=== PATIENT | female | born 1935 | race Caucasian/White ===

== ENCOUNTER → 2018-10-07 10:37 | Outpatient (CLI) | payer MEDICARE, OTHER, SELFPAY ==
--- NOTE | 2018-10-07 10:43 | RAD_ITS ---
STUDY: X-RAY - BILATERAL RIBS WITH CHEST REASON FOR EXAM: Female, 83 years old. Painful anterior chest following a recent fall. TECHNIQUE - RIBS: 4 view(s) of the ribs. TECHNIQUE - CHEST: Single PA view of the chest. COMPARISON: None. FINDINGS - RIBS : Normal visualized ribs without a demonstrated fracture. FINDINGS - CHEST: Hyperinflation. Mild increased linear markings at the lung bases slightly worse on the left side suggestive of bibasilar scarring and/or atelectasis. Surgical clips are seen in the right axillary region. Normal size heart. Normal mediastinum and laureano. Normal visualized pulmonary arteries. There is atherosclerotic calcification of the aortic arch with tortuosity. There is a levoscoliosis of the thoracic spine. There is degenerative osteoarthritis of the bilateral shoulders. There is no demonstrated abnormality of the visualized soft tissue structures of the upper abdomen. RAD/Ribs Carlos Min 4V w/PA Chest IMPRESSION: RIBS: Normal x-ray examination of the bilateral ribs. CHEST: Mild increased markings at the lung bases slightly worse on the left side suggestive of a linear atelectasis and/or scarring. Electronically Signed: Jeremy Carney MD at 12:43 EST Tel [phone], Service support ,
--- OUTSIDE RECORDS SUMMARY | 2018-12-09 13:30 | XMS RPT_ITS ---
:1935 Author Organization OHIP Care Team Providers Name Role Phone Sylvia Cuevas Attending Unavailable Sylvia Cuevas Referring Unavailable Sylvia Cuevas Primary Care Unavailable PROBLEMS PROBLEMS No Problem Records FoundPROCEDURES PROCEDURES No Procedure Records FoundRESULTS RESULTS RIBS HAIR MIN 4V Observed: 10/07/2018 Status: F Source: [place] W/PA CHEST 10:[address] [facility] REPOSITORY [facility] Imaging Services [address] [place] [address] Ribs Hair Min 4V w/PA Chest MR#: [id number] Acct: [id number] Name: LORENA ANSARI Rep #: [id number] : 1935 F 83 From: Jeremy Carney MD PCP: ySlvia Cuevas MD Status: REG CLI Study: Ribs Hair Min 4V w/PA Chest Date of Exam: 10/07/18 Exam# [id number] Ordering Dr: Sylvia Cuevas MD STUDY: X-RAY - BILATERAL RIBS WITH CHEST REASON FOR EXAM: Female, 83 years old. Painful anterior chest following a recent fall. TECHNIQUE - RIBS: 4 view(s) of the ribs. TECHNIQUE - CHEST: Single PA view of the chest. COMPARISON: None. FINDINGS - RIBS : Normal visualized ribs without a demonstrated fracture. FINDINGS - CHEST: Hyperinflation. Mild increased linear markings at the lung bases slightly worse on the left side suggestive of bibasilar scarring and/or atelectasis. Surgical clips are seen in the right axillary region. Normal size heart. Normal mediastinum and laureano. Normal visualized pulmonary arteries. There is atherosclerotic calcification of the aortic arch with tortuosity. There is a levoscoliosis of the thoracic spine. There is degenerative osteoarthritis of the bilateral shoulders. There is no demonstrated abnormality of the visualized soft tissue structures of the upper abdomen. RAD/Ribs Hair Min 4V w/PA Chest IMPRESSION: RIBS: Normal x-ray examination of the bilateral ribs. CHEST: Mild increased markings at the lung bases slightly worse on the left side suggestive of a linear atelectasis and/or scarring. Electronically Signed: Jeremy Carney MD at 12:43 EST Tel [phone], Service support , CC: Sylvia Cuevas MD [employer]: Signed ALLERGIES ALLERGIES DATE TYPE / CODE NAME / CODE REACTION SEVERITY SOURCE 07/21/2015 Drug No Known Unknown [place] [facility] Allergy/4160 Allergies/F00 [facility] [address]0496(SNOMED [id number](RXNOR Repository CT) M) ENCOUNTERS ENCOUNTERS ADMIT/DISCHARGE ACCOUNT ADMITTING ENCOUNTER LOCATION SOURCE NUMBER CLASS 10/07/2018 [id number] Ambulatory [place] [address] [place] [address] ing:MTRAD Repository PAYERS PAYERS ENCOUNTER GUARANTOR PAYER SUBSCRIBER SOURCE 10/07/2018 LORENA E Primary LORENA E [place] [id number] Insurance:MEDICARE PARKERDOB: [facility] [id number] Number: Repository [id number]: [phone] [id number] [phone] () Date:2018-10-07 10/07/2018 Secondary LORENA E [place] Insurance:EQUITABLEPo PARKERDOB: [facility] Number: [id number] [id number] Repository Date:[id number] [address]CZ: 10/07/2018 Tertiary NOT GIVENUNK [place] Insurance:SELF PAY [facility] Number: Effective Repository Date:2018-10-07
== END ==
PROVIDERS: Family Provider Family Medicine; PCP Family Medicine; Referring Provider Family Medicine; Visit Provider Family Medicine
DX: S20.219A Contusion of unspecified front wall of thorax, initial encounter (principal); X58.XXXA Exposure to other specified factors, initial encounter; Y93.9 Activity, unspecified; Y92.9 Unspecified place or not applicable; Y99.9 Unspecified external cause status
CPT/HCPCS: 71111

== ENCOUNTER → 2018-10-21 15:09 | Outpatient (CLI) | payer MEDICARE, OTHER, SELFPAY ==
--- NOTE | 2018-10-21 15:15 | RAD_ITS ---
STUDY: X-RAY - ABDOMEN/PELVIS REASON FOR EXAM: Female, 83 years old. Abdominal pain. TECHNIQUE: AP supine and upright views of the abdomen and pelvis. COMPARISON: None. FINDINGS: Normal visualized lung bases. There is an unremarkable bowel gas pattern. There is no demonstrated free abdominal air. Calcified splenic granuloma. Normal soft tissue structures. There are diffuse degenerative changes of the visualized lumbar spine. Dextroscoliosis. Right total hip replacement. RAD/Abd Inc Decub and/or Erect IMPRESSION: Unremarkable gas bowel pattern. Electronically Signed: Jeremy Carney MD at 15:35 EST , Service support ,
== END ==
PROVIDERS: Family Provider Family Medicine; PCP Family Medicine; Referring Provider Family Medicine; Visit Provider Family Medicine
DX: R10.9 Unspecified abdominal pain (principal)
CPT/HCPCS: 74019

== ENCOUNTER → 2018-10-22 14:45 | Outpatient (CLI) | payer MEDICARE, OTHER, SELFPAY ==
[2018-10-22 16:15] LABS: Absolute Lymphocyte Count 2.65 X10^3/ul (0.83-4.51); Absolute Neutrophil Count 7.9 X10^3/uL (2.0-7.7); Basophil# 0.03 X10^3/uL; Basophil% 0.2 % (0-1); Eosinophil# 0.12 X10^3/uL; Hematocrit 46.6 % (37-47); Hemoglobin 14.7 g/dl (12.0-15.0); Lymphocyte # 2.65 X10^3/ul (4.0); Lymphocyte % 21.9 % (19-41); Mean Corp Hgb Conc 31.5 g/gl (32-36); Mean Corpuscular Hgb 29.2 pg (27.0-32.0); Mean Corpuscular Volume 92.6 fL (81-99); Mean Platelet Vol. 9.9 fl (6.2-12.0); Monocyte# 1.35 X10^3/uL; Monocyte% 11.2 % (0-10); Neutrophil # 7.88 X10^3/uL (2.7-7.7); Neutrophil % 65.3 % (47-70); Platelet Count 336 K/mm3 (150-450); RBC Distribution Width CV 13.9 % (11.6-14.6); RBC Distribution Width SD 46.1 fl (35.1-43.9); Red Blood Count 5.03 M/mm3 (4.2-5.4); White Blood Count 12.1 K/mm3 (4.4-11.0)
[2018-10-22 16:21] LABS: Amylase 120 U/L (25-115); Lipase 295 U/L (73-393)
[2018-10-22 16:44] LABS: POSITIVE COUNT NO; POSITIVE DIFFERENTIAL NO; POSITIVE MORPHOLOGY NO
== END ==
PROVIDERS: Family Provider Family Medicine; PCP Family Medicine; Visit Provider Family Medicine
DX: R10.9 Unspecified abdominal pain (principal)
CPT/HCPCS: 36415; 82150; 83690; 85025

== ENCOUNTER → 2019-10-01 16:07 | Outpatient (CLI) | payer MEDICARE, SELFPAY ==
[2019-10-01 17:41] LABS: Absolute Lymphocyte Count 2.32 X10^3/uL (0.83-4.51); Absolute Neutrophil Count 5.9 X10^3/uL (2.0-7.7); Basophil# 0.04 X10^3/uL; Basophil% 0.4 % (0-1); Eosinophil# 0.17 X10^3/uL; Eosinophils% 1.8 % (0-5); Hematocrit 41.3 % (37-47); Hemoglobin 13.2 g/dL (12.0-15.0); Lymphocyte # 2.32 X10^3/ul (4.0); Lymphocyte % 24.4 % (19-41); Mean Corpuscular Hgb 30.1 pg (27.0-32.0); Mean Corpuscular Volume 94.3 fL (81-99); Monocyte# 1.06 X10^3/uL; Monocyte% 11.2 % (0-10); NRBC Flagged by Analyzer 0 % (0-5); Neutrophil # 5.86 X10^3/uL (2.7-7.7); Neutrophil % 61.7 % (47-70); Platelet Count 260 K/mm3 (150-450); RBC Distribution Width SD 48.6 fl (35.1-43.9); Red Blood Count 4.38 M/mm3 (4.2-5.4); White Blood Count 9.5 K/mm3 (4.4-11.0)
[2019-10-01 17:44] LABS: Erythrocyte Sedimentation Rate 8 mm/hr (0-30)
[2019-10-01 18:17] LABS: CRP < 2.90 mg/L (0.0-3.0)
== END ==
PROVIDERS: PCP Family Medicine; Referring Provider Physician Assistant; Visit Provider Physician Assistant
DX: Z96.641 Presence of right artificial hip joint (principal)
CPT/HCPCS: 36415; 85025; 85652; 86140

== ENCOUNTER 2021-10-13 12:01 | Inpatient (IN) | payer MEDICARE, SELFPAY ==
[2021-10-13] VITALS (10 sets, daily range): BP systolic 121–154; BP diastolic 85–104; PULSE 91–127; RESP 14–20; TEMP 36.7–37.1; O2SAT 94–100; BMI 28.9
--- NOTE | 2021-10-13 12:35 | EKG12_ITS ---
Test Reason : PALPITATIONS Blood Pressure : / mmHG Vent. Rate : 093 BPM Atrial Rate : 242 BPM P-R Int : 000 ms QRS Dur : 088 ms QT Int : 370 ms P-R-T Axes : 000 013 014 degrees QTc Int : 460 ms Atrial flutter with variable A-V block Low voltage QRS Nonspecific ST abnormality Abnormal ECG Confirmed by ANGIE CERON, SHANNON ([id number]), city editor ORMINA DURAN ([id number]) on 10/16/2021 10:28:38 AM Referred By: LESLIE Confirmed By:SHANNON ADAMS MD
--- NOTE | 2021-10-13 12:36 | EDS_ITS ---
HPI History of Present Illness Chief Complaint: Palpitations Informant: patient Narrative Narrative: Patient sent into the ED by her PCP Dr. Nance with whom I spoke with prior to her arrival. Patient seen in the office today for reported fatigue symptoms weakness occasional lightheaded symptoms.'s been going on since earlier this month. She had occasional headaches. Reports nonproductive cough. She is Covid vaccinated with the booster. She had a outpatient Covid test on the that was negative. In the office today she was found to be in atrial flutter rate in 130s. She has no history of this. Patient states she does not take any current medications. Medical history is rheumatoid arthritis. Denies any chest pains. Denies urinary symptoms. Denies vomiting or diarrhea. Patient has not had Covid infection in the past. Prior similar symptoms: No PFSH PFSH Medical History Atrial fibrillation Former smoker Hx of cancer of lung Kidney stones Osteoporosis Rheumatoid arthritis Home Medications diphenhydramine-acetaminophen [Acetaminophen PM] 2 tab PO QHS PRN 10/13/21 [History Last Taken 10/12/21] Allergy/AdvReac Type Severity Reaction Status Date / Time No Known Allergies Allergy Verified 10/13/21 12:02 Family History Mother Abdominal aneurysm Father Cancer Lung Surgical History H/O hernia repair History of kidney surgery History of left knee replacement History of right hip replacement Hx of hysterectomy S/P partial lobectomy of lung Social History Smoking Status: Former smoker quit date: 09/16/85 alcohol intake: current alcohol intake frequency: holidays/special occasions only substance use type: does not use ROS ROS ED Constitutional Constitutional ED: Denies chills, fever(s) or sweats Eyes Eyes: Denies change in vision ENT ENT ED: Denies dysphagia or sore throat Cardiovascular Cardiovascular: Denies chest pain, leg edema, palpitations or racing heartbeat Respiratory/Chest Respiratory/Chest: Reports cough and dyspnea; Denies dyspnea on exertion Gastrointestinal Gastrointestinal: Denies abdominal pain, diarrhea, nausea or vomiting Genitourinary Genitourinary ED: Denies dysuria, hematuria or urinary frequency Musculoskeletal Musculoskeletal: Denies back pain, extremity pain or neck pain Integumentary Denies rash or wounds Neurologic Neurologic: Reports headache(s) and weakness; Denies paresthesias EXAM Physical Exam Const Vital Signs: 10/13/21 12:03 10/13/21 12:12 10/13/21 13:35 Temperature 98.8 F Temperature Source Temporal Pulse Rate 127 H 127 H 123 H Respiratory Rate 16 14 17 Respiratory Effort Normal Respiratory Pattern Normal Blood Pressure 154/99 H 154/99 H 121/91 H Blood Pressure Mean 117 117 101 Pulse Ox 95 95 94 Oxygen Delivery Method Room Air Room Air Room Air Oxygen Flow Rate (L/min) 10/13/21 13:43 10/13/21 15:14 Temperature Temperature Source Pulse Rate 121 H 102 H Respiratory Rate 20 H 20 H Respiratory Effort Respiratory Pattern Blood Pressure 121/87 H 124/101 H Blood Pressure Mean 98 108 Pulse Ox 97 99 Oxygen Delivery Method Nasal Cannula Room Air Oxygen Flow Rate (L/min) 2 Positive well nourished and well developed General Appearance ED: well developed and NAD HEENT Reports moist mucous membranes normocephalic and atraumatic Eyes PERRL, EOMs intact bilaterally and conjunctivae normal General Eye ED: Yes normal appearance of both eyes Neck no lymphadenopathy and supple Neck Narrative: No meningismus General: Negative for tenderness Chest Wall Chest: Negative for tenderness Resp normal respiratory effort and normal air movement Effort and Inspection: symmetric chest movement; Negative for respiratory distress Cardio regular rhythm and no murmurs Rate: tachycardic Peripheral Pulses: pulses 2+ throughout GI normal to inspection, nondistended, normoactive bowel sounds and non-tender Palpation: Negative for guarding or rebound tenderness present Back/Spine no CVA tenderness and no thoracic nor lumbar tenderness Extremity normal to inspection General Extremety ED: Negative for edema or tenderness General Extremity: Negative for edema Neuro oriented x3, CN's II-XII intact bilaterally and no sensory deficits noted Sensorium / Orientation: awake and alert Skin no rashes or lesions noted and no wounds MDM MDM MDM Narrative Medical decision making narrative: Patient concerning atrial flutter on EKG. She is given Lopressor 5 mg IV x3 labs were obtained electrolytes all normal tro ponin negative. TSH normal. Chest x-ray read by myself per radiology increased lung markings left side with blunting, atelectasis versus questionable infiltrates. Reports a nonproductive cough white count of 8.5. Covid testing returned negative. Lower suspicion for pneumonia. Did attempt IV fluids after Lopressor due to heart rate maintaining at 120s, fluids transiently taken down to 100s however back up to 120s. She is given IV Cardizem 10 mg, heart rate down to the 80s and 90s repeat EKG shows the atrial flutter. Blood pressure stable systolic 120s will give oral Cardizem 60 mg short acting. [id number] score is a 3. I spoke with hospitalist Dr. Vega for admission. We will start Lovenox. Will admit to PCU. Patient updated. Lab Data Attestation: I reviewed the patient's lab results. Labs: Laboratory Results - last 24 hr 10/13/21 10/13/21 10/13/21 12:52 12:52 12:52 WBC 8.5 RBC 3.99 L Hgb 11.8 L Hct 37.8 MCV 94.7 MCH 29.6 MCHC 31.2 L RDW Std Deviation 50.0 H RDW Coeff of Dionisio 14.6 Plt Count 314 MPV 10.2 Immature Gran % (Auto) 0.500 Neut % (Auto) 63.9 Lymph % (Auto) 22.3 [place] % (Auto) 10.6 H Eos % (Auto) 2.1 Baso % (Auto) 0.6 Absolute Neuts (auto) 5.4 Absolute Lymphs (auto) 1.90 Nucleated RBC % 0 PT 13.3 INR 1.1 APTT 28.7 Sodium 141 Potassium 4.1 Chloride 112 H Carbon Dioxide 23.0 Anion Gap 6 BUN 21 H Creatinine 1.08 H Estim Creat Clear Calc 34.36 Est GFR (MDRD) Af Amer 62 Est GFR (MDRD) Non-Af 51 L BUN/Creatinine Ratio 19.4 Glucose 90 Calcium 9.2 Magnesium 2.8 H Troponin I High Sens 15 B-Natriuretic Peptide TSH 3.02 10/13/21 12:52 WBC RBC Hgb Hct MCV MCH MCHC RDW Std Deviation RDW Coeff of Dionisio Plt Count MPV Immature Gran % (Auto) Neut % (Auto) Lymph % (Auto) [place] % (Auto) Eos % (Auto) Baso % (Auto) Absolute Neuts (auto) Absolute Lymphs (auto) Nucleated RBC % PT INR APTT Sodium Potassium Chloride Carbon Dioxide Anion Gap BUN Creatinine Estim Creat Clear Calc Est GFR (MDRD) Af Amer Est GFR (MDRD) Non-Af BUN/Creatinine Ratio Glucose Calcium Magnesium Troponin I High Sens B-Natriuretic Peptide 859.9 H TSH Radiography Chest X-Ray - ED: 1 View, Read by ED Physician and Read by Radiologist Diagnostic Testing: Clinical Impression(s) from Imaging Studies Chest X-Ray 10/13/21 13:20 IMPRESSION: Increased markings at both lung bases slightly worse on the left side with blunting of both cause phrenic angles. This may represent either atelectasis and/or early infiltrates. Follow-up is recommended. Electronically Signed: Jeremy Carney MD at 13:50 EST , EKG Initial EKG: Attestation: I personally reviewed and interpreted this EKG as follows: Comments: Reporting accelerated junctional rhythm 126, however concerns for 2-1 atrial flutter, no ST or T wave changes. Follow-up EKG: Attestation: I personally reviewed and interpreted this EKG as follows: Comments: Atrial flutter rate of 93, no ST or T wave changes. Discharge Plan Dx/Rx/DC Orders Clinical Impression: Atrial flutter by electrocardiogram Disposition Disposition: Acute Care Hospital [facility] Discharge Date/Time: 10/13/21 17:51
[2021-10-13] MEDS: Metoprolol Tartrate 5 MG/5 ML Vial IV ×3 (12:54→13:43)
[2021-10-13 13:13] LABS: International Normalized Ratio 1.1; Prothrombin Time (Protime)PT. 13.3 SECONDS (11.7-14.9)
[2021-10-13 13:19] LABS: Partial Thromboplast Time 28.7 Seconds (24.1-36.2)
--- NOTE | 2021-10-13 13:20 | RAD_ITS ---
STUDY: X-RAY CHEST REASON FOR EXAM: Female, 86 years old. Cough . Shortness of breath. Atrial fibrillation. TECHNIQUE: Single AP portable view of the chest. COMPARISON: None. FINDINGS: EKG electrodes are seen. Blunting of both costophrenic angles with increased markings at the lung bases slightly worse on the left side. This is suggestive of either bibasilar atelectasis and/or early infiltrates. Surgical clips are seen overlying the right hilar region. Normal size heart. Normal mediastinum and laureano. Normal visualized pulmonary arteries. There is atherosclerotic calcification of the aortic arch with tortuosity. There are diffuse degenerative changes of the visualized thoracic spine. There is degenerative osteoarthritis of the bilateral shoulders. There is no demonstrated abnormality of the visualized soft tissue structures of the upper abdomen. RAD/Chest 1 View (Portable) IMPRESSION: Increased markings at both lung bases slightly worse on the left side with blunting of both cause phrenic angles. This may represent either atelectasis and/or early infiltrates. Follow-up is recommended. Electronically Signed: Jeremy Carney MD at 13:50 EST ,
[2021-10-13 13:23] LABS: Anion Gap 6 (5-15); BUN 21 mg/dL (7-18); BUN/Creat Ratio 19.4 RATIO (10-20); Calcium,Total 9.2 mg/dL (8.5-10.1); Chloride 112 mmol/L (98-107); Creatinine, Serum 1.08 mg/dL (0.55-1.02); EST Glomerular Filtration Rate 51 mL/min (>60); Est Glom Filt Rate - Afr Amer 62 mL/min (>60); Estimated Creatinine Clearance 34.36 ml/min; Glucose 90 mg/dL (74-106); Magnesium 2.8 mg/dL (1.6-2.6); Potassium 4.1 mmol/L (3.5-5.1); Sodium Level 141 mmol/L (136-145); Thyroid Stim Hormone (TSH) 3.02 uIU/mL (0.358-3.74); Troponin-I HS 15 pg/mL (3.0-54.0)
[2021-10-13 14:37] LABS: Absolute Neutrophil Count 5.4 X10^3/uL (2.0-7.7); Basophil# 0.05 X10^3/uL; Basophil% 0.6 % (0-1); Eosinophil# 0.18 X10^3/uL; Eosinophils% 2.1 % (0-5); Hematocrit 37.8 % (37-47); Hemoglobin 11.8 g/dL (12.0-15.0); Lymphocyte % 22.3 % (19-41); Mean Corp Hgb Conc 31.2 g/dL (32-36); Mean Corpuscular Hgb 29.6 pg (27.0-32.0); Mean Corpuscular Volume 94.7 fL (81-99); Mean Platelet Vol. 10.2 fl (6.2-12.0); Monocyte% 10.6 % (0-10); NRBC Flagged by Analyzer 0 % (0-5); Neutrophil # 5.44 X10^3/uL (2.7-7.7); Neutrophil % 63.9 % (47-70); Platelet Count 314 K/mm3 (150-450); RBC Distribution Width CV 14.6 % (11.6-14.6); Red Blood Count 3.99 M/mm3 (4.2-5.4); White Blood Count 8.5 K/mm3 (4.4-11.0)
[2021-10-13] MEDS: 0.9% Normal Saline 1,000 ML 999 ML IV (14:37)
[2021-10-13] MEDS: dilTIAZem 25 MG/5 ML Vial 10 MG IV BOLUS (16:06)
--- NOTE | 2021-10-13 16:16 | EKG12_ITS ---
Test Reason : PALP Blood Pressure : / mmHG Vent. Rate : 126 BPM Atrial Rate : 125 BPM P-R Int : 000 ms QRS Dur : 088 ms QT Int : 306 ms P-R-T Axes : 000 020 -87 degrees QTc Int : 443 ms Atrial fibrillation Low voltage QRS ST & T wave abnormality, consider inferolateral ischemia Abnormal ECG Confirmed by ANGIE CERON, SHANNON ([id number]), news video editor ROMINA DURAN ([id number]) on 10/16/2021 10:30:55 AM Referred By: TL Confirmed By:SHANNON ADAMS MD
[2021-10-13] MEDS: Enoxaparin 100 MG/ML Syringe 90 MG SC (16:38)
--- NOTE | 2021-10-13 16:38 | NURSING ---
PCJasmin BEAR [employer]NS[employer] ATRIAL FLUTTER
--- NOTE | 2021-10-13 16:55 | CASEMGMT ---
JOAQUIN CM to room to meet with patient for initial transition planning/care coordination assessment. JOAQUIN OLIVIER introduced self and role at [facility]. Patient voices understanding and consents to assessment at this time. Patient is alert and oriented, sitting up on ER cart on 2L O2, in no apparent distress and answers all questions appropriately. Care providers, pharmacy, and demographics verified/updated at this time. PCP: Sylvia Cuevas Specialists: [place]- ortho, [place]- gastro (Previously treated by Dr. Hendricks but reports quit seeing and stopped all prescribed medications in 2016) Preferred Pharmacy: [facility] Insurance: [facility] Prescription Benefit: yes Living Will/HPOA: Patient has a living will on file at [facility]. Patient reports HPOA is raul Powell. Patient made aware HPOA form is not on file at [facility] and may be brought in to be scanned into record. LNOK: Raul Powell Living Arrangements: Patient lives alone in one story house with 2 steps to enter the home with a handrail. Patient states independent with ADLs prior to hospitalization. Smoking/ETOH: Former smoker (quit 1985), occasional ETOH use Transportation: Patient drives self and denies transportation concerns. DME/HHC/SNF: Patient typically ambulates independently without the use of an assistive device. Available DME in home: shower chair, grab bars, raised toilet seat, walker and cane. Patient does not wear home oxygen. Denies previous HHC or SNF stays. Patient has no concerns with going home at time of discharge. CM to follow for any discharge planning/needs, new anticoagulant therapy. Patient voices no concerns/needs at this time. Advised patient to ask for CM if any questions/concerns/needs arise. Voices understanding. Plan: home
--- NOTE | 2021-10-13 16:58 | PCM.HP.STD ---
Documented by User: Melanie Golden NP, OPERATING ROOM AIDE-C 10/13/21 17:13 HPI - General General Date of Admission: 10/13/21 HPI Narrative RUTH ANN MUKHERJEE, is a 86 F who presents to the emergency room due to shortness of breath. Patient reports she has had dyspnea on exertion for some time now however over the past month her symptoms have worsened. She states she has been trying to put away [place] decorations and cannot walk up her basement steps without stopping due to shortness of breath and chest pressure. She states her symptoms improve with rest. She denies cardiac history. Patient admits she has been ignoring her symptoms for some time. She states her friend convinced her to see a doctor. She went to her primary care provider today and they sent her to the emergency room due to abnormal EKG. She reports some nasal congestion. Denies other URI symptoms. Reports mild lower extremity swelling. Denies known weight gain. She denies palpitations, syncope. [facility] Medical History Atrial fibrillation Former smoker Hx of cancer of lung Kidney stones Osteoporosis Rheumatoid arthritis Home Medications diphenhydramine-acetaminophen [Acetaminophen PM] 2 tab PO QHS PRN 10/13/21 [History Last Taken 10/12/21] Allergy/AdvReac Type Severity Reaction Status Date / Time No Known Allergies Allergy Verified 10/13/21 12:02 Family History Mother Abdominal aneurysm Father Cancer Lung Surgical History H/O hernia repair History of kidney surgery History of left knee replacement History of right hip replacement Hx of hysterectomy S/P partial lobectomy of lung Social History Smoking Status: Former smoker quit date: 09/16/85 alcohol intake: current alcohol intake frequency: holidays/special occasions only substance use type: does not use ROS Constitutional Constitutional: Denies change in weight, chills, fatigue, fever(s) or weakness Cardiovascular Cardiovascular: Reports chest pain; Denies edema, lightheadedness, palpitations or syncope Respiratory/Chest Respiratory/Chest: Reports dyspnea and shortness of breath with exertion; Denies cough, productive cough, shortness of breath at rest or wheezing Gastrointestinal Gastrointestinal: Denies abdominal pain, constipation, diarrhea, nausea or vomiting Genitourinary Genitourinary: Denies burning urination, difficulty urinating, dysuria, hematuria, urinary frequency, urinary incontinence or urinary urgency Musculoskeletal Musculoskeletal: Denies back pain, joint pain or muscle weakness Integumentary Integumentary: Denies erythema, lesions, rash or wounds Neurologic Neurologic: Denies abnormal speech, confusion, dizziness, focal weakness, numbness, paresthesias, seizure-like activity or syncope Psychiatric Psychiatric: Denies anxiety or depression Hematologic/Lymphatic Hematologic/Lymphatic: Denies anemia, easy bleeding or easy bruising Allergic/Immunologic Allergic/Immunologic: Denies hives or asthma Vital Signs Vital Signs Vital Signs: 10/13/21 12:03 10/13/21 12:12 10/13/21 13:35 Temperature 98.8 F Temperature Source Temporal Pulse Rate 127 H 127 H 123 H Respiratory Rate 16 14 17 Respiratory Effort Normal Respiratory Pattern Normal Blood Pressure 154/99 H 154/99 H 121/91 H Blood Pressure Mean 117 117 101 Pulse Ox 95 95 94 Oxygen Delivery Method Room Air Room Air Room Air Oxygen Flow Rate (L/min) 10/13/21 13:43 10/13/21 15:14 Temperature Temperature Source Pulse Rate 121 H 102 H Respiratory Rate 20 H 20 H Respiratory Effort Respiratory Pattern Blood Pressure 121/87 H 124/101 H Blood Pressure Mean 98 108 Pulse Ox 97 99 Oxygen Delivery Method Nasal Cannula Room Air Oxygen Flow Rate (L/min) 2 Weight Weight: 179 lb 3.773 oz Body Mass Index (BMI) 28.9 Physical Exam Const alert, oriented x3 and no apparent distress Orientation / Consciousness: awake, oriented to person, oriented to place and oriented to time HEENT normocephalic and moist oral mucous membranes Eyes PERRL, EOMs intact bilaterally and conjunctivae normal Neck no lymphadenopathy Resp Auscultation: crackles bilateral throughout (Fine/Faint) and diminished lung sounds Cardio Cardio Narrative: Atrial flutter Peripheral Pulses: pulses 2+ throughout GI normal to inspection, nondistended, normoactive bowel sounds, non-tender and non-distended Extremity normal to inspection General Extremity: edema bilateral lower extremity Details: trace Skin no rashes or lesions noted Lesions: no lesions Rashes: no rashes Trauma: no lacerations or abrasions Neuro CN's II-XII intact bilaterally, no focal motor deficits, no sensory deficits noted and deep tendon reflexes 2+ bilaterally Psych mental status grossly normal and affect normal Results Lab / Micro Data Result Diagrams: 10/13/21 12:52 10/13/21 12:52 Labs: Laboratory Results - last 24 hr 10/13/21 12:52: PT 13.3, INR 1.1, APTT 28.7 10/13/21 12:52: Sodium 141, Potassium 4.1, Chloride 112 H, Carbon Dioxide 23.0, Anion Gap 6, BUN 21 H, Creatinine 1.08 H, Estim Creat Clear Calc 34.36, Est GFR (MDRD) Af Amer 62, Est GFR (MDRD) Non-Af 51 L, BUN/Creatinine Ratio 19.4, Glucose 90, Calcium 9.2, Magnesium 2.8 H, Troponin I High Sens 15, TSH 3.02 10/13/21 12:52: WBC 8.5, RBC 3.99 L, Hgb 11.8 L, Hct 37.8, MCV 94.7, MCH 29.6, MCHC 31.2 L, RDW Std Deviation 50.0 H, RDW Coeff of Dionisio 14.6, Plt Count 314, MPV 10.2, Immature Gran % (Auto) 0.500, Neut % (Auto) 63.9, Lymph % (Auto) 22.3, Perkins % (Auto) 10.6 H, Eos % (Auto) 2.1, Baso % (Auto) 0.6, Absolute Neuts (auto) 5.4, Absolute Lymphs (auto) 1.90, Nucleated RBC % 0 Micro: Microbiology 10/13/21 13:00 Nasal Secretion SARS-CoV-2 Antigen (Rapid) - Final Radiology Impression Chest X-Ray 10/13/21 13:20 IMPRESSION: Increased markings at both lung bases slightly worse on the left side with blunting of both cause phrenic angles. This may represent either atelectasis and/or early infiltrates. Follow-up is recommended. Electronically Signed: Jeremy Carney MD at 13:50 EST , Assessment & Plan Assessment/Plan (1) Atrial flutter by electrocardiogram: PLAN: 1. New onset atrial flutter-patient given IV metoprolol and Cardizem bolus in ER. Rate improved. TSH, mag normal. Trend enzymes. Obtain BNP. Obtain echo. Cardiology consulted. Scheduled oral Cardizem. 2. Dyspnea on exertion-concern for underlying CAD given patient history with recent worsening of dyspnea on exertion and chest pressure. Cardiology consulted as noted above. Daily aspirin. 3. Mild renal insufficiency-gently hydrate, trend BMP. 4. Rheumatoid arthritis-on as needed Tylenol only. DVT prophylaxis-Lovenox subcu Code status: Discussed in length with patient including differences between full code, DNR CCA and DNR CC. Patient elects DNR CCA no intubation. Vaccination status: Fully vaccinated with booster/Moderna. Rapid covid negative on admission. This patient was seen by Melanie Golden NP-C under the supervision of Dr. Vega. Documented by User: Dr. Mikayla Vega DO 10/13/21 18:44 HPI - General General Date of Admission: 10/13/21 Date of Service: 10/13/21 Chief Complaint: Shortness of breath HPI Narrative This patient was seen in conjunction with Melanie Golden NP. The following is a representation my independent history and physical examination. Please see below for addendum the above. Mrs. Mukherjee is an 86-year-old female presents emergency department was coming hospital on 10/13/2021 with a chief complaint of shortness of breath. She states that been ongoing however she has been noticing it more. She also complains of some chest tightness with exertion as well as worsening shortness of breath with exertion. She admits that it has been ongoing for some time but was finally convinced by a friend to see her doctor. She went to her primary care provider today and they sent her to the emergency department given an abnormal EKG showing atrial flutter. She admits to some mild increased lower extremity swelling and states that over the last 2 years she has gained about 20 pounds. She denies any sensations of palpitations, presyncope, or syncopal episodes. On presentation she was found to have a heart rate of approximately 127 at which time she was given 5 mg of metoprolol and this was dosed 3 times without any improvement. She was therefore given 10 mg of Cardizem and this decreased her heart rate into the upper 90s to low 100s. She was therefore given 60 mg of oral Cardizem by the emergency department physician and request for admission was made. She was also dosed with Lovenox weight-based for CHADS2 score of 3. The rest of her vital signs were fairly unremarkable other than mildly elevated blood pressure. Her sats were 95 to 99% on room air. Her CBC shows a mild anemia with a hemoglobin of 11.8. This is normocytic. Her coags are normal. Her BMP shows normal electrolytes and a mildly elevated BUN and creatinine but this appears to be close to her baseline. A BNP was obtained and found to be 859.9. We obtained a high-sensitivity troponin was 15 and a TSH was 3.02. Her chest x-ray showed increased markings in both lung bases slightly worse on the left with blunting at both costophrenic angles. Her EKG shows atrial flutter but no ST-T wave changes were noted. [facility] Medical History Atrial fibrillation Former smoker Hx of cancer of lung Kidney stones Osteoporosis Rheumatoid arthritis Home Medications diphenhydramine-acetaminophen [Acetaminophen PM] 2 tab PO QHS PRN 10/13/21 [History Last Taken 10/12/21] Allergy/AdvReac Type Severity Reaction Status Date / Time No Known Allergies Allergy Verified 10/13/21 12:02 Family History Mother Abdominal aneurysm Father Cancer Lung Surgical History H/O hernia repair History of kidney surgery History of left knee replacement History of right hip replacement Hx of hysterectomy S/P partial lobectomy of lung Social History Smoking Status: Former smoker quit date: 09/16/85 alcohol intake: current alcohol intake frequency: holidays/special occasions only substance use type: does not use ROS Constitutional Constitutional: Reports change in weight and fatigue; Denies anorexia, chills, fever(s), malaise, night sweats, weakness or other Eyes Eyes: Denies blurry vision, change in eye color, change in vision, discharge from eye(s), double vision, erythema, eye pain, loss of vision or other ENT HEENT: Reports nasal discharge; Denies abnormal hearing, dysphagia, ear pain, epistaxis, headache(s), hearing loss, nasal congestion, post nasal drip, sinus pressure, sore throat or other Cardiovascular Cardiovascular: Reports chest pain, dyspnea on exertion and edema; Denies claudication, lightheadedness, orthopnea, palpitations, paroxysmal nocturnal dyspnea, rapid heart rate, syncope or other Respiratory/Chest Respiratory/Chest: Reports dyspnea, shortness of breath at rest and shortness of breath with exertion; Denies cough, excessive phlegm production, hemoptysis, productive cough, wheezing or other Gastrointestinal Gastrointestinal: Denies abdominal pain, coffee ground emesis, constipation, diarrhea, dyspepsia, hematemesis, hematochezia, loose stools, melena, nausea, vomiting or other Genitourinary Genitourinary: Reports urinary incontinence; Denies burning urination, difficulty urinating, dysuria, hematuria, nocturia, urinary frequency, urinary hesitancy, urinary urgency or other Musculoskeletal Musculoskeletal: Reports joint pain and joint stiffness; Denies arthralgias, back pain, joint swelling, myalgias, neck pain or other Neurologic Neurologic: Denies abnormal gait, abnormal speech, confusion, disequilibrium, dizziness, focal weakness, headache(s), numbness, paresthesias, seizure-like activity, seizures, syncope, tingling, tremor(s) or other Psychiatric Psychiatric: Denies anxiety, depression, homicidal ideation, suicidal ideation or other Endocrine Endocrinology: Denies change in body appearance, cold intolerance, excessive sweating, heat intolerance, polydipsia, polyuria or other Hematologic/Lymphatic Hematologic/Lymphatic: Denies anemia, easy bleeding, easy bruising, lymphadenopathy or other Allergic/Immunologic Allergic/Immunologic: Denies rhinitis, hives, eczemia, asthma or other Physical Exam Const alert, oriented x3, no apparent distress, healthy appearing and well nourished Constitutional Narrative: Overweight elderly white female sitting in bed, appears comfortable, slightly dyspneic with conversation and at rest, nontoxic however General Appearance: cooperative HEENT normocephalic, head/scalp atraumatic, moist oral mucous membranes and oropharynx normal HEENT Narrative: Mild hard of hearing, dentures in place, Mallampati 2, no thrush Mouth: oral and palatal mucosa normal Eyes PERRL, EOMs intact bilaterally and conjunctivae normal Eyes Narrative: No scleral icterus Neck no lymphadenopathy, supple and no carotid bruits Neck Narrative: Positive JVD, no thyroid enlargement, trachea midline Resp no retractions and no use of accessory muscles Resp Narrative: Crackles at bilateral bases, tachypnea, dyspnea at rest and with conversation Auscultation: crackles; Negative for rhonchi or wheezes Cardio S1 normal heart sound, S2 normal heart sound, no murmurs, no rub, no gallops, no clicks and no JVD Cardio Narrative: Mildly tachycardic, irregular GI normal to inspection, nondistended, normoactive bowel sounds, soft to palpation, non-tender and non-distended Extremity Extremity Narrative: Trace to 1+ bilateral lower extremity pitting edema, no cyanosis or clubbing Peripheral Pulses: Yes pulses 2+ throughout Skin no rashes or lesions noted, no wounds, skin turgor normal, no jaundice, no petechiae and no mottling Neuro oriented x3, CN's II-XII intact bilaterally, moves all extremities and no focal motor deficits Neuro Narrative: Mild generalized weakness-proximal greater than distal Sensorium / Orientation: awake and alert Speech: speech normal Psych affect normal Results Lab / Micro Data Result Diagrams: 10/13/21 12:52 10/13/21 12:52 Assessment & Plan Assessment/Plan (1) New onset atrial flutter: (2) Chest pain: (3) CHF exacerbation: PLAN: Assessment: New onset atrial flutter/fibrillation Acute decompensated CHF--> type unknown Chest pain Dyspnea History of rheumatoid arthritis Plan: -Admit to telemetry -We will continue Cardizem and p.o. form since this was initiated the emergency department at 30 mg every 6 hours -The need to initiate drip if heart rate remains elevated greater than 110 -Start subcu Lovenox 80 mg subcu twice daily -Dose was given in the ED -Lasix 20 mg IV push twice daily -Echocardiogram -Her chest pain symptoms she describes as chest pressure that were worsened with exertion--> this could be due to her A. fib with RVR but I am concerned that she could have some ischemia as well -Consult cardiology for evaluation and consideration for heart catheterization--> Dr. Robertson was notified -States she would be willing to go for heart catheterization -She is highly functional at baseline -Cycle cardiac enzymes -Check lipid profile -PT/OT consultation -TSH is within normal limits Charges/Coding Visit Charges Inpatient E&M: 64037 Init Hosp L3
[2021-10-13] MEDS: dilTIAZem 60 MG Tablet PO (17:31)
[2021-10-13 18:10] LABS: BNP,B-Type NATRIURETIC PEPTIDE 859.9 pg/mL (0-100)
[2021-10-13] MEDS: Furosemide 20 MG/2 ML VIAL IV (19:01)
[2021-10-13 19:58] LABS: Cholesterol 165 mg/dL (200); High Density Lipoprotein 41 mg/dL; Triglycerides 77 mg/dL; Troponin-I HS 19 pg/mL (3.0-54.0); Very Low Density Lipoprotein 15 mg/dL (5-40)
[2021-10-13] MEDS: dilTIAZem 30 MG Tablet PO (22:58)
[2021-10-14] MEDS: dilTIAZem 30 MG Tablet PO (05:40)
--- NOTE | 2021-10-14 05:55 | ECHOD_ITS ---
Reason For Study: A FIB Procedure This was a 2D Doppler, Color Flow transthoracic echocardiogram. Exam performed portable in patient room. Left Ventricle The estimated ejection fraction is 65 %. Diastolic function is indeterminate. No regional wall motion abnormalities noted. Right Ventricle Normal RV size. Normal systolic function. Atria The left atrium is moderately enlarged. The right atrium is moderately enlarged. No doppler evidence for ASD. Mitral Valve There is no mitral valve stenosis. Mild (1+) mitral valve insufficiency. Tricuspid Valve There is no tricuspid stenosis. Trivial tricuspid valve insufficiency. Pulmonary artery systolic pressure is 45 mmHg. Aortic Valve Trisinus/trileaflet aortic valve. There is no aortic stenosis. No aortic valve insufficiency. Pulmonic Valve There is no pulmonic valvular stenosis. Trivial pulmonic valve insufficiency. Great Vessels Normal aortic root. Pericardium/Pleural No pericardial effusion. MMode/2D Measurements & Calculations LVIDd: 4.2 cm IVSd: 1.1 cm LVOT diam: 2.2 cm LVIDs: 2.8 cm LVPWd: 1.2 cm LVOT area: 3.8 cm2 RVDd: 3.4 cm FS: 34.0 % Ao root diam: 3.5 cm LAV(MOD-bp): 67.8 ml LVAd ap4: 19.6 cm2 LAV(MOD-bp) Indexed: 36.1 ml/m2 LVLd ap4: 6.3 cm LAV(MOD-sp2): 49.6 ml EDV(MOD-sp4): 51.1 ml LAV(MOD-sp4): 76.4 ml EDV(sp4-el): 51.7 ml LVAs ap4: 10.7 cm2 LVLs ap4: 5.5 cm ESV(MOD-sp4): 19.8 ml ESV(sp4-el): 17.6 ml EF(MOD-sp4): 61.3 % EF(sp4-el): 65.9 % LVAd ap2: 16.6 cm2 SV(MOD-sp4): 31.3 ml SV(MOD-sp2): 24.9 ml LVLd ap2: 6.0 cm EDV(MOD-sp2): 38.9 ml EDV(sp2-el): 39.4 ml LVAs ap2: 9.1 cm2 LVLs ap2: 5.3 cm ESV(MOD-sp2): 13.9 ml ESV(sp2-el): 13.2 ml EF(MOD-sp2): 64.2 % SV(sp4-el): 34.1 ml LA dimension(2D): 4.8 cm LA A4 area: 25.2 cm2 RA A4 area: 20.5 cm2 Doppler Measurements & Calculations MV E max esequiel: 96.5 cm/sec Ao V2 max: 174.1 cm/sec LV V1 max: 98.6 cm/sec Ao max P.1 mmHg LV V1 max P.9 mmHg BETTY(V,D): 2.2 cm2 PA V2 max: 74.0 cm/sec TR max esequiel: 285.5 cm/sec TR max P.7 mmHg ECHO/Echo Complete Interpretation Summary The estimated ejection fraction is 65 %. Diastolic function is indeterminate. The left atrium is moderately enlarged. The right atrium is moderately enlarged. Mild (1+) mitral valve insufficiency. Ordering Physician: Mikayla Vega Referring Physician: Sylvia Cuevas M.D. Performed By: Nicol Dennis RDCS
[2021-10-14] MEDS: Furosemide 20 MG/2 ML VIAL IV (09:55)
[2021-10-14] MEDS: Furosemide 20 MG Tablet (09:55)
[2021-10-14] MEDS: Aspirin 81 MG TAB.CHEW PO (09:55)
--- NOTE | 2021-10-14 13:01 | PN_ITS ---
DATE OF SERVICE 10/14/2021 SUBJECTIVE The patient is a 86-year-old female admitted with shortness of breath, dyspnea on exertion progressively worsening for 1 month. She also having intermittent chest pressure felt like elephant on the chest on exertion mainly on climbing stairs. Last time she felt chest pressure yesterday localized midsternal without radiation history with shortness of breath she was found to have atrial flutter with variable AV block, heart rate in 120s. Currently heart rate is controlled on Cardizem 30 mg p.o. every 6 hours anesthesia on Lovenox therapeutic dose. OBJECTIVE General: Alert, Oriented x3, Cooperative HEENT: Atraumatic, PERRLA, EOMI, Normocephalic Oral: No Gingival or Mucosal Lesions/ Ulcerations Neck: Supple, No JVD, Negative Carotid Bruits Lungs: Air entry diminished in bilateral lung bases. No crepitation/rhonchi Cardiovascular: Irregular rate and rhythm, Normal S1, Normal S2, No murmurs Abdomen: Bowel Sounds Present, Soft, Non Tender, Non-Distended : No renal angle tenderness. No suprapubic tenderness. Extremities: Minimal bilateral ankle edema, Capillary Refill Less than 3 Seconds Skin: No rashes, No breakdown Musculoskeletal: No Tenderness to Palpation of Joints or Extremities Neurological: Cranial nerves II-XII grossly intact, DTR 2+/4 and Symmetrical, Neuro grossly intact Psych/Mental Status: Normal Affect, Appropriate. ASSESSMENT/PLAN 1. New onset atrial flutter/fibrillation with variable rate: Patient is being admitted in the PCU. 2D echo ordered. Patient is still in A. fib heart rate 110sStarted on Cardizem 30 mg every 6 hourly and increase to 60 mg every 6 hourly. Convert Lovenox to Eliquis 5 mg p.o. twice daily. Discussed with head sampler who saw the patient. Twelve-lead EKG shows atrial flutter with variable rate. Low-voltage QRS. Nonspecific ST-T changes. QTc 460 ms. 2. Atypical chest pain/pressure. Serial isolated troponins are negative. TSH and magnesium normal. CMP reviewed. Serum magnesium and phosphorus normal. PT and OT. Check lipid profile in a.m. TSH normal. 3. 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 5. Former smoker quit in 1985 Billing charge [id number]
[2021-10-14 19:08] LABS: ALB/GLOB Ratio 0.8 RATIO (0.9-2.4); AST(SGOT) 28 U/L (15-37); Alanine Aminotransfer ALT/SGPT 22 U/L (13-56); Albumin, Serum 3.2 g/dL (3.2-5.0); Alkaline Phosphatase 81 U/L (45-117); Anion Gap 7 (5-15); BUN 17 mg/dL (7-18); BUN/Creat Ratio 19.2 RATIO (10-20); Calcium,Total 8.5 mg/dL (8.5-10.1); Chloride 111 mmol/L (98-107); Creatinine, Serum 0.89 mg/dL (0.55-1.02); EST Glomerular Filtration Rate 64 mL/min (>60); Est Glom Filt Rate - Afr Amer 78 mL/min (>60); Estimated Creatinine Clearance 41.69 ml/min; Globulin 3.9 g/dL (2.2-4.2); Glucose 79 mg/dL (74-106); Magnesium 2.2 mg/dL (1.6-2.6); Phosphorus 3.1 mg/dL (2.5-4.9); Potassium 3.9 mmol/L (3.5-5.1); Protein, Total 7.1 g/dL (6.4-8.2); Sodium Level 143 mmol/L (136-145)
[2021-10-14 20:04] LABS: Troponin-I HS 13 pg/mL (3.0-54.0)
[2021-10-14] MEDS: APIXABAN 5 MG TABLET PO (21:45)
[2021-10-14] MEDS: Atorvastatin Calcium 40 MG Tablet PO (21:45)
[2021-10-14 22:33] LABS: Absolute Lymphocyte Count 2.31 X10^3/uL (0.83-4.51); Absolute Neutrophil Count 3.5 X10^3/uL (2.0-7.7); Basophil# 0.04 X10^3/uL; Basophil% 0.6 % (0-1); Eosinophil# 0.27 X10^3/uL; Eosinophils% 3.9 % (0-5); Hematocrit 45.3 % (37-47); Hemoglobin 14.2 g/dL (12.0-15.0); Lymphocyte # 2.31 X10^3/ul (0.83-4.51); Lymphocyte % 33.2 % (19-41); Mean Corp Hgb Conc 31.3 g/dL (32-36); Mean Corpuscular Hgb 29.1 pg (27.0-32.0); Mean Corpuscular Volume 92.8 fL (81-99); Mean Platelet Vol. 9.7 fl (6.2-12.0); Monocyte# 0.81 X10^3/uL; Monocyte% 11.7 % (0-10); NRBC Flagged by Analyzer 0 % (0-5); Neutrophil % 50.3 % (47-70); Platelet Count 228 K/mm3 (150-450); RBC Distribution Width CV 14.6 % (11.6-14.6); RBC Distribution Width SD 49.6 fl (35.1-43.9); Red Blood Count 4.88 M/mm3 (4.2-5.4)
[2021-10-14 23:15] VITALS: BP 117/81; PULSE 105; RESP 18; TEMP 36.9; O2SAT 95
[2021-10-15] VITALS (12 sets, daily range): BP systolic 98–150; BP diastolic 56–94; PULSE 62–123; RESP 16–18; TEMP 36.6–36.9; O2SAT 93–97
[2021-10-15 01:54] LABS: Troponin-I HS 14 pg/mL (3.0-54.0)
[2021-10-15 02:18] LABS: Troponin-I HS 15 pg/mL (3.0-54.0)
[2021-10-15] MEDS: dilTIAZem 60 MG Tablet PO ×4 (05:44→23:39)
[2021-10-15 05:52] LABS: Hematocrit 35.5 % (37-47); Hemoglobin 11.1 g/dL (12.0-15.0); Mean Corp Hgb Conc 31.3 g/dL (32-36); Mean Corpuscular Hgb 29.1 pg (27.0-32.0); Mean Corpuscular Volume 93.2 fL (81-99); Mean Platelet Vol. 9.8 fl (6.2-12.0); Platelet Count 268 K/mm3 (150-450); RBC Distribution Width CV 14.6 % (11.6-14.6); RBC Distribution Width SD 49.6 fl (35.1-43.9); Red Blood Count 3.81 M/mm3 (4.2-5.4)
--- NOTE | 2021-10-15 05:55 | EKG12_ITS ---
Test Reason : RHYTHMN CHANGE Blood Pressure : / mmHG Vent. Rate : 101 BPM Atrial Rate : 249 BPM P-R Int : 000 ms QRS Dur : 088 ms QT Int : 382 ms P-R-T Axes : 000 001 025 degrees QTc Int : 495 ms Atrial flutter with variable A-V block Nonspecific ST abnormality Abnormal ECG When compared with ECG of 15-OCT-2021 05:10, MANUAL COMPARISON REQUIRED, DATA IS UNCONFIRMED Confirmed by ANGIE CERON, SHANNON ([id number]), editorial manager ROMINA DURAN ([id number]) on 10/17/2021 8:46:42 AM Referred By: VIRA Confirmed By:SHANNON ADAMS MD
--- NOTE | 2021-10-15 07:14 | PCS.PANDOC ---
PANDEMIC DOCUMENTATION INITIATED: Date: 05/01/2021 Time: 190
[2021-10-15 07:21] LABS: Anion Gap 7 (5-15); BUN 21 mg/dL (7-18); BUN/Creat Ratio 20.2 RATIO (10-20); Calcium,Total 8.5 mg/dL (8.5-10.1); Chloride 111 mmol/L (98-107); Cholesterol 150 mg/dL (200); Creatinine, Serum 1.04 mg/dL (0.55-1.02); EST Glomerular Filtration Rate 53 mL/min (>60); Est Glom Filt Rate - Afr Amer 64 mL/min (>60); Estimated Creatinine Clearance 35.68 ml/min; Glucose 114 mg/dL (74-106); High Density Lipoprotein 39 mg/dL; Potassium 3.4 mmol/L (3.5-5.1); Sodium Level 142 mmol/L (136-145); Triglycerides 79 mg/dL; Very Low Density Lipoprotein 16 mg/dL (5-40)
[2021-10-15] MEDS: Aspirin 81 MG TAB.CHEW PO (09:11)
[2021-10-15] MEDS: APIXABAN 5 MG TABLET PO ×2 (09:12→21:15)
--- NOTE | 2021-10-15 10:16 | PCM.PN.CARD ---
Subjective Subjective Pt. still has TOMAS. HR is better. No CP on exertion Objective Data Vital Signs: Vital Signs Temp Pulse Resp BP Pulse Ox 98.5 F 123 H 18 98/62 96 10/15/21 09:08 10/15/21 09:08 10/15/21 09:08 10/15/21 09:08 10/15/21 09:08 Oxygen Flow Rate (L/min) 2 Oxygen Delivery Method Nasal Cannula Weight: 172 lb 13.478 oz Body Mass Index (BMI) 28.9 Intake & Output: Intake and Output for Last 24 Hours 10/13/21 10/14/21 10/15/21 23:59 23:59 23:59 Intake Total 1000 / 1000 100 / 100 Balance 1000 / 1000 100 / 100 Lab / Micro Data Result Diagrams: 10/15/21 04:50 10/15/21 04:50 Labs: Laboratory Results - last 24 hr 10/14/21 04:55: WBC 7.0, RBC 4.88, Hgb 14.2, Hct 45.3, MCV 92.8, MCH 29.1, MCHC 31.3 L, RDW Std Deviation 49.6 H, RDW Coeff of Dionisio 14.6, Plt Count 228, MPV 9.7, Immature Gran % (Auto) 0.300, Neut % (Auto) 50.3, Lymph % (Auto) 33.2, [place] % (Auto) 11.7 H, Eos % (Auto) 3.9, Baso % (Auto) 0.6, Absolute Neuts (auto) 3.5, Absolute Lymphs (auto) 2.31, Nucleated RBC % 0 10/14/21 04:55: Sodium 143, Potassium 3.9, Chloride 111 H, Carbon Dioxide 25.0, Anion Gap 7, BUN 17, Creatinine 0.89, Estim Creat Clear Calc 41.69, Est GFR (MDRD) Af Amer 78, Est GFR (MDRD) Non-Af 64, BUN/Creatinine Ratio 19.2, Glucose 79, Calcium 8.5, Phosphorus 3.1, Magnesium 2.2, Total Bilirubin 0.80, AST 28, ALT 22, Alkaline Phosphatase 81, Total Protein 7.1, Albumin 3.2, Globulin 3.9, Albumin/Globulin Ratio 0.8 L 10/14/21 13:28: Troponin I High Sens 14 10/14/21 15:40: Troponin I High Sens 15 10/14/21 19:15: Troponin I High Sens 13 10/15/21 04:50: Sodium 142, Potassium 3.4 L, Chloride 111 H, Carbon Dioxide 24.0, Anion Gap 7, BUN 21 H, Creatinine 1.04 H, Estim Creat Clear Calc 35.68, Est GFR (MDRD) Af Amer 64, Est GFR (MDRD) Non-Af 53 L, BUN/Creatinine Ratio 20.2 H, Glucose 114 H, Calcium 8.5, Triglycerides 79, Cholesterol 150, LDL Cholesterol 95, VLDL Cholesterol 16, HDL Cholesterol 39 L 10/15/21 04:50: WBC 8.0, RBC 3.81 L, Hgb 11.1 L, Hct 35.5 L, MCV 93.2, MCH 29.1, MCHC 31.3 L, RDW Std Deviation 49.6 H, RDW Coeff of Dionisio 14.6, Plt Count 268, MPV 9.8 Cardiology Labs/Tests 10/14/21 04:55: WBC 7.0, RBC 4.88, Hgb 14.2, Hct 45.3, MCV 92.8, MCH 29.1, MCHC 31.3 L, Plt Count 228, MPV 9.7, Immature Gran % (Auto) 0.300, Neut % (Auto) 50.3, Lymph % (Auto) 33.2, [place] % (Auto) 11.7 H, Eos % (Auto) 3.9, Baso % (Auto) 0.6, Absolute Neuts (auto) 3.5, Nucleated RBC % 0 10/14/21 04:55: Sodium 143, Potassium 3.9, Chloride 111 H, Carbon Dioxide 25.0, Anion Gap 7, BUN 17, Creatinine 0.89, Est GFR (MDRD) Af Amer 78, Est GFR (MDRD) Non-Af 64, BUN/Creatinine Ratio 19.2, Glucose 79, Calcium 8.5, Phosphorus 3.1, Magnesium 2.2, Total Bilirubin 0.80 10/15/21 04:50: Sodium 142, Potassium 3.4 L, Chloride 111 H, Carbon Dioxide 24.0, Anion Gap 7, BUN 21 H, Creatinine 1.04 H, Est GFR (MDRD) Af Amer 64, Est GFR (MDRD) Non-Af 53 L, BUN/Creatinine Ratio 20.2 H, Glucose 114 H, Calcium 8.5, Triglycerides 79, Cholesterol 150, LDL Cholesterol 95, VLDL Cholesterol 16, HDL Cholesterol 39 L 10/15/21 04:50: WBC 8.0, RBC 3.81 L, Hgb 11.1 L, Hct 35.5 L, MCV 93.2, MCH 29.1, MCHC 31.3 L, Plt Count 268, MPV 9.8 Rhythm: EKG: ECHO: Stress Test: Cardiac Cath: PCI: CT Surgery: Holter monitor: EPS: PPM: CXR: Chest CT Scan: Physical Exam Const alert and oriented x3 Orientation / Consciousness: awake HEENT normocephalic Eyes no scleral icterus Neck supple Resp normal respiratory effort and clear to auscultation bilaterally Cardio Cardio Narrative: Irregular rhythm Extremity no pedal edema Skin no rashes or lesions noted Psych mental status grossly normal Assessment & Plan Assessment/Plan (1) New onset atrial flutter: PLAN: Continue Cardizem at 60 mg p.o. every 6 hours. Continue Eliquis. (2) Chest pain: QUALIFIERS: Chest pain type: chest pain due to myocardial ischemia Ischemic chest pain type: stable angina pectoris Qualified Code(s): I20.8 - Other forms of angina pectoris PLAN: Chest pain could have been related to A. fib with RVR. Once rate is controlled if patient continues to have anginal chest pain then she may be considered for coronary angiography. Continue Lipitor and aspirin. Patient's shortness of breath is likely related to A. fib with RVR. She has preserved EF and no evidence of volume overload. It will be reasonable to DC the Lasix. Charges/Coding Visit Charges Inpatient E&M: 07912 Subs Hosp L3
--- NOTE | 2021-10-15 10:47 | EKG12_ITS ---
Test Reason : AM EKG Blood Pressure : / mmHG Vent. Rate : 125 BPM Atrial Rate : 250 BPM P-R Int : 000 ms QRS Dur : 088 ms QT Int : 326 ms P-R-T Axes : 260 028 -13 degrees QTc Int : 470 ms Atrial flutter Low voltage QRS Nonspecific ST abnormality Abnormal ECG When compared with ECG of 13-OCT-2021 16:23, MANUAL COMPARISON REQUIRED, DATA IS UNCONFIRMED Confirmed by ANGIE CERON, SHANNON ([id number]), production editor ROMINA DURAN ([id number]) on 10/17/2021 8:46:53 AM Referred By: GLENDY Confirmed By:SHANNON ADAMS MD
[2021-10-15] MEDS: Enoxaparin 80 MG/0.8 ML Syringe SC (13:35)
--- NOTE | 2021-10-15 13:58 | PCM.PN.HOSP ---
Subjective Subjective Patient still tachycardic. Sinus tachycardia 124 bpm. Patient does not have chest pain or shortness of breath or palpitation. Objective Data Objective Data Vital Signs: Vital Signs Temp Pulse Resp BP Pulse Ox 98.5 F 84 18 103/59 L 94 10/15/21 11:08 10/15/21 11:08 10/15/21 11:08 10/15/21 11:08 10/15/21 11:28 Oxygen Flow Rate (L/min) 2 Oxygen Delivery Method Nasal Cannula Weight: 172 lb 13.478 oz Body Mass Index (BMI) 28.9 Intake & Output: Intake and Output for Last 24 Hours 10/13/21 10/14/21 10/15/21 23:59 23:59 23:59 Intake Total 1000 / 1000 960 / 960 500 / 500 Balance 1000 / 1000 960 / 960 500 / 500 Lab / Micro Data Result Diagrams: 10/15/21 04:50 10/15/21 04:50 Labs: Laboratory Results - last 24 hr 10/14/21 04:55: WBC 7.0, RBC 4.88, Hgb 14.2, Hct 45.3, MCV 92.8, MCH 29.1, MCHC 31.3 L, RDW Std Deviation 49.6 H, RDW Coeff of Dionisio 14.6, Plt Count 228, MPV 9.7, Immature Gran % (Auto) 0.300, Neut % (Auto) 50.3, Lymph % (Auto) 33.2, [place] % (Auto) 11.7 H, Eos % (Auto) 3.9, Baso % (Auto) 0.6, Absolute Neuts (auto) 3.5, Absolute Lymphs (auto) 2.31, Nucleated RBC % 0 10/14/21 04:55: Sodium 143, Potassium 3.9, Chloride 111 H, Carbon Dioxide 25.0, Anion Gap 7, BUN 17, Creatinine 0.89, Estim Creat Clear Calc 41.69, Est GFR (MDRD) Af Amer 78, Est GFR (MDRD) Non-Af 64, BUN/Creatinine Ratio 19.2, Glucose 79, Calcium 8.5, Phosphorus 3.1, Magnesium 2.2, Total Bilirubin 0.80, AST 28, ALT 22, Alkaline Phosphatase 81, Total Protein 7.1, Albumin 3.2, Globulin 3.9, Albumin/Globulin Ratio 0.8 L 10/14/21 13:28: Troponin I High Sens 14 10/14/21 15:40: Troponin I High Sens 15 10/14/21 19:15: Troponin I High Sens 13 10/15/21 04:50: Sodium 142, Potassium 3.4 L, Chloride 111 H, Carbon Dioxide 24.0, Anion Gap 7, BUN 21 H, Creatinine 1.04 H, Estim Creat Clear Calc 35.68, Est GFR (MDRD) Af Amer 64, Est GFR (MDRD) Non-Af 53 L, BUN/Creatinine Ratio 20.2 H, Glucose 114 H, Calcium 8.5, Triglycerides 79, Cholesterol 150, LDL Cholesterol 95, VLDL Cholesterol 16, HDL Cholesterol 39 L 10/15/21 04:50: WBC 8.0, RBC 3.81 L, Hgb 11.1 L, Hct 35.5 L, MCV 93.2, MCH 29.1, MCHC 31.3 L, RDW Std Deviation 49.6 H, RDW Coeff of Dionisio 14.6, Plt Count 268, MPV 9.8 Micro: Microbiology 10/13/21 13:00 Nasal Secretion SARS-CoV-2 Antigen (Rapid) - Final Physical Exam Narrative General: Alert, Oriented x3, Cooperative HEENT: Atraumatic, PERRLA, EOMI, Normocephalic Oral: No Gingival or Mucosal Lesions/ Ulcerations Neck: Supple, No JVD, Negative Carotid Bruits Lungs: Air entry diminished in bilateral lung bases. No crepitation/rhonchi Cardiovascular: Sinus tachycardia, Normal S1, Normal S2, No murmurs Abdomen: Bowel Sounds Present, Soft, Non Tender, Non-Distended : No renal angle tenderness. No suprapubic tenderness. Extremities: Bilateral ankle edema resolved, Capillary Refill Less than 3 Seconds Skin: No rashes, No breakdown Musculoskeletal: No Tenderness to Palpation of Joints or Extremities Neurological: Cranial nerves II-XII grossly intact, DTR 2+/4 and Symmetrical, Neuro grossly intact Psych/Mental Status: Normal Affect, Appropriate. Assessment & Plan Assessment/Plan (1) New onset atrial flutter: PLAN: [The patient is a 86-year-old female admitted with shortness of breath, dyspnea on exertion progressively worsening for 1 month. She also having intermittent chest pressure felt like elephant on the chest on exertion mainly on climbing stairs. 1. New onset atrial flutter/fibrillation with variable rate: Patient is being admitted in the PCU. 2D echo ordered. Patient is still in A. fib heart rate 110sStarted on Cardizem 30 mg every 6 hourly and increase to 60 mg every 6 hourly. Convert Lovenox to Eliquis 5 mg p.o. twice daily. Twelve-lead EKG shows atrial flutter with variable rate. Low-voltage QRS. Nonspecific ST-T changes. QTc 460 ms. 10/15: Patient converted to sinus rhythm, currently sinus tachycardia. Discussed with peer financial counselor and recommend to continue same dosage of Cardizem 60 mg every 6 hourly to give more time to see response. 2. Atypical chest pain/pressure. Serial isolated troponins are negative. Non-STEMI ruled out. TSH and magnesium normal. CMP reviewed. Serum magnesium and phosphorus normal. Mild hypokalemia. Potassium replaced. PT and OT. Lipid profile LDL 95, HDL 39. TSH normal. 3. 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 5. Former smoker quit in 1985 CODE STATUS DNR CC arrest with no intubation Charges/Coding Visit Charges Inpatient E&M: 66576 Subs Hosp L2
[2021-10-15] MEDS: Potassium Chloride Oral Tablet 20 MEQ 40 MEQ PO (15:38)
[2021-10-15] MEDS: Atorvastatin Calcium 40 MG Tablet PO (21:15)
[2021-10-16 02:59] VITALS: PULSE 93
[2021-10-16 05:37] VITALS: BP 121/86; PULSE 118; RESP 16; TEMP 36.6; O2SAT 96
[2021-10-16] MEDS: dilTIAZem 60 MG Tablet PO ×2 (05:39→12:21)
[2021-10-16 05:52] LABS: Absolute Lymphocyte Count 2.46 X10^3/uL (0.83-4.51); Absolute Neutrophil Count 4.3 X10^3/uL (2.0-7.7); Basophil# 0.04 X10^3/uL; Basophil% 0.5 % (0-1); Eosinophils% 4.8 % (0-5); Hematocrit 37.4 % (37-47); Hemoglobin 11.6 g/dL (12.0-15.0); Lymphocyte # 2.46 X10^3/ul (0.83-4.51); Lymphocyte % 29.8 % (19-41); Mean Corpuscular Hgb 29.1 pg (27.0-32.0); Mean Platelet Vol. 9.7 fl (6.2-12.0); Monocyte# 1.05 X10^3/uL; Monocyte% 12.7 % (0-10); NRBC Flagged by Analyzer 0 % (0-5); Neutrophil # 4.29 X10^3/uL (2.7-7.7); Platelet Count 279 K/mm3 (150-450); RBC Distribution Width CV 14.6 % (11.6-14.6); RBC Distribution Width SD 50.2 fl (35.1-43.9); Red Blood Count 3.98 M/mm3 (4.2-5.4); White Blood Count 8.3 K/mm3 (4.4-11.0)
[2021-10-16 06:13] LABS: Anion Gap 4 (5-15); BUN 22 mg/dL (7-18); BUN/Creat Ratio 25.1 RATIO (10-20); Calcium,Total 8.4 mg/dL (8.5-10.1); Chloride 112 mmol/L (98-107); Creatinine, Serum 0.88 mg/dL (0.55-1.02); EST Glomerular Filtration Rate 65 mL/min (>60); Est Glom Filt Rate - Afr Amer 78 mL/min (>60); Estimated Creatinine Clearance 42.16 ml/min; Glucose 86 mg/dL (74-106); Sodium Level 141 mmol/L (136-145)
[2021-10-16 06:57] VITALS: PULSE 121
[2021-10-16 07:43] VITALS: O2SAT 95
[2021-10-16 09:36] VITALS: BP 93/52; PULSE 62; RESP 18; TEMP 36.6; O2SAT 97
[2021-10-16] MEDS: Potassium Chloride Oral Tablet 20 MEQ 40 MEQ PO (09:52)
[2021-10-16] MEDS: Aspirin 81 MG TAB.CHEW PO (09:52)
[2021-10-16] MEDS: APIXABAN 5 MG TABLET PO (11:17)
--- NOTE | 2021-10-16 12:04 | PCM.DC.SUM ---
Providers Date of Admission: 10/13/21 Date of Discharge: 10/16/21 Primary Care Physician: Dr. Sylvia Cuevas MD Consultations 10/13/21 17:00 Consult: Cardiology Routine Consulting Provider: Rashida Robertson Reason for Consult: exertional CP and dyspnea/New Flutter/Fib EMERGENT Consult: No MD Notified: Yes Date Notified: 10/13/21 Time Notified: 17:00 Method of Notification: Text Reason For Visit: A-FIB WITH RVR Diagnosis Discharge Diagnosis (1) New onset atrial flutter: Status: Acute Code(s): I48.92 - Unspecified atrial flutter Medications at Discharge Home Medications diphenhydramine-acetaminophen [Acetaminophen PM] 2 tab PO QHS PRN 10/13/21 apixaban [Eliquis] 5 mg PO BID #60 tab 10/16/21 atorvastatin 40 mg PO QHS #30 tab 10/16/21 diltiazem HCl [Cardizem LA] 240 mg PO DAILY #30 tab 10/16/21 furosemide [Lasix] 20 mg PO DAILY #30 tab 10/16/21 Hospital Course Operations None Procedures 2-D Echocardiogram Summary of Care Provided Minutes Spent on Discharge: 41 Hospital Course: Mrs. Mukherjee is an 86-year-old white female who presented to the emergency department at [facility] on 10/13/2021 with a chief complaint of shortness of breath. On admission she reported that having ongoing for some time but she had noticed it more significant last few days. She also complained of some test chest tightness with exertion as well as worsening shortness of breath with exertion. She was convinced on the day of presentation to go see her PCP by a friend. When she went to her provider earlier that day they sent her to the emergency department given an abnormal EKG showing atrial flutter. She also admitted to some mild lower extremity edema that had been worsening over the past several days as well. On presentation she was found to have a heart rate at 127 at which time she was given 5 mg of metoprolol x3 without any improvement. She was subsequently therefore given 10 mg of Cardizem and this decreased her heart rate to the upper 90s and low 100s and she was subsequently given 60 mg of oral Cardizem we also begin Lovenox that was weight-based given a CHADS2 score of 3 on admission. Overall her lab work is fairly unremarkable other than an elevated BNP that was 859.9. Her high-sensitivity troponin and TSH were within normal limits. A chest x-ray was performed and showed increased interstitial markings at the bases and slightly worse on the left side with some bilateral costophrenic blunting. Her EKG shows atrial flutter but had no ST-T wave changes. She was admitted to the PCU and scheduled Cardizem was given. She was maintained on Lovenox on admission and cardiology was consulted given her exertional dyspnea and chest pain however given her atrial fibrillation it was felt that this could be the cause as well. She was evaluated by cardiology and they felt it was better to get her heart rate under better control and to reevaluate her as an outpatient for possible coronary angiography. I did discuss the case with cardiology on the day of discharge and they recommended continuing her Lipitor; holding her aspirin given a history of significant bruising; and discharging her on Cardizem CD 240 mg daily. We also discharged her on a low-dose Lasix at 20 mg daily for which she will need a repeat BMP in the next 1 to 2 weeks. She was given IV Lasix during her hospitalization as it was felt that she had some congestive heart failure related to diastolic dysfunction that was precipitated by her rapid heart rate. An echo was performed and showed preserved ejection fraction. She was transitioned from Lovenox to Eliquis given no interventional work-up was to be done at the time of the hospitalization and she was discharged in stable condition with Cardizem CD 240 mg daily, Lasix 20 mg daily, Eliquis 5 mg twice daily, and Lipitor 40 mg daily. She is to follow-up with her PCP in 1 to 2 weeks and follow-up with cardiology in 2 weeks. Discharge diagnoses: New onset atrial flutter/fibrillation Acute decompensated HFpEF secondary to tachycardia-resolved Exertional chest pain-resolved Dyspnea-resolved History of rheumatoid arthritis History of right-sided lung cancer status post right upper lobe resection History of tobacco abuse Physical Exam Const alert, oriented x3, no apparent distress, healthy appearing and well nourished Constitutional Narrative: Elderly white female sitting up in a chair at the bedside, appears comfortable nontoxic, no dyspnea on conversation, nursing at bedside General Appearance: cooperative, comfortable, well kempt and well developed Orientation / Consciousness: awake, oriented to person, oriented to place and oriented to time Exam Limitations: no limitations Nutritional Appearance: overweight HEENT normocephalic, head/scalp atraumatic, moist oral mucous membranes and oropharynx normal HEENT Narrative: Moderately hard of hearing, no thrush, Mallampati 2, dentures in place Eyes PERRL, EOMs intact bilaterally and conjunctivae normal Eyes Narrative: No scleral icterus Neck no lymphadenopathy, supple, no JVD and no carotid bruits Resp normal respiratory effort, no retractions, no use of accessory muscles and clear to auscultation bilaterally Auscultation: crackles bilateral throughout (Fine/Faint) and diminished lung sounds; Negative for rales, rhonchi or wheezes Cardio regular rate, S1 normal heart sound, S2 normal heart sound, no murmurs, no rub, no gallops, no clicks and no JVD Cardio Narrative: Irregular regular rhythm Peripheral Pulses: pulses 2+ throughout GI normal to inspection, nondistended, normoactive bowel sounds, soft to palpation, non-tender and non-distended Extremity normal to inspection and no clubbing, cyanosis or edema General Extremity: edema bilateral lower extremity Details: trace Skin no rashes or lesions noted, no wounds, skin turgor normal, no jaundice, no petechiae and no mottling Lesions: no lesions Rashes: no rashes Trauma: no lacerations or abrasions Neuro oriented x3, CN's II-XII intact bilaterally, moves all extremities, no focal motor deficits, no sensory deficits noted and deep tendon reflexes 2+ bilaterally Sensorium / Orientation: awake and alert Speech: speech normal Psych mental status grossly normal and affect normal Psych Narrative: Very pleasant Weight / BMI Weight Weight: 78.4 kg Body Mass Index (BMI) 28.9 ABG / Lab / Microbiology Data Result Diagrams: 10/16/21 05:05 10/16/21 05:05 Laboratory: Laboratory Results - last 24 hr 10/16/21 05:05: WBC 8.3, RBC 3.98 L, Hgb 11.6 L, Hct 37.4, MCV 94.0, MCH 29.1, MCHC 31.0 L, RDW Std Deviation 50.2 H, RDW Coeff of Dionisio 14.6, Plt Count 279, MPV 9.7, Immature Gran % (Auto) 0.200, Neut % (Auto) 52.0, Lymph % (Auto) 29.8, [place] % (Auto) 12.7 H, Eos % (Auto) 4.8, Baso % (Auto) 0.5, Absolute Neuts (auto) 4.3, Absolute Lymphs (auto) 2.46, Nucleated RBC % 0 10/16/21 05:05: Sodium 141, Potassium 4.0, Chloride 112 H, Carbon Dioxide 25.0, Anion Gap 4 L, BUN 22 H, Creatinine 0.88, Estim Creat Clear Calc 42.16, Est GFR (MDRD) Af Amer 78, Est GFR (MDRD) Non-Af 65, BUN/Creatinine Ratio 25.1 H, Glucose 86, Calcium 8.4 L Microbiology: Microbiology 10/13/21 13:00 Nasal Secretion SARS-CoV-2 Antigen (Rapid) - Final D/C Instructions Discharge Diet: 4000 mg Sodium Diet Discharge Activity: Return to Normal Activity Return to work on: 10/18/21 Meaningful Use Info Meaningful Use Diagnoses (Choose all that apply): None applicable Discharge Plan Admission Admit Date/Time: 10/13/21 16:30 Primary Reason for Your Visit: Shortness of breath Attending Provider: Mikayla Vega Primary Care Provider: Sylvia Cuevas Consulting Providers: Rashida Robertson Discharge Orders/Prescriptions Prescriptions: New atorvastatin 40 mg Tablet 40 mg PO QHS Qty: 30 RF: 0 Eliquis 5 mg Tablet 5 mg PO BID Qty: 60 RF: 1 diltiazem HCl [Cardizem LA] 240 mg tablet extended release 24 hr 240 mg PO DAILY Qty: 30 RF: 1 furosemide [Lasix] 20 mg tablet 20 mg PO DAILY Qty: 30 RF: 0 Continued diphenhydramine-acetaminophen [Acetaminophen PM] 25-500 mg Tablet 2 tab PO QHS PRN (Reason: Sleep) RF: 0 Referrals / Follow Up: Sylvia Cuevas MD [Primary Care Provider] - Within 2 Weeks Jayro Siddiqui MD [STAFF PHYSICIAN] - Within 2 Weeks Disposition Disposition (needs filled in before D/C Order can be placed): Home, Self Care Charges/Coding Visit Charges Inpatient E&M: 05551 Disch Hosp
[2021-10-16 12:09] VITALS: BP 115/72; PULSE 78; RESP 18; TEMP 36.6; O2SAT 97
--- NOTE | 2021-10-16 13:06 | CASEMGMT ---
Pt to be sent home on Eliquis and med e-scribed to [facility] retail pharmacy previously. Call to [facility] pharmacy to check coverage/co-pay and per Tayler, pt's co-pay is $47 and Eliquis 30 day free trial card applied. Pt updated, voices understanding. Pt states has been independent in room and states no concerns with going home at time of discharge and states no need for any further therapy. Tiera NUÑEZ CM
== END 2021-10-16 15:18 | disposition home or self-care (01) | DRG 308 ==
LOC: ED 16:41 → PCU 16:56
PROVIDERS: Internal Medicine; Admitting Provider Internal Medicine; Emergency Provider Emergency Medicine; PCP Family Medicine; Visit Provider Internal Medicine
DX: I48.92 Unspecified atrial flutter (principal); I50.31 Acute diastolic (congestive) heart failure; I48.91 Unspecified atrial fibrillation; I20.8 Other forms of angina pectoris; M06.9 Rheumatoid arthritis, unspecified; E87.6 Hypokalemia; I44.30 Unspecified atrioventricular block; Z66 Do not resuscitate; Z87.891 Personal history of nicotine dependence; Z79.82 Long term (current) use of aspirin; Z79.899 Other long term (current) drug therapy; Z85.118 Personal history of other malignant neoplasm of bronchus and lung
CPT/HCPCS: 36415; 71045; 80048; 80053; 80061; 83735; 83880; 84100; 84443; 84484; 85025; 85027; 85610; 85730; 87426; 93005; 93306; 97162; 97166; 99285; J7030; A4216; J1940

== ENCOUNTER 2021-10-31 10:21 | Outpatient (CLI) | payer MEDICARE, SELFPAY ==
[2021-10-31 11:47] LABS: Anion Gap 7 (5-15); BUN 28 mg/dL (7-18); BUN/Creat Ratio 21.7 RATIO (10-20); Calcium,Total 9.2 mg/dL (8.5-10.1); Chloride 106 mmol/L (98-107); Creatinine, Serum 1.29 mg/dL (0.55-1.02); EST Glomerular Filtration Rate 42 mL/min (>60); Est Glom Filt Rate - Afr Amer 50 mL/min (>60); Glucose 92 mg/dL (74-106); Potassium 4.1 mmol/L (3.5-5.1); Sodium Level 141 mmol/L (136-145)
== END 2021-10-31 23:59 | disposition home or self-care (01) ==
LOC: LAB 10:24
PROVIDERS: PCP Family Medicine; Referring Provider Physician Assistant Medical; Visit Provider Physician Assistant Medical
DX: I48.91 Unspecified atrial fibrillation (principal)
CPT/HCPCS: 36415; 80048

== ENCOUNTER 2021-11-15 11:07 | Outpatient (CLI) | payer MEDICARE, SELFPAY ==
[2021-11-15 12:45] LABS: Anion Gap 6 (5-15); BUN 22 mg/dL (7-18); BUN/Creat Ratio 18.6 RATIO (10-20); Chloride 107 mmol/L (98-107); Creatinine, Serum 1.18 mg/dL (0.55-1.02); EST Glomerular Filtration Rate 46 mL/min (>60); Est Glom Filt Rate - Afr Amer 56 mL/min (>60); Glucose 72 mg/dL (74-106); Potassium 4.1 mmol/L (3.5-5.1); Sodium Level 142 mmol/L (136-145)
== END 2021-11-15 23:59 | disposition home or self-care (01) ==
LOC: LAB 11:09
PROVIDERS: PCP Family Medicine; Visit Provider Physician Assistant Medical
DX: N28.9 Disorder of kidney and ureter, unspecified (principal)
CPT/HCPCS: 36415; 80048

== ENCOUNTER 2021-12-15 09:53 | Day surgery (SDC) | payer MEDICARE, SELFPAY ==
[2021-12-14 07:20] VITALS: BMI 27.7
--- NOTE | 2021-12-14 11:49 | HP.PCM_ITS ---
History and Physical Date of Admission: 12/15/21 [facility] [address] [place] [address] [phone] OFFICE VISITDate of Service: 11/21/21 MR#:[id number]: RUTH ANN ANSARI [facility] #:[id number]:[id number] Provider: ALIS Moreno/Sex: 86/F Lo cation:BMS.WHGStatus:Signed HPI HPI History of Present Illness Details: This is an 86-year-old female that presents here today for a hospital follow-up. She was admitted to [facility] on 10/13/2021 for shortness of breath and chest tightness with exertion. On presentation to the emergency room she was noted to be in atrial flutter with a heart rate of 127. BNP was noted be elevated at 859. High-sensitivity troponin and TSH were within normal limits. Cardiology was consulted. Echocardiogram demonstrated preserved ejection fraction. She was discharged home on Cardizem 240 mg, Lasix 20 mg, Eliquis and Lipitor. Pt notes that she is still SOB with exertion. She does still is more easily fatigued. She is not aware of irregular heart beats. Her HR is on the faster for this. She does not have any edema. 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 Required: No Accompanied by: None Is patient in pain?: No Allergies No Known Allergies Allergy (Verified 11/21/21 09:17) Medications diphenhydramine-acetaminophen [Acetaminophen PM] 2 tab PO QHS PRN 10/13/21 [History Confirmed 11/21/21] apixaban 5 mg tablet 5 mg PO BID #180 tab 10/31/21 [Rx Confirmed 11/21/21] diltiazem HCl 240 mg tablet,extended release 24 hr 240 mg PO DAILY #90 tab 10/31/21 [Rx Confirmed 11/21/21] metoprolol tartrate 25 mg tablet 25 mg PO BID #180 tab 10/31/21 [Rx Confirmed 11/21/21] atorvastatin 40 mg tablet 40 mg PO QHS #90 tab 11/21/21 [Rx Confirmed 11/21/21] furosemide 20 mg tablet 20 mg PO DAILY #90 tab 11/21/21 [Rx Confirmed 11/21/21] PFSH Medical History Atrial fibrillation Former smoker Hx of cancer of lung Kidney stones New onset atrial flutter Osteoporosis Rheumatoid arthritis Surgical History H/O hernia repair History of kidney surgery History of left knee replacement History of right hip replacement Hx of hysterectomy S/P partial lobectomy of lung Family History Mother Abdominal aneurysm Father Cancer Lung Social History Smoking Status: Former smoker quit date: 09/16/85 how long ago did patient quit smokin alcohol intake: current alcohol intake frequency: a few times a month substance use type: does not use caffeine: No ROS Const Const: Positive for fatigue and difficulty sleeping; Negative for weakness, headache(s), frequent falls or excessive sweating Eyes Eyes: Negative for loss of peripheral vision, transient loss of vision, blurry vision, double vision or tunnel vision ENT ENT: Negative for headache(s), dizziness, Nosebleed/epistaxis or balance problems Cardio Chest Pain: Yes Character: other (Pressure) Onset: other (with strenuous activity such stairs or bending over) Location: mid sternal Duration: minutes Relieving: rest Palpitations: No Edema: None Muscle aches with walking: None Resp Respiratory: Positive for SOB with activity; Negative for SOB at rest, SOB orthopnea\SOB lying down, Cough or paroxysmal nocturnal dyspnea GI GI: Negative nausea, vomiting, heartburn or black,tarry stools : Negative for hematuria Musc Musc: Positive for joint pain; Negative for muscle aches/ myalgia, muscle weakness or balance problems Skin Skin: Negative non-healing lesions, rash or unusual bruising Neuro Neuro: Positive for lightheadedness; Negative for dizziness, near syncope, syncope, frequent falls, headache(s), weakness, blurry vision, double vision or lack of coordination Thierno Hematologic/Lymphatic: Negative for easy bleeding or easy bruising Endo Endo: Positive for fatigue; Negative for excessive sweating or increased thirst/drinking Psych Psych: Negative for anxiety or depression Allergy Allergy/Immunology: Negative for hives and Negative for rash Cardiology Exam Const Appearance: cooperative, healthy appearing, comfortable, no acute distress and w ell developed Orientation: alert, awake and oriented x3 Head Head: normal to inspection Ears: hearing grossly normal bilaterally Nose: external nose normal Face and Sinus: face symmetric Mouth: oral mucosae normal, lip normal and moist mucous membranes Eyes General: appearance normal, both eyes and all related structures Eyelids: eyelids normal Conjunctivae: conjunctivae normal Pupils: PERRL EOM: EOM intact bilaterally Neck Neck: normal visual inspection and trachea midline; Negative no JVD Carotids: Negative bruit Chest Chest inspection: normal inspection of the chest Auscultation: Bilateral: Clear to Auscultation Cardio Palpation: normal PMI Rate: tachycardic Rhythm: irregularly irregular Heart sounds: S1 normal and S2 normal; Negative rub, gallop or murmur GI GI: soft, no hepatosplenomegaly and bowel sounds present Neuro General: patient alert, patient awake, patient oriented x3 and CN's II-XI intact bilaterally Extremities Pulses: Normal: Right Posterior Tibial Pulse, Left Posterior Tibial Pulse, Right Radial Pulse and Left Radial Pulse Lower Extremity Edema: None: Bilateral Psych Psychological: normal affect Supplemental Info Supplemental Information Echocardiogram 09/2021: The estimated ejection fraction is 65 %. Diastolic function is indeterminate. The left atrium is moderately enlarged. The right atrium is moderately enlarged. Mild (1+) mitral valve insufficiency. Labs: LDL Cholesterol 95 mg/dL (0-130) HDL Cholesterol 39 mg/dL (40-) L Triglycerides 79 mg/dL (-199) VLDL Cholesterol 16 mg/dL (5-40) Diagnostics: Electrocardiogram Echocardiogram Chest X-Ray Pulmonary: No Data to Display Assessment and Plan Assessment and Plan (1) Atrial fibrillation: Status: Acute Comment: new onset 10/13/21 Orders: Orders: Cardioversion Today 12 Lead EKG performed by [facility] Today Basic Metabolic Profile (BMP) Today Plan - Katie Pineda PA, PA: HR better controlled, she is still symptomatic. She has been anticoagulated for 30 days, will proceed with a DCCV. If she still symptomatic post cardioversion will consider obtaining a stress test. Patient will continue with her metoprolol, Cardizem, Eliquis. . Patient Instructions: You will be scheduled for 12/15 at noon, you will arrive at 1030. 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 (2) Renal insufficiency: Status: Acute Orders: Orders: Cardioversion Today Basic Metabolic Profile (BMP) Today Plan - Katie SNELL PA: If she has maintained SR after cardioversion will consider stopping lasix. (3) Hyperlipidemia: Status: Acute Plan - Katie SNELL PA: Will continue to monitor, pt will continue with moderate intensity statin. Plan Details Other Medications: Refilled: furosemide (Lasix) 20 mg PO DAILY 90 tabs 3RF atorvastatin 40 mg PO QHS 90 tabs 3RF Follow Up: 2 Months (MMM ) Coding Level of Care Code Off vis,est,level 4 Diagnoses Atrial fibrillation I48.91 Renal insufficiency N28.9 Hyperlipidemia E78.5 Coding Level of Care Code Off vis,est,level 4 Diagnoses Atrial fibrillation I48.91 Renal insufficiency N28.9 Hyperlipidemia E78.5 11/21/21 1028<Electronically signed by Katie SNELL>Date Katie SNELL Cosigner Signature:Date (if applicable) CC: Dr. Sylvia Cuevas MD ~ Assessment & Plan Addt'l Comments I have re-examined the patient. There are no clinical changes since date of exam
--- NOTE | 2021-12-15 12:18 | CARDIOVERS_ITS ---
Cardioversion Cardioversion: Date: 12-15-2021 Procedure: Synchronized Biphasic DC Cardioversion Indications: Atrial fibrillation/flutter Consent: Per the Patient Anesthesia: per Dr. Farr of pulmonology and critical care medicine with propofol 40 mg IV push total Procedure: Synchronized Biphasic DC Cardioversion: 200 J x 1: Result: Sinus rhythm Complications: no apparent complications This note was generated with [employer] software. It may contain incorrect words, spelling, and punctuation that were not noted in checking the note before signing.
--- NOTE | 2021-12-15 14:33 | PCM.OP.PRO ---
Assessment & Plan Assessment/Plan (1) Atrial fibrillation: (2) Rheumatoid arthritis: QUALIFIERS: Rheumatoid arthritis location: unspecified site Procedure Report Date of Procedure: 12/15/21 CONSCIOUS SEDATION REPORT BRIEF HISTORY OF PRESENT ILLNESS: The patient is an 86-year-old female who presented to [facility] for an elective outpatient cardioversion due to underlying atrial fibrillation. The patient reports no PO intake since midnight, but is currently therapeutic on anticoagulation. The patient does not have a history of EMIL. The patient reports no history of smoking or COPD. The patient denies any recent constitutional symptoms such as fevers, chills, nausea or vomiting. The patient denies previous applicable anesthetic complications. Patient does report taking anticoagulation on the day of the procedure. Patient's last known EF was 65% PHYSICAL EXAMINATION: VITAL SIGNS: Reviewed and were acceptable. GENERAL: The patient is a female, in no apparent distress, speaking in full sentences. HEENT: Normocephalic, atraumatic. Mucous membranes are moist and pink. Good mouth opening noted. Trachea is midline. Good neck mobility. MP II CHEST: S1, S2 irregularly irregular. No murmurs, rubs or gallops were noted. LUNGS: Clear to auscultation bilaterally without appreciable wheezes, rales or rhonchi. ABDOMEN: Soft, nontender, nondistended. Positive bowel sounds. EXTREMITIES: There is no clubbing, cyanosis or edema. ASA Class: II DESCRIPTION OF PROCEDURE: After confirmation of informed consent, the patient's anesthesia plan was reviewed in detail. Propofol was chosen. Risks and benefits were reviewed and the patient agreed to proceed. At 11:46 AM, the patient was given 40 mg of propofol. The patient achieved an appropriate level of sedation and received 1 attempt synchronized cardioversion, at [address] Siddiqui at the bedside. This was successful in achieving normal sinus rhythm. The patient was monitored until 11:58 AM, at which time the patient reached their baseline mental status and function. The patient tolerated the procedure well. COMPLICATIONS: None ESTIMATED BLOOD LOSS: None RECOMMENDATIONS: Okay to recover in usual fashion. Procedures Pulmonary 9xxxx: [id number] Con Sedation
== END 2021-12-15 23:59 | disposition home or self-care (01) ==
LOC: CLSP 09:54
PROVIDERS: PCP Family Medicine; Visit Provider Internal Medicine Cardiovascular Disease
DX: I48.91 Unspecified atrial fibrillation (principal); M06.9 Rheumatoid arthritis, unspecified; I48.92 Unspecified atrial flutter; N28.9 Disorder of kidney and ureter, unspecified; E78.5 Hyperlipidemia, unspecified; Z79.01 Long term (current) use of anticoagulants; Z79.899 Other long term (current) drug therapy; Z87.891 Personal history of nicotine dependence; Z85.118 Personal history of other malignant neoplasm of bronchus and lung
CPT/HCPCS: 92960; 93005; J7040

== ENCOUNTER → 2022-03-05 | Outpatient (CLI) | payer MEDICARE, SELFPAY ==
[2022-03-05 15:24] LABS: Absolute Lymphocyte Count 1.78 X10^3/uL (0.83-4.51); Absolute Neutrophil Count 8.6 X10^3/uL (2.0-7.7); Basophil# 0.05 X10^3/uL; Basophil% 0.4 % (0-1); Eosinophil# 0.35 X10^3/uL; Eosinophils% 2.8 % (0-5); Hematocrit 40.9 % (37-47); Hemoglobin 13.1 g/dL (12.0-15.0); Lymphocyte # 1.78 X10^3/ul (0.83-4.51); Lymphocyte % 14.4 % (19-41); Mean Corpuscular Hgb 28.8 pg (27.0-32.0); Mean Corpuscular Volume 89.9 fL (81-99); Mean Platelet Vol. 10.6 fl (6.2-12.0); Monocyte# 1.44 X10^3/uL; Monocyte% 11.6 % (0-10); NRBC Flagged by Analyzer 0 % (0-5); Neutrophil # 8.64 X10^3/uL (2.7-7.7); Neutrophil % 69.9 % (47-70); Platelet Count 260 K/mm3 (150-450); RBC Distribution Width CV 16.2 % (11.6-14.6); RBC Distribution Width SD 54.4 fl (35.1-43.9); Red Blood Count 4.55 M/mm3 (4.2-5.4); White Blood Count 12.4 K/mm3 (4.4-11.0)
[2022-03-05 15:40] LABS: Erythrocyte Sedimentation Rate 41 mm/hr (0-30)
[2022-03-05 15:54] LABS: Anion Gap 9 (5-15); BUN 29 mg/dL (7-18); BUN/Creat Ratio 21.6 RATIO (10-20); Calcium,Total 9.4 mg/dL (8.5-10.1); Chloride 101 mmol/L (98-107); Creatinine, Serum 1.34 mg/dL (0.55-1.02); EST Glomerular Filtration Rate 40 mL/min (>60); Est Glom Filt Rate - Afr Amer 48 mL/min (>60); Glucose 88 mg/dL (74-106); Potassium 3.6 mmol/L (3.5-5.1); Sodium Level 135 mmol/L (136-145)
== END | disposition home or self-care (01) ==
LOC: MTLAB 12:44
PROVIDERS: PCP Family Medicine; Referring Provider Family Medicine; Visit Provider Family Medicine
DX: K52.9 Noninfective gastroenteritis and colitis, unspecified (principal); R50.9 Fever, unspecified
CPT/HCPCS: 36415; 80048; 85025; 85652

== ENCOUNTER → 2022-03-09 | Outpatient (CLI) | payer MEDICARE, SELFPAY ==
--- NOTE | 2022-03-09 16:29 | RAD_ITS ---
STUDY: X-RAY - LEFT TIBIA AND FIBULA REASON FOR EXAM: Female, 86 years old. Pain. TECHNIQUE: 2 view(s) of the tibia and fibula were obtained. COMPARISON: None. FINDINGS: Osteopenia. Left total knee arthroplasty. Mild arthrosis of the tibiotalar joint. Normal visualized tibia. Normal visualized fibula. The soft tissue structures are unremarkable. RAD/Tibia & Fibula 2 Views IMPRESSION: Osteopenia with left total knee arthroplasty and mild arthrosis of the tibiotalar joint. No acute osseous abnormality. Electronically Signed: Benito Todd MD at 16:15 EDT ,
== END | disposition home or self-care (01) ==
LOC: MTRAD 16:27
PROVIDERS: PCP Family Medicine; Referring Provider Family Medicine; Visit Provider Family Medicine
DX: M79.662 Pain in left lower leg (principal); Z96.652 Presence of left artificial knee joint
CPT/HCPCS: 73590

== ENCOUNTER → 2022-05-07 | Outpatient (CLI) | payer MEDICARE, SELFPAY ==
--- NOTE | 2022-05-07 10:17 | RAD_ITS ---
STUDY: X-RAY CHEST REASON FOR EXAM: Female, 86 years old. Dyspnea on exertion. Shortness of breath. TECHNIQUE: PA and lateral views of the chest. COMPARISON: 10/13/2021 FINDINGS: The lungs are mildly hyperexpanded. There is chronic interstitial coarsening without new mass or infiltrate. There is no demonstrated pleural abnormality. Normal size heart. Again seen is surgical clips in the right hilar region. Normal visualized pulmonary arteries. There is atherosclerotic calcification of the aortic arch with tortuosity. There are diffuse degenerative changes of the visualized thoracic spine. There is degenerative osteoarthritis of the bilateral shoulders. There is no demonstrated abnormality of the visualized soft tissue structures of the upper abdomen. RAD/Chest PA and Lateral IMPRESSION: No acute cardiopulmonary disease or major interval change. Electronically Signed: Dalton Manning DO at 22:14 EDT ,
[2022-05-07 11:54] LABS: BNP,B-Type NATRIURETIC PEPTIDE 444.8 pg/mL (0-100)
[2022-05-07 12:02] LABS: Anion Gap 5 (5-15); BUN 26 mg/dL (7-18); BUN/Creat Ratio 21.7 RATIO (10-20); Calcium,Total 9.3 mg/dL (8.5-10.1); Chloride 108 mmol/L (98-107); EST Glomerular Filtration Rate 45 mL/min (>60); Est Glom Filt Rate - Afr Amer 55 mL/min (>60); Glucose 76 mg/dL (74-106); Potassium 4.2 mmol/L (3.5-5.1); Sodium Level 140 mmol/L (136-145)
== END | disposition home or self-care (01) ==
LOC: RAD 10:14
PROVIDERS: PCP Family Medicine; Referring Provider Physician Assistant Medical; Visit Provider Physician Assistant Medical
DX: R06.09 Other forms of dyspnea (principal); I48.91 Unspecified atrial fibrillation; N28.9 Disorder of kidney and ureter, unspecified
CPT/HCPCS: 36415; 71046; 80048; 83880

== ENCOUNTER → 2022-05-23 | Outpatient (CLI) | payer MEDICARE, SELFPAY ==
[2022-05-23 17:35] LABS: BUN 32 mg/dL (7-18); BUN/Creat Ratio 27.6 RATIO (10-20); Calcium,Total 9.7 mg/dL (8.5-10.1); Chloride 106 mmol/L (98-107); Creatinine, Serum 1.16 mg/dL (0.55-1.02); EST Glomerular Filtration Rate 47 mL/min (>60); Est Glom Filt Rate - Afr Amer 57 mL/min (>60); Glucose 122 mg/dL (74-106); Potassium 4.2 mmol/L (3.5-5.1); Sodium Level 141 mmol/L (136-145)
[2022-05-23 17:36] LABS: Anion Gap 8 (5-15)
== END | disposition home or self-care (01) ==
LOC: LAB 15:26
PROVIDERS: PCP Family Medicine; Referring Provider Physician Assistant Medical; Visit Provider Physician Assistant Medical
DX: R06.09 Other forms of dyspnea (principal)
CPT/HCPCS: 36415; 80048

== ENCOUNTER → 2023-01-22 | Outpatient (CLI) | payer MEDICARE, SELFPAY ==
--- NOTE | 2023-01-22 15:38 | RAD_ITS ---
EXAM: XR CHEST, 2 VIEWS CLINICAL INDICATION: None provided. dyspnea, H/o lung cancer TECHNIQUE: Frontal and lateral views of the chest. COMPARISON: May 07, 2022. October 07, 2018. FINDINGS: LUNGS AND PLEURAL SPACES: Similar postoperative change of the right hilum and similar mildly full right hilar contour. Similar mild increased lucency in the right lung. No definite infiltrates or effusions. No pneumothorax. No infiltrate or effusion. HEART: Unremarkable. Cardiac silhouette not enlarged. MEDIASTINUM: Central airways and mediastinal contour are unremarkable. BONES/JOINTS: Persistent superior subluxation of the right humeral head with pseudoarticulation with the undersurface of the AC joint consistent with chronic rotator cuff tear. SOFT TISSUES: Unremarkable. VASCULATURE: Similar mildly ectatic appearance of descending thoracic aorta. Similar mild peripheral calcification of the descending thoracic aorta and uncoiling. RAD/Chest PA and Lateral IMPRESSION: Stable chest. Postoperative changes. Stable aortic uncoiling. No definite infiltrates or effusions. Chronic right shoulder changes. Electronically Signed: Martita Quispe MD at 9:21 EDT ,
[2023-01-22 17:50] LABS: Absolute Lymphocyte Count 2.22 X10^3/uL (0.83-4.51); Absolute Neutrophil Count 4.3 X10^3/uL (2.0-7.7); Basophil# 0.05 X10^3/uL; Basophil% 0.6 % (0-1); Eosinophil# 0.35 X10^3/uL; Eosinophils% 4.4 % (0-5); Hemoglobin 9.5 g/dL (12.0-15.0); Lymphocyte # 2.22 X10^3/ul (0.83-4.51); Lymphocyte % 27.9 % (19-41); Mean Corp Hgb Conc 30.6 g/dL (32-36); Mean Corpuscular Hgb 30.5 pg (27.0-32.0); Mean Corpuscular Volume 99.7 fL (81-99); Mean Platelet Vol. 9.2 fl (6.2-12.0); Monocyte# 1.03 X10^3/uL; NRBC Flagged by Analyzer 0 % (0-5); Neutrophil # 4.28 X10^3/uL (2.7-7.7); Neutrophil % 53.8 % (47-70); Platelet Count 302 K/mm3 (150-450); RBC Distribution Width CV 13.6 % (11.6-14.6); RBC Distribution Width SD 49.7 fl (35.1-43.9); Red Blood Count 3.11 M/mm3 (4.2-5.4)
[2023-01-22 18:42] LABS: ALB/GLOB Ratio 1.3 RATIO (0.9-2.4); AST(SGOT) 27 U/L (15-37); Alanine Aminotransfer ALT/SGPT 24 U/L (13-56); Alkaline Phosphatase 76 U/L (45-117); Anion Gap 10 (5-15); BUN 27 mg/dL (7-18); BUN/Creat Ratio 16.3 RATIO (10-20); CRP < 2.90 mg/L (0.0-3.0); Chloride 105 mmol/L (98-107); Creatinine, Serum 1.66 mg/dL (0.55-1.02); EST Glomerular Filtration Rate 31 mL/min (>60); Est Glom Filt Rate - Afr Amer 38 mL/min (>60); Globulin 3.1 g/dL (2.2-4.2); Glucose 87 mg/dL (74-106); Potassium 4.8 mmol/L (3.5-5.1); Protein, Total 7.1 g/dL (6.4-8.2); Sodium Level 140 mmol/L (136-145); Thyroid Stim Hormone (TSH) 3.51 uIU/mL (0.358-3.74)
== END | disposition home or self-care (01) ==
PROVIDERS: PCP Family Medicine; Referring Provider Family Medicine; Visit Provider Family Medicine
DX: M25.50 Pain in unspecified joint (principal); R06.09 Other forms of dyspnea
CPT/HCPCS: 36415; 71046; 80053; 84443; 85025; 86140; 86431

== ENCOUNTER 2023-02-17 14:01 | Emergency (ER) | payer MEDICARE, SELFPAY ==
[2023-02-17 14:01] VITALS: BP 167/79; PULSE 77; RESP 18; TEMP 35.6; O2SAT 96; BMI 26.2
--- NOTE | 2023-02-17 14:10 | EX.ED.DYSGE1 ---
HPI History of Present Illness Chief Complaint: Constipation [facility] Medical History (Updated 02/17/23 @ 16:[address] Wes Celis, DO) Atrial fibrillation Former smoker Hx of cancer of lung Kidney stones New onset atrial flutter Osteoporosis Rheumatoid arthritis Home Medications diphenhydramine 25 mg-acetaminophen 500 mg tablet (Acetaminophen PM) 2 tab PO QHS PRN Sleep 10/13/21 [History Last Taken 10/12/21] atorvastatin 40 mg tablet 40 mg PO QHS #90 tabs 11/21/21 [Rx Last Taken Unknown] verapamil 120 mg tablet,extended release 120 mg PO DAILY #90 tabs 01/31/22 [Rx Last Taken Unknown] furosemide 20 mg tablet (Lasix) 20 mg PO DAILY #30 tabs 05/08/22 [Rx Last Taken Unknown] metoprolol tartrate 25 mg tablet 25 mg PO BID #180 tabs 12/05/22 [Rx Last Taken Unknown] apixaban 5 mg tablet (Eliquis) 5 mg PO BID #180 tabs 01/09/23 [Rx Last Taken Unknown] Allergy/AdvReac Type Severity Reaction Status Date / Time No Known Allergies Allergy Verified 02/17/23 14:01 Family History Mother Abdominal aneurysm Father Cancer Lung Surgical History (Updated 12/22/21 @ 10:30 by Shawanda Levy) H/O hernia repair History of cardioversion (12/15/21) History of kidney surgery History of left knee replacement History of right hip replacement Hx of hysterectomy S/P partial lobectomy of lung Social History Smoking Status: Former smoker quit date: 09/16/85 how long ago did patient quit smokin alcohol intake: current alcohol intake frequency: a few times a month substance use type: does not use caffeine: No EXAM Physical Exam Const Vital Signs: 02/17/23 14:01 Temperature 96.1 F L Temperature Source Temporal Pulse Rate 77 Respiratory Rate 18 Blood Pressure 167/79 H Blood Pressure Mean 108 Pulse Ox 96 Oxygen Delivery Method Room Air MDM MDM MDM Narrative Medical decision making narrative: HISTORY OF PRESENT ILLNESS: 87-year-old female here with constipation. Unknown last bowel movement. States she takes narcotic pain medicine form of tramadol and hydrocodone. States she has pain with trying to use a bowel movement. She feels like there may be stool stuck in the rectal vault. She states she has no vomiting no diarrhea no fever. States that history of abdominal surgeries. REVIEW OF SYSTEMS: Pertinent positives: Constipation, Pertinent negatives: Vomiting, chest pain or shortness of breath PHYSICAL EXAM: Nursing triage notes reviewed, Vital signs reviewed Constitutional: please see [facility] HENT: MMM Eyes: Pupils equal round and reactive to light, Extraocular muscles intact Neck: No stridor, no JVD, full neck ROM Lungs: Clear to auscultation, No wheezing or rales. No increased work of breathing, no conversational dyspnea, no accessory muscle use, no nasal flaring. No respiratory distress noted Heart: Regular rate and rhythm, No murmurs, No rubs and No gallops, 2+ distal pulses (radial, femoral, posterior tibial) in all extremities Abdomen: Soft, there is no objective tenderness, rigidity, rebound or guarding, no obvious peritoneal signs, no palpable pulsatile abdominal masses, no auscultated abdominal bruit : No CVAT Extremities: No edema Neuro: No focal neurological deficits, cranial nerves II through XII intact, 5/5 strength in all extremities. Intact sensation to light touch in all extremities, 2+ reflexes bilateral patella tendons. Normal gait. No ataxia. Skin: No rash or lesions noted MEDICAL DECISION MAKING: Chief Complaint: Constipation External records reviewed: X-ray of the abdomen in 2019 shows unremarkable bowel gas pattern Factors affecting care: Opiate user Social determinants of health: Elderly History obtained from others: The patient's friend Consults: None ALL IMAGES HAVE BEEN PERSONALLY REVIEWED AND INTERPRETED BY MYSELF. [facility] Narrative: Patient was hemodynamically stable, afebrile, nontoxic-appearing. Abdominal exam was not consistent with acute surgical process however the patient advanced age multiple abdominal surgeries and lack of bowel movement was concerning for obstruction. I considered the following differential diagnosis: SBO, perforation, constipation, electrode abnormality, dehydration I obtained labs and I ordered a CT scan with oral contrast. Labs were remarkable for no evidence of significant electrolyte abnormalities, dehydration or pancreatitis. There is no hepatobiliary pathology. After receiving oral contrast patient is a large bowel movement. She states she felt much better with her symptoms completely relieved. We had a shared decision-making discussion about the utility of a CT scan. Given she had a bowel movement she is unlikely to have a mechanical or surgical obstruction. Patient agreed. She refused CT at this time stating it was unnecessary. She was alert and orient x3 and had capacity to make her medical decisions. She chose to be discharged home with strict return precautions. Patient agreed the plan Total critical care time today provided was at least 0 minutes. This excludes separately billable procedures. There was a high probability of clinically significant/life threatening deterioration in the patient's condition which required my urgent intervention. Shared decision making: I will have a discussion with the patient and or visitors regarding risk/benefits of further testing or admission. They will be made aware of of the risk/benefits inherent in this decision they will be given the opportunity to voice understanding. Lab Data Attestation: I reviewed the patient's lab results. Lab results narrative: CBC with leukocytosis, mild anemia, no thrombocytopenia BMP with baseline CKD, no significant electrolyte abnormalities, LFTs show no evidence of hepatobiliary pathology. Lipase is wnl indicating no pancreatic inflammation. Labs: Laboratory Results - last 24 hr 02/17/23 02/17/23 14:55 14:55 WBC 13.8 H RBC 3.54 L Hgb 10.6 L Hct 34.6 L MCV 97.7 MCH 29.9 MCHC 30.6 L RDW Std Deviation 57.9 H RDW Coeff of Dionisio 16.1 H Plt Count 298 MPV 9.3 Immature Gran % (Auto) 0.500 Neut % (Auto) 80.6 H Lymph % (Auto) 10.2 L Cooper % (Auto) 7.8 Eos % (Auto) 0.5 Baso % (Auto) 0.4 Absolute Neuts (auto) 11.1 H Absolute Lymphs (auto) 1.41 Nucleated RBC % 0 Sodium 141 Potassium 4.2 Chloride 108 H Carbon Dioxide 26.0 Anion Gap 7 BUN 22 H Creatinine 1.46 H Estim Creat Clear Calc 24.93 Est GFR (MDRD) Af Amer 43 L Est GFR (MDRD) Non-Af 36 L BUN/Creatinine Ratio 15.1 Glucose 106 Calcium 9.4 Total Bilirubin 0.60 AST 28 ALT 20 Alkaline Phosphatase 78 Total Protein 7.5 Albumin 3.9 Globulin 3.6 Albumin/Globulin Ratio 1.1 Lipase 53 Discharge Plan Triage Chief Complaint: Constipation ED Provider: Wes Celis Dx/Rx/DC Orders Clinical Impression: Acute constipation Instructions: ED Constipation (Adult) Prescriptions: No Action atorvastatin 40 mg tablet 40 mg PO QHS Qty: 90 3RF verapamil 120 mg tablet extended release 120 mg PO DAILY Qty: 90 3RF diphenhydramine-acetaminophen [Acetaminophen PM] 25-500 mg Tablet 2 tab PO QHS PRN (Reason: Sleep) furosemide [Lasix] 20 mg tablet 20 mg PO DAILY Qty: 30 11RF metoprolol tartrate 25 mg tablet 25 mg PO BID Qty: 180 3RF Eliquis 5 mg tablet 5 mg PO BID Qty: 180 3RF Primary Care Provider: Sylvia Cuevas Referrals: Sylvia Cuevas MD [Primary Care Provider] - Activity Restrictions/Additional Instructions: Thank you for trusting us with your care today! Please take Tylenol (2 pills, 650 mg), ibuprofen (2 pills, 400 mg) every 6 hours as needed for pain and fever control. Please go to your local pharmacy or drugstore and obtain MiraLAX, Colace and senna. Please take these medicines daily until desired consistency of bowel movements are achieved. Once your bowel movements become slightly loose please discontinue these medications 1 at a time. Please return to the emergency department if your symptoms change or worsen. Specifically you develop vomiting, if you not have a bowel movement for 7 days, if you develop fever, if you cannot urinate. Please follow with your primary care physician for further outpatient evaluation and management. Disposition Disposition: Home, Self Care Discharge Date/Time: 02/17/23 17:16
[2023-02-17] MEDS: 0.9% Normal Saline 1,000 ML 1000 ML IV (14:56)
[2023-02-17 15:10] LABS: Absolute Lymphocyte Count 1.41 X10^3/uL (0.83-4.51); Absolute Neutrophil Count 11.1 X10^3/uL (2.0-7.7); Basophil# 0.05 X10^3/uL; Basophil% 0.4 % (0-1); Eosinophil# 0.07 X10^3/uL; Eosinophils% 0.5 % (0-5); Hematocrit 34.6 % (37-47); Hemoglobin 10.6 g/dL (12.0-15.0); Lymphocyte # 1.41 X10^3/ul (0.83-4.51); Lymphocyte % 10.2 % (19-41); Mean Corp Hgb Conc 30.6 g/dL (32-36); Mean Corpuscular Hgb 29.9 pg (27.0-32.0); Mean Corpuscular Volume 97.7 fL (81-99); Mean Platelet Vol. 9.3 fl (6.2-12.0); Monocyte# 1.08 X10^3/uL; Monocyte% 7.8 % (0-10); NRBC Flagged by Analyzer 0 % (0-5); Neutrophil % 80.6 % (47-70); Platelet Count 298 K/mm3 (150-450); RBC Distribution Width CV 16.1 % (11.6-14.6); RBC Distribution Width SD 57.9 fl (35.1-43.9); Red Blood Count 3.54 M/mm3 (4.2-5.4); White Blood Count 13.8 K/mm3 (4.4-11.0)
[2023-02-17 15:27] LABS: ALB/GLOB Ratio 1.1 RATIO (0.9-2.4); AST(SGOT) 28 U/L (15-37); Alanine Aminotransfer ALT/SGPT 20 U/L (13-56); Albumin, Serum 3.9 g/dL (3.2-5.0); Alkaline Phosphatase 78 U/L (45-117); Anion Gap 7 (5-15); BUN 22 mg/dL (7-18); BUN/Creat Ratio 15.1 RATIO (10-20); Calcium,Total 9.4 mg/dL (8.5-10.1); Chloride 108 mmol/L (98-107); Creatinine, Serum 1.46 mg/dL (0.55-1.02); EST Glomerular Filtration Rate 36 mL/min (>60); Est Glom Filt Rate - Afr Amer 43 mL/min (>60); Estimated Creatinine Clearance 24.93 ml/min; Globulin 3.6 g/dL (2.2-4.2); Glucose 106 mg/dL (74-106); Lipase 53 U/L (13-75); Potassium 4.2 mmol/L (3.5-5.1); Protein, Total 7.5 g/dL (6.4-8.2); Sodium Level 141 mmol/L (136-145)
--- NOTE | 2023-02-17 16:15 | ED.RN ---
PT HAD XL SOFT FORMED BM IN BSC. PT REPORTS FEELING MOSTLY BETTER, STATES SHE MAY HAVE A LITTLE STOOL LEFT TO PASS BUT DOES FEEL RELIEF. DR DOWNING NOTIFIED-WILL SPEAK TO PT.
== END 2023-02-17 17:16 | disposition home or self-care (01) ==
PROVIDERS: Emergency Provider Emergency Medicine; PCP Family Medicine; Visit Provider Emergency Medicine
DX: K59.00 Constipation, unspecified (principal); I48.91 Unspecified atrial fibrillation; Z87.891 Personal history of nicotine dependence; Z79.01 Long term (current) use of anticoagulants; Z96.652 Presence of left artificial knee joint; Z96.641 Presence of right artificial hip joint; Z90.710 Acquired absence of both cervix and uterus
CPT/HCPCS: 80053; 83690; 85025; 96360; 96361; 99282; J7030; A4216

== ENCOUNTER → 2023-03-15 | Outpatient (CLI) | payer MEDICARE, SELFPAY ==
[2023-03-15 13:03] LABS: BNP,B-Type NATRIURETIC PEPTIDE 628.9 pg/mL (0-100)
[2023-03-15 13:27] LABS: AST(SGOT) 24 U/L (15-37); Alanine Aminotransfer ALT/SGPT 17 U/L (13-56); Albumin, Serum 3.7 g/dL (3.2-5.0); Alkaline Phosphatase 80 U/L (45-117); Anion Gap 3 (5-15); BUN 27 mg/dL (7-18); BUN/Creat Ratio 18.8 RATIO (10-20); Bilirubin, Direct 0.12 mg/dL (0.00-0.30); Calcium,Total 9.1 mg/dL (8.5-10.1); Chloride 112 mmol/L (98-107); Cholesterol 231 mg/dL (200); Creatinine, Serum 1.44 mg/dL (0.55-1.02); EST Glomerular Filtration Rate 37 mL/min (>60); Est Glom Filt Rate - Afr Amer 44 mL/min (>60); Globulin 3.8 g/dL (2.2-4.2); Glucose 79 mg/dL (74-106); High Density Lipoprotein 46 mg/dL; Potassium 4.9 mmol/L (3.5-5.1); Protein, Total 7.5 g/dL (6.4-8.2); Sodium Level 143 mmol/L (136-145); Triglycerides 140 mg/dL; Very Low Density Lipoprotein 28 mg/dL (5-40)
[2023-03-15 17:34] LABS: Hematocrit 35.4 % (37-47); Hemoglobin 10.7 g/dL (12.0-15.0); Mean Corp Hgb Conc 30.2 g/dL (32-36); Mean Corpuscular Hgb 28.8 pg (27.0-32.0); Mean Corpuscular Volume 95.2 fL (81-99); Mean Platelet Vol. 9.9 fl (6.2-12.0); Platelet Count 309 K/mm3 (150-450); RBC Distribution Width CV 15.1 % (11.6-14.6); RBC Distribution Width SD 53.1 fl (35.1-43.9); Red Blood Count 3.72 M/mm3 (4.2-5.4); White Blood Count 8.2 K/mm3 (4.4-11.0)
[2023-03-15 17:54] LABS: Ferritin 17 ng/mL (8-252); Iron 37 ug/dL (50-170)
[2023-03-18 15:09] LABS: Endomysial Antibody IgA Negative (Negative); Immunoglobulin A 462 mg/dL (64-422); t-Transglutaminase IgA <2 U/mL (0-3)
== END | disposition home or self-care (01) ==
PROVIDERS: PCP Family Medicine; Referring Provider Nurse Practitioner Gerontology; Visit Provider Nurse Practitioner Gerontology
DX: D50.9 Iron deficiency anemia, unspecified (principal); E78.5 Hyperlipidemia, unspecified; F50.9 Eating disorder, unspecified; R06.09 Other forms of dyspnea
CPT/HCPCS: 36415; 80048; 80061; 80076; 82728; 82784; 83516; 83540; 83880; 85027; 86255

== ENCOUNTER 2023-09-29 14:09 | Emergency (ER) | payer MEDICARE, SELFPAY ==
[2023-09-29 14:09] VITALS: BP 166/76; PULSE 91; RESP 16; TEMP 36.6; O2SAT 96; BMI 27.0
--- NOTE | 2023-09-29 14:30 | RAD_ITS ---
EXAM: XR RIGHT HIP WITH PELVIS WHEN PERFORMED, 2 OR 3 VIEWS CLINICAL INDICATION: trauma TECHNIQUE: Two or three views of the right hip with pelvis when performed. COMPARISON: No relevant prior studies available. FINDINGS: BONES/JOINTS: Total right hip arthroplasty. Degenerative findings in the lumbar spine. Degenerative findings of the left hip. No displaced fracture. No destructive or sclerotic lesions. Note that overlapping bowel shadows may however obscure fine detail. Sacroiliac joint is unremarkable. No widening of the pubic symphysis. SOFT TISSUES: Unremarkable. No soft tissue swelling or gas. RAD/HIP, UNI W/ Pelvis 2-3 Views IMPRESSION: No acute findings in the pelvis or right hip. Electronically Signed: Arya Wiggins MD at 15:12 EST ,
--- NOTE | 2023-09-29 14:30 | CT_ITS ---
STUDY: CT BRAIN WITHOUT CONTRAST REASON FOR EXAM: Female, 88 years old. trauma Individualized dose optimization techniques were used for this CT. TECHNIQUE: Transaxial CT imaging of the brain was performed without administration of intravenous contrast material. COMPARISON: None FINDINGS: There are calcifications around the carotid artery. These are noted in the cavernous carotid arteries. Normal calvarium. Normal soft tissues. There is mild cerebral atrophy with widening of the extra-axial spaces and ventricular dilatation. There are areas of decreased attenuation within the white matter tracts of the supratentorial brain, consistent with microvascular disease changes. Normal basal ganglia and thalami. Normal brainstem. There is mild cerebellar atrophy. There is no intracranial hemorrhage. There are no findings of an acute ischemic infarction. Normal visualized paranasal sinuses. ASPECTS Score for Acute Strokes: 10/ CT/Brain/Head without Contrast IMPRESSION: There are no acute findings. Chronic involutional changes of the brain. Electronically Signed: Arya Wiggins MD at 15:13 EST ,
--- NOTE | 2023-09-29 14:33 | ED.VIS.FALL ---
HPI HPI - Fall History of Present Illness Chief Complaint: Fall Informant: patient, family and EMS Narrative Narrative: 88-year-old female presenting to the emergency room with right hip pain status post fall. Patient states she was walking from her laundry room to her bedroom to get some hangers when she tripped over some carpeting. This caused her to stumble forward eventually falling and landing on her right hip. 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 This was [place] [address] Barrios. Patient states she also struck her face but did not lose consciousness. She is on Eliquis. Patient states she was able to essentially army crawl to the kitchen where she was able to pull herself up onto a chair. She sat there for several hours unable to get up and get to the phone. Eventually her prosthetic knee started to hurt on the opposite leg and she called her life alert which then led to her being transported here. When asked where she hurts she states more on the inside of the right inguinal area then tells me it hurts posteriorly where her sciatic is . PFSH PFS Medical History Anemia of chronic renal failure, stage 3b Atrial fibrillation Chronic renal failure (CRF), stage 3b Former smoker Hx of cancer of lung Iron deficiency anemia due to chronic blood loss Kidney stones New onset atrial flutter Osteoporosis Rheumatoid arthritis Home Medications diphenhydramine 25 mg-acetaminophen 500 mg tablet (Acetaminophen PM) 2 tab PO QHS PRN Sleep 10/13/21 [History Last Taken 10/12/21] metoprolol tartrate 25 mg tablet 25 mg PO BID #180 tabs 12/05/22 [Rx Last Taken Unknown] apixaban 5 mg tablet (Eliquis) 5 mg PO BID #180 tabs 01/09/23 [Rx Last Taken Unknown] furosemide 20 mg tablet (Lasix) 40 mg (2 x 20 mg) PO DAILY #30 tabs 03/15/23 [Rx Last Taken Unknown] tramadol 50 mg tablet 50 mg PO BID PRN 03/15/23 [History Last Taken Unknown] verapamil 120 mg tablet,extended release 120 mg PO DAILY #90 tabs 03/15/23 [Rx Last Taken Unknown] ascorbate calcium (vitamin C) 500 mg tablet 500 mg PO DAILY 05/01/23 [History Last Taken Unknown] ferrous sulfate 325 mg (65 mg iron) tablet 325 mg PO DAILY 05/01/23 [History Last Taken Unknown] polyethylene glycol 3350 17 gram oral powder packet (Miralax) 17 g PO DAILY 05/08/23 [History Last Taken Unknown] oxycodone 5 mg tablet 5 mg PO TID PRN pain 3 days #12 tabs 09/29/23 [Rx Last Taken Unknown] Allergy/AdvReac Type Severity Reaction Status Date / Time No Known Allergies Allergy Verified 05/08/23 09:35 Family History Mother Abdominal aneurysm Father Cancer Lung Surgical History H/O hernia repair History of cardioversion (12/15/21) History of kidney surgery History of left knee replacement History of right hip replacement Hx of hysterectomy S/P partial lobectomy of lung Social History Smoking Status: Former smoker quit date: 09/16/85 how long ago did patient quit smokin alcohol intake: current alcohol intake frequency: a few times a month substance use type: does not use caffeine: No ROS ROS ED Constitutional Constitutional ED: Denies chills, fever(s) or weight loss Eyes Eyes: Denies change in vision or diplopia ENT ENT ED: Denies ear pain, rhinorrhea or sore throat Cardiovascular Cardiovascular: Denies chest pain, orthopnea, palpitations or racing heartbeat Respiratory/Chest Respiratory/Chest: Denies cough, dyspnea or orthopnea Gastrointestinal Gastrointestinal: Denies abdominal pain, diarrhea, nausea or vomiting Genitourinary Genitourinary ED: Denies dysuria, hematuria or urinary frequency Musculoskeletal Musculoskeletal: Reports other Details: Right hip pain ; Denies arthralgias, back pain, myalgias or neck pain Integumentary Denies abscess or rash Neurologic Neurologic: Denies headache(s) or weakness Psychiatric Psychiatric: Denies anxiety, depression, suicidal ideation or suicidal thoughts Endocrine Endocrinology: Denies polydipsia, polyphagia or polyuria Allergic/Immunologic Allergic/Immunologic ED: Denies mouth swelling, tongue swelling or urticaria EXAM Physical Exam Const Vital Signs: 09/29/23 14:09 09/29/23 14:14 Temperature 97.8 F Temperature Source Temporal Pulse Rate 91 Respiratory Rate 16 Respiratory Effort Normal Non-Labored Respiratory Depth Normal Respiratory Pattern Normal Blood Pressure 166/76 H Blood Pressure Mean 106 Pulse Ox 96 Oxygen Delivery Method Room Air Room Air Positive well nourished and well developed General Appearance ED: well developed HEENT Reports normocephalic, head/scalp atraumatic and moist mucous membranes Eyes PERRL and EOMs intact bilaterally Neck full ROM, no lymphadenopathy, supple and no JVD Resp normal respiratory effort and clear to auscultation bilaterally Cardio regular rate, regular rhythm and no murmurs GI normal to inspection, nondistended, normoactive bowel sounds and non-tender Palpation: soft Back/Spine no CVA tenderness and normal ROM Back/Spine Narrative: She does not have any pain on palpation of the lumbar spine or paraspinal musculature or in the buttock area. Extremity Extremity Narrative: Patient reports medial hip discomfort on the right with logrolling. I do not cause any pain when I palpate laterally or posteriorly on the hip. The leg is not shortened or rotated. Neurovascular intact distally. General Extremety ED: Negative for edema General Extremity: Negative for edema Neuro oriented x3 and CN's II-XII intact bilaterally Shaji Coma Scale: document GCS findings Spontaneous Obeys Commands Oriented 15 Sensorium / Orientation: alert Motor Exam: strength 5/5 throughout Psych mental status grossly normal Mood & Affect: Negative for depressed or tearful Skin no rashes or lesions noted and no wounds MDM MDM MDM Narrative Medical decision making narrative: My independent interpretation of the plain films of the right hip and pelvis is no acute fracture. CT the brain is negative for intracranial hemorrhage or fracture. Patient received oxycodone and Tylenol. Patient was able to get up with a walker. She still had pain with ambulation but felt that she would be able to be okay at home if she could just get in with her walker. She does have a daughter and her here in town and they are here in the department with her. Patient was advised that she is now at increased fall risk. Radiography Diagnostic Testing: Clinical Impression(s) from Imaging Studies Brain CT 09/29/23 14:30 IMPRESSION: There are no acute findings. Chronic involutional changes of the brain. Electronically Signed: Arya Wiggins MD at 15:13 EST , Hip/Pelvis X-Ray 09/29/23 14:30 IMPRESSION: No acute findings in the pelvis or right hip. Electronically Signed: Arya Wiggins MD at 15:12 EST , Discharge Plan Triage Chief Complaint: Fall ED Provider: Miller Rivas Dx/Rx/DC Orders Clinical Impression: Acute pain of right hip, S/P total hip arthroplasty, Fall, Contusion of hip, right Instructions: ED Hip Contusion, ED Fall Prevention Prescriptions: New oxycodone 5 mg tablet 5 mg PO TID PRN (Reason: pain) 3 Days Qty: 12 0RF No Action tramadol 50 mg tablet 50 mg PO BID PRN verapamil 120 mg tablet extended release 120 mg PO DAILY Qty: 90 3RF ferrous sulfate 325 mg (65 mg iron) tablet 325 mg PO DAILY ascorbate calcium (vitamin C) 500 mg tablet 500 mg PO DAILY polyethylene glycol 3350 [Miralax] 17 gram powder in packet 17 g PO DAILY diphenhydramine-acetaminophen [Acetaminophen PM] 25-500 mg Tablet 2 tab PO QHS PRN (Reason: Sleep) metoprolol tartrate 25 mg tablet 25 mg PO BID Qty: 180 3RF Eliquis 5 mg tablet 5 mg PO BID Qty: 180 3RF furosemide [Lasix] 20 mg tablet 40 mg PO DAILY Qty: 30 11RF Primary Care Provider: Sylvia Cuevas Referrals: Sylvia Cuevas MD [Primary Care Provider] - 3-5 Days Disposition Disposition: Home, Self Care
--- OUTSIDE RECORDS SUMMARY | 2023-09-29 14:35 | XMS RPT_ITS | CCD ---
Author Name Unknown Address [address] [place] [address] Organization [facility] Results Test Name Value Interpretation Reference Range Facil ity Progress note 09-27-2021 Note Date & Type Note Facility 09-27-2021 Note HNO ID: [id number] Author: Nina Patel APRN.[employer] Service: ? Author Type: Nurse Practitioner Type: Progress Notes Filed: 09/27/2021 11:17 AM Note Text: CC: Patient presents with: Cough: Pt reported SOB, intermittent chest pain Pain: body aches pain rated 10 on pain scale x 11 days Chest Congestion HPI: Lorena Mukherjee is a 86 year old female who presents to the office with complaint of respiratory symptoms, chest congestion, cough, nonproductive and sinus symptoms for 11 days. Symptoms are worsening Associated symptoms includes facial pain/pressure and post nasal drip. Denies nausea, vomiting and diarrhea. Treatments tried include nothing so far. with no relief of symptoms. Sick contacts: unknown. History of asthma, frequent episodes of bronchitis, chronic bronchitis, bronchiectasis or COPD: No Smoker: No Seasonal/environmental allergies: No The ROS is otherwise negative. The patient's pmh, medications, allergies, and past visits are reviewed. PHYSICAL EXAM: BP 122/70 (BP Site: Left Arm, BP Position: Sitting) Pulse 76 Temp 37.6 ?C (99.6 ?F) (Temporal Artery) Resp 16 Wt 76.1 kg (167 lb 12.8 oz) SpO2 98% General appearance: alert, cooperative, pleasant, in no acute distress Head: Normocephalic Eyes: EOM's intact, conjunctiva pink and moist, no icterus, sclera white, non-injected Heart: Negative. RRR without obvious murmur, gallop, or rubs. No ectopy. Lungs: clear to auscultation, without rales or wheeze, good air exchange PAST MEDICAL HISTORY Diagnosis Date - Lung cancer (HCC) PAST SURGICAL HISTORY Procedure Laterality Date - PAST SURGICAL HISTORY OF RUL lobectomy ALLERGIES Patient has no known allergies. MEDICATIONS predniSONE 10 mg tablet pack Take by mouth once daily. PRN RA TRAMADOL HCL (TRAMADOL ORAL) Take by mouth. Prn doxycycline (VIBRA-TABS) 100 mg tablet Take 1 tablet by mouth twice daily for 10 days. meloxicam (MOBIC) 15 mg tablet Take 15 mg by mouth once daily. OXYBUTYNIN CHLORIDE ORAL Take 10 mg by mouth. methotrexate 2.5 mg tablet Take by mouth one time only. folic acid 1 mg tablet Take 1 mg by mouth once daily. hydroxychloroquine (PLAQUENIL) 200 mg tablet Take by mouth once daily. CALCIUM CARBONATE/VITAMIN D3 (VITAMIN D-3 ORAL) Take by mouth. Omeprazole (PRILOSEC) 40 mg capsule Take 40 mg by mouth once daily. gabapentin enacarbil 300 mg TbER Take by mouth. aspirin 81 mg chewable tablet Take 81 mg by mouth once daily. FOLIC ACID/MULTIVITS-MIN/LUT (CENTRUM SILVER ORAL) Take by mouth. azithromycin (ZITHROMAX Z-KEE) 250 mg tablet Take 2 tablets by mouth day one, then 1 tablet daily until gone. benzonatate (TESSALON PERLES) 100 mg capsule Take 1 capsule by mouth three times daily as needed for Cough. No family history on file. Social History Tobacco Use - Smoking status: Former Smoker Quit date: 09/16/1984 Years since quittin.0 - Smokeless tobacco: Never Used Substance Use Topics - Alcohol use: Not on file - Drug use: Not on file ASSESSMENT/PLAN: 1. Suspected COVID-19 virus infection - ICD9: V01.79, ICD10: Z20.822 (primary diagnosis) - COVID WITH FLUA+B, ROUTINE 2. Cough - ICD9: 786.2, ICD10: R05.9 - COVID WITH FLUA+B, ROUTINE Potential red flag symptoms discussed with the patient. Reviewed appropriate action plan to take if red flag symptoms occur. Patient agreeable to treatment plan. Nina Patel APRN.[facility] Summary Purpose Family History No Family History Records Found Advance Directives No Advanced Directives Records Found Additional Source Comments INFORMATION SOURCE (unrecogn ized section and content) FOR RECORDS PERTAINING TO PATIENTS WHO ARE OR HAVE BEEN ENROLLED IN A CHEMICAL DEPENDENCY/SUBSTANCEABUSE PROGRAM, SOME INFORMATION MAY BE OMITTED. This clinical summary was aggregated from multiple sources. Caution should be exercised in using it in the provision of clinical care. This summary normalizes information from multiple sources, and as a consequence, information in this document may materially change the coding, format and clinical context of patient data. In addition, data may be omitted in some cases. CLINICAL DECISIONS SHOULD BE BASED ON THE PRIMARY CLINICAL RECORDS. [facility], [facility]. provides no warranty or guarantee of the accuracy or completeness of information in this document.
[2023-09-29] MEDS: Acetaminophen 500 MG Tablet 1000 MG PO (14:36)
[2023-09-29] MEDS: oxyCODONE 5 MG Tablet PO (14:37)
--- NOTE | 2023-09-29 16:07 | ED.RN ---
PT DENIES USE OF ASSISTIVE DEVICE AT [facility]. PT ABLE TO SIT UP TO SIDE OF BED ON OWN. STOOD AND LEANED FOR COUNTER. ENCOURAGED PT SIT BACK DOWN. ATTEMPTED AGAIN WITH WALKER. PT AMBULATED TO JUST OUTSIDE OF ED ROOM DOOR, MOD AMOUNT OF PAIN BUT PT REPORTS SHE IS OK. SLIGHT SHAKING NOTED, PT ADMITS LEGS FEEL WEAK LIKE JELLO AND NEEDS TO AMBULATE IN SMALL AMOUNTS. PT VERY ADAMANT THAT SHE WANTS TO GO HOME. AWARE OF TEST WALK
[2023-09-29 16:33] VITALS: BP 160/87; PULSE 89; RESP 16; O2SAT 99
== END 2023-09-29 17:12 | disposition home or self-care (01) ==
PROVIDERS: Emergency Provider Emergency Medicine; PCP Family Medicine; Visit Provider Emergency Medicine
DX: M25.551 Pain in right hip (principal); I48.91 Unspecified atrial fibrillation; N18.32 Chronic kidney disease, stage 3b; S70.01XA Contusion of right hip, initial encounter; W01.0XXA Fall on same level from slipping, tripping and stumbling without subsequent striking against object, initial encounter; Z87.891 Personal history of nicotine dependence; Z79.01 Long term (current) use of anticoagulants
CPT/HCPCS: 70450; 73502; 99283

== ENCOUNTER 2023-10-15 11:09 | Emergency (ER) | payer MEDICARE, SELFPAY ==
[2023-10-15 11:11] VITALS: BP 162/76; PULSE 81; RESP 18; TEMP 36.3; O2SAT 94
--- NOTE | 2023-10-15 14:20 | CT_ITS ---
CT RIGHT LOWER EXTREMITY WITH 3-D IMAGING CLINICAL INDICATION: hip injury TECHNIQUE: Axial CT images of the RIGHT lower extremity was performed IV contrast material. Coronal and sagittal reformats were provided. RADIATION DOSAGE (If Supplied By Facility): CTDIvol = ( 18.41 ) mGy, DLP = ( 844.36 ) mGycm COMPARISON: Prior study dated: Comparison is made with prior radiograph of the right hip dated September 29, 2023. FINDINGS: Bones: The patient is status post right total hip replacement. There is good alignment. No evidence of fracture or dislocation. There is evidence of degenerative changes of the symphysis pubis. Calcification of the abdominal aorta and the iliac arteries. Soft Tissues: The deep soft tissue structures are unremarkable. The superficial soft tissues are unremarkable without evidence of edema, hematoma, or foreign body. CT/Extremity Lower without Contra IMPRESSION: Status post right total hip replacement. Degenerative changes. No acute fracture or dislocation is seen. Electronically Signed: Jeremy Carney MD at 15:13 EST ,
--- NOTE | 2023-10-15 14:23 | EX.ED.DYSGE1 ---
HPI <ANABELLA Monreal - Last Filed: 10/15/23 15:40> History of Present Illness Chief Complaint: Fall Narrative Narrative: Patient is a an 88-year-old female with history of atrial fibrillation who is currently on Eliquis, hyperlipidemia, rheumatoid arthritis who presents to the [facility] with ongoing right hip pain. Patient was seen here on September 29, 2023 for mechanical fall landing on her right hip striking her head. Patient's CT scan of the brain was negative, patient's x-rays of the pelvis was negative as well as the right hip. Patient was ambulatory and able to sit at home. Continue having pain, patient followed up with Dr. Boo, they devin-rayed her and was concerned for a abnormality and was sent to the emergency department for a CT scan of the right hip. [facility] <ANABELLA Monreal - Last Filed: 10/15/23 15:40> [facility] Medical History Anemia of chronic renal failure, stage 3b Atrial fibrillation Chronic renal failure (CRF), stage 3b Former smoker Hx of cancer of lung Iron deficiency anemia due to chronic blood loss Kidney stones New onset atrial flutter Osteoporosis Rheumatoid arthritis Home Medications diphenhydramine 25 mg-acetaminophen 500 mg tablet (Acetaminophen PM) 2 tab PO QHS PRN Sleep 10/13/21 [History Last Taken 10/12/21] metoprolol tartrate 25 mg tablet 25 mg PO BID #180 tabs 12/05/22 [Rx Last Taken Unknown] apixaban 5 mg tablet (Eliquis) 5 mg PO BID #180 tabs 01/09/23 [Rx Last Taken Unknown] furosemide 20 mg tablet (Lasix) 40 mg (2 x 20 mg) PO DAILY #30 tabs 03/15/23 [Rx Last Taken Unknown] tramadol 50 mg tablet 50 mg PO BID PRN 03/15/23 [History Last Taken Unknown] verapamil 120 mg tablet,extended release 120 mg PO DAILY #90 tabs 03/15/23 [Rx Last Taken Unknown] ascorbate calcium (vitamin C) 500 mg tablet 500 mg PO DAILY 05/01/23 [History Last Taken Unknown] ferrous sulfate 325 mg (65 mg iron) tablet 325 mg PO DAILY 05/01/23 [History Last Taken Unknown] polyethylene glycol 3350 17 gram oral powder packet (Miralax) 17 g PO DAILY 05/08/23 [History Last Taken Unknown] oxycodone 5 mg tablet 5 mg PO TID PRN pain 3 days #12 tabs 09/29/23 [Rx Last Taken Unknown] Allergy/AdvReac Type Severity Reaction Status Date / Time No Known Allergies Allergy Verified 05/08/23 09:35 Family History Mother Abdominal aneurysm Father Cancer Lung Surgical History H/O hernia repair History of cardioversion (12/15/21) History of kidney surgery History of left knee replacement History of right hip replacement Hx of hysterectomy S/P partial lobectomy of lung Social History Smoking Status: Former smoker quit date: 09/16/85 how long ago did patient quit smokin alcohol intake: current alcohol intake frequency: a few times a month substance use type: does not use caffeine: No ROS <ANABELLA Monreal - Last Filed: 10/15/23 15:40> ROS ED ROS Narrative Constitutional: Negative for fever, chills, weight loss, weakness Eyes: Negative for vision loss, vision change, double vision ENT: Negative for any sore throat, ear pain, congestion Cardiovascular: Negative for any chest pain, tightness, palpitations Respiratory: Negative for any cough, sputum production, hemoptysis, dyspnea, dyspnea on exertion, orthopnea Gastrointestinal: Negative for any abdominal pain, nausea, vomiting, diarrhea, constipation, blood in stool, blood in vomit : Negative for any urinary frequency, dysuria, retention, blood in urine Muscle skeletal: Negative for any myalgias, arthralgias, neck pain, back pain. Positive for right hip pain Neurological: Negative for any headache, syncope, paresthesias, dizziness Skin: Negative for any rashes, lumps, itching, abrasions, lacerations Psychiatric: Negative for any depression, anxiety, stress, suicidal ideation, homicidal ideation Hematologic: Negative for any easy bruising, excessive bruising, easy bleeding Allergies: Negative for any eczema, hives, rash EXAM <ANABELLA Monreal - Last Filed: 10/15/23 15:40> Physical Exam Narrative Exam Narrative: Vital signs reviewed. HEET: Head normocephalic atraumatic, TMs clear bilaterally. Posterior pharynx is clear, moist mucous membranes. Nares clear bilaterally. Neck: Supple with no lymphadenopathy or tenderness. No signs of meningismus. Cardiac: Regular rate and rhythm no murmurs gallops or rubs, equal peripheral pulses bilaterally. Respiratory: Lungs clear to auscultation bilaterally. No chest tenderness. Abdomen: Soft, nontender, nondistended. No abdominal bruit or pulsatile masses. No hepatosplenomegaly Extremities: Patient is unable to lift her right leg off of the bed. Patient has significant pain to the right hip joint with any flexion or extension on passive range of motion. No pain to the knee and ankle. +2 pedal pulse. Neuro: Cranial nerves II through XII intact, no focal neurological deficits. Skin: Clean dry and intact with no rash, purpura, petechiae, vesicles or pustules. Backs/flank: No CVA tenderness, no midline spinal tenderness, no deformity. Psych: Normal mood and affect. No SI, HI or acute psychosis. Const Vital Signs: 10/15/23 11:11 10/15/23 14:22 Temperature 97.4 F L Temperature Source Temporal Pulse Rate 81 Respiratory Rate 18 Blood Pressure 162/76 H Blood Pressure Mean 104 Pulse Ox 94 Oxygen Delivery Method Room Air Room Air <Dr. Hesham May MD - Last Filed: 10/15/23 15:37> Physical Exam Const Vital Signs: 10/15/23 11:11 10/15/23 14:22 Temperature 97.4 F L Temperature Source Temporal Pulse Rate 81 Respiratory Rate 18 Blood Pressure 162/76 H Blood Pressure Mean 104 Pulse Ox 94 Oxygen Delivery Method Room Air Room Air MDM <ANABELLA Monreal - Last Filed: 10/15/23 15:40> MDM Radiography Diagnostic Testing: Clinical Impression(s) from Imaging Studies Lower Extremity CT 10/15/23 14:20 IMPRESSION: Status post right total hip replacement. Degenerative changes. No acute fracture or dislocation is seen. Electronically Signed: Jeremy Carney MD at 15:13 EST , Treatment and Re-Evaluation :: Patient appears to be in no obvious distress vital signs are stable. Presenting to the emergency department for ongoing pain to the right hip after mechanical fall on September 29, 2023. She did see orthopedics who was concerned for an acetabulum abnormality. Patient was sent here for an emergent CT scan of the right hip. Patient will receive the CT scan, will then speak with the orthopedics on-call. I did offer the patient some analgesia however she refused at this time. All radiologic examinations were read, reviewed by the emergency department attending. From these reads, a plan of care will be put in place. Patient's CT scan of the right hip shows status post right total hip replacement. Degenerative changes, no acute fracture or dislocation seen. We reached out to her orthopedist, the patient be seen outpatient. The patient be only discharged here. There is no acetabulum abnormality at this time. Patient will continue to care for self at home, all questions were answered. Patient is happy with plan of care, will follow-up with orthopedics. <Dr. Hesham May MD - Last Filed: 10/15/23 15:37> MDM Radiography Diagnostic Testing: Clinical Impression(s) from Imaging Studies Lower Extremity CT 10/15/23 14:20 IMPRESSION: Status post right total hip replacement. Degenerative changes. No acute fracture or dislocation is seen. Electronically Signed: Jeremy Carney MD at 15:13 EST , Management Discussion w/another healthcare provider: Ct Mri Technologist ([facility]) Treatment and Re-Evaluation Comments:: I have personally performed a face to face assessment of the patient and have reviewed the SAMARA Note. I performed a substantive portion of the visit including all aspects of the following. My lainez findings include: History is fall 2 weeks ago, negative x-rays history of KORI, pain in the right hip ever since limiting her ability to walk normally. Has been using walker and wheelchair and able to transition between the 2, but using the wheelchair more because it hurts to put weight on her right lower extremity. Has been seen in orthopedics, had abnormal x-rays and referred here for CT to rule out acetabular fracture/abnormality/impaction. Exam is right lower extremity neurovascularly intact distally, no deformity. No signs of infection on skin. Tender laterally and superiorly about the right hip. No significant joint pain with very mild internal/external rotation of the joint but not able to flex at the hip due to pain. Medical Decison Making CT imaging and report reviewed, negative for any acute. Discussed with orthopedics. This does not rule out the possibility of a small hemarthrosis. For now supportive care continued since she is doing okay at home she can continue that and following up with orthopedics as an outpatient. Other additions or changes: [None] Discharge Plan Triage Chief Complaint: Fall ED Midlevel Provider: Jayro Epstein ED Provider: Hesham May Dx/Rx/DC Orders Clinical Impression: History of fall, Hip pain, right Instructions: ED Arthralgia, ED Hip Contusion Prescriptions: No Action tramadol 50 mg tablet 50 mg PO BID PRN verapamil 120 mg tablet extended release 120 mg PO DAILY Qty: 90 3RF ferrous sulfate 325 mg (65 mg iron) tablet 325 mg PO DAILY ascorbate calcium (vitamin C) 500 mg tablet 500 mg PO DAILY polyethylene glycol 3350 [Miralax] 17 gram powder in packet 17 g PO DAILY diphenhydramine-acetaminophen [Acetaminophen PM] 25-500 mg Tablet 2 tab PO QHS PRN (Reason: Sleep) oxycodone 5 mg tablet 5 mg PO TID PRN (Reason: pain) 3 Days Qty: 12 0RF metoprolol tartrate 25 mg tablet 25 mg PO BID Qty: 180 3RF Eliquis 5 mg tablet 5 mg PO BID Qty: 180 3RF furosemide [Lasix] 20 mg tablet 40 mg PO DAILY Qty: 30 11RF Primary Care Provider: Sylvia Cuevas Referrals: Sylvia Cuevas MD [Primary Care Provider] - Michael Boo MD [Med Staff - Active Staff] - Activity Restrictions/Additional Instructions: Please follow-up outpatient. Disposition Disposition: Home, Self Care
== END 2023-10-15 15:57 | disposition home or self-care (01) ==
PROVIDERS: Emergency Provider Emergency Medicine; PCP Family Medicine; Visit Provider Emergency Medicine
DX: M25.551 Pain in right hip (principal); I48.91 Unspecified atrial fibrillation; N18.32 Chronic kidney disease, stage 3b; D63.1 Anemia in chronic kidney disease; W18.30XA Fall on same level, unspecified, initial encounter; Z96.641 Presence of right artificial hip joint; Z79.01 Long term (current) use of anticoagulants; Z79.899 Other long term (current) drug therapy; Z87.891 Personal history of nicotine dependence
CPT/HCPCS: 73700; 99282

== ENCOUNTER 2023-10-30 09:44 | Inpatient (IN) | payer MEDICARE, SELFPAY ==
[2023-10-22 13:51] LABS: Absolute Lymphocyte Count 1.82 X10^3/uL (0.83-4.51); Absolute Neutrophil Count 5.7 X10^3/uL (2.0-7.7); Basophil# 0.05 X10^3/uL; Basophil% 0.6 % (0-1); Eosinophil# 0.18 X10^3/uL; Eosinophils% 2.1 % (0-5); Hematocrit 40.6 % (37-47); Hemoglobin 12.6 g/dL (12.0-15.0); Lymphocyte # 1.82 X10^3/ul (0.83-4.51); Mean Corpuscular Hgb 30.4 pg (27.0-32.0); Mean Corpuscular Volume 97.8 fL (81-99); Mean Platelet Vol. 9.8 fl (6.2-12.0); Monocyte# 0.92 X10^3/uL; Monocyte% 10.6 % (0-10); NRBC Flagged by Analyzer 0 % (0-5); Neutrophil # 5.66 X10^3/uL (2.7-7.7); Neutrophil % 65.2 % (47-70); Platelet Count 329 K/mm3 (150-450); RBC Distribution Width CV 13.8 % (11.6-14.6); RBC Distribution Width SD 49.5 fl (35.1-43.9); Red Blood Count 4.15 M/mm3 (4.2-5.4); White Blood Count 8.7 K/mm3 (4.4-11.0)
[2023-10-22 14:24] LABS: Albumin, Serum 3.5 g/dL (3.2-5.0); Anion Gap 3 (5-15); BUN 34 mg/dL (7-18); BUN/Creat Ratio 27.9 RATIO (10-20); Calcium,Total 9.1 mg/dL (8.5-10.1); Chloride 108 mmol/L (98-107); Creatinine, Serum 1.22 mg/dL (0.55-1.02); EST Glomerular Filtration Rate 44 mL/min (>60); Est Glom Filt Rate - Afr Amer 53 mL/min (>60); Glucose 81 mg/dL (74-106); Magnesium 2.5 mg/dL (1.6-2.6); Potassium 4.1 mmol/L (3.5-5.1); Sodium Level 139 mmol/L (136-145)
--- NOTE | 2023-10-28 06:50 | PCM.HP.BLA ---
History and Physical History and Physical? Patient Name: Chari Mukherjee : 1935 From:? MARIE CONNOLLY PA-C? DATE OF PRE-OPERATIVE EXAM: 10/25/2023 DATE OF SURGERY:? 10/30/2023 SCHEDULED PROCEDURE:? Revision right total hip arthroplasty HISTORY OF PRESENT ILLNESS: Preoperative history and physical exam was performed on October 25, 2023.? This is a 88-year-old female who presents with her son-in-law for preoperative visit.? She had a previous right total hip arthroplasty by Dr. Pranav Barrios on August 01, 2015.? This was done anteriorly.? Patient was treated a few years ago by Dr. Michael Boo for iliopsoas tendinopathy.? She did respond very well at that time to corticosteroid injections and therapy.? She did have a recent fall which required her to go to the emergency room on September 29, 2023.? She was evaluated with a CT scan and x-rays.? The acetabular cup did show change from x-rays in the hospital emergency room to follow up in our office.? Dr. Boo does feel there is a cortical breach on the CT scan.? Patient has been treated with wheelchair in which she is nonweightbearing.? She had increased pain and difficulty with stairs, driving and walking.? She was walking with walker after the fall until her follow-up visit with orthopedics.? Her pain can reach 8/10 with ambulation.? In the wheelchair her pain is significantly better.? Patient uses occasional Tylenol as needed.? We have obtain surgical clearance from the primary care provider Dr. Cuevas and cardiology with [facility].? Cardiology recommended stopping the Eliquis 2 days prior to surgery and resuming on postoperative day #1.? Patient does have past medical history pertinent for rheumatoid arthritis, atrial fibrillation, hypertension, Gastroesophageal reflux disease, history of lung cancer, hyperlipidemia, and history of anemia.? Patient states she was recently started on ferrous sulfate couple years ago by staff auditor but cannot give me the name.? She denies past history of DVT or pulmonary embolism.? Denies any recent chest pain, shortness breath, fevers chills or recent infections.? After failing conservative measures and discussing treatment options with Dr. Michael Boo, the patient does wish to proceed with a revision right total hip arthroplasty.? Risk assessment and prediction tool score was 10/28. REVIEW OF SYSTEMS: ROS: Const: Denies anorexia, change in appetite, fever, hard of hearing, vision problems and weight change. CV: Denies chest pain, heart murmur, irregular heartbeat and peripheral vascular disease. Resp: Denies asthma, cough, pneumonia, sleep apnea, SOB, tuberculosis and wheezing. GI: Reports heartburn, but denies constipation, diarrhea, difficulty swallowing, nausea, bloody stools and vomiting. : Urinary: denies incontinence. Musculo: Reports trouble walking, but denies leg swelling, limp and weakness. Skin: Denies Raynaud's, history of shingles and tattoo. Neuro: Denies ambulatory dysfunction, dizziness, numbness/tingling and tremor. Psych: Denies anxiety, depression, insomnia, mental illness and stress. Thierno/Lymph: Reports anemia and bleeding/bruising tendency, but denies past transfusion. Reviewed and updated. PAST MEDICAL HISTORY: Advance Care Plan: Other Directive, LIVING WILL Effective Date: 07/24/2016 Other Directive, POA Effective Date: 07/24/2016 PMH: Medical Problems: Arthritis - RA Afib, High Blood Pressure, Acid Reflux Cancer - LUNG - HX? Kidney Stones, Osteoporosis, Artrial Flutter, Hyperlipidemia, Dyspnea, History of Anemia Accidents: Fracture - Lft toe, little toe on right foot Surgical Hx: Hernia Repair - (1957) at age 23 Kidney tear repair - at age 39 Hysterectomy - 1981or 82 Lung surgery - 2000 Tonsillectomy - age 3 or 4 LT TKR - (04/30/2011) [email or web address] Hip Replacement RT - (08/01/2016) [email or web address] RT Acetabular FX & Pelvic Ring FX - (09/29/2023) from a fall Cardioversion - (12/15/2021) Kidney Stones - KIDNEY STONE REMOVAL? Lobectomy Of Lung Anesthesia Complications: None Assistive Devices: Glasses, Dentures, wheelchair Reviewed and updated. SOCIAL HISTORY: SH: Marital: .Occupation: Retired.Work Status: Retired.Hand Dominance: Right-handed. Personal Habits:? Tobacco Use: Patient is a former smoker.Cigarette Use: Former - quit in 1984.Alcohol: Denies use.Drug Use: Former Illegal Drug User.Enjoy Exercising: Exercises 1-3 X/Week. Reviewed, no changes. VITALS: Ht: 64 Wt: 158lb Wt k.669 BMI: 27.1 BP: 116/76 Resp: 15 T: 97.2 T: 36.2C Pain Level: 8 ALLERGIES: Oxycodone - Face Itching No Known Substance Allergies? MEDICATIONS: Polyethylene Glycol 3350 17 GM/Scoop daily, Ferrous Sulfate 325 (65 Fe) MG daily, Calcium Ascorbate 500 mg daily, Verapamil HCL ER 120 mg daily, Furosemide 20 mg daily, Acetadryl 25-500 mg at bedtime, Eliquis 5 mg 1 by mouth twice a day PRE-OP EXAM:? General appearance:NORMAL? ? ? Other: Eyes: Conjunctivae and lids: NORMAL? Pupils: ERR Ears, Nose, Mouth, and Throat: NORMAL? Other: Inspection of lips, teeth and gums: NORMAL? ?Other: Neck: Examination of neck: no masses noted. Respiratory: Assessment of respiratory effort: NORMAL? ?Other: ?Auscultation of lungs: clear to auscultation no wheezes, rhonchi or rales. Cardiovascular:? Auscultation of heart: regular rate and rhythm, no murmurs, gallops or rubs. PHYSICAL EXAMINATION: On exam today patient presents in a walker.? She is currently nonweightbearing.? Range of motion was deferred today.? Sensation was intact to light touch. IMAGING STUDIES: Previous x-rays and CT scan of her right hip were reviewed which did show significant change of the acetabular component in position when reviewing previous x-rays.? CT scan was read negative for fracture or however Dr. Michael Boo review felt there was a central wall breech.? Findings are consistent with traumatic loosening of the acetabular component with likely central wall acetabular fracturing. IMPRESSION: 1.? Painful right total hip arthroplasty with loosening of component 2.? Hypertension 3.? Atrial fibrillation currently on Eliquis 4.? Rheumatoid arthritis 5.? History of lung cancer 6.? History of kidney stones 7.? Gastroesophageal reflux disease 8.? Dyspnea 9.? Hyperlipidemia 10.? History of anemia currently on ferrous sulfate PLAN: Dr. Michael Boo did discuss and review with the patient all treatment options including surgical versus nonsurgical options.? Patient does wish to proceed with the above-stated procedure.? Potential risks, benefits, and complications of the procedure were discussed in detail including but not limited to , infection, nerve and blood vessel damage, persistent pain, numbness, tingling, paresthesias, blood clot, pulmonary embolism, and requirement for possible further surgery.? The patient expressed full understanding and has no further questions for the doctor.? Patient does agree to proceed with the above-stated procedure and has signed the surgery consent form. POST-OP MEDICATION PLAN: Pain Medications: Postoperative pain regimen will be initiated by Dr. Michael Boo.? Plan to use hydrocodone/acetaminophen postoperatively as needed for pain control as she does not tolerate tramadol or oxycodone.? Patient does have a walker that she will bring to hospital.? Patient will continue with her vitamin D and ferrous sulfate. DVT Prophylaxis: Patient will stop the Eliquis 2 days prior to surgery per cardiology.? Okay to resume this postoperative day #1.? She denies past history of DVT or pulmonary embolism.? She takes Eliquis due to her atrial fibrillation. Risk Assessment and Prediction Tool (RAPT) Score = 2/12 This dictation was created using voice recognition software. Phonetic and/or grammatical errors may exist. ___? I have re-examined the patient.? There are no clinical changes since date of exam. ___? See progress notes for changes. ___? Dictated on admission Date: ? ? ?Time: Signature:
[2023-10-30] VITALS (11 sets, daily range): BP systolic 86–161; BP diastolic 47–82; PULSE 72–86; RESP 12–18; TEMP 35.9–36.6; O2SAT 94–100; BMI 26.0
--- OUTSIDE RECORDS SUMMARY | 2023-10-30 10:07 | XMS RPT_ITS | CCD ---
Author Name Unknown Address [address] [facility] [address] [place] [id number] Organization [facility] Results Test Name Value Interpretation Reference Range Facil ity Progress note 09-27-2021 Note Date & Type Note Facility 09-27-2021 Note HNO ID: [id number] Author: Nina Patel APRN.COMPENSATION VICE PRESIDENT Service: ? Author Type: Nurse Practitioner Type: [...] Patient agreeable to treatment plan. Nina Patel APRN.[facility] Summary Purpose Family History No Family [...] BE BASED ON THE PRIMARY CLINICAL RECORDS. [facility], [facility]. provides no warranty or guarantee of the accuracy or completeness of information in this document.
[2023-10-30] MEDS: Lactated Ringers 500 ML 999 ML IV ×2 (10:26→12:30)
[2023-10-30] MEDS: Celecoxib 200 MG Capsule 400 MG PO (10:27)
[2023-10-30] MEDS: Gabapentin 600 MG Tablet PO (10:27)
[2023-10-30] MEDS: Acetaminophen 500 MG Tablet 1000 MG PO ×2 (10:27→21:10)
[2023-10-30] MEDS: Magnesium 1 GM over 15 mins IV (10:32)
[2023-10-30 11:16] LABS: Bedside Glucose 82 mg/dL (74-106)
[2023-10-30] MEDS: Cefazolin 2 GM in 0.9% Normal Saline (100mL Bag) 100 ML IV (12:58)
[2023-10-30] MEDS: dexAMETHasone 10 MG/ML Vial IV (13:13)
--- NOTE | 2023-10-30 13:21 | PN.HOSP_ITS ---
Reason for Visit Reason for Visit: Right hip pain status post total hip arthroplasty with loosening of components Subjective Subjective Patient is an 88-year-old female who had previous total hip arthroplasty done in [address] Pranav Barrios. She did quite well following but did develop some iliopsoas tendinopathy which was treated by Dr. Michael Boo. She did not respond very well to corticosteroid injections and therapy. She had a recent fall which required her to go to emergency department on September 29, 2023 and was evaluated with CT scan and x-rays. The acetabular cup did show change from x-rays to follow-up in their office and Dr. Boo felt that there was cortical breach on the CT scan. She was wheelchair-bound and nonweightbearing because of her pain. She had significant debility related to this and a revision of her right total hip arthroplasty was recommended. She is on Eliquis chronically for atrial fibrillation and it was held for 2 days prior to surgery with the intent to resume postop day 1. She has a past medical history of rheumatoid arthritis, atrial fibrillation, hypertension, GERD, history of lung cancer, hyperlipidemia, and chronic anemia. We have been consulted postoperatively for postop medical management. Patient was evaluated on the medical floor postoperatively and was doing quite well. She indicates she typically does not have any issues postoperatively with previous surgeries. She denies any significant pain or nausea vomiting and states she just wants her damn teeth. Objective Data Objective Data Vital Signs: Vital Signs Temp Pulse Resp BP Pulse Ox O2 Del Method 97.7 F L 81 18 161/79 H 97 Room Air 10/30/23 10:21 10/30/23 10:21 10/30/23 10:21 10/30/23 10:21 10/30/23 10:21 10/30/23 10:21 Oxygen Delivery Method Room Air Weight: 71 kg Body Mass Index (BMI) 26.0 Lab / Micro Data 10/22/23 12:33 10/22/23 12:33 Labs: Laboratory Results - last 24 hr 10/30/23 10:21: POC Glucose 82 Micro: Microbiology 10/22/23 12:33 Swab (Method) Nasal Screen MRSA/MSSA - Final Physical Exam Const alert, oriented x3, no apparent distress, average body habitus, healthy ap pearing and well nourished Constitutional Narrative: Elderly, white female, lying in bed, appears comfortable nontoxic, nursing at bedside HEENT head/scalp atraumatic HEENT Narrative: Mucous membranes are slightly dry, Mallampati is 2, no thrush, patient is edentulous Resp normal respiratory effort, no retractions, no use of accessory muscles and clear to auscultation bilaterally Auscultation: Negative for rales, rhonchi or wheezes Cardio regular rate, regular rhythm, S1 normal heart sound, S2 normal heart sound, no murmurs, no rub, no gallops and no clicks GI normal to inspection, nondistended, normoactive bowel sounds, soft to palpation and non-tender Extremity no clubbing, cyanosis or edema Extremity Narrative: Bilateral thigh-high ANSLEY hose in place, postoperative dressing is clean dry and intact, patient does have some older sites of ecchymosis anterior to her postoperative site Neuro oriented x3, moves all extremities and no focal motor deficits Speech: speech normal Psych affect normal Psych Narrative: Very pleasant, interacts appropriately Assessment & Plan Assessment/Plan (1) Right hip pain: PLAN: Plan Right hip pain status post total hip arthroplasty with loosening of components -Postop day 0 right total hip arthroplasty revision -Postop pain medications per primary service -Would recommend bowel regimen while patient on narcotics and decreased mobility -Eliquis held 2 days preoperatively and will start tomorrow and function as DVT prophylaxis as well -PT/OT consultation -Post surgical office follow-up in 2 weeks for wound check and postop x-rays Rheumatoid arthritis -Patient uses prednisone on an as-needed basis for flares -Hold prednisone currently -Patient is not on any DMARDs Paroxysmal atrial fibrillation -Continue home metoprolol -Continue home verapamil -Restart Eliquis tomorrow on postop day 1 per orthopedic surgery CKD stage IIIb -Creatinine stable preoperatively -Repeat BMP in a.m. GERD -Patient not on any chronic medication for this Chronic iron deficiency anemia -Follows as an outpatient with hematology -Continue home iron supplementation -Continue vitamin C supplementation with iron to enhance absorption -Repeat CBC in a.m. Hypertension -Continue metoprolol -Continue home verapamil -Continue home Lasix History of lung cancer -Currently in remission DVT prophylaxis -Restart Eliquis tomorrow -ANSLEY hose for now Charges/Coding Visit Charges Inpatient E&M: 77795 Subs Hosp L2
[2023-10-30] MEDS: Heparin 10,000 UNITS/10 ML Vial 10000 UNITS (14:16)
[2023-10-30] MEDS: TRANEXAMIC ACID 2,000 MG, 0.9% Normal Saline (100mL Bag) 100 ML OPERA.SITE (15:28)
[2023-10-30] MEDS: JPS (Morphine 10mg/ml) OPERA.SITE (15:28)
--- NOTE | 2023-10-30 15:56 | PCM.OPRPT ---
Report of Operation Date of Procedure: 10/30/23 Pre-Operative Diagnosis: Failed right total replacement, acetabular loosening, suspected medial wall fracture Post-Operative Diagnosis: Failed right total replacement, acetabular loosening, intact medial wall Surgery/Procedure Performed:: Revision right total replacement femoral and acetabular components Description of Surgical Findings:: Due to significant medialization of the acetabulum femoral head needed to be lengthened as well as using dual mobility and larger femoral head in relation to providing stability for the patient. The medial wall of the acetabulum did not have fracture with direct visualization and palpation during surgery. Surgeon: Michael Boo bobbin loose end finder: Reuben Meeks bobbin loose end finder: Juan J Saavedra Type of Anesthesia: General Anesthesiologist: Mark Blackburn Special Medications: 2 g Ancef, 1 g TXA at incision, 1 g TXA closure, 10 mg Decadron, joint cocktail (5 mg Duramorph, 30 mL of 0.5% Ropivicaine, 1000 units of epinephrine, 30 mg of Toradol) Specimen's removed: 3 separate specimens were sent to microbiology Estimated Blood Loss (mL): 600 Fluids Replaced: 2000 mL crystalloid, 100 mL Cell Saver Description of Procedure: Implants 1. [place] acetabular Trident 2 shell 58 mm 2. [place] MDM cobalt-chromium liner alpha code F 3. [place] cobalt-chromium 20 mm V40 femoral head +8 mm 4. [place] X.3 28/52 mm insert On the date of the procedure patient was seen and evaluated in the preoperative area. We were able to confirm patient's history was accurate and appropriate treatment put in place. Right leg was confirmed as the operative site and marked. Patient was then taken back to the operating room where they were transferred to the table in the supine position. Anesthesia assumed control of the C-spine and airway and remained controlled throughout the remainder of the procedure. Anesthesia then administered anesthetic. All bony prominences identified well-padded. Patient was placed in lateral cubitus position. Axillary roll was placed. All bony promises were well-padded in this position. Pegboard was used to secure the patient in this position. Post were well-padded. At this time after appropriate positioning of the patient the right lower extremity was then prepped in a sterile fashion while the surgeon scrubbed. Upon reentering the room after scrubbing surgeon and business banking sales assistant draped the patient in a standard orthopedic fashion. Incision was marked out for posterior incision timeout was called and when agreed upon the siDe, the site, the procedure to be performed, patient's identity and antibiotics given. Incision was then taken down through skin, subcutaneous fatty layer down to the fascia. Once we palpated the greater trochanter we were able to identify how we want to incised the fascia. Fascia was incised in line with the incision and a Charnley retractor was placed. Posterior external rotators were carefully taken down off the posterior femur. Patient did have a large amount of bursitis and fluid as well as significant abductor tears with retraction with a bald spot over the greater trochanter. These were not repairable. After taking down the posterior external rotators were able to identify the plants. Synovectomy was performed in situ and synovium was sent for culture. After performing synovectomy hip was dislocated the femoral head was dissociated from the trunnion using a bone tamp. Once this was done the femur was retracted anteriorly and our attention was directed towards the acetabulum. The acetabulum could not be freely removed however with the use of acetabular cup Tomes could be easily removed and was noted to be loose. At this time we are able to inspect the acetabulum and the central wall. There was still a bony layer to the central wall and there was no noted fracture that we could appreciate. This was consistent with previous x-ray readings and CAT scans. Once we are able to do this we then reamed sequentially up to 58 mm reamer which had good bony contact. There were some areas of cysts which we felt would benefit from bone graft. Bone graft was opened on the back table. Once this was completed the wound was copiously irrigated out with 6 L normal saline under low-pressure lavage. After irrigating out the wound the final cup was opened and impacted into place. The Au franc guide was used to verify Position and 2 screws were placed. MDM liner was placed and the +6 mm head was placed. On deep flexion patient was dislocating inferiorly and posteriorly. There was significant impingement based on the severe medialization of the acetabular component. Based on this we elected to reposition the cup. Hip was dislocated MDM liner was removed screws were removed and cup was repositioned for further anteversion and to reduce some of the abduction. Once this was completed at this point 50 mm screw was placed and had good purchase cup was stable. The remainder of the areas offered minimal screw purchase fixation so no further screws were placed. MDM liner was again impacted and hip was flexed. Hip did have anterior impingement however it was stable at 100 degrees flexion and 30 degrees internal rotation. Also based on leg lengths in the lateral cubitus position a +8 mm neck was most appropriate to match leg lengths given appropriate stability. The offset was appreciated to help decrease impingement. Once he we are happy with this the trial components were dislocated final components were opened on the back table trunnion was cleaned final components were assembled on the back table and impacted into place. Avalos taper was tested and found to be stable. Hip was reduced with the help my physician business banking sales assistant with traction and external rotation. Hip remained stable as trialed with the trials. Wound was copiously irrigated out with 3-minute dilute Betadine lavage followed by Irrisept followed by copious amounts of normal saline. Posterior capsule and structures were repaired using #2 FiberWire through bone tunnels and #1 Vicryl to repair the soft tissues overlying it. Wound was again irrigated out. Fascia was closed with #1 Vicryl. Deep fatty layer was closed using #1 Vicryl. Skin was closed using 2-0 Vicryl for deep layers and marcelino for final closure. Once this was completed sterile dressing was placed. Patient was by anesthesia and transferred to the supine position. Patient was then transferred to the bed and transferred the PACU for recovery in stable condition. Postop plan: 1. DVT prophylaxis?resume Eliquis tomorrow 2. Physical therapy?posterior hip precautions for 3 months, weightbearing as tolerated 3. Patient be placed on doxycycline 100 mg p.o. twice daily for 2 weeks postoperatively as we follow cultures During the course of the procedure the physician plate mounter (PE) played a vital role. Their intimate knowledge of my steps in the procedure aided in safe and expedient completion of the procedure. The PE played a vital rolls in positioning particularly in obtaining the appropriate lateral decubitus position. The PE was also vital in the retraction of soft tissues during the exposure and especially the femoral work as this is a vital part of the procedure to prevent complications and fractures. The PE was also vital and protecting soft tissues during times of bony cuts and reaming. He also played a vital role in closure with my direct supervision. The PE was also important during reduction and dislocation of the joint and trials intraoperatively.
--- NOTE | 2023-10-30 16:20 | RAD_ITS ---
STUDY: X-RAY - PELVIS AND RIGHT HIP REASON FOR EXAM: Female, 88 years old. Post Op -- AP both hips on single dean/lateral of op hip PACU TECHNIQUE: Right views of the pelvis and hip. COMPARISON: 10/30/2023 FINDINGS: There is a non-specific bowel gas pattern. Normal visualized soft tissue structures. Normal bilateral iliac wings, sacroiliac joints and visualized sacrum. Normal bilateral superior and inferior pubic rami. Normal pubic symphysis. Normal bilateral ischial tuberosities. Right hip prosthesis in place showing normal positioning of the acetabular proximal femoral component. Scattered subcutaneous emphysema within the right hip soft tissues consistent with postoperative expected changes. Diffuse demineralization throughout the osseous structures is noted. Subtle cortical lucency along the medial acetabular prosthetic margin concerning for subtle adjacent cortical fracture. RAD/Hip Min 2 Views (Portable) IMPRESSION: Right hip prosthesis showing normal alignment with expected postoperative changes. Cortical lucency along the acetabular prosthetic margin along the inner pelvic rim concerning for subtle cortical fracture. Further characterization may be obtained with cross-sectional CT imaging as clinically warranted. Electronically Signed: José Mcconnell DO at 16:38 EST ,
[2023-10-30] MEDS: Cefazolin 1 GM/50 ML BAG IV (20:21)
[2023-10-30] MEDS: Senna/Docusate Sodium 1 Tablet 2 TABLET PO (21:10)
[2023-10-31] VITALS (11 sets, daily range): BP systolic 82–137; BP diastolic 41–98; PULSE 74–87; RESP 14–16; TEMP 36.3–37.1; O2SAT 93–97
[2023-10-31] MEDS: 0.9% Normal Saline (500mL Bag) 500 ML 999 ML IV (00:29)
[2023-10-31] MEDS: Acetaminophen 500 MG Tablet 1000 MG PO ×3 (05:45→21:02)
[2023-10-31] MEDS: Cefazolin 1 GM/50 ML BAG IV (05:45)
[2023-10-31] MEDS: Famotidine 20 MG Tablet PO (05:53)
[2023-10-31 07:45] LABS: Hematocrit 27.9 % (37-47); Hemoglobin 8.6 g/dL (12.0-15.0); Mean Corp Hgb Conc 30.8 g/dL (32-36); Mean Corpuscular Hgb 30.4 pg (27.0-32.0); Mean Corpuscular Volume 98.6 fL (81-99); Platelet Count 204 K/mm3 (150-450); RBC Distribution Width CV 13.5 % (11.6-14.6); RBC Distribution Width SD 47.9 fl (35.1-43.9); Red Blood Count 2.83 M/mm3 (4.2-5.4); White Blood Count 13.8 K/mm3 (4.4-11.0)
[2023-10-31 08:24] LABS: Anion Gap 5 (5-15); BUN 26 mg/dL (7-18); BUN/Creat Ratio 20.8 RATIO (10-20); Calcium,Total 8.1 mg/dL (8.5-10.1); Chloride 111 mmol/L (98-107); Creatinine, Serum 1.25 mg/dL (0.55-1.02); EST Glomerular Filtration Rate 43 mL/min (>60); Est Glom Filt Rate - Afr Amer 52 mL/min (>60); Estimated Creatinine Clearance 30.15 ml/min; Glucose 165 mg/dL (74-106); Potassium 4.7 mmol/L (3.5-5.1); Sodium Level 140 mmol/L (136-145)
[2023-10-31] MEDS: Ferrous Sulfate 325 MG Tablet PO (09:24)
[2023-10-31] MEDS: Senna/Docusate Sodium 1 Tablet 2 TABLET PO ×2 (09:24→21:02)
[2023-10-31] MEDS: Ascorbic Acid 500 MG Tablet PO (09:24)
[2023-10-31] MEDS: Polyethylene Glycol 3350 17 GM PACKET PO (09:25)
--- NOTE | 2023-10-31 10:38 | CASEMGMT ---
JOAQUIN OLIVIER Assessment: Face to Face with pt for initial transition planning/care coordination assessment. RN SOY introduced self and role at [facility], pt voices understanding and consents to assessment. Pt is A&O x4 and answers all questions appropriately at this time. Pt lying in bed with eyes closed throughout assessment. Pt dtr and son in law present and pt agreeable to assessment with them present. Care providers, pharmacy, and demographics verified/updated. Admitting Dx:revision KORI PCP:[facility] Specialists:jamie Boo; [facility], cardio Preferred Pharmacy:[facility] Retail Insurance:[email or web address] Prescription Benefit: yes LNOK:Crista Powell dtr Living Arrangements: Pt lives alone in a single story home with 2 steps to enter with a rail. Pt reports prior to surgery she was I in ADL's and IADL's. Pt does have concern of returning home post surgery and would like to go to SNF. Transportation: Pt drives self and denies concerns with transportation. Pt dtr or son in law to assist until pt can drive again. DME:grab bar in shower, adrien, FWW, w/c HHC/SNF:Denies hx of HHC or SNF stays, pt has been to [facility] Rehab Unit. Discussed dc plan with pt and family. They are aware that SW will speak with them and provide a list of options for SNF. Updated SW. Pt states no further concerns/needs. CM to follow. Advised pt to ask CM if any further question/concerns/needs arise, voices understanding. Pt Goal:SNF Plan:SNF
--- NOTE | 2023-10-31 11:05 | PCM.PN.ORT ---
Subjective Subjective The patient was sitting in bed upon examination. Patient denies any chest pain, shortness of breath, nausea or vomiting, or calf pain. Pain is controlled on medications. No adverse overnight events. Patient's daughter was present upon examination. Physical therapy was working with the patient and which there was a brief episode of patient nearly passing out. She has had dizziness. She has had some lower blood pressure readings. She has chronic anemia on ferrous sulfate. She has had drop in hemoglobin currently at 8.6. She had 600 mL estimated blood loss in surgery with replacement of 100 mL Cell Saver. Perioperatively she had 2000 mL crystalloid. Upon review of postoperative x-rays Michael Boo did see cortical breach with fracture and is limiting weightbearing on the right lower extremity 50% for 6 weeks. Objective Data Objective Data Vital Signs: Vital Signs Temp Pulse Resp BP Pulse Ox O2 Del Method O2 Flow Rate 97.3 F L 80 14 124/50 H 97 Room Air 2 10/31/23 09:41 10/31/23 10:00 10/31/23 09:41 10/31/23 10:00 10/31/23 10:00 10/31/23 10:00 10/31/23 03:36 Oxygen Flow Rate (L/min) 2 Oxygen Delivery Method Room Air Weight: 71 kg Body Mass Index (BMI) 26.0 Intake & Output: Intake and Output for Last 24 Hours 10/29/23 10/30/23 10/31/23 23:59 23:59 23:59 Intake Total 1262 / 1262 550 / 550 Output Total 500 / 500 Balance 1262 / 1262 50 / 50 Lab / Micro Data 10/31/23 06:59 10/31/23 06:59 Labs: Laboratory Results - last 24 hr 10/30/23 10:21: POC Glucose 82 10/31/23 06:59: WBC 13.8 H, RBC 2.83 L, Hgb 8.6 L, Hct 27.9 L, MCV 98.6, MCH 30.4, MCHC 30.8 L, RDW Std Deviation 47.9 H, RDW Coeff of Dionisio 13.5, Plt Count 204, MPV 10.0, Sodium 140, Potassium 4.7, Chloride 111 H, Carbon Dioxide 24.0, Anion Gap 5, BUN 26 H, Creatinine 1.25 H, Estim Creat Clear Calc 30.15, Est GFR (MDRD) Af Amer 52 L, Est GFR (MDRD) Non-Af 43 L, BUN/Creatinine Ratio 20.8 H, Glucose 165 H, Calcium 8.1 L Micro: Microbiology 10/30/23 14:32 Tissue - Acetabular Membrane, Right Gram Stain - Final 10/30/23 14:29 Tissue - Synovium Gram Stain - Final 10/30/23 14:26 Tissue - Synovium Gram Stain - Final 10/22/23 12:33 Swab (Method) Nasal Screen MRSA/MSSA - Final Radiography Diagnostic Testing: Radiology Impression Hip X-Ray 10/30/23 16:20 IMPRESSION: Right hip prosthesis showing normal alignment with expected postoperative changes. Cortical lucency along the acetabular prosthetic margin along the inner pelvic rim concerning for subtle cortical fracture. Further characterization may be obtained with cross-sectional CT imaging as clinically warranted. Electronically Signed: José Mcconnell, DO at 16:38 EST , Physical Exam Narrative Patient has had lower blood pressure readings and afebrile. SCDs and ANSLEY hose are in place bilaterally Patient is able to plantarflex and dorsiflex actively. Sensation is intact to light touch to saphenous, sural, superficial and deep peroneal, and tibial distribution. Dressing is clean dry and intact. Negative Homans bilaterally, negative signs and symptoms of DVT. Const alert, oriented x3 and no apparent distress Assessment & Plan Assessment/Plan (1) History of revision of total replacement of right hip joint: PLAN: 1. S/P revision right total hip replacement femoral and acetabular components POD #1 2. Continue Pain Medications: Tylenol and tramadol. Unable to use nonsteroidal anti-inflammatories due to chronic kidney disease 3. DVT Prophylaxis: Patient has resumed her Eliquis 5 mg twice daily in which she takes for her atrial fibrillation. This will cover her for DVT prophylaxis 4. PT/OT: Patient will be 50% weightbearing on the right lower extremity for 6 weeks postoperatively. Continue with posterior hip dislocation precautions 5. H & H: 8.6/27.9, patient has had lower blood pressure reading with dizziness and near syncope with therapy. Patient has acute on chronic anemia in which she takes ferrous sulfate. Patient has had 500 cc bolus yesterday. Case was discussed with medicine and repeat H&H will be performed at lunchtime. I discussed with the patient and family the possibility of blood transfusion. She had 600 mL estimated blood loss with surgery with replacement of 100 mL Cell Saver. Perioperatively there was 2000 mL crystalloid 6. Reactive leukocytosis: 13.8, Afebrile. Patient did receive Decadron intraoperatively. No clinical signs of infection. 7. Continue postoperative medical management per medicine: Case was discussed with medicine and appreciate recommendations with above 8. Currently on doxycycline for 2 weeks postoperatively. Microbiology wound and tissue specimens were reviewed in chart and there is currently no growth or organisms seen today on Gram stain. I discussed with the patient potential side effects of doxycycline including sensitivity to the sunlight and increased risk of skin burn. Recommend patient take appropriate precautions. Also recommend patient to take probiotic while on the antibiotic. Patient voiced understanding agreement. 9. Encouraged Incentive Spirometry 10. Disposition: Case management is currently involved with appropriate discharge planning. There is concern with patient going home for safety reason as she will have 50% weightbearing restrictions on the right lower extremity. Physical therapy currently and involved and I do appreciate recommendations. She was unable to perform therapy this morning due to near syncope. Medicine is currently involved with managing the anemia and potential need for blood transfusion. Repeat H&H will be done at noon today. I have reviewed the [place] Automated Rx Reporting System (OARRS) report for this patient for refill pattern and other prescriber involvement as part of the appropriate surveillance for the provision of acute and chronic controlled medications. The report was requested and reviewed on the date of this entry and was considered in the prescribing process. This dictation was created using voice recognition software. Phonetic and/or grammatical errors may exist.
[2023-10-31 11:50] LABS: Hematocrit 24.9 % (37-47); Hemoglobin 7.8 g/dL (12.0-15.0)
--- NOTE | 2023-10-31 12:31 | CASEMGMT ---
Addendum entered by Betsy Garcia 10/31/23 15:06: Social Work [facility] is able to accept pt and precert has been started. SW met with pt and updated her that [facility] is accepting and precert has been started. Pt is agreeable with plan and will updated her daughter. Plan: [facility], pending MARGARET Hand Original Note: Social Work SW received referral from RNCM that pt will need SNF placement for rehab prior to return home. SW met with pt and daughter and introduced self and role of SW. Pt and dgt are agreeable that SNF will be needed at discharge. A list of SNF providers including quality and resource use data and consistent with the patient?s preferred geographic region, medical needs, and insurance network were provided from the [facility] Guide. Pt first choice is TCU. SW to make referral and requested pt and family review list and come up with alternative choices in the event TCU cannot accept. Pt and daughter understanding. Referral made to TCU. No beds available within the next week. SW met with pt and updated that TCU cannot accept. Pt next choices are [facility] and SW. DC primary teaching assistant updated and to send referral to [facility]. Pt will need insurance precert prior to discharge. Plan: [facility], pending acceptance and precert MARGARET Suárez
--- NOTE | 2023-10-31 13:09 | CASEMGMT ---
Discharge Planning Referral sent to [facility] via [facility]. Dorene Villaseñor, Discharge Planning Asst.
--- NOTE | 2023-10-31 13:14 | CASEMGMT ---
Discharge Planning Patient has been accepted by [facility] and precert will be submitted. Dorene Villaseñor, Discharge Planning Asst.
--- NOTE | 2023-10-31 16:32 | PCM.PN.HOSP ---
Subjective Subjective Doing well, no issues overnight. Pain is decently controlled Objective Data Objective Data Vital Signs: Vital Signs Temp Pulse Resp BP Pulse Ox O2 Del Method O2 Flow Rate 97.3 F L 80 14 124/50 H 97 Room Air 2 10/31/23 09:41 10/31/23 10:00 10/31/23 09:41 10/31/23 10:00 10/31/23 10:00 10/31/23 10:00 10/31/23 03:36 Oxygen Flow Rate (L/min) 2 Oxygen Delivery Method Room Air Weight: 156 lb 8.451 oz Body Mass Index (BMI) 26.0 Intake & Output: Intake and Output for Last 24 Hours 10/30/23 10/31/23 11/01/23 03:59 03:59 03:59 Intake Total 1762 / 1762 50 / 50 Output Total 500 / 500 Balance 1262 / 1262 50 / 50 Lab / Micro Data 10/31/23 11:40 10/31/23 06:59 Labs: Laboratory Results - last 24 hr 10/31/23 06:59: WBC 13.8 H, RBC 2.83 L, Hgb 8.6 L, Hct 27.9 L, MCV 98.6, MCH 30.4, MCHC 30.8 L, RDW Std Deviation 47.9 H, RDW Coeff of Dionisio 13.5, Plt Count 204, MPV 10.0, Sodium 140, Potassium 4.7, Chloride 111 H, Carbon Dioxide 24.0, Anion Gap 5, BUN 26 H, Creatinine 1.25 H, Estim Creat Clear Calc 30.15, Est GFR (MDRD) Af Amer 52 L, Est GFR (MDRD) Non-Af 43 L, BUN/Creatinine Ratio 20.8 H, Glucose 165 H, Calcium 8.1 L 10/31/23 11:40: Hgb 7.8 L, Hct 24.9 L Micro: Microbiology 10/30/23 14:32 Tissue - Acetabular Membrane, Right Gram Stain - Final 10/30/23 14:29 Tissue - Synovium Gram Stain - Final 10/30/23 14:26 Tissue - Synovium Gram Stain - Final 10/22/23 12:33 Swab (Method) Nasal Screen MRSA/MSSA - Final Radiography Diagnostic Testing: Radiology Impression Hip X-Ray 10/30/23 16:20 IMPRESSION: Right hip prosthesis showing normal alignment with expected postoperative changes. Cortical lucency along the acetabular prosthetic margin along the inner pelvic rim concerning for subtle cortical fracture. Further characterization may be obtained with cross-sectional CT imaging as clinically warranted. Electronically Signed: José Mcconnell, DO at 16:38 EST , Physical Exam Narrative General: Alert, Oriented x3, Cooperative, No apparent distress HEENT: Atraumatic, PERRLA, EOMI, Normocephalic Oral: Moist Mucosa Neck: Supple, No JVD Lungs: Diminished, Normal air movement, No rhonchi, No wheeze, No rales Cardiovascular: Regular rate, Regular Rhythm, Normal S1, Normal S2, No murmurs Abdomen: Soft, Non Tender, Non-Distended, No Hepato-splenomegaly Extremities: No edema, Capillary Refill Less than 3 Seconds Skin: Dressing CDI Musculoskeletal: No Tenderness to Palpation of Joints or Extremities Neurological: No focal neurological deficits, Motor Exam 5/5 strength throughout, Sensory exam intact to light touch and pain Psych/Mental Status: Normal Affect, Appropriate Assessment & Plan Assessment/Plan (1) Right hip pain: PLAN: Plan 1. 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 Pain management per primary ? PT/OT ? She did have an episode of near syncope or syncope today with some hypotension she was found to have a hemoglobin this morning of 8.6 rechecked 7.8 so she will be transfused 1 unit ? We will hold her Eliquis pending stabilization of her hemoglobin 2. HTN/paroxysmal A-fib ? We will hold her blood pressure medications pending stabilization ? Monitor blood pressures ? Hold Eliquis secondary to anemia 3. Rheumatoid arthritis ? Stable ? We will hold her prednisone and she is not on any DMARDs 4. CKD 3B ? Renal function is at baseline ? We will monitor make adjustments as necessary DVT: Hold chemical prophylaxis and anticoagulation secondary to anemia Charges/Coding Visit Charges Inpatient E&M: 14330 Subs Hosp L2
[2023-10-31] MEDS: Doxycycline 100 MG CAPSULE PO (21:02)
[2023-10-31] MEDS: 0.9% Saline Lock 10 ML Syringe IV (21:03)
[2023-10-31] MEDS: Furosemide 20 MG Tablet PO (22:35)
[2023-11-01 03:00] VITALS: BP 104/44; PULSE 80; RESP 16; TEMP 36.6; O2SAT 95
[2023-11-01] MEDS: Acetaminophen 500 MG Tablet 1000 MG PO ×3 (05:27→20:50)
[2023-11-01 07:21] LABS: Hematocrit 27.5 % (37-47); Hemoglobin 8.9 g/dL (12.0-15.0); Mean Corp Hgb Conc 32.4 g/dL (32-36); Mean Corpuscular Hgb 30.4 pg (27.0-32.0); Mean Corpuscular Volume 93.9 fL (81-99); Platelet Count 172 K/mm3 (150-450); RBC Distribution Width CV 14.8 % (11.6-14.6); RBC Distribution Width SD 51.1 fl (35.1-43.9); Red Blood Count 2.93 M/mm3 (4.2-5.4); White Blood Count 6.4 K/mm3 (4.4-11.0)
[2023-11-01 10:04] VITALS: BP 121/46; PULSE 78; RESP 18; TEMP 36.6; O2SAT 95
[2023-11-01] MEDS: Ferrous Sulfate 325 MG Tablet PO (10:08)
[2023-11-01] MEDS: Famotidine 20 MG Tablet PO (10:09)
[2023-11-01] MEDS: Furosemide 20 MG Tablet PO ×2 (10:09→20:57)
[2023-11-01] MEDS: Doxycycline 100 MG CAPSULE PO ×2 (10:09→20:49)
[2023-11-01] MEDS: Ascorbic Acid 500 MG Tablet PO (10:09)
--- NOTE | 2023-11-01 10:14 | PN.ORTHO_ITS ---
Objective Data Objective Data Vital Signs: Vital Signs Temp Pulse Resp BP Pulse Ox O2 Del Method O2 Flow Rate 97.9 F 78 18 121/46 H 95 Room Air 2 11/01/23 10:04 11/01/23 10:04 11/01/23 10:04 11/01/23 10:04 11/01/23 10:04 11/01/23 10:04 10/31/23 03:36 Oxygen Flow Rate (L/min) 2 Oxygen Delivery Method Room Air Weight: 156 lb 8.451 oz Body Mass Index (BMI) 26.0 Intake & Output: Intake and Output for Last 24 Hours 10/30/23 10/31/23 11/01/23 23:59 23:59 23:59 Intake Total 1262 / 1262 550 / 550 Output Total 1100 / 1100 1325 / 1325 Balance 1262 / 1262 -550 / -550 -1325 / -1325 Lab / Micro Data 11/01/23 06:40 10/31/23 06:59 Labs: Laboratory Results - last 24 hr 10/31/23 11:40: Hgb 7.8 L, Hct 24.9 L 10/31/23 16:20: Blood Type O POSITIVE, Antibody Screen NEGATIVE, Crossmatch See Detail 11/01/23 06:40: WBC 6.4, RBC 2.93 L, Hgb 8.9 L, Hct 27.5 L, MCV 93.9, MCH 30.4, MCHC 32.4 D, RDW Std Deviation 51.1 H, RDW Coeff of Dionisio 14.8 H, Plt Count 172, MPV 10.0 Micro: Microbiology 10/30/23 14:29 Tissue - Synovium Gram Stain - Final 10/30/23 14:29 Tissue - Synovium Wound Culture - Preliminary No growth-Final to follow 10/30/23 14:29 Tissue - Synovium Anaerobic Culture - Preliminary No growth in 48 hours. 10/30/23 14:32 Tissue - Acetabular Membrane, Right Gram Stain - Final 10/30/23 14:32 Tissue - Acetabular Membrane, Right Wound Culture - Preliminary No growth-Final to follow 10/30/23 14:32 Tissue - Acetabular Membrane, Right Anaerobic Culture - Preliminary No growth in 48 hours. 10/30/23 14:26 Tissue - Synovium Gram Stain - Final 10/30/23 14:26 Tissue - Synovium Anaerobic Culture - Preliminary No growth in 48 hours. 10/22/23 12:33 Swab (Method) Nasal Screen MRSA/MSSA - Final Assessment & Plan Assessment/Plan (1) History of revision of total replacement of right hip joint: PLAN: 1. S/P revision right total hip replacement femoral and acetabular components POD #2 2. Continue Pain Medications: Tylenol and tramadol. Unable to use nonsteroidal anti-inflammatories due to chronic kidney disease 3. DVT Prophylaxis: SCDs, ANSLEY james. Patient's Eliquis was discontinued yesterday secondary to postoperative anemia. Did discuss with the medicine service today she was transfused. They are rechecking hemoglobin this afternoon. If she is stable plan is to resume her Eliquis this evening. 4. PT/OT: Patient will be 50% weightbearing on the right lower extremity for 6 weeks postoperatively secondary to medial wall acetabular fracture which was better visualized postoperatively on radiographs. Intraoperative findings are consistent with continued healing of this fracture. Continue with posterior hip dislocation precautions 5. H & H: 8.9/27.5, patient was symptomatic yesterday. Medicine did assistance with transfusion. Patient's hemoglobin responded appropriately. Recheck this afternoon. If remains stable will resume Eliquis for atrial fibrillation and DVT prophylaxis. 6. Reactive leukocytosis: Resolved today 7. Continue postoperative medical management per medicine: Case was discussed with medicine and appreciate recommendations with above 8. Currently on doxycycline for 2 weeks postoperatively. Microbiology wound and tissue specimens were reviewed in chart and there is currently no growth or organisms seen today on Gram stain. I discussed with the patient potential side effects of doxycycline including sensitivity to the sunlight and increased risk of skin burn. Recommend patient take appropriate precautions. Also recommend patient to take probiotic while on the antibiotic. Patient voiced understanding agreement. Currently 3 out of 3 cultures are negative 9. Encouraged Incentive Spirometry 10. Disposition: Case management is currently involved with appropriate discharge planning. There is concern with patient going home for safety reason as she will have 50% weightbearing restrictions on the right lower extremity. Physical therapy currently and involved and I do appreciate recommendations. Patient remains peaked on physical exam. I would recommend at least keep her overnight. Patient does have an accepting facility [facility] and precertification is underway. If she remains medically stable precertification is obtained patient may be ready for discharge tomorrow. I have reviewed the [place] Automated Rx Reporting System (OARRS) report for this patient for refill pattern and other prescriber involvement as part of the appropriate surveillance for the provision of acute and chronic controlled medications. The report was requested and reviewed on the date of this entry and was considered in the prescribing process. This dictation was created using voice recognition software. Phonetic and/or grammatical errors may exist. (2) Mechanical loosening of internal right hip prosthetic joint, subsequent encounter:
[2023-11-01 12:46] LABS: Hematocrit 28.7 % (37-47); Hemoglobin 9.3 g/dL (12.0-15.0)
--- NOTE | 2023-11-01 14:02 | CASEMGMT ---
Addendum entered by Betsy Garcia 11/01/23 16:56: Social Work Return call from Cindy at [facility]. Peer to peer was completed and approval given for admission to [facility]. HONORIO reached out to [facility] who confirms authorization. SW spoke with ALIS Alexis and updated that pt can dc when medically ready. DC is planning for tomorrow. SW met with pt and updated and pt is agreeable. Phone call to pts dgt and update on dc provided. Plan: [facility], when medically ready MARGARET Suárez Addendum entered by Betsy Garcia 11/01/23 14:41: Social Work Second phone call to [facility]. SW spoke with Cindy and updated that Peer to Peer is requested and must be complete by 4pm. Information provided. Cindy to pass information on to Dr. Boo. MARGARET Suárez Original Note: Social Work SW received a call from [facility] [employer] that insurance is requesting Peer to Peer. Peer to Peer must be completed by 4pm by calling [phone] option 4 with pts name, and member ID. HONORIO spoke with ALIS Alexis who is deferring Peer to Peer to Dr. Boo. Phone call to [facility] and message left for Dr. Boo. Reuben to reach out to Dr. Boo as well. MARGARET Suárez
[2023-11-01 14:38] VITALS: BP 122/50; PULSE 78; RESP 18; TEMP 36.6; O2SAT 98
--- NOTE | 2023-11-01 15:16 | CASEMGMT ---
Discharge Planning [facility] has received auth. SW updated. Dorene Villaseñor, Discharge Planning Asst.
[2023-11-01] MEDS: Loperamide 2 MG Capsule PO (16:40)
[2023-11-01] MEDS: APIXABAN 5 MG TABLET PO (20:49)
[2023-11-01 21:07] VITALS: BP 107/51; PULSE 77; RESP 16; TEMP 36.9; O2SAT 94
[2023-11-02] MEDS: Acetaminophen 500 MG Tablet 1000 MG PO ×3 (05:43→20:49)
[2023-11-02 05:51] VITALS: BP 126/53; PULSE 73; RESP 16; TEMP 36.8; O2SAT 94
[2023-11-02 06:37] LABS: Absolute Lymphocyte Count 2.08 X10^3/uL (0.83-4.51); Absolute Neutrophil Count 4.4 X10^3/uL (2.0-7.7); Basophil# 0.03 X10^3/uL; Basophil% 0.4 % (0-1); Eosinophil# 0.35 X10^3/uL; Eosinophils% 4.2 % (0-5); Hemoglobin 8.6 g/dL (12.0-15.0); Lymphocyte # 2.08 X10^3/ul (0.83-4.51); Lymphocyte % 25.2 % (19-41); Mean Corp Hgb Conc 31.9 g/dL (32-36); Mean Corpuscular Hgb 30.4 pg (27.0-32.0); Mean Corpuscular Volume 95.4 fL (81-99); Mean Platelet Vol. 10.1 fl (6.2-12.0); Monocyte# 1.28 X10^3/uL; Monocyte% 15.5 % (0-10); NRBC Flagged by Analyzer 0 % (0-5); Neutrophil # 4.44 X10^3/uL (2.7-7.7); Platelet Count 183 K/mm3 (150-450); RBC Distribution Width CV 15.1 % (11.6-14.6); RBC Distribution Width SD 52.5 fl (35.1-43.9); Red Blood Count 2.83 M/mm3 (4.2-5.4); White Blood Count 8.2 K/mm3 (4.4-11.0)
[2023-11-02 07:15] LABS: Anion Gap 1 (5-15); BUN 25 mg/dL (7-18); BUN/Creat Ratio 23.4 RATIO (10-20); Calcium,Total 8.3 mg/dL (8.5-10.1); Chloride 116 mmol/L (98-107); Creatinine, Serum 1.07 mg/dL (0.55-1.02); EST Glomerular Filtration Rate 51 mL/min (>60); Est Glom Filt Rate - Afr Amer 62 mL/min (>60); Estimated Creatinine Clearance 35.22 ml/min; Glucose 93 mg/dL (74-106); Potassium 3.9 mmol/L (3.5-5.1); Sodium Level 143 mmol/L (136-145)
[2023-11-02 08:22] VITALS: BP 133/55; PULSE 79; RESP 18; TEMP 37.1; O2SAT 94
[2023-11-02] MEDS: Ensure Surgery 237 ML LIQUID PO ×2 (08:33→12:28)
[2023-11-02] MEDS: Ferrous Sulfate 325 MG Tablet PO (08:33)
[2023-11-02] MEDS: Doxycycline 100 MG CAPSULE PO (09:20)
[2023-11-02] MEDS: Famotidine 20 MG Tablet PO (09:20)
[2023-11-02] MEDS: APIXABAN 5 MG TABLET PO ×2 (09:20→20:48)
[2023-11-02] MEDS: Ascorbic Acid 500 MG Tablet PO (09:21)
[2023-11-02] MEDS: Furosemide 20 MG Tablet PO ×2 (09:22→20:48)
[2023-11-02 11:35] VITALS: BP 97/51; PULSE 77; O2SAT 94
[2023-11-02 11:58] LABS: Hematocrit 26.2 % (37-47); Hemoglobin 8.4 g/dL (12.0-15.0)
--- NOTE | 2023-11-02 12:23 | PN.ORTHO_ITS ---
Subjective Subjective The patient was sitting in bed upon examination. Patient denies any chest pain, shortness of breath, dizziness, lightheadedness, nausea or vomiting, or calf pain. Pain is controlled on medications. Patient states her pain is primarily when she is up moving. She also states that the pain is significantly better than before surgery. No adverse overnight events. Patient still has the catheter. We will plan on removing this prior to discharge. Patient has acceptance into [facility]. Objective Data Objective Data Vital Signs: Vital Signs Temp Pulse Resp BP Pulse Ox O2 Del Method O2 Flow Rate 98.7 F 77 18 97/51 L 94 Room Air 2 11/02/23 08:22 11/02/23 11:35 11/02/23 08:22 11/02/23 11:35 11/02/23 11:35 11/02/23 11:35 10/31/23 03:36 Oxygen Flow Rate (L/min) 2 Oxygen Delivery Method Room Air Weight: 71 kg Body Mass Index (BMI) 26.0 Intake & Output: Intake and Output for Last 24 Hours 10/31/23 11/01/23 11/02/23 23:59 23:59 23:59 Intake Total 550 / 550 120 / 120 Output Total 1100 / 1100 2925 / 2925 650 / 650 Balance -550 / -550 -2805 / -2805 -650 / -650 Lab / Micro Data 11/02/23 11:49 11/02/23 05:39 Labs: Laboratory Results - last 24 hr 11/01/23 12:35: Hgb 9.3 L, Hct 28.7 L 11/02/23 05:39: WBC 8.2, RBC 2.83 L, Hgb 8.6 L, Hct 27.0 L, MCV 95.4, MCH 30.4, MCHC 31.9 L, RDW Std Deviation 52.5 H, RDW Coeff of Dionisio 15.1 H, Plt Count 183, MPV 10.1, Immature Gran % (Auto) 0.700, Neut % (Auto) 54.0, Lymph % (Auto) 25.2, [place] % (Auto) 15.5 H, Eos % (Auto) 4.2, Baso % (Auto) 0.4, Absolute Neuts (auto) 4.4, Absolute Lymphs (auto) 2.08, Nucleated RBC % 0, Sodium 143, Potassium 3.9, Chloride 116 H, Carbon Dioxide 26.0, Anion Gap 1 L, BUN 25 H, Creatinine 1.07 H, Estim Creat Clear Calc 35.22, Est GFR (MDRD) Af Amer 62, Est GFR (MDRD) Non-Af 51 L, BUN/Creatinine Ratio 23.4 H, Glucose 93, Calcium 8.3 L 11/02/23 11:49: Hgb 8.4 L, Hct 26.2 L Micro: Microbiology 10/30/23 14:29 Tissue - Synovium Gram Stain - Final 10/30/23 14:29 Tissue - Synovium Wound Culture - Preliminary GNR Poss Pseudomonas sp 10/30/23 14:29 Tissue - Synovium Anaerobic Culture - Preliminary No growth in 48 hours. 10/30/23 14:26 Tissue - Synovium Gram Stain - Final 10/30/23 14:26 Tissue - Synovium Wound Culture - Preliminary GNR Poss Pseudomonas sp 10/30/23 14:26 Tissue - Synovium Anaerobic Culture - Preliminary No growth in 48 hours. 10/30/23 14:32 Tissue - Acetabular Membrane, Right Gram Stain - Final 10/30/23 14:32 Tissue - Acetabular Membrane, Right Wound Culture - Preliminary No growth-Final to follow 10/30/23 14:32 Tissue - Acetabular Membrane, Right Anaerobic Culture - Preliminary No growth in 48 hours. 10/22/23 12:33 Swab (Method) Nasal Screen MRSA/MSSA - Final Physical Exam Narrative Vital signs stable and afebrile. Patient's blood pressure currently 97/51 asymptomatic SCDs and ANSLEY hose are in place bilaterally Patient is able to plantarflex and dorsiflex actively. Sensation is intact to light touch to saphenous, sural, superficial and deep peroneal, and tibial distribution. Dressing is clean dry and intact. Negative Homans bilaterally, negative signs and symptoms of DVT. Const alert, oriented x3 and no apparent distress Assessment & Plan Assessment/Plan (1) History of revision of total replacement of right hip joint: PLAN: 1. S/P revision right total hip replacement femoral and acetabular components POD #3 2. Continue Pain Medications: Tylenol and tramadol. Unable to use nonsteroidal anti-inflammatories due to chronic kidney disease 3. DVT Prophylaxis: SCDs, ANSLEY hose. Patient's Eliquis has been resumed. Her hemoglobin has been stable 4. PT/OT: Patient will be 50% weightbearing on the right lower extremity for 6 weeks postoperatively secondary to medial wall acetabular fracture which was better visualized postoperatively on radiographs. Intraoperative findings are consistent with continued healing of this fracture. Continue with posterior hip dislocation precautions 5. H & H: This morning patient's hemoglobin was 8.6/27.0 and repeat lab work 8.4 hemoglobin, patient currently asymptomatic. Patient did have previous 1 unit packed red blood cells transfusion. 6. Continue postoperative medical management per medicine: Case was discussed with medicine. Medicine recommends taking out the catheter and doing voiding trials. Bladder scan in 8 hours. Patient's creatinine has improved today and currently 1.07 7. Cultures: Cultures today revealed gram-negative ravindra possible Pseudomonas on 2/3 of the cultures. Case was discussed with Dr. Michael Boo. Dr. Michael Boo did discuss case with infectious disease Dr. Bustamante. He has recommended we begin cefepime 2 g. Due to patient's GFR less than 60 we will do the cefepime 2 g IV every 12 hours. Patient will require PICC line. PICC line order was given to nursing. Patient will require 6 weeks of IV antibiotics. Infectious disease states that patient can go to correction facility this weekend if the PICC line is able to be established. If she leaves this weekend they will see her on an outpatient basis. The doxycycline has been discontinued. 8. Encouraged Incentive Spirometry 9. Disposition: We do have approval for patient to go to correction facility. However plan changed today due to findings of the gram-negative ravindra and positive cultures. Infectious disease gave above recommendations. I did discuss case with Dr. Michael Boo and medicine. We will repeat lab work tomorrow. PICC line will need to be required. Possibility of discharge tomorrow if we have PICC line established. There is concern with patient going home for safety reason as she will have 50% weightbearing restrictions on the right lower extremity. I did discuss with the patient all of the current findings. All questions were answered to the best of my ability. I have reviewed the [place] Automated Rx Reporting System (OARRS) report for this patient for refill pattern and other prescriber involvement as part of the appropriate surveillance for the provision of acute and chronic controlled medications. The report was requested and reviewed on the date of this entry and was considered in the prescribing process. This dictation was created using voice recognition software. Phonetic and/or grammatical errors may exist. (2) Mechanical loosening of internal right hip prosthetic joint, subsequent encounter:
--- NOTE | 2023-11-02 13:42 | CASEMGMT ---
Addendum entered by Nadeen Cowart 11/02/23 13:55: Social Work SW did call [facility], message left in the transitional unit there to call SW, so SW can speak w/them regarding the IV antibiotics. SW also sent an update in [facility], waiting for response if they can take pt w/the IV antibiotics. BEN Waller Original Note: Social Work Pt not being discharged today, pt may need IV antibiotics, ID consulted. SW completed the PAS/RR, placed this along w/results on chart in event pt gets discharged tomorrow. HONORIO wrote on green sheet for staff to make sure [facility] is still okay w/taking pt with whatever IV antibiotics are prescribed. BEN Waller
--- NOTE | 2023-11-02 13:53 | PN.HOSP_ITS ---
Subjective Subjective Doing well, no issues overnight. She does have periodic dizziness but this is likely a vagal response. Objective Data Objective Data Vital Signs: Vital Signs Temp Pulse Resp BP Pulse Ox O2 Del Method O2 Flow Rate 98.7 F 77 18 97/51 L 94 Room Air 2 11/02/23 08:22 11/02/23 11:35 11/02/23 08:22 11/02/23 11:35 11/02/23 11:35 11/02/23 11:35 10/31/23 03:36 Oxygen Flow Rate (L/min) 2 Oxygen Delivery Method Room Air Weight: 156 lb 8.451 oz Body Mass Index (BMI) 26.0 Intake & Output: Intake and Output for Last 24 Hours 11/01/23 11/02/23 11/03/23 03:59 03:59 03:59 Intake Total 50 / 50 120 / 120 300 / 300 Output Total 1200 / 1200 2325 / 2325 900 / 900 Balance -1150 / -1150 -2205 / -2205 -600 / -600 Lab / Micro Data 11/02/23 11:49 11/02/23 05:39 Labs: Laboratory Results - last 24 hr 11/02/23 05:39: WBC 8.2, RBC 2.83 L, Hgb 8.6 L, Hct 27.0 L, MCV 95.4, MCH 30.4, MCHC 31.9 L, RDW Std Deviation 52.5 H, RDW Coeff of Dionisio 15.1 H, Plt Count 183, MPV 10.1, Immature Gran % (Auto) 0.700, Neut % (Auto) 54.0, Lymph % (Auto) 25.2, [place] % (Auto) 15.5 H, Eos % (Auto) 4.2, Baso % (Auto) 0.4, Absolute Neuts (auto) 4.4, Absolute Lymphs (auto) 2.08, Nucleated RBC % 0, Sodium 143, Potassium 3.9, Chloride 116 H, Carbon Dioxide 26.0, Anion Gap 1 L, BUN 25 H, Creatinine 1.07 H, Estim Creat Clear Calc 35.22, Est GFR (MDRD) Af Amer 62, Est GFR (MDRD) Non-Af 5 1 L, BUN/Creatinine Ratio 23.4 H, Glucose 93, Calcium 8.3 L 11/02/23 11:49: Hgb 8.4 L, Hct 26.2 L Micro: Microbiology 10/30/23 14:29 Tissue - Synovium Gram Stain - Final 10/30/23 14:29 Tissue - Synovium Wound Culture - Preliminary GNR Poss Pseudomonas sp 10/30/23 14:29 Tissue - Synovium Anaerobic Culture - Preliminary No growth in 48 hours. 10/30/23 14:26 Tissue - Synovium Gram Stain - Final 10/30/23 14:26 Tissue - Synovium Wound Culture - Preliminary GNR Poss Pseudomonas sp 10/30/23 14:26 Tissue - Synovium Anaerobic Culture - Preliminary No growth in 48 hours. 10/30/23 14:32 Tissue - Acetabular Membrane, Right Gram Stain - Final 10/30/23 14:32 Tissue - Acetabular Membrane, Right Wound Culture - Preliminary No growth-Final to follow 10/30/23 14:32 Tissue - Acetabular Membrane, Right Anaerobic Culture - Preliminary No growth in 48 hours. 10/22/23 12:33 Swab (Method) Nasal Screen MRSA/MSSA - Final Physical Exam Narrative General: Alert, Oriented x3, Cooperative, No apparent distress HEENT: Atraumatic, PERRLA, EOMI, Normocephalic Oral: Moist Mucosa Neck: Supple, No JVD Lungs: Diminished, Normal air movement, No rhonchi, No wheeze, No rales Cardiovascular: Regular rate, Regular Rhythm, Normal S1, Normal S2, No murmurs Abdomen: Soft, Non Tender, Non-Distended, No Hepato-splenomegaly Extremities: No edema, Capillary Refill Less than 3 Seconds Skin: Dressing CDI Musculoskeletal: No Tenderness to Palpation of Joints or Extremities Neurological: No focal neurological deficits, Motor Exam 5/5 strength throug hout, Sensory exam intact to light touch and pain Psych/Mental Status: Normal Affect, Appropriate Assessment & Plan Assessment/Plan (1) Right hip pain: PLAN: Plan 1. 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 Pain management per primary ? PT/OT ? She did have an episode of near syncope or syncope today with some hypotension she was found to have a hemoglobin this morning of 8.6 rechecked 7.8 so she will be transfused 1 unit ? Can resume her Eliquis ? Wound is being complicated with Pseudomonas, PICC line will be placed with IV cefepime per ID 2. HTN/paroxysmal A-fib ? We will hold her blood pressure medications pending stabilization ? Monitor blood pressures ? Will resume Eliquis 3. Rheumatoid arthritis ? Stable ? We will hold her prednisone and she is not on any DMARDs 4. CKD 3B ? Renal function is at baseline ? We will monitor make adjustments as necessary DVT: Eliquis Charges/Coding Visit Charges Inpatient E&M: 66575 Subs Hosp L2
[2023-11-02 14:01] VITALS: BP 125/50; PULSE 78; RESP 18; TEMP 36.9; O2SAT 95
[2023-11-02] MEDS: 0.9% Saline Lock 10 ML Syringe IV (15:20)
[2023-11-02] MEDS: 0.9% Normal Saline (250mL Bag) 250 ML 15 ML IV (15:22)
[2023-11-02] MEDS: Cefepime HCl 2 GM in 0.9% Normal Saline (100mL MB+) 100 ML IV ×2 (15:23→23:20)
[2023-11-02 20:30] VITALS: BP 98/55; PULSE 72; RESP 16; TEMP 36.8; O2SAT 95
[2023-11-02 20:49] VITALS: BP 98/55; PULSE 72
[2023-11-03 02:20] VITALS: BP 147/62; PULSE 83; RESP 18; TEMP 36.8; O2SAT 95
[2023-11-03] MEDS: Acetaminophen 500 MG Tablet 1000 MG PO ×2 (05:48→13:59)
[2023-11-03] MEDS: 0.9% Normal Saline (250mL Bag) 250 ML 15 ML IV (05:55)
[2023-11-03 06:21] LABS: Absolute Lymphocyte Count 2.18 X10^3/uL (0.83-4.51); Basophil# 0.05 X10^3/uL; Basophil% 0.5 % (0-1); Eosinophil# 0.32 X10^3/uL; Eosinophils% 3.3 % (0-5); Hematocrit 26.9 % (37-47); Hemoglobin 8.4 g/dL (12.0-15.0); Lymphocyte # 2.18 X10^3/ul (0.83-4.51); Lymphocyte % 22.4 % (19-41); Mean Corp Hgb Conc 31.2 g/dL (32-36); Mean Corpuscular Hgb 29.9 pg (27.0-32.0); Mean Corpuscular Volume 95.7 fL (81-99); Monocyte# 1.08 X10^3/uL; Monocyte% 11.1 % (0-10); NRBC Flagged by Analyzer 0.4 % (0-5); Neutrophil # 5.96 X10^3/uL (2.7-7.7); Neutrophil % 61.1 % (47-70); Platelet Count 208 K/mm3 (150-450); RBC Distribution Width CV 14.8 % (11.6-14.6); RBC Distribution Width SD 51.1 fl (35.1-43.9); Red Blood Count 2.81 M/mm3 (4.2-5.4); White Blood Count 9.8 K/mm3 (4.4-11.0)
[2023-11-03 06:45] LABS: Anion Gap 1 (5-15); BUN 27 mg/dL (7-18); BUN/Creat Ratio 27.3 RATIO (10-20); Calcium,Total 8.1 mg/dL (8.5-10.1); Chloride 114 mmol/L (98-107); Creatinine, Serum 0.99 mg/dL (0.55-1.02); EST Glomerular Filtration Rate 56 mL/min (>60); Est Glom Filt Rate - Afr Amer 68 mL/min (>60); Estimated Creatinine Clearance 38.07 ml/min; Glucose 110 mg/dL (74-106); Potassium 3.6 mmol/L (3.5-5.1); Sodium Level 143 mmol/L (136-145)
[2023-11-03 08:15] VITALS: BP 113/64; PULSE 75; RESP 16; TEMP 36.9; O2SAT 98
[2023-11-03] MEDS: Ensure Surgery 237 ML LIQUID PO (08:23)
[2023-11-03] MEDS: Ferrous Sulfate 325 MG Tablet PO (08:23)
[2023-11-03 10:19] VITALS: BP 111/73; PULSE 85; RESP 16; TEMP 36.7; O2SAT 97
[2023-11-03] MEDS: APIXABAN 5 MG TABLET PO (10:21)
[2023-11-03] MEDS: Furosemide 20 MG Tablet PO (10:21)
[2023-11-03 10:22] VITALS: BP 111/73; PULSE 85
[2023-11-03] MEDS: Metoprolol Tartrate 25 MG Tablet PO (10:22)
[2023-11-03] MEDS: Famotidine 20 MG Tablet PO (10:22)
[2023-11-03] MEDS: Verapamil SR 240 MG Tablet 120 MG PO (10:23)
[2023-11-03] MEDS: Ascorbic Acid 500 MG Tablet PO (10:24)
[2023-11-03] MEDS: Cefepime HCl 2 GM in 0.9% Normal Saline (100mL MB+) 100 ML IV (10:27)
--- NOTE | 2023-11-03 10:44 | PCM.PN.ORT ---
Subjective Subjective The patient was sitting in bedside chair upon examination with her daughter present. Patient denies any chest pain, shortness of breath, dizziness, lightheadedness, nausea or vomiting, or calf pain. Pain is controlled on medications. No adverse overnight events. Patient appears to be in better spirits today. She had the catheter removed yesterday which she was happy about but has been voiding on her own frequently. The cultures did grow out Pseudomonas on 2/3 cultures. Antibiotics and PICC line have been established. Antibiotics were discussed between Dr. Michael Boo and Dr. Bustamante. Patient will require 2-week follow-up with Dr. Bustamante which we will have to have the group home schedule this as the office is closed. Patient will require weekly lab work. Objective Data Objective Data Vital Signs: Vital Signs Temp Pulse Resp BP Pulse Ox O2 Del Method O2 Flow Rate 98.1 F 85 16 111/73 97 Room Air 2 11/03/23 10:19 11/03/23 10:11/03/23 10:11/03/23 10:11/03/23 10:11/03/23 10:10/31/23 03:36 Oxygen Flow Rate (L/min) 2 Oxygen Delivery Method Room Air Weight: 71 kg Body Mass Index (BMI) 26.0 Intake & Output: Intake and Output for Last 24 Hours 11/01/23 11/02/23 11/03/23 23:59 23:59 23:59 Intake Total 120 / 120 1150 / 1650 718.25 / 718.25 Output Total 2925 / 2925 1600 / 2000 800 / 800 Balance -2805 / -2805 -450 / -350 -81.75 / -81.75 Lab / Micro Data 11/03/23 05:31 11/03/23 05:31 Labs: Laboratory Results - last 24 hr 11/02/23 11:49: Hgb 8.4 L, Hct 26.2 L 11/03/23 05:31: WBC 9.8, RBC 2.81 L, Hgb 8.4 L, Hct 26.9 L, MCV 95.7, MCH 29.9, MCHC 31.2 L, RDW Std Deviation 51.1 H, RDW Coeff of Dionisio 14.8 H, Plt Count 208, MPV 10.0, Immature Gran % (Auto) 1.600 H, Neut % (Auto) 61.1, Lymph % (Auto) 22.4, [place] % (Auto) 11.1 H, Eos % (Auto) 3.3, Baso % (Auto) 0.5, Absolute Neuts (auto) 6.0, Absolute Lymphs (auto) 2.18, Nucleated RBC % 0.4, Sodium 143, Potassium 3.6, Chloride 114 H, Carbon Dioxide 28.0, Anion Gap 1 L, BUN 27 H, Creatinine 0.99, Estim Creat Clear Calc 38.07, Est GFR (MDRD) Af Amer 68, Est GFR (MDRD) Non-Af 56 L, BUN/Creatinine Ratio 27.3 H, Glucose 110 H, Calcium 8.1 L Micro: Microbiology 10/30/23 14:32 Tissue - Acetabular Membrane, Right Gram Stain - Final 10/30/23 14:32 Tissue - Acetabular Membrane, Right Wound Culture - Final No growth aerobically. 10/30/23 14:32 Tissue - Acetabular Membrane, Right Anaerobic Culture - Preliminary No growth in 48 hours. 10/30/23 14:26 Tissue - Synovium Gram Stain - Final 10/30/23 14:26 Tissue - Synovium Wound Culture - Final Pseudomonas aeruginosa 10/30/23 14:26 Tissue - Synovium Anaerobic Culture - Preliminary No growth in 48 hours. 10/30/23 14:29 Tissue - Synovium Gram Stain - Final 10/30/23 14:29 Tissue - Synovium Wound Culture - Final Pseudomonas aeruginosa 10/30/23 14:29 Tissue - Synovium Anaerobic Culture - Preliminary No growth in 48 hours. 10/22/23 12:33 Swab (Method) Nasal Screen MRSA/MSSA - Final Physical Exam Narrative Vital signs stable and afebrile. Right hip is soft and supple Patient is able to plantarflex and dorsiflex actively. Sensation is intact to light touch to saphenous, sural, superficial and deep peroneal, and tibial distribution. Dressing is clean dry and intact. Negative Homans bilaterally, negative signs and symptoms of DVT. Const alert, oriented x3 and no apparent distress Assessment & Plan Assessment/Plan (1) History of revision of total replacement of right hip joint: PLAN: 1. S/P revision right total hip replacement femoral and acetabular components POD #4 2. Continue Pain Medications: Tylenol and tramadol. Unable to use nonsteroidal anti-inflammatories due to chronic kidney disease 3. DVT Prophylaxis: SCDs, ANSLEY pranaybarry. Patient's Eliquis has been resumed. Her hemoglobin has been stable 4. PT/OT: Patient will be 50% weightbearing on the right lower extremity for 6 weeks postoperatively secondary to medial wall acetabular fracture which was better visualized postoperatively on radiographs. Intraoperative findings are consistent with continued healing of this fracture. Continue with posterior hip dislocation precautions. 5. H & H: This morning patient's hemoglobin was 8.4/26.9 patient currently asymptomatic. Patient has acute on chronic anemia in which she does take ferrous sulfate. Patient did have previous 1 unit packed red blood cells transfusion on postoperative day #1. 6. Continue postoperative medical management per medicine: Case was discussed with medicine. Medicine recommends taking out the catheter and doing voiding trials. Bladder scan in 8 hours. Patient's creatinine has improved today and currently 1.07 7. Cultures: Cultures today revealed gram-negative ravindra possible Pseudomonas on 2/3 of the cultures. Case was discussed with Dr. Michael Boo. Dr. Michael Boo did discuss case with infectious disease Dr. Bustamante. He has recommended we begin cefepime 2 g. Due to patient's GFR less than 60 we will do the cefepime 2 g IV every 12 hours. Patient will require 6 weeks of IV antibiotics. Infectious disease states that patient can go to snf facility this weekend with scheduled follow-up with Dr. Bustamante. the doxycycline was stopped yesterday. 8. Encouraged Incentive Spirometry 9. Disposition: Patient is doing well this morning. I was able to discuss with patient's daughter the cultures and IV antibiotics. The group home at [facility] is able to take the patient today. We discussed following up with Dr. Bustamante in which the snf facility will have to establish this as their office is closed. Patient will remain on the cefepime 2 g every 12 hours for [address] Bustamante would like weekly labs including CBC with differential, BMP, CRP, ESR. Patient will remain on her Eliquis which will cover her for DVT prophylaxis. She does have weightbearing restrictions for 6 weeks postoperatively in which she will be 50% on the right lower extremity. Patient will also need to continue posterior hip dislocation precautions for 3 months postoperatively. Patient will use Tylenol primarily for pain control and can supplement with tramadol as needed. We will plan for discharge to the snf facility at [facility] today. Prescription will be attached to chart. I did discuss with the patient and daughter contacting our office with any concerns or questions. She has scheduled follow-up visit with [facility] for x-rays and suture/staple removal. All questions were answered to the best my ability. I would also recommend patient following up with the primary care physician in the future for continued management of her chronic anemia. I have reviewed the [place] Automated Rx Reporting System (OARRS) report for this patient for refill pattern and other prescriber involvement as part of the appropriate surveillance for the provision of acute and chronic controlled medications. The report was requested and reviewed on the date of this entry and was considered in the prescribing process. This dictation was created using voice recognition software. Phonetic and/or grammatical errors may exist. (2) Mechanical loosening of internal right hip prosthetic joint, subsequent encounter:
--- NOTE | 2023-11-03 10:53 | TREXTCAR_ITS ---
Diet Diet Order/Speech Therapy: 10/30/23 20:11 Diet: Regular - General Is pt able to select menu?: Yes Routine Orders/Code Status Routine Lab Work: - (Patient will require weekly CBC with differential, BMP, CRP, ESR. Lab results should be directed to Dr. Bustamante) Wound(s) RIGHT HIP: Wound Type: Surgical Incision Dressing Change: AntiMicrobial (Aquacel AG, etc) (Mepilex dressing should be removed from right hip on November 05, 2023. Patient is okay to shower with that dressing. Once removed okay to shower and only use gentle soap and water over the incision for 6 weeks postoperatively.) Therapies Weight Bearing: Partial weight bearing (50% partial weightbearing right lower extremity for 6 weeks postoperatively.) Physical Therapy: Eval and Treat (Continue posterior dislocation precautions for 3 months postoperatively) Occupational Therapy: Eval and Treat Problem/Diagnosis (1) History of revision of total replacement of right hip joint: Status: Acute Code(s): Z96.641 - Presence of right artificial hip joint Plan: 1. S/P revision right total hip replacement femoral and acetabular components POD #4 2. Continue Pain Medications: Tylenol and tramadol. Unable to use nonsteroidal anti-inflammatories due to chronic kidney disease 3. DVT Prophylaxis: SCDs, ANSLEY james. Patient's Eliquis has been resumed. Her hemoglobin has been stable 4. PT/OT: Patient will be 50% weightbearing on the right lower extremity for 6 weeks postoperatively secondary to medial wall acetabular fracture which was better visualized postoperatively on radiographs. Intraoperative findings are consistent with continued healing of this fracture. Continue with posterior hip dislocation precautions. 5. H & H: This morning patient's hemoglobin was 8.4/26.9 patient currently asymptomatic. Patient has acute on chronic anemia in which she does take ferrous sulfate. Patient did have previous 1 unit packed red blood cells transfusion on postoperative day #1. 6. Continue postoperative medical management per medicine: Case was discussed with medicine. Medicine recommends taking out the catheter and doing voiding trials. Bladder scan in 8 hours. Patient's creatinine has improved today and currently 1.07 7. Cultures: Cultures today revealed gram-negative ravindra possible Pseudomonas on 2/3 of the cultures. Case was discussed with Dr. Michael Boo. Dr. Michael Boo did discuss case with infectious disease Dr. Bustamante. He has recommended we begin cefepime 2 g. Due to patient's GFR less than 60 we will do the cefepime 2 g IV every 12 hours. Patient will require 6 weeks of IV antibiotics. Infectious disease states that patient can go to intermediate facility this weekend with scheduled follow-up with Dr. Bustamante. the doxycycline was stopped yesterday. 8. Encouraged Incentive Spirometry 9. Disposition: Patient is doing well this morning. I was able to discuss with patient's daughter the cultures and IV antibiotics. The [place] [facility] is able to take the patient today. We discussed following up with Dr. Bustamante in which the intermediate facility will have to establish this as their office is closed. Patient will remain on the cefepime 2 g every 12 hours for [address] Bustamante would like weekly labs inc luding CBC with differential, BMP, CRP, ESR. Patient will remain on her Eliquis which will cover her for DVT prophylaxis. She does have weightbearing restrictions for 6 weeks postoperatively in which she will be 50% on the right lower extremity. Patient will also need to continue posterior hip dislocation precautions for 3 months postoperatively. Patient will use Tylenol primarily for pain control and can supplement with tramadol as needed. We will plan for discharge to the intermediate facility at [facility] today. Prescription will be attached to chart. I did discuss with the patient and daughter contacting our office with any concerns or questions. She has scheduled follow- up visit with [facility] for x-rays and suture/staple removal. All questions were answered to the best my ability. I would also recommend patient following up with the primary care physician in the future for continued management of her chronic anemia. I have reviewed the [place] Automated Rx Reporting System (OARRS) report for this patient for refill pattern and other prescriber involvement as part of the appropriate surveillance for the provision of acute and chronic controlled medications. The report was requested and reviewed on the date of this entry and was considered in the prescribing process. This dictation was created using voice recognition software. Phonetic and/or grammatical errors may exist. (2) Mechanical loosening of internal right hip prosthetic joint, subsequent encounter: Status: Acute Code(s): T84.030D - Mechanical loosening of internal right hip prosthetic joint, subsequent encounter Allergies/Procedures Done in Hospital Allergies oxycodone Adverse Reaction (Intermediate, Verified 10/21/23 13:07) Itching Procedures: Blood transfusion and PICC line placement Type of Care/Length of Stay Estimated LOS: Convalescent Care Less Than 30 days Type of Care Needed: Skilled Rehab Potential: Good Prognosis: Good Additional Orders/Day of Discharge Day of Discharge: 11/03/23 Discharge Plan Admission Admit Date/Time: 10/30/23 09:44 Attending Provider: Michael Boo Primary Care Provider: Sylvia Cuevas Consulting Providers: Diony Araya Instructions Additional Instructions / Restrictions: [facility] must schedule follow up appointment in 10-[address] Nnamdi Bustamante. The office was closed over the weekend and [facility] was unable to schedule. Thanks Discharge Orders/Prescriptions Prescriptions: New acetaminophen 500 mg Tablet 1,000 mg PO TID Qty: 0 0RF Rx Instructions: Do not take more than 3000 mg Tylenol in a 24-hour period. cefepime 2 gram Recon Soln 2 g IV Q12 42 Days Qty: 0 0RF Rx Instructions: Patient will require 6 weeks of IV antibiotics. Also require weekly CBC with differential, BMP, CRP, ESR tramadol 50 mg Tablet 50 - 100 mg PO Q6H PRN PRN (Reason: as needed for pain) 7 Days Qty: 20 0RF Continued verapamil 120 mg tablet extended release 120 mg PO DAILY Qty: 90 3RF ferrous sulfate 325 mg (65 mg iron) tablet 325 mg PO DAILY ascorbate calcium (vitamin C) 500 mg tablet 500 mg PO DAILY polyethylene glycol 3350 [Miralax] 17 gram powder in packet 17 g PO DAILY diphenhydramine-acetaminophen [Acetaminophen PM] 25-500 mg Tablet 2 tab PO QHS PRN (Reason: Sleep) metoprolol tartrate 25 mg tablet 25 mg PO BID prednisone 10 mg tablet 10 mg PO DAILY PRN (Reason: RA FLARE UP) furosemide [Lasix] 20 mg tablet 20 mg PO Q12H Eliquis 5 mg tablet 5 mg PO BID Qty: 180 4RF Discontinued tramadol 50 mg tablet 50 mg PO DAILY PRN (Reason: RA FLARE UP) Other Ambulatory Orders: 12 Lead EKG (Routine) Timeframe: 20231022 Location: None Selected Ordered By: Dr. Michael Boo Referrals / Follow Up: Sylvia Cuevas MD [Primary Care Provider] - Nnamdi Bustamante MD [Med Staff - Active Staff] - ( SNF must schedule follow up with Dr. Bustamante in 10-12 days.) Reuben Meeks PA-C [Med Staff - Adv Practice Prof] - 11/14/23 1:45 pm Disposition Disposition (needs filled in before D/C Order can be placed): Long-Term Facility
--- NOTE | 2023-11-03 11:12 | DS.PCM_ITS ---
Providers Date of Admission: 10/30/23 Date of Discharge: 11/03/23 Primary Care Physician: Dr. Sylvia Cuevas MD Consultations 10/30/23 15:53 Consult: Hospitalist Routine Consulting Provider: Mikayla Vega Reason for Consult: post op med management EMERGENT Consult: No MD Notified: Yes Date Notified: 10/30/23 Time Notified: 17:49 Method of Notification: Text Reason For Visit: REVISION KORI Diagnosis Discharge Diagnosis (1) History of revision of total replacement of right hip joint: Status: Acute Code(s): Z96.641 - Presence of right artificial hip joint Plan: 1. S/P revision right total hip replacement femoral and acetabular components POD #4 2. Continue Pain Medications: Tylenol and tramadol. Unable to use nonsteroidal anti-inflammatories due to chronic kidney disease 3. DVT Prophylaxis: SCDs, ANSLEY hose. Patient's Eliquis has been resumed. Her hemoglobin has been stable 4. PT/OT: Patient will be 50% weightbearing on the right lower extremity for 6 weeks postoperatively secondary to medial wall acetabular fracture which was better visualized postoperatively on radiographs. Intraoperative findings are consistent with continued healing of this fracture. Continue with posterior hip dislocation precautions. 5. H & H: This morning patient's hemoglobin was 8.4/26.9 patient currently asymptomatic. Patient has acute on chronic anemia in which she does take ferrous sulfate. Patient did have previous 1 unit packed red blood cells transfusion on postoperative day #1. 6. Continue postoperative medical management per medicine: Case was discussed with medicine. Medicine recommends taking out the catheter and doing voiding trials. Bladder scan in 8 hours. Patient's creatinine has improved today and currently 1.07 7. Cultures: Cultures today revealed gram-negative ravindra possible Pseudomonas on 2/3 of the cultures. Case was discussed with Dr. Michael Boo. Dr. Michael Boo did discuss case with infectious disease Dr. Bustamante. He has recommended we begin cefepime 2 g. Due to patient's GFR less than 60 we will do the cefepime 2 g IV every 12 hours. Patient will require 6 weeks of IV antibiotics. Infectious disease states that patient can go to long-term facility this weekend with scheduled follow-up with Dr. Bustamante. the doxycycline was stopped yesterday. 8. Encouraged Incentive Spirometry 9. Disposition: Patient is doing well this morning. I was able to discuss with patient's daughter the cultures and IV antibiotics. The shelter at [facility] is able to take the patient today. We discussed following up with Dr. Bustamante in which the long-term facility will have to establish this as their office is closed. Patient will remain on the cefepime 2 g every 12 hours for [address] Bustamante would like weekly labs including CBC with differential, BMP, CRP, ESR. Patient will remain on her Eliquis which will cover her for DVT prophylaxis. She does have weightbearing restrictions for 6 weeks postoperatively in which she will be 50% on the right lower extremity. Patient will also need to continue posterior hip dislocation precautions for 3 months postoperatively. Patient will use Tylenol primarily for pain control and can supplement with tramadol as needed. We will plan for discharge to the long-term facility at [facility] today. Prescription will be attached to chart. I did discuss with the patient and daughter con tacting our office with any concerns or questions. She has scheduled follow-up visit with [facility] for x-rays and suture/staple removal. All questions were answered to the best my ability. I would also recommend patient following up with the primary care physician in the future for continued management of her chronic anemia. I have reviewed the [place] Automated Rx Reporting System (OARRS) report for this patient for refill pattern and other prescriber involvement as part of the appropriate surveillance for the provision of acute and chronic controlled med ications. The report was requested and reviewed on the date of this entry and was considered in the prescribing process. This dictation was created using voice recognition software. Phonetic and/or grammatical errors may exist. (2) Mechanical loosening of internal right hip prosthetic joint, subsequent encounter: Status: Acute Code(s): T84.030D - Mechanical loosening of internal right hip prosthetic joint, subsequent encounter Medications at Discharge Home Medications diphenhydramine 25 mg-acetaminophen 500 mg tablet (Acetaminophen PM) 2 tab PO QHS PRN Sleep 10/13/21 verapamil 120 mg tablet,extended release 120 mg PO DAILY ARRHYTHMIA #90 tabs 03/15/23 ascorbate calcium (vitamin C) 500 mg tablet 500 mg PO DAILY SUPPLEMENT 05/01/23 ferrous sulfate 325 mg (65 mg iron) tablet 325 mg PO DAILY SUPPLEMENT 05/01/23 polyethylene glycol 3350 17 gram oral powder packet (Miralax) 17 g PO DAILY STOOL SOFTENER 05/08/23 furosemide 20 mg tablet (Lasix) 20 mg PO Q12H WATER PILL 10/21/23 metoprolol tartrate 25 mg tablet 25 mg PO BID AFIB 10/21/23 prednisone 10 mg tablet 10 mg PO DAILY PRN RA FLARE UP 10/21/23 apixaban 5 mg tablet (Eliquis) 5 mg PO BID BLOOD THINNER #180 tabs 10/22/23 acetaminophen 500 mg tablet 1,000 mg (2 x 500 mg) PO TID #0 tabs 11/03/23 cefepime 2 gram solution for injection 2 g IV Q12 42 days #0 ea 11/03/23 tramadol 50 mg tablet 50 - 100 mg (1 - 2 x 50 mg) PO Q6H PRN PRN as needed for pain 7 days #20 tabs 11/03/23 Hospital Course Operations total hip replacement (Revision right total hip arthroplasty secondary to acetabular loosening) Procedures Blood transfusion and PICC line placement Summary of Care Provided Hospital Course: Patient is a 88-year-old female who had a previous right total hip arthroplasty by Dr. Pranav Barrios on August 01, 2015. Patient had a fall which required her to go to the emergency room on September 29, 2023. She had x-rays which at the emergency room did not reveal acute finding for fracture. She was sent home with follow-up with orthopedics. Patient had continued pain and inability to bear weight on the right lower extremity. She was seen at [facility] [place] in which x-rays were repeated which did show a change in the acetabular cup. CT scan was also ordered in which Dr. Michael Boo did feel there was a cortical breach on the CT scan. After failing conservative measures, the patient opted to proceed with a revision right total hip arthroplasty posterior approach. The patient underwent the above-stated procedure on October 30, 2023. Patient did receive perioperative antibiotics. Intraoperatively was uneventful. For details please see dictated operative note. The patient was placed in thigh-high teds, bilateral SCDs, remained stable in recovery. Patient was admitted to the 3rd floor at [facility]. The patient's pain was managed with the use of IV and p.o. pain medications. Patient participated in physical therapy. Patient will need to follow posterior hip dislocation precautions for 3 months postoperatively. She is also partial weightbearing 50% on the right lower extremity for 6 weeks postoperatively due to fracture. Cultures were obtained intraoperatively in which on day 3 cultures did grow out Pseudomonas Aeruginosa. Dr. Michael Boo did reach out to infectious disease Dr. Bustamante on the weekend to discuss case. Infectious disease recommended patient begin cefepime 2 g every 12 hours. We were unable to do every 8 hours due to patient's GFR. Patient did have a PICC line established. Approval was obtained for patient to go to long-term facility at [facility]. Patient also on postoperative day #1 did require blood transfusion. She has acute on chronic anemia in which she takes ferrous sulfate. Eliquis was held. The hemoglobin has remained stable and her Eliquis was resumed. She takes Eliquis 5 mg twice daily. This will cover her for DVT prophylaxis. Patient was discharged on postoperative day # 4 to long-term facility at [facility]. Patient was given medications stated below. Patient will follow up with [facility] per postop instructions for reassessment. Patient will also require scheduled follow-up in 10-12 days with infectious disease Dr[address] Bustamante. The long-term facility will need to schedule this appointment as the office was closed over the weekend. Patient will also require weekly labs including CBC with differential, BMP, CRP, and ESR. Lab work will need to be sent over to infectious disease Dr. Bustamante. Weight / BMI Weight Weight: 71 kg Body Mass Index (BMI) 26.0 ABG / Lab / Microbiology Data 11/03/23 05:31 11/03/23 05:31 Laboratory: Laboratory Results - last 24 hr 11/02/23 11:49: Hgb 8.4 L, Hct 26.2 L 11/03/23 05:31: WBC 9.8, RBC 2.81 L, Hgb 8.4 L, Hct 26.9 L, MCV 95.7, MCH 29.9, MCHC 31.2 L, RDW Std Deviation 51.1 H, RDW Coeff of Dionisio 14.8 H, Plt Count 208, MPV 10.0, Immature Gran % (Auto) 1.600 H, Neut % (Auto) 61.1, Lymph % (Auto) 22.4, Garfield % (Auto) 11.1 H, Eos % (Auto) 3.3, Baso % (Auto) 0.5, Absolute Neuts (auto) 6.0, Absolute Lymphs (auto) 2.18, Nucleated RBC % 0.4, Sodium 143, Potassium 3.6, Chloride 114 H, Carbon Dioxide 28.0, Anion Gap 1 L, BUN 27 H, Creatinine 0.99, Estim Creat Clear Calc 38.07, Est GFR (MDRD) Af Amer 68, Est GFR (MDRD) Non-Af 56 L, BUN/Creatinine Ratio 27.3 H, Glucose 110 H, Calcium 8.1 L Microbiology: Microbiology 10/30/23 14:32 Tissue - Acetabular Membrane, Right Gram Stain - Final 10/30/23 14:32 Tissue - Acetabular Membrane, Right Wound Culture - Final No growth aerobically. 10/30/23 14:32 Tissue - Acetabular Membrane, Right Anaerobic Culture - Preliminary No growth in 48 hours. 10/30/23 14:26 Tissue - [facility]ium Gram Stain - Final 10/30/23 14:26 Tissue - [facility] Wound Culture - Final Pseudomonas aeruginosa 10/30/23 14:26 Tissue - [facility] Anaerobic Culture - Preliminary No growth in 48 hours. 10/30/23 14:29 Tissue - [facility]ium Gram Stain - Final 10/30/23 14:29 Tissue - [facility]ium Wound Culture - Final Pseudomonas aeruginosa 10/30/23 14:29 Tissue - [facility] Anaerobic Culture - Preliminary No growth in 48 hours. 10/22/23 12:33 Swab (Method) Nasal Screen MRSA/MSSA - Final Meaningful Use Info Meaningful Use Diagnoses (Choose all that apply): None applicable Discharge Plan Admission Admit Date/Time: 10/30/23 09:44 Attending Provider: Michael Boo Primary Care Provider: Sylvia Cuevas Consulting Providers: Diony Araya Instructions Additional Instructions / Restrictions: [facility] must schedule follow up appointment in 10-[address] Nnamdi Bustamante. The office was closed over the weekend and [facility] was unable to schedule. Thanks Discharge Orders/Prescriptions Prescriptions: New acetaminophen 500 mg Tablet 1,000 mg PO TID Qty: 0 0RF Rx Instructions: Do not take more than 3000 mg Tylenol in a 24-hour period. cefepime 2 gram Recon Soln 2 g IV Q12 42 Days Qty: 0 0RF Rx Instructions: Patient will require 6 weeks of IV antibiotics. Also require weekly CBC with differential, BMP, CRP, ESR tramadol 50 mg Tablet 50 - 100 mg PO Q6H PRN PRN (Reason: as needed for pain) 7 Days Qty: 20 0RF Continued verapamil 120 mg tablet extended release 120 mg PO DAILY Qty: 90 3RF ferrous sulfate 325 mg (65 mg iron) tablet 325 mg PO DAILY ascorbate calcium (vitamin C) 500 mg tablet 500 mg PO DAILY polyethylene glycol 3350 [Miralax] 17 gram powder in packet 17 g PO DAILY diphenhydramine-acetaminophen [Acetaminophen PM] 25-500 mg Tablet 2 tab PO QHS PRN (Reason: Sleep) metoprolol tartrate 25 mg tablet 25 mg PO BID prednisone 10 mg tablet 10 mg PO DAILY PRN (Reason: RA FLARE UP) furosemide [Lasix] 20 mg tablet 20 mg PO Q12H Eliquis 5 mg tablet 5 mg PO BID Qty: 180 4RF Discontinued tramadol 50 mg tablet 50 mg PO DAILY PRN (Reason: RA FLARE UP) Other Ambulatory Orders: 12 Lead EKG (Routine) Timeframe: 20231022 Location: None Selected Ordered By: Dr. Michael Boo Referrals / Follow Up: Sylvia Cuevas MD [Primary Care Provider] - Nnamdi Bustamante MD [Med Staff - Active Staff] - ( SNF must schedule follow up with Dr. Bustamante in 10-12 days.) Reuben Meeks PA-C [Med Staff - Adv Practice Prof] - 11/14/23 1:45 pm Disposition Disposition (needs filled in before D/C Order can be placed): Nursing Home Facility
[2023-11-03] MEDS: 0.9% Saline Lock 10 ML Syringe IV (12:56)
[2023-11-03 13:02] VITALS: BP 120/61; PULSE 82; RESP 18; TEMP 37; O2SAT 96
[2023-11-03 14:02] VITALS: BP 113/52; PULSE 76; RESP 16; TEMP 36.7; O2SAT 97
--- NOTE | 2023-11-03 14:42 | NURSING ---
REPORT CALLED TO [facility]
== END 2023-11-03 14:34 | disposition skilled nursing facility (03) | DRG 467 ==
LOC: ACINP 09:45 → MS3 16:37
PROVIDERS: Family Medicine; Physician Assistant Surgical; Admitting Provider Specialist; PCP Family Medicine; Referring Provider Specialist; Visit Provider Specialist
PROC: 0SP90JZ Removal of Synthetic Substitute from Right Hip Joint, Open Approach (ICD-10-PCS; CPT 27134; principal; 2023-10-30 12:05)
DX: T84.030A Mechanical loosening of internal right hip prosthetic joint, initial encounter (principal); D62 Acute posthemorrhagic anemia; N18.32 Chronic kidney disease, stage 3b; I48.0 Paroxysmal atrial fibrillation; M06.9 Rheumatoid arthritis, unspecified; I12.9 Hypertensive chronic kidney disease with stage 1 through stage 4 chronic kidney disease, or unspecified chronic kidney disease; E78.5 Hyperlipidemia, unspecified; K21.9 Gastro-esophageal reflux disease without esophagitis; B96.5 Pseudomonas (aeruginosa) (mallei) (pseudomallei) as the cause of diseases classified elsewhere; X58.XXXA Exposure to other specified factors, initial encounter; Z99.3 Dependence on wheelchair; Z96.641 Presence of right artificial hip joint; Z96.652 Presence of left artificial knee joint; Z90.2 Acquired absence of lung [part of]; Z79.01 Long term (current) use of anticoagulants; Z79.52 Long term (current) use of systemic steroids; Z79.899 Other long term (current) drug therapy; Z85.118 Personal history of other malignant neoplasm of bronchus and lung; Z87.891 Personal history of nicotine dependence
CPT/HCPCS: 36415; 36569; 73502; 80048; 82040; 82962; 83735; 85014; 85018; 85025; 85027; 86850; 86900; 86901; 86920; 86922; 87015; 87070; 87075; 87077; 87081; 87102; 87116; 87184; 87186; 87205; 87206; 87426; 93005; 94668; 97116; 97162; 97166; 97530; 97535; 99252; C1776; J7040; J7050; J7120; P9016; A4216; G0463; J2405; J3475

== ENCOUNTER 2023-11-21 16:15 | Inpatient (IN) | payer MEDICARE, SELFPAY ==
[2023-11-21] VITALS (7 sets, daily range): BP systolic 128–157; BP diastolic 62–105; PULSE 87–104; RESP 12–26; TEMP 36.3–37.1; O2SAT 94–98; BMI 27.6; BMI 24.7
--- NOTE | 2023-11-21 16:44 | EDS_ITS ---
HPI <ALIS Fernandez - Last Filed: 11/21/23 17:44> History of Present Illness Chief Complaint: Abn Labs Narrative Narrative: Patient had right hip revision surgery on 10/30/[address] Boo after a mechanical fall. She was discharged to [facility] on 11/03 with instructions for 50% weightbearing for 6 weeks secondary to medial wall acetabular fracture. Cultures showed gram-negative rods possible Pseudomonas and she is getting cefepime 2 g IV every 12 hours through left arm PICC line planned for 6 weeks. Labs show abnormal kidney function this week so SNF sent her to ED. Patient's lites are negative and pain has been managed adequately and she is feeling well. [facility] <ALIS Fernandez - Last Filed: 11/21/23 17:44> [facility] Medical History (Updated 11/21/23 @ 17:44 by ALIS Fernandez) Anemia of chronic renal failure, stage 3b Atrial fibrillation Atrial flutter Back pain Cancer Cardiology follow-up encounter Chronic renal failure (CRF), stage 3b Former smoker Heartburn History of echocardiogram Hoarseness Hx of cancer of lung Iron deficiency anemia due to chronic blood loss Kidney stones Leg cramps Low iron New onset atrial flutter Osteoporosis Post-menopausal Rheumatoid arthritis Shortness of breath on exertion Uses wheelchair Walker as ambulation aid Wears dentures Wears glasses Home Medications ascorbate calcium (vitamin C) 500 mg tablet 500 mg PO DAILY SUPPLEMENT 05/01/23 [History Last Taken Unknown] ferrous sulfate 325 mg (65 mg iron) tablet 325 mg PO DAILY SUPPLEMENT 05/01/23 [History Last Taken Unknown] polyethylene glycol 3350 17 gram oral powder packet (Miralax) 17 g PO DAILY STOOL SOFTENER 05/08/23 [History Last Taken Unknown] furosemide 20 mg tablet (Lasix) 20 mg PO DAILY WATER PILL 10/21/23 [History Last Taken Unknown] metoprolol tartrate 25 mg tablet 25 mg PO BID AFIB 10/21/23 [History Last Taken Unknown] prednisone 10 mg tablet 10 mg PO DAILY PRN RA FLARE UP 10/21/23 [History Last Taken Unknown] apixaban 5 mg tablet (Eliquis) 5 mg PO BID BLOOD THINNER #180 tabs 10/22/23 [Rx Last Taken 10/27/23] acetaminophen 500 mg tablet 1,000 mg (2 x 500 mg) PO TID #0 tabs 11/03/23 [Rx Last Taken Unknown] cefepime 2 gram solution for injection 2 g IV Q12 42 days #0 ea 11/03/23 [Rx Last Taken Unknown] food supplemt, lactose-reduced 0.06 gram-1 kcal/mL oral liquid (Boost High Protein) 120 ml PO BID FOOD SUPPLEMENT 11/21/23 [History Last Taken Unknown] magnesium hydroxide 400 mg/5 mL oral suspension (Milk of Magnesia) 2,400 mg PO DAILY CONSTIPATION 11/21/23 [History Last Taken Unknown] melatonin 3 mg tablet 3 mg PO QHS 11/21/23 [History Last Taken Unknown] pantoprazole 40 mg tablet,delayed release 40 mg PO DAILY 11/21/23 [History Last Taken Unknown] potassium chloride 20 mEq tablet,extended release 20 meq PO DAILY 11/21/23 [History Last Taken Unknown] sennosides 8.6 mg-docusate sodium 50 mg capsule (Senna Plus) 1 tab-cap PO QHS 11/21/23 [History Last Taken Unknown] tramadol 50 mg tablet 50 - 100 mg PO Q6H PRN pain 11/21/23 [History Last Taken Unknown] verapamil 40 mg tablet 40 mg PO BID 11/21/23 [History Last Taken Unknown] Allergy/AdvReac Type Severity Reaction Status Date / Time oxycodone AdvReac Intermediate Itching Verified 11/21/23 16:23 Family History Mother Abdominal aneurysm Father Cancer Lung Surgical History (Updated 11/21/23 @ 17:44 by ALIS Fernandez) H/O hernia repair History of cardioversion (12/15/21) History of cataract surgery History of esophagogastroduodenoscopy (EGD) History of kidney surgery History of left knee replacement History of right hip replacement Hx of hysterectomy S/P partial lobectomy of lung Social History Smoking Status: Former smoker quit date: 09/16/85 how long ago did patient quit smokin alcohol intake: current alcohol intake frequency: a few times a month substance use type: does not use caffeine: No ROS <ALIS Fernandez - Last Filed: 11/21/23 17:44> ROS ED ROS Narrative Constitutional: Negative for fever, chills, malaise. GI: Negative for abdominal pain, nausea, vomiting. EXAM <ALIS Fernandez - Last Filed: 11/21/23 17:44> Physical Exam Narrative Exam Narrative: CONST: Patient sitting in no acute distress. EYES: Normal inspection. NECK: Normal inspection. RESP: No respiratory distress, CTAB. CVS: Regular rate and rhythm, no murmur, no gallop. SKIN: Color normal, no rash. Right posterior hip incision healing well without erythema or dehiscence. EXTREMITIES: Normal appearance, no pedal edema. NEURO: Alert and answering questions appropriately. PSYCH: Normal affect. Const Vital Signs: 11/21/23 16:17 11/21/23 16:20 11/21/23 17:26 Temperature 98.4 F Temperature Source Temporal Pulse Rate 87 88 Respiratory Rate 12 23 H Respiratory Effort Normal Respiratory Pattern Normal Blood Pressure 144/64 H 140/64 H Blood Pressure Mean 90 89 Pulse Ox 97 94 Oxygen Delivery Method Room Air Room Air 11/21/23 17:39 Temperature 98.7 F Temperature Source Pulse Rate 87 Respiratory Rate 26 H Respiratory Effort Respiratory Pattern Blood Pressure 145/70 H Blood Pressure Mean 95 Pulse Ox 94 Oxygen Delivery Method <Dr. Reed Hahn DO - Last Filed: 11/21/23 17:53> Physical Exam Const Vital Signs: 11/21/23 16:17 11/21/23 16:20 11/21/23 17:26 Temperature 98.4 F Temperature Source Temporal Pulse Rate 87 88 Respiratory Rate 12 23 H Respiratory Effort Normal Respiratory Pattern Normal Blood Pressure 144/64 H 140/64 H Blood Pressure Mean 90 89 Pulse Ox 97 94 Oxygen Delivery Method Room Air Room Air 11/21/23 17:39 Temperature 98.7 F Temperature Source Pulse Rate 87 Respiratory Rate 26 H Respiratory Effort Respiratory Pattern Blood Pressure 145/70 H Blood Pressure Mean 95 Pulse Ox 94 Oxygen Delivery Method MDM <ALIS Fernandez - Last Filed: 11/21/23 17:44> MDM MDM Narrative Medical decision making narrative: History gathered from: Patient, family Patient is status post right hip revision on 10/30/[address] Boo. She is receiving IV cefepime 2 g twice daily through a left arm PICC line due to gram- negative rods possible Pseudomonas. She was sent in for abnormal renal function. Previously creatinine was 0.88 and today it is elevated to 3.18. Patient is asymptomatic. This is most likely from antibiotic nephrotoxicity. I discussed the case with the hospitalist who recommended fluids at 100 cc/hour and patient was admitted. External records reviewed: [facility] records 11/03/2023 BUN 27, creatinine 0.99 <Dr. Reed Hahn, DO - Last Filed: 11/21/23 17:53> [facility] Treatment and Re-Evaluation :: I have personally performed a face to face assessment of the patient and have reviewed the SAMARA Note. I performed a substantive portion of the visit including all aspects of the following. My lainez findings include: History: Patient presents with elevated creatinine that was getting worse over the past 4 days. Family states that her doctor has been monitoring it. Patient denies any difficulty urinating. Patient denies any dysuria or hematuria. Patient denies any decreased urine output. Patient denies any fevers or chills. Patient denies any nausea or vomiting. Exam: Vital signs are stable. Patient is afebrile. Patient is in no acute distress. Oral mucosa is pink and moist. Neck is supple. Trachea is midline there is no JVD. Heart was regular rate and rhythm. Lungs are clear and equal bilaterally. Abdomen is soft. Bowel sounds are normal. There is no tenderness. Radial nerves II through XII are intact. There are no focal motor or sensory deficits noted. Medical Decision Making: Patient had outpatient labs today which showed a creatinine of 3.18. Patient was referred to the emergency department for admission for acute kidney injury on top of her chronic kidney disease. Case was discussed with the hospitalist. He was down to evaluate the patient and will admit the patient to his service. Patient was given IV fluids. Patient and family understood and were agreeable with the plan. All questions were answered. Discharge Plan Triage Chief Complaint: Abn Labs ED Midlevel Provider: Jackie Main ED Provider: Reed Hahn Dx/Rx/DC Orders Clinical Impression: Acute renal failure, S/P total hip arthroplasty Prescriptions: No Action ferrous sulfate 325 mg (65 mg iron) tablet 325 mg PO DAILY ascorbate calcium (vitamin C) 500 mg tablet 500 mg PO DAILY polyethylene glycol 3350 [Miralax] 17 gram powder in packet 17 g PO DAILY metoprolol tartrate 25 mg tablet 25 mg PO BID prednisone 10 mg tablet 10 mg PO DAILY PRN (Reason: RA FLARE UP) furosemide [Lasix] 20 mg tablet 20 mg PO DAILY acetaminophen 500 mg Tablet 1,000 mg PO TID Qty: 0 0RF Rx Instructions: Do not take more than 3000 mg Tylenol in a 24-hour period. cefepime 2 gram Recon Soln 2 g IV Q12 42 Days Qty: 0 0RF Rx Instructions: Patient will require 6 weeks of IV antibiotics. Also require weekly CBC with differential, BMP, CRP, ESR Boost High Protein 0.06 gram- 1 kcal/mL liquid 120 ml PO BID melatonin 3 mg tablet 3 mg PO QHS pantoprazole 40 mg tablet,delayed release (DR/EC) 40 mg PO DAILY potassium chloride 20 mEq tablet extended release 20 meq PO DAILY verapamil 40 mg tablet 40 mg PO BID magnesium hydroxide [Milk of Magnesia] 400 mg/5 mL suspension 2,400 mg PO DAILY Senna Plus 8.6-50 mg capsule 1 tab-cap PO QHS tramadol 50 mg Tablet 50 - 100 mg PO Q6H PRN (Reason: pain) Eliquis 5 mg tablet 5 mg PO BID Qty: 180 4RF Primary Care Provider: Sylvia Cuevas Referrals: Sylvia Cuevas MD [Primary Care Provider] -
--- NOTE | 2023-11-21 17:01 | HP.PCM.HOS_ITS ---
HPI - General General Date of Admission: 11/21/23 Date of Service: 11/21/23 Chief Complaint: Sent from nursing for abnormal lab, LENORE on CKD HPI Narrative RUTH ANN ELAN, is a 88 F coming from [facility] today when her creatinine
--- NOTE | 2023-11-21 17:01 | PCM.HP.STD ---
HPI - General General Date of Admission: 11/21/23 Date of Service: 11/21/23 Chief Complaint: Sent from nursing for abnormal lab, LENORE on CKD HPI Narrative RUTH ANN ANSARI, is a 88 F coming from [facility] today when her creatinine went up. She was discharged to this to rehab on 11/03 after she had a right hip revision surgery on 10/[address] Davalos after mechanical fall. Perioperative cultures showed gram-negative rods possible Pseudomonas and she was started on cefepime 2 g IV every 12 hourly for 6 weeks through left arm PICC line. Labs showed increased creatinine 3.12, 3.173.18 for last 3 days, increased from her baseline 1.24 to 1.71 in October 2023. On her home meds, she is on milk of magnesia 2400 mg daily for constipation, Lasix 20 mg daily and potassium supplement. She is also on Eliquis 5 mg twice daily. Patient recently saw Dr. Boo about a week ago and agnieszka were removed. Labs reviewed. Vitals in normal limit. Patient further admitted. [facility] Medical History Anemia of chronic renal failure, stage 3b Atrial fibrillation Atrial flutter Back pain Cancer Cardiology follow-up encounter Chronic renal failure (CRF), stage 3b Former smoker Heartburn History of echocardiogram Hoarseness Hx of cancer of lung Iron deficiency anemia due to chronic blood loss Kidney stones Leg cramps Low iron New onset atrial flutter Osteoporosis Post-menopausal Rheumatoid arthritis Shortness of breath on exertion Uses wheelchair Walker as ambulation aid Wears dentures Wears glasses Home Medications ascorbate calcium (vitamin C) 500 mg tablet 500 mg PO DAILY SUPPLEMENT 05/01/23 [History Last Taken Unknown] ferrous sulfate 325 mg (65 mg iron) tablet 325 mg PO DAILY SUPPLEMENT 05/01/23 [History Last Taken Unknown] polyethylene glycol 3350 17 gram oral powder packet (Miralax) 17 g PO DAILY STOOL SOFTENER 05/08/23 [History Last Taken Unknown] furosemide 20 mg tablet (Lasix) 20 mg PO DAILY WATER PILL 10/21/23 [History Last Taken Unknown] metoprolol tartrate 25 mg tablet 25 mg PO BID AFIB 10/21/23 [History Last Taken Unknown] prednisone 10 mg tablet 10 mg PO DAILY PRN RA FLARE UP 10/21/23 [History Last Taken Unknown] apixaban 5 mg tablet (Eliquis) 5 mg PO BID BLOOD THINNER #180 tabs 10/22/23 [Rx Last Taken 10/27/23] acetaminophen 500 mg tablet 1,000 mg (2 x 500 mg) PO TID #0 tabs 11/03/23 [Rx Last Taken Unknown] cefepime 2 gram solution for injection 2 g IV Q12 42 days #0 ea 11/03/23 [Rx Last Taken Unknown] food supplemt, lactose-reduced 0.06 gram-1 kcal/mL oral liquid (Boost High Protein) 120 ml PO BID FOOD SUPPLEMENT 11/21/23 [History Last Taken Unknown] magnesium hydroxide 400 mg/5 mL oral suspension (Milk of Magnesia) 2,400 mg PO DAILY CONSTIPATION 11/21/23 [History Last Taken Unknown] melatonin 3 mg tablet 3 mg PO QHS 11/21/23 [History Last Taken Unknown] pantoprazole 40 mg tablet,delayed release 40 mg PO DAILY 11/21/23 [History Last Taken Unknown] potassium chloride 20 mEq tablet,extended release 20 meq PO DAILY 11/21/23 [History Last Taken Unknown] sennosides 8.6 mg-docusate sodium 50 mg capsule (Senna Plus) 1 tab-cap PO QHS 11/21/23 [History Last Taken Unknown] tramadol 50 mg tablet 50 - 100 mg PO Q6H PRN pain 11/21/23 [History Last Taken Unknown] verapamil 40 mg tablet 40 mg PO BID 11/21/23 [History Last Taken Unknown] Allergy/AdvReac Type Severity Reaction Status Date / Time oxycodone AdvReac Intermediate Itching Verified 11/21/23 16:23 Family History Mother Abdominal aneurysm Father Cancer Lung Surgical History H/O hernia repair History of cardioversion (12/15/21) History of cataract surgery History of esophagogastroduodenoscopy (EGD) History of kidney surgery History of left knee replacement History of right hip replacement Hx of hysterectomy S/P partial lobectomy of lung Social History Smoking Status: Former smoker quit date: 09/16/85 how long ago did patient quit smokin alcohol intake: current alcohol intake frequency: a few times a month substance use type: does not use caffeine: No ROS ROS Narrative Constitutional: Reports fatigue and weakness. No fever. HEENT: Reports systems reviewed and no addt'l complaints, except as documented Respiratory/Chest: No acute shortness of breath or respiratory distress or wheezing. CVS: No chest pressure or tightness. Gastrointestinal: Denies coffee ground emesis, hematemesis or vomiting Genitourinary: Denies burning urination or new urinary tract symptoms Musculoskeletal: Right hip surgery. On 50% weightbearing. Denies acute joint pain or limited range of motion. No acute injury Neurologic: Denies seizure-like symptoms. skin: No ulcer. No rash Endocrinology: Reports systems reviewed and no addt'l complaints, except as documented Hematologic/Lymphatic: Reports systems reviewed and no addt'l complaints, except as documented Rest 14 ROS are negative except as mentioned in HPI Vital Signs Vital Signs Vital Signs: 11/21/23 16:17 11/21/23 16:20 Temperature 98.4 F Temperature Source Temporal Pulse Rate 87 Respiratory Rate 12 Respiratory Effort Normal Respiratory Pattern Normal Blood Pressure 144/64 H Blood Pressure Mean 90 Pulse Ox 97 Oxygen Delivery Method Room Air Weight Weight: 166 lb 3.657 oz Body Mass Index (BMI) 27.6 Physical Exam Narrative General: Alert, Oriented x3, Cooperative HEENT: Atraumatic, PERRLA, EOMI, Normocephalic Oral: Oral mucosa moist. No Gingival or Mucosal Lesions/ Ulcerations Neck: Supple, No JVD, Negative Carotid Bruits Chest wall/Lungs: Air entry diminished in bilateral lung bases. No crepitation/rhonchi Cardiovascular: Regular rate, Regular Rhythm, Normal S1, Normal S2, No M/G/R Abdomen: Bowel Sounds Present, Soft, Non Tender, Non-Distended : No dysuria. No renal angle tenderness. No suprapubic tenderness. Extremities: No edema, Capillary Refill Less than 3 Seconds Skin: Right hip surgical incision is well-healed. Agnieszka removed. Musculoskeletal: Restricted mobility on right hip but no acute tenderness. No Tenderness to Palpation of Joints or Extremities Neurological: Cranial nerves II-XII grossly intact, DTR 2+/4. No acute focal neurological deficit. Psych/Mental Status: Normal Affect, Appropriate. Assessment & Plan Assessment/Plan (1) LENORE (acute kidney injury): (2) Chronic renal failure (CRF), stage 3b: PLAN: Plan This is a 88-year-old female being admitted for acute kidney injury on CKD found on the lab. 1. LENORE on CKD stage IIIb, exact etiology unclear but possible related to milk of magnesia/medications: Patient is being admitted on [facility] floor as inpatient status. IV fluid normal management per hour. Discontinue milk of magnesium, Lasix and potassium supplement and other nephrotoxic medications. Monitor intake and output. Kidney and bladder ultrasound ordered. Nephrology consult. Patient denies any fever or dysuria.Labs showed increased creatinine 3.12, 3.17 and 3.18 for last 3 days, increased from her baseline 1.24 to 1.71 in October 2023. UA, urine electrolytes and BMP ordered. 2. 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 IV cefepime dose adjusted to 1 g daily to go to creatinine clearance. ID is consulted for further opinion. 3. Paroxysmal A-fib and hypertension: Twelve-lead EKG ordered. Patient on Eliquis 5 mg twice daily changed to 2.5 mg twice daily. 4. Rheumatoid arthritis: On prednisone 10 mg as needed. 5. Hypertension: Blood pressure is controlled. Living will/advanced directive/end of life care: Patient does have living will or advanced directive. Patient is stated that she has living will and power of business attorney is her daughter near the bedside in ED. After discussion of benefits/risks procedures involved with full code, DNR CC arrest and DNR CC, the patient states that she is DNR CC arrest as per living will. Her wishes ordered and will do DNR CC arrest Patient doesn't want artificial life support including intubation, tube feed, ventilator and/chest compression, central venous catheter, vasopressor and DC shock if needed Total time spent in [id number] encounter in discussion of advanced directive 17 minutes. Laboratory Results 11/21/23 17:30: Phosphorus Pending, Magnesium Pending Charges/Coding Visit Charges Inpatient E&M: 29425 Init Hosp L3 Procedures Hospitalists Procedures: 20529 Advncd Care Plan 30 Min
[2023-11-21] MEDS: 0.9% Normal Saline (1000mL) 1,000 ML 999 ML IV (17:32)
[2023-11-21 17:59] LABS: Magnesium 2.4 mg/dL (1.6-2.6); Phosphorus 4.4 mg/dL (2.5-4.9)
--- NOTE | 2023-11-21 18:47 | US_ITS ---
INDICATION: LENORE on CKD3B EXAMINATION: Ultrasound US Kidney(s) complete (eg, kidneys and bladder) TECHNIQUE: Garza scale and color doppler images were obtained of the kidneys. COMPARISON: None. FINDINGS: RIGHT KIDNEY: 11.0 cm length. There is no hydronephrosis. Mild cortical thinning. Simple cyst 4.8 x 4.5 x 4.5 cm at the lower pole. LEFT KIDNEY: 9.6 cm length. There is no hydronephrosis. Mild cortical thinning. URINARY BLADDER: Distended. Bladder volume 441 mL. No wall thickening or debris. Ureteral jets were not visualized. US/Kidney and Bladder IMPRESSION: No hydronephrosis. Distended bladder. Electronically Signed: Bertha Gabriel MD at 6:23 EST ,
[2023-11-21 19:03] LABS: Anion Gap 12 (5-15); BUN 57 mg/dL (7-18); BUN/Creat Ratio 18.5 RATIO (10-20); Calcium,Total 8.9 mg/dL (8.5-10.1); Chloride 113 mmol/L (98-107); Creatinine, Serum 3.08 mg/dL (0.55-1.02); EST Glomerular Filtration Rate 15 mL/min (>60); Est Glom Filt Rate - Afr Amer 18 mL/min (>60); Estimated Creatinine Clearance 11.14 ml/min; Glucose 90 mg/dL (74-106); Potassium 4.3 mmol/L (3.5-5.1); Sodium Level 143 mmol/L (136-145)
--- NOTE | 2023-11-21 19:43 | EKG12_ITS ---
Test Reason : HEART BURN Blood Pressure : / mmHG Vent. Rate : 102 BPM Atrial Rate : 102 BPM P-R Int : 168 ms QRS Dur : 092 ms QT Int : 358 ms P-R-T Axes : 037 -01 055 degrees QTc Int : 466 ms Sinus tachycardia Nonspecific ST abnormality Abnormal ECG When compared with ECG of 22-OCT-2023 12:24, Vent. rate has increased BY 42 BPM QT has lengthened Confirmed by ANGIE CERON, SHANNON ([id number]), video tape editor JI ISLAS ([id number]) on 11/28/2023 9:17:09 AM Referred By: Keny Pinzon Confirmed By:SHANNON ADAMS MD
[2023-11-21] MEDS: 0.9% Normal Saline (1000mL) 1,000 ML 100 ML IV (19:52)
[2023-11-21] MEDS: Ondansetron 4 MG/2 ML Vial IV (19:52)
[2023-11-21 20:45] LABS: Bacteria 0 SEEN /hpf (None Seen); Mucous, Urine 0 SEEN /hpf (<or=2+)
[2023-11-21 20:51] LABS: Color, Urine Yellow (Yellow); Glucose, Dipstick Normal (Normal); Ketone-Dipstick Negative (Negative); Leukocyte Esterase-Dipstick 25 /ul (Negative); Nitrite-Dipstick Negative (Negative); Occult Blood-Urine 50 /ul (Negative); Protein-Dipstick 30 mg/dl (Negative); Urine Bilirubin Dipstick Negative (Negative); Urine Clarity Clear (Clear); Urine Urobilinogen Normal (Normal)
--- OUTSIDE RECORDS SUMMARY | 2023-11-21 20:51 | XMS RPT_ITS | CCD ---
Author Name Unknown Address [address] [facility] [address] [place] [id number] Organization [facility] Results Test Name Value Interpretation Reference Range Facil ity Progress note 09-27-2021 Note Date & Type Note Facility 09-27-2021 Note HNO ID: [id number] Author: Nina Patel APRN.CHARACTER IMPERSONATOR Service: ? Author Type: Nurse Practitioner Type: [...] Patient agreeable to treatment plan. Nina Patel APRN.[facility] Summary Purpose Family History No Family [...] BE BASED ON THE PRIMARY CLINICAL RECORDS. [facility], [facility]. provides no warranty or guarantee of the accuracy or completeness of information in this document.
[2023-11-21 20:58] LABS: Red Blood Cells-Urine 0-5 SEEN /hpf (0-5); Squamous Epithelial Cells - UA 0-5 SEEN /hpf (5-10); White Blood Cells 0-5 SEEN /hpf (0-5)
[2023-11-21 21:15] LABS: Protein, Urine (Random) 93.7 mg/dL (<11.9); Protein:Creat Ratio 3407 mg/g CRE (0-200); Urine Chloride 69 mmol/L (Not Establ.); Urine Sodium 58 mmol/L (Not Establ.)
[2023-11-21 21:33] LABS: Osmolality, Urine 260 mOsm/KG
[2023-11-21] MEDS: MELATONIN 3 MG TABLET PO (22:00)
[2023-11-21] MEDS: APIXABAN 2.5 MG TABLET (WCH) PO (22:00)
[2023-11-21] MEDS: Senna/Docusate Sodium 1 Tablet 2 TABLET PO (22:00)
[2023-11-21] MEDS: Metoprolol Tartrate 25 MG Tablet PO (22:00)
[2023-11-21] MEDS: Pantoprazole Sodium 40 MG Tablet PO (22:01)
[2023-11-22] VITALS (8 sets, daily range): BP systolic 108–143; BP diastolic 59–114; PULSE 62–84; RESP 12–18; TEMP 36.6–37.2; O2SAT 94–98; BMI 25.4
[2023-11-22] MEDS: 0.9% Normal Saline (1000mL) 1,000 ML 100 ML IV ×2 (04:34→14:20)
[2023-11-22 05:18] LABS: Absolute Lymphocyte Count 1.44 X10^3/uL (0.83-4.51); Absolute Neutrophil Count 4.5 X10^3/uL (2.0-7.7); Basophil# 0.07 X10^3/uL; Basophil% 0.9 % (0-1); Eosinophils% 8.5 % (0-5); Hematocrit 27.2 % (37-47); Hemoglobin 8.3 g/dL (12.0-15.0); Lymphocyte # 1.44 X10^3/ul (0.83-4.51); Lymphocyte % 17.5 % (19-41); Mean Corp Hgb Conc 30.5 g/dL (32-36); Mean Corpuscular Hgb 31.3 pg (27.0-32.0); Mean Corpuscular Volume 102.6 fL (81-99); Mean Platelet Vol. 9.2 fl (6.2-12.0); Monocyte# 1.46 X10^3/uL; Monocyte% 17.8 % (0-10); NRBC Flagged by Analyzer 0 % (0-5); Neutrophil # 4.49 X10^3/uL (2.7-7.7); Neutrophil % 54.7 % (47-70); Platelet Count 267 K/mm3 (150-450); RBC Distribution Width CV 16.7 % (11.6-14.6); RBC Distribution Width SD 62.4 fl (35.1-43.9); Red Blood Count 2.65 M/mm3 (4.2-5.4); White Blood Count 8.2 K/mm3 (4.4-11.0)
[2023-11-22 05:37] LABS: Anion Gap 5 (5-15); BUN 56 mg/dL (7-18); BUN/Creat Ratio 18.1 RATIO (10-20); Calcium,Total 8.7 mg/dL (8.5-10.1); Chloride 118 mmol/L (98-107); EST Glomerular Filtration Rate 15 mL/min (>60); Est Glom Filt Rate - Afr Amer 18 mL/min (>60); Estimated Creatinine Clearance 12.02 ml/min; Glucose 106 mg/dL (74-106); Potassium 4.2 mmol/L (3.5-5.1); Sodium Level 146 mmol/L (136-145)
--- NOTE | 2023-11-22 09:52 | CASEMGMT ---
Addendum entered by Betsy Garcia 11/22/23 16:32: Social Work SW spoke with physician. Pt will be here through the weekend. SW spoke with therapy who feels pt could return home at time of discharge. Discharge plan is dependent on pt's need for ATB at sd. SW will continue to follow for appropriate discharge planning. DC assignment desk assistant updated and to notify [facility]. MARGARET Suárez Original Note: Social Work SW met with pt and introduced self and role of SW. Pt acknowledging knowing this SW from previous visit. Pt was at [facility] from 10/30-11/03 and was discharged to [facility] skilled level of care for therapy and IV ATBs. Pt admitted to the hospital from [facility]. Pt states that she has done well with therapy, is moving well and feels like she could be at home alone if it were only dependent on how she is functioning. Pt is also at [facility] for 6 weeks of IV ATB. Pt states if IV ATB are discontinued during this hospital stay she will be able to return home. If IV ATB need to continue, she will return to [facility]. Pt states that she is still at [facility] under her insurance benefit and insurance indicated they will cover the cost of stay for duration of IV ATB. SW will await I/D consult to determine course of IV ATB and therefore discharge plan. MARGARET Haong
[2023-11-22] MEDS: APIXABAN 2.5 MG TABLET (WCH) PO ×2 (10:53→21:46)
[2023-11-22] MEDS: Ferrous Sulfate 325 MG Tablet PO (10:53)
[2023-11-22] MEDS: Senna/Docusate Sodium 1 Tablet 2 TABLET PO (10:54)
[2023-11-22] MEDS: Pantoprazole Sodium 40 MG Tablet PO (10:55)
[2023-11-22] MEDS: Metoprolol Tartrate 25 MG Tablet PO ×2 (10:55→21:46)
[2023-11-22] MEDS: Ascorbic Acid 500 MG Tablet PO (10:59)
[2023-11-22] MEDS: Polyethylene Glycol 3350 17 GM PACKET PO (11:02)
--- NOTE | 2023-11-22 13:28 | CON.PCM.ID_ITS ---
Assessment & Plan Assessment/Plan (1) LENORE (acute kidney injury): (2) Infection of prosthetic hip joint: PLAN: R hip PsA PJI, now s/p revision 10/30/[address] Boo, sent to [facility] on 6 weeks iv cefepime via picc with stop date 12/11/23. Now with LENORE on CKD. Cefepime has been held. Will start iv meropenem. At discharge, po cipro could also be an option given good bone and joint penetration. Last QTC was 416. Will follow, thank you, d/w Dr. Pinzon HPI Consult Data Date of Consult: 11/22/23 HPI Narrative Reason for Consultation: PJI HPI Narrative: RUTH ANN ANSARI, is a 88 F s/p OR 10/30/[address] Boo for revision of R hip PsA PJI, discharged on 6 week course iv cefepime via picc. Had not seen ID in office. Over past few days, increasing fatigue, nausea, not feeling well. Hip has healed well. No fever, no redness, no drainage. Labs showed LENORE, admitted to [facility], cefepime stopped. Full ROS performed and neg except as noted above. [facility], [facility] Medical History Anemia of chronic renal failure, stage 3b Atrial fibrillation Atrial flutter Back pain Cancer Cardiology follow-up encounter Chronic pain Chronic renal failure (CRF), stage 3b Former smoker GERD (gastroesophageal reflux disease) Heartburn History of echocardiogram Hoarseness Hx of cancer of lung Iron deficiency anemia due to chronic blood loss Kidney disease Kidney stones Leg cramps Low iron New onset atrial flutter Osteoporosis Post-menopausal Rheumatoid arthritis Shortness of breath on exertion Uses wheelchair Walker as ambulation aid Wears dentures Wears glasses Home Medications ascorbate calcium (vitamin C) 500 mg tablet 500 mg PO DAILY SUPPLEMENT 05/01/23 [History Last Taken Unknown] ferrous sulfate 325 mg (65 mg iron) tablet 325 mg PO DAILY SUPPLEMENT 05/01/23 [History Last Taken Unknown] polyethylene glycol 3350 17 gram oral powder packet (Miralax) 17 g PO DAILY STOOL SOFTENER 05/08/23 [History Last Taken Unknown] furosemide 20 mg tablet (Lasix) 20 mg PO DAILY WATER PILL 10/21/23 [History Last Taken Unknown] metoprolol tartrate 25 mg tablet 25 mg PO BID AFIB 10/21/23 [History Last Taken Unknown] prednisone 10 mg tablet 10 mg PO DAILY PRN RA FLARE UP 10/21/23 [History Last Taken Unknown] apixaban 5 mg tablet (Eliquis) 5 mg PO BID BLOOD THINNER #180 tabs 10/22/23 [Rx Last Taken 10/27/23] acetaminophen 500 mg tablet 1,000 mg (2 x 500 mg) PO TID #0 tabs 11/03/23 [Rx Last Taken Unknown] cefepime 2 gram solution for injection 2 g IV Q12 42 days #0 ea 11/03/23 [Rx Last Taken Unknown] food supplemt, lactose-reduced 0.06 gram-1 kcal/mL oral liquid (Boost High Protein) 120 ml PO BID FOOD SUPPLEMENT 11/21/23 [History Last Taken Unknown] magnesium hydroxide 400 mg/5 mL oral suspension (Milk of Magnesia) 2,400 mg PO DAILY CONSTIPATION 11/21/23 [History Last Taken Unknown] melatonin 3 mg tablet 3 mg PO QHS 11/21/23 [History Last Taken Unknown] pantoprazole 40 mg tablet,delayed release 40 mg PO DAILY 11/21/23 [History Last Taken Unknown] potassium chloride 20 mEq tablet,extended release 20 meq PO DAILY 11/21/23 [History Last Taken Unknown] sennosides 8.6 mg-docusate sodium 50 mg capsule (Senna Plus) 1 tab-cap PO QHS 11/21/23 [History Last Taken Unknown] tramadol 50 mg tablet 50 - 100 mg PO Q6H PRN pain 11/21/23 [History Last Taken Unknown] verapamil 40 mg tablet 40 mg PO BID 11/21/23 [History Last Taken Unknown] Allergy/AdvReac Type Severity Reaction Status Date / Time oxycodone AdvReac Intermediate Itching Verified 11/21/23 16:23 Family History Mother Abdominal aneurysm Father Cancer Lung Surgical History H/O hernia repair History of cardioversion (12/15/21) History of cataract surgery History of esophagogastroduodenoscopy (EGD) History of kidney surgery History of left knee replacement History of right hip replacement Hx of hysterectomy S/P partial lobectomy of lung Social History Smoking Status: Former smoker quit date: 09/16/85 how long ago did patient quit smokin alcohol intake: current alcohol intake frequency: a few times a month substance use type: does not use caffeine: No Physical Exam Const alert, oriented x3 and no apparent distress General Appearance: cooperative and well developed HEENT normocephalic and head/scalp atraumatic Eyes PERRL and EOMs intact bilaterally Neck supple and No nodes Resp normal air movement and clear to auscultation bilaterally Cardio regular rate and regular rhythm GI soft to palpation, non-tender and non-distended Extremity General Extremity: edema Skin no rashes or lesions noted Skin Narrative: R hip incision healed well Neuro CN's II-XII intact bilaterally Lab / Micro Data Attestation: I reviewed the patient's lab results. 11/22/23 04:55 11/22/23 04:55 Labs: Laboratory Results - last 24 hr 11/21/23 17:30: Sodium 143, Potassium 4.3, Chloride 113 H, Carbon Dioxide 18.0 L , Anion Gap 12, BUN 57 H, Creatinine 3.08 H, Estim Creat Clear Calc 11.14, Est GFR (MDRD) Af Amer 18 L, Est GFR (MDRD) Non-Af 15 L, BUN/Creatinine Ratio 18.5, Glucose 90, Calcium 8.9, Phosphorus 4.4, Magnesium 2.4 11/21/23 20:40: Urine Color Yellow, Urine Clarity Clear, Urine pH 6.0, Ur Spec ific [place] 1.010, Urine Protein 30 H, Urine Glucose (UA) Normal, Urine Ketones Negative, Urine Occult Blood 50 H, Urine Nitrite Negative, Urine Bilirubin Negative, Urine Urobilinogen Normal, Ur Leukocyte Esterase 25 H, Urine RBC 0-5 SEEN, Urine WBC 0-5 SEEN, Ur Squamous Epith Cells 0-5 SEEN, Urine Bacteria 0 SEEN, Urine Mucus 0 SEEN, Urine Osmolality 260, Ur Random Microalbumin 143.0, U Random Total Protein 93.7 H, Ur Random Sodium 58, Urine Creatinine 27.50, Protein/Creatinin Ratio 3407 H, Urine Potassium 25.0, Urine Chloride 69 11/22/23 04:55: WBC 8.2, RBC 2.65 L, Hgb 8.3 L, Hct 27.2 L, MCV 102.6 H, MCH 31.3, MCHC 30.5 L, RDW Std Deviation 62.4 H, RDW Coeff of Dionisio 16.7 H, Plt Count 267, MPV 9.2, Immature Gran % (Auto) 0.600, Neut % (Auto) 54.7, Lymph % (Auto) 17.5 L, [place] % (Auto) 17.8 H, Eos % (Auto) 8.5 H, Baso % (Auto) 0.9, Absolute Neuts (auto) 4.5, Absolute Lymphs (auto) 1.44, Nucleated RBC % 0, Sodium 146 H, Potassium 4.2, Chloride 118 H, Carbon Dioxide 23.0, Anion Gap 5, BUN 56 H, Creatinine 3.10 H, Estim Creat Clear Calc 12.02, Est GFR (MDRD) Af Amer 18 L, Est GFR (MDRD) Non-Af 15 L, BUN/Creatinine Ratio 18.1, Glucose 106, Calcium 8.7 Micro: Microbiology 11/21/23 20:41 Urine, Random Urine Culture - Preliminary Gram Positive Cocci Imaging Radiology Impression Renal Ultrasound 11/21/23 18:47 IMPRESSION: No hydronephrosis. Distended bladder. Electronically Signed: Bertha Gabriel MD at 6:23 EST ,
--- NOTE | 2023-11-22 13:44 | CON.PCM.RE_ITS ---
Assessment & Plan Assessment/Plan (1) LENORE (acute kidney injury): PLAN: At the time of last admission her creatinine was 0.9-1.2. Came back with a creatinine of 3.0. Renal ultrasound without any hydronephrosis. Fractional excretion of sodium 4.6%. Urine analysis shows some protein, WBC. Urine protein creatinine ratio is more than 3 g. Do not have a prior urine protein for comparison. Serum eosinophil count has increased compared to last admission. Differential diagnosis include postinfectious glomerulonephritis versus AIN related to cefepime versus ATN related to sepsis. Called and spoke to lab, we do not have urine eosinophils in house anymore, will send out Discussed with hospitalist, cefepime has been discontinued and she is on meropenem We will send a serum C3 level If AIN is confirmed, we may empirically use a short course of steroids. HPI Consult Data Date of Consult: 11/22/23 HPI Narrative Reason for Consultation: Acute renal failure HPI Narrative: RUTH ANN ANSARI, is a 88 F who presents to the hospital with acute renal failure. Nephrology on consultation due to same reason. She was recently admitted here in October for hip surgery. She has remote history of hip replacement in 2014, took a fall, had persistent pain. She had a revision arthroplasty in October. Intraoperative cultures grew Pseudomonas. She was seen by infectious disease, discharged on cefepime 2 g twice daily for total of 6 weeks. Routine lab work drawn showed a creatinine of 3.1 and she was admitted here. Baseline creatinine is around 1.2 at the time of last admission 3 weeks ago. Denies any urinary complaints. Denies taking any urli-ack-wsplrls medications. Denies any breathing complaints. [facility] Medical History Anemia of chronic renal failure, stage 3b Atrial fibrillation Atrial flutter Back pain Cancer Cardiology follow-up encounter Chronic pain Chronic renal failure (CRF), stage 3b Former smoker GERD (gastroesophageal reflux disease) Heartburn History of echocardiogram Hoarseness Hx of cancer of lung Iron deficiency anemia due to chronic blood loss Kidney disease Kidney stones Leg cramps Low iron New onset atrial flutter Osteoporosis Post-menopausal Rheumatoid arthritis Shortness of breath on exertion Uses wheelchair Walker as ambulation aid Wears dentures Wears glasses Home Medications ascorbate calcium (vitamin C) 500 mg tablet 500 mg PO DAILY SUPPLEMENT 05/01/23 [History Last Taken Unknown] ferrous sulfate 325 mg (65 mg iron) tablet 325 mg PO DAILY SUPPLEMENT 05/01/23 [History Last Taken Unknown] polyethylene glycol 3350 17 gram oral powder packet (Miralax) 17 g PO DAILY STOOL SOFTENER 05/08/23 [History Last Taken Unknown] furosemide 20 mg tablet (Lasix) 20 mg PO DAILY WATER PILL 10/21/23 [History Last Taken Unknown] metoprolol tartrate 25 mg tablet 25 mg PO BID AFIB 10/21/23 [History Last Taken Unknown] prednisone 10 mg tablet 10 mg PO DAILY PRN RA FLARE UP 10/21/23 [History Last Taken Unknown] apixaban 5 mg tablet (Eliquis) 5 mg PO BID BLOOD THINNER #180 tabs 10/22/23 [Rx Last Taken 10/27/23] acetaminophen 500 mg tablet 1,000 mg (2 x 500 mg) PO TID #0 tabs 11/03/23 [Rx Last Taken Unknown] cefepime 2 gram solution for injection 2 g IV Q12 42 days #0 ea 11/03/23 [Rx Last Taken Unknown] food supplemt, lactose-reduced 0.06 gram-1 kcal/mL oral liquid (Boost High Protein) 120 ml PO BID FOOD SUPPLEMENT 11/21/23 [History Last Taken Unknown] magnesium hydroxide 400 mg/5 mL oral suspension (Milk of Magnesia) 2,400 mg PO DAILY CONSTIPATION 11/21/23 [History Last Taken Unknown] melatonin 3 mg tablet 3 mg PO QHS 11/21/23 [History Last Taken Unknown] pantoprazole 40 mg tablet,delayed release 40 mg PO DAILY 11/21/23 [History Last Taken Unknown] potassium chloride 20 mEq tablet,extended release 20 meq PO DAILY 11/21/23 [History Last Taken Unknown] sennosides 8.6 mg-docusate sodium 50 mg capsule (Senna Plus) 1 tab-cap PO QHS 11/21/23 [History Last Taken Unknown] tramadol 50 mg tablet 50 - 100 mg PO Q6H PRN pain 11/21/23 [History Last Taken Unknown] verapamil 40 mg tablet 40 mg PO BID 11/21/23 [History Last Taken Unknown] Allergy/AdvReac Type Severity Reaction Status Date / Time oxycodone AdvReac Intermediate Itching Verified 11/21/23 16:23 Family History Mother Abdominal aneurysm Father Cancer Lung Surgical History H/O hernia repair History of cardioversion (12/15/21) History of cataract surgery History of esophagogastroduodenoscopy (EGD) History of kidney surgery History of left knee replacement History of right hip replacement Hx of hysterectomy S/P partial lobectomy of lung Social History Smoking Status: Former smoker quit date: 09/16/85 how long ago did patient quit smokin alcohol intake: current alcohol intake frequency: a few times a month substance use type: does not use caffeine: No ROS ROS Narrative Negative except above Physical Exam Narrative Alert awake oriented x 3 no obvious distress no pallor no icterus no JVD s1s2 no murmurs lungs clear abdomen soft no organomegaly no edema no cyanosis Lab / Micro Data 11/22/23 04:55 11/22/23 04:55 Labs: Laboratory Results - last 24 hr 11/21/23 17:30: Sodium 143, Potassium 4.3, Chloride 113 H, Carbon Dioxide 18.0 L , Anion Gap 12, BUN 57 H, Creatinine 3.08 H, Estim Creat Clear Calc 11.14, Est GFR (MDRD) Af Amer 18 L, Est GFR (MDRD) Non-Af 15 L, BUN/Creatinine Ratio 18.5, Glucose 90, Calcium 8.9, Phosphorus 4.4, Magnesium 2.4 11/21/23 20:40: Urine Color Yellow, Urine Clarity Clear, Urine pH 6.0, Ur Specific [place] 1.010, Urine Protein 30 H, Urine Glucose (UA) Normal, Urine Ketones Negative, Urine Occult Blood 50 H, Urine Nitrite Negative, Urine Bilirubin Negative, Urine Urobilinogen Normal, Ur Leukocyte Esterase 25 H, Urine RBC 0-5 SEEN, Urine WBC 0-5 SEEN, Ur Squamous Epith Cells 0-5 SEEN, Urine Bacteria 0 SEEN, Urine Mucus 0 SEEN, Urine Osmolality 260, Ur Random Microalbumi n 143.0, U Random Total Protein 93.7 H, Ur Random Sodium 58, Urine Creatinine 27.50, Protein/Creatinin Ratio 3407 H, Urine Potassium 25.0, Urine Chloride 69 11/22/23 04:55: WBC 8.2, RBC 2.65 L, Hgb 8.3 L, Hct 27.2 L, MCV 102.6 H, MCH 31.3, MCHC 30.5 L, RDW Std Deviation 62.4 H, RDW Coeff of Dionisio 16.7 H, Plt Count 267, MPV 9.2, Immature Gran % (Auto) 0.600, Neut % (Auto) 54.7, Lymph % (Auto) 17.5 L, [place] % (Auto) 17.8 H, Eos % (Auto) 8.5 H, Baso % (Auto) 0.9, Absolute Neuts (auto) 4.5, Absolute Lymphs (auto) 1.44, Nucleated RBC % 0, Sodium 146 H, Potassium 4.2, Chloride 118 H, Carbon Dioxide 23.0, Anion Gap 5, BUN 56 H, Creatinine 3.10 H, Estim Creat Clear Calc 12.02, Est GFR (MDRD) Af Amer 18 L, Est GFR (MDRD) Non-Af 15 L, BUN/Creatinine Ratio 18.1, Glucose 106, Calcium 8.7 Micro: Microbiology 11/21/23 20:41 Urine, Random Urine Culture - Preliminary Gram Positive Cocci Imaging Radiology Impression Renal Ultrasound 11/21/23 18:47 IMPRESSION: No hydronephrosis. Distended bladder. Electronically Signed: Bertha Gabriel MD at 6:23 EST ,
--- NOTE | 2023-11-22 15:13 | PCM.PN.HOSP ---
Reason for Visit Reason for Visit: Diagnoses Acute kidney failure, unspecified (11/21/23) Chronic kidney disease, stage 3b (11/21/23) Infection and inflammatory reaction due to other internal joint prosthesis, initial encounter (11/21/23) Presence of unspecified artificial hip joint (11/21/23) Objective Data Objective Data Vital Signs: Vital Signs Temp Pulse Resp BP Pulse Ox O2 Del Method 98.5 F 64 18 108/81 H 97 Room Air 11/22/23 13:38 11/22/23 13:38 11/22/23 13:38 11/22/23 13:38 11/22/23 13:38 11/22/23 13:38 Oxygen Delivery Method Room Air Weight: 152 lb 8.958 oz Body Mass Index (BMI) 25.4 Intake & Output: Intake and Output for Last 24 Hours 11/20/23 11/21/23 11/22/23 23:59 23:59 23:59 Intake Total 1000 / 1000 2646.67 / 2646.67 Output Total 800 / 800 Balance 1000 / 800 1846.67 / 1846.67 Medical Nutrition Assessment Dietitian: Malnutrition Criteria Met Start: 11/22/23 14:18 Freq: Status: Active Protocol: Document 11/22/23 14:18 MOISES (Rec: 11/22/23 14:18 [email or web address] [id number]) Nutrition Malnutrition Evidence of Malnutrition Exists Yes Malnutrition (severe): Acute Illness/Injury Evidenced By Suboptimal Energy Intake ( Severe),Weight Loss (Severe) Clinical Problem Acute Disease or Injury Related Malnutrition Etiology related to physiological changes decreasing appetite Signs/Symptoms as evidenced by significant weight loss of 9.0% in less than 3 months and prolonged poor intake prior to hospital admission of less than 50% of estimated energy needs for at least 5 days. Status Active Problem Recommendation Dietitian Recommendations/Changes Will change diet to Regular - General No Added Salt for some liberalization. She was agreeable to trying a Magic Cup w/ lunch and dinner as well as Beneprotein w/ applesauce at breakfast to help increase oral intakes. Will continue to follow and modify nutrition interventions as needed. Lab / Micro Data 11/22/23 04:55 11/22/23 04:55 Labs: Laboratory Results - last 24 hr 11/21/23 17:30: Sodium 143, Potassium 4.3, Chloride 113 H, Carbon Dioxide 18.0 L, Anion Gap 12, BUN 57 H, Creatinine 3.08 H, Estim Creat Clear Calc 11.14, Est GFR (MDRD) Af Amer 18 L, Est GFR (MDRD) Non-Af 15 L, BUN/Creatinine Ratio 18.5, Glucose 90, Calcium 8.9, Phosphorus 4.4, Magnesium 2.4 11/21/23 20:40: Urine Color Yellow, Urine Clarity Clear, Urine pH 6.0, Ur Specific [place] 1.010, Urine Protein 30 H, Urine Glucose (UA) Normal, Urine Ketones Negative, Urine Occult Blood 50 H, Urine Nitrite Negative, Urine Bilirubin Negative, Urine Urobilinogen Normal, Ur Leukocyte Esterase 25 H, Urine RBC 0-5 SEEN, Urine WBC 0-5 SEEN, Ur Squamous Epith Cells 0-5 SEEN, Urine Bacteria 0 SEEN, Urine Mucus 0 SEEN, Urine Osmolality 260, Ur Random Microalbumin 143.0, U Random Total Protein 93.7 H, Ur Random Sodium 58, Urine Creatinine 27.50, Protein/Creatinin Ratio 3407 H, Urine Potassium 25.0, Urine Chloride 69 11/22/23 04:55: WBC 8.2, RBC 2.65 L, Hgb 8.3 L, Hct 27.2 L, MCV 102.6 H, MCH 31.3, MCHC 30.5 L, RDW Std Deviation 62.4 H, RDW Coeff of Dionisio 16.7 H, Plt Count 267, MPV 9.2, Immature Gran % (Auto) 0.600, Neut % (Auto) 54.7, Lymph % (Auto) 17.5 L, [place] % (Auto) 17.8 H, Eos % (Auto) 8.5 H, Baso % (Auto) 0.9, Absolute Neuts (auto) 4.5, Absolute Lymphs (auto) 1.44, Nucleated RBC % 0, Sodium 146 H, Potassium 4.2, Chloride 118 H, Carbon Dioxide 23.0, Anion Gap 5, BUN 56 H, Creatinine 3.10 H, Estim Creat Clear Calc 12.02, Est GFR (MDRD) Af Amer 18 L, Est GFR (MDRD) Non-Af 15 L, BUN/Creatinine Ratio 18.1, Glucose 106, Calcium 8.7 Micro: Microbiology 11/21/23 20:41 Urine, Random Urine Culture - Preliminary Gram Positive Cocci Radiography Diagnostic Testing: Radiology Impression Renal Ultrasound 11/21/23 18:47 IMPRESSION: No hydronephrosis. Distended bladder. Electronically Signed: Bertha Gabriel MD at 6:23 EST , Physical Exam Narrative Seen and examined Does not have acute complaint. No fever. Discussed with the fruit washer. Physical exam General: Alert, Oriented x3, Cooperative HEENT: Atraumatic, PERRLA, EOMI, Normocephalic Oral: Oral mucosa moist. No Gingival or Mucosal Lesions/ Ulcerations Neck: Supple, No JVD, Negative Carotid Bruits Chest wall/Lungs: Air entry diminished in bilateral lung bases. No crepitation/rhonchi Cardiovascular: Regular rate, Regular Rhythm, Normal S1, Normal S2, No M/G/R Abdomen: Bowel Sounds Present, Soft, Non Tender, Non-Distended : No dysuria. No renal angle tenderness. No suprapubic tenderness. Extremities: No edema, Capillary Refill Less than 3 Seconds Skin: Right hip surgical incision is well-healed. [place] removed. Musculoskeletal: Restricted mobility on right hip but no acute tenderness. No Tenderness to Palpation of Joints or Extremities Neurological: Cranial nerves II-XII grossly intact, DTR 2+/4. No acute focal neurological deficit. Psych/Mental Status: Normal Affect, Appropriate. Assessment & Plan Assessment/Plan (1) LENORE (acute kidney injury): (2) Chronic renal failure (CRF), stage 3b: PLAN: Plan This is a 88-year-old female being admitted for acute kidney injury on CKD found on the lab. 1. LENORE on CKD stage IIIb, exact etiology unclear but possible related to milk of magnesia/medications: Patient is being admitted on [facility]Sur floor as inpatient status. IV fluid normal management per hour. Discontinue milk of magnesium, Lasix and potassium supplement and other nephrotoxic medications. Monitor intake and output. Kidney and bladder ultrasound ordered. Nephrology consult. Patient denies any fever or dysuria.Labs showed increased creatinine 3.12, 3.17 and 3.18 for last 3 days, increased from her baseline 1.24 to 1.71 in October 2023. UA, urine electrolytes and BMP ordered. 11/21: Discussed with the fruit washer. Renal ultrasound does not show hydronephrosis. [place] 4.6%. UA shows LE 25, RBC 0-5, WBC 0-5. UA shows mild proteinuria and WC. Urine culture shows [id number] colonies of gram-positive cocci seems contamination/colonization. Urine protein creatinine ratio 3.4 g/g of creatinine. Serum eosinophil ordered by fruit washer. Differential diagnosis includes possible postinfectious glomerulonephritis versus AIN secondary to antibiotic. 2. 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 IV cefepime dose adjusted to 1 g daily to go to creatinine clearance. ID is consulted for further opinion. 11/21: ID consult appreciated. Started on IV meropenem. At discharge p.o. Cipro can be an option. Last QTc interval 416 ms. 3. Paroxysmal A-fib and hypertension: Twelve-lead EKG ordered. Patient on Eliquis 5 mg twice daily changed to 2.5 mg twice daily. 4. Rheumatoid arthritis: On prednisone 10 mg as needed. 5. Hypertension: Blood pressure is controlled. Living will/advanced directive/end of life care: Patient does have living will or advanced directive. Patient is stated that she has living will and power of admitted attorneys is her daughter near the bedside in ED. After discussion of benefits/risks procedures involved with full code, DNR CC arrest and DNR CC, the patient states that she is DNR CC arrest as per living will. Her wishes ordered and will do DNR CC arrest Patient doesn't want artificial life support including intubation, tube feed, ventilator and/chest compression, central venous catheter, vasopressor and DC shock if needed Microbiology Past 72 Hours 11/21/23 20:41 Urine, Random Urine Culture - Preliminary Gram Positive Cocci Laboratory Results 11/21/23 17:30: Sodium 143, Potassium 4.3, Chloride 113 H, Carbon Dioxide 18.0 L, Anion Gap 12, BUN 57 H, Creatinine 3.08 H, Estim Creat Clear Calc 11.14, Est GFR (MDRD) Af Amer 18 L, Est GFR (MDRD) Non-Af 15 L, BUN/Creatinine Ratio 18.5, Glucose 90, Calcium 8.9, Phosphorus 4.4, Magnesium 2.4 11/21/23 20:40: Urine Color Yellow, Urine Clarity Clear, Urine pH 6.0, Ur Specific [place] 1.010, Urine Protein 30 H, Urine Glucose (UA) Normal, Urine Ketones Negative, Urine Occult Blood 50 H, Urine Nitrite Negative, Urine Bilirubin Negative, Urine Urobilinogen Normal, Ur Leukocyte Esterase 25 H, Urine RBC 0-5 SEEN, Urine WBC 0-5 SEEN, Ur Squamous Epith Cells 0-5 SEEN, Urine Bacteria 0 SEEN, Urine Mucus 0 SEEN, Urine Osmolality 260, Ur Random Microalbumin 143.0, U Random Total Protein 93.7 H, Ur Random Sodium 58, Urine Creatinine 27.50, Protein/Creatinin Ratio 3407 H, Urine Potassium 25.0, Urine Chloride 69 11/22/23 04:55: WBC 8.2, RBC 2.65 L, Hgb 8.3 L, Hct 27.2 L, MCV 102.6 H, MCH 31.3, MCHC 30.5 L, RDW Std Deviation 62.4 H, RDW Coeff of Dionisio 16.7 H, Plt Count 267, MPV 9.2, Immature Gran % (Auto) 0.600, Neut % (Auto) 54.7, Lymph % (Auto) 17.5 L, [place] % (Auto) 17.8 H, Eos % (Auto) 8.5 H, Baso % (Auto) 0.9, Absolute Neuts (auto) 4.5, Absolute Lymphs (auto) 1.44, Nucleated RBC % 0, Sodium 146 H, Potassium 4.2, Chloride 118 H, Carbon Dioxide 23.0, Anion Gap 5, BUN 56 H, Creatinine 3.10 H, Estim Creat Clear Calc 12.02, Est GFR (MDRD) Af Amer 18 L, Est GFR (MDRD) Non-Af 15 L, BUN/Creatinine Ratio 18.1, Glucose 106, Calcium 8.7 Clinical Impression(s) from Imaging Studies Renal Ultrasound 11/21/23 18:47 IMPRESSION: No hydronephrosis. Distended bladder. Charges/Coding Visit Charges Inpatient E&M: 40822 Subs Hosp L2
--- NOTE | 2023-11-22 17:42 | NURSING ---
This RN agrees with nursing students charting. Victorina Vazquez MSN, RN
[2023-11-22] MEDS: Meropenem 500 MG in 0.9% Normal Saline (50mL MB+) 50 ML 100 MG IV (21:46)
[2023-11-22] MEDS: MELATONIN 3 MG TABLET PO (21:46)
[2023-11-22] MEDS: Ondansetron 4 MG/2 ML Vial IV (21:47)
[2023-11-23] VITALS (7 sets, daily range): BP systolic 120–140; BP diastolic 53–64; PULSE 71–84; RESP 16–18; TEMP 37–37.2; O2SAT 94–97; BMI 25.4
[2023-11-23] MEDS: 0.9% Normal Saline (1000mL) 1,000 ML 100 ML IV ×3 (00:13→19:34)
[2023-11-23] MEDS: Metoprolol Tartrate 25 MG Tablet PO ×2 (09:15→21:50)
[2023-11-23] MEDS: Pantoprazole Sodium 40 MG Tablet PO (09:15)
[2023-11-23] MEDS: Ascorbic Acid 500 MG Tablet PO (09:15)
[2023-11-23] MEDS: APIXABAN 2.5 MG TABLET (WCH) PO ×2 (09:15→21:50)
[2023-11-23] MEDS: Ferrous Sulfate 325 MG Tablet PO (09:16)
[2023-11-23] MEDS: Meropenem 500 MG in 0.9% Normal Saline (50mL MB+) 50 ML 100 MG IV ×2 (09:19→21:51)
--- NOTE | 2023-11-23 12:47 | PCM.PN.HOSP ---
Reason for Visit Reason for Visit: Diagnoses Acute kidney failure, unspecified (11/21/23) Chronic kidney disease, stage 3b (11/21/23) Infection and inflammatory reaction due to other internal joint prosthesis, initial encounter (11/21/23) Presence of unspecified artificial hip joint (11/21/23) Objective Data Objective Data Vital Signs: Vital Signs Temp Pulse Resp BP Pulse Ox O2 Del Method 98.6 F 76 18 120/53 L 94 Room Air 11/23/23 08:40 11/23/23 09:15 11/23/23 08:40 11/23/23 08:40 11/23/23 08:40 11/23/23 08:40 Oxygen Delivery Method Room Air Weight: 152 lb 8.958 oz Body Mass Index (BMI) 25.4 Intake & Output: Intake and Output for Last 24 Hours 11/21/23 11/22/23 11/23/23 23:59 23:59 23:59 Intake Total 1000 / 1000 2706.67 / 2906.67 2658.33 / 2658.33 Output Total 800 / 1400 1300 / 1300 Balance 1000 / 800 1906.67 / 1506.67 1358.33 / 1358.33 Medical Nutrition Assessment Dietitian: Malnutrition Criteria Met Start: 11/22/23 14:18 Freq: Status: Active Protocol: Document 11/22/23 14:18 MOISES (Rec: 11/22/23 14:18 MOISES [id number]) Nutrition Malnutrition Evidence of Malnutrition Exists Yes Malnutrition (severe): Acute Illness/Injury Evidenced By Suboptimal Energy Intake ( Severe),Weight Loss (Severe) Clinical Problem Acute Disease or Injury Related Malnutrition Etiology related to physiological changes decreasing appetite Signs/Symptoms as evidenced by significant weight loss of 9.0% in less than 3 months and prolonged poor intake prior to hospital admission of less than 50% of estimated energy needs for at least 5 days. Status Active Problem Recommendation Dietitian Recommendations/Changes Will change diet to Regular - General No Added Salt for some liberalization. She was agreeable to trying a Magic Cup w/ lunch and dinner as well as Beneprotein w/ applesauce at breakfast to help increase oral intakes. Will continue to follow and modify nutrition interventions as needed. Lab / Micro Data 11/22/23 04:55 11/22/23 04:55 Micro: Microbiology 11/21/23 20:41 Urine, Random Urine Culture - Preliminary Enterococcus faecium Physical Exam Narrative Seen and examined Does not have acute complaint. No fever. No acute change. Discussed with the residential substance abuse counselor. Physical exam General: Alert, Oriented x3, Cooperative HEENT: Atraumatic, PERRLA, EOMI, Normocephalic Oral: Oral mucosa moist. No Gingival or Mucosal Lesions/ Ulcerations Neck: Supple, No JVD, Negative Carotid Bruits Chest wall/Lungs: Air entry diminished in bilateral lung bases. No crepitation/rhonchi Cardiovascular: Regular rate, Regular Rhythm, Normal S1, Normal S2, No M/G/R Abdomen: Bowel Sounds Present, Soft, Non Tender, Non-Distended : No dysuria. No renal angle tenderness. No suprapubic tenderness. Extremities: No edema, Capillary Refill Less than 3 Seconds Skin: Right hip surgical incision is well-healed. [place] removed. Musculoskeletal: Restricted mobility on right hip but no acute tenderness. No Tenderness to Palpation of Joints or Extremities Neurological: Cranial nerves II-XII grossly intact, DTR 2+/4. No acute focal neurological deficit. Psych/Mental Status: Normal Affect, Appropriate. Assessment & Plan Assessment/Plan (1) LENORE (acute kidney injury): (2) Chronic renal failure (CRF), stage 3b: PLAN: Plan This is a 88-year-old female being admitted for acute kidney injury on CKD found on the lab. 1. LENORE on CKD stage IIIb, exact etiology unclear but possible related to milk of magnesia/medications: Patient is being admitted on [facility] floor as inpatient status. IV fluid normal management per hour. Discontinue milk of magnesium, Lasix and potassium supplement and other nephrotoxic medications. Monitor intake and output. Kidney and bladder ultrasound ordered. Nephrology consult. Patient denies any fever or dysuria.Labs showed increased creatinine 3.12, 3.17 and 3.18 for last 3 days, increased from her baseline 1.24 to 1.71 in October 2023. UA, urine electrolytes and BMP ordered. 11/21: Discussed with the residential substance abuse counselor. Renal ultrasound does not show hydronephrosis. Heena 4.6%. UA shows LE 25, RBC 0-5, WBC 0-5. UA shows mild proteinuria and WC. Urine culture shows [id number] colonies of gram-positive cocci seems contamination/colonization. Urine protein creatinine ratio 3.4 g/g of creatinine. Serum eosinophil ordered by residential substance abuse counselor. Differential diagnosis includes possible postinfectious glomerulonephritis versus AIN secondary to antibiotic. 11/22: Creatinine profile does not show major change seems to stabilized. Patient has nephrotic range of proteinuria. Discussed with the patient. Monitor kidney function and urine output. Okay with the residential substance abuse counselor if wants to put on steroid or lisinopril 2. 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 IV cefepime dose adjusted to 1 g daily to go to creatinine clearance. ID is consulted for further opinion. 11/21: ID consult appreciated. Started on IV meropenem. At discharge p.o. Cipro can be an option. Last QTc interval 416 ms. 11/22: Urine culture shows Enterococcus, feceium preliminary, colony counts not in pathology grade. 3. Paroxysmal A-fib and hypertension: Twelve-lead EKG ordered. Patient on Eliquis 5 mg twice daily changed to 2.5 mg twice daily. 4. Rheumatoid arthritis: On prednisone 10 mg as needed. 5. Hypertension: Blood pressure is controlled. Living will/advanced directive/end of life care: Patient does have living will or advanced directive. Patient is stated that she has living will and power of health care attorney is her daughter near the bedside in ED. After discussion of benefits/risks procedures involved with full code, DNR CC arrest and DNR CC, the patient states that she is DNR CC arrest as per living will. Her wishes ordered and will do DNR CC arrest Patient doesn't want artificial life support including intubation, tube feed, ventilator and/chest compression, central venous catheter, vasopressor and DC shock if needed Microbiology Past 72 Hours 11/21/23 20:41 Urine, Random Urine Culture - Preliminary Enterococcus faecium Laboratory Results 11/22/23 04:55: Complement C3 Pending 11/21/23 20:41 Urine, Random Urine Culture - Preliminary Gram Positive Cocci Clinical Impression(s) from Imaging Studies Renal Ultrasound 11/21/23 18:47 IMPRESSION: No hydronephrosis. Distended bladder. Charges/Coding Visit Charges Inpatient E&M: 53229 Subs Hosp L2
[2023-11-23 13:31] LABS: Anion Gap 8 (5-15); BUN 48 mg/dL (7-18); BUN/Creat Ratio 15.9 RATIO (10-20); Calcium,Total 8.1 mg/dL (8.5-10.1); Chloride 120 mmol/L (98-107); Creatinine, Serum 3.02 mg/dL (0.55-1.02); EST Glomerular Filtration Rate 16 mL/min (>60); Est Glom Filt Rate - Afr Amer 19 mL/min (>60); Estimated Creatinine Clearance 12.34 ml/min; Glucose 132 mg/dL (74-106); Phosphorus 4.3 mg/dL (2.5-4.9); Potassium 3.9 mmol/L (3.5-5.1); Sodium Level 145 mmol/L (136-145)
[2023-11-23] MEDS: predniSONE 20 MG Tablet 40 MG PO (14:41)
--- NOTE | 2023-11-23 15:43 | CASEMGMT ---
Social Work RN called [facility], pt is asking about going to TCU if SNF is still needed at discharge, rather than [place]. SW explained will make referral and can follow up on Saturday. SW called TCU, message left. [facility] will continue to follow. BEN Waller
[2023-11-23] MEDS: MELATONIN 3 MG TABLET PO (21:51)
[2023-11-24] VITALS (8 sets, daily range): BP systolic 120–151; BP diastolic 41–82; PULSE 83–90; RESP 16–20; TEMP 36.8–37.2; O2SAT 94–97; BMI 27.7
[2023-11-24] MEDS: Ondansetron 4 MG/2 ML Vial IV (04:18)
--- NOTE | 2023-11-24 05:50 | EKG12_ITS ---
Test Reason : CP Blood Pressure : / mmHG Vent. Rate : 099 BPM Atrial Rate : 099 BPM P-R Int : 186 ms QRS Dur : 094 ms QT Int : 350 ms P-R-T Axes : 012 005 059 degrees QTc Int : 449 ms Normal sinus rhythm Nonspecific ST and T wave abnormality Abnormal ECG When compared with ECG of 21-NOV-2023 19:46, MANUAL COMPARISON REQUIRED, DATA IS UNCONFIRMED Confirmed by Pranav Lee ([id number]), associate entertainment editor JI ISLAS ([id number]) on 11/26/2023 11:29:50 AM Referred By: Keny Pinzon Confirmed By:Pranav Lee
[2023-11-24] MEDS: 0.9% Normal Saline (1000mL) 1,000 ML 100 ML IV ×2 (06:47→20:07)
[2023-11-24] MEDS: Mag Hydrox/Al Hydrox/Simeth 30 ML UDC PO (06:47)
[2023-11-24 06:49] LABS: Absolute Lymphocyte Count 0.78 X10^3/uL (0.83-4.51); Absolute Neutrophil Count 4.7 X10^3/uL (2.0-7.7); Basophil# 0.03 X10^3/uL; Basophil% 0.5 % (0-1); Eosinophil# 0.01 X10^3/uL; Eosinophils% 0.2 % (0-5); Hematocrit 24.3 % (37-47); Hemoglobin 7.5 g/dL (12.0-15.0); Lymphocyte # 0.78 X10^3/ul (0.83-4.51); Lymphocyte % 12.5 % (19-41); Mean Corp Hgb Conc 30.9 g/dL (32-36); Mean Corpuscular Hgb 31.5 pg (27.0-32.0); Mean Corpuscular Volume 102.1 fL (81-99); Mean Platelet Vol. 9.8 fl (6.2-12.0); Monocyte# 0.73 X10^3/uL; Monocyte% 11.7 % (0-10); NRBC Flagged by Analyzer 0 % (0-5); Neutrophil # 4.65 X10^3/uL (2.7-7.7); Neutrophil % 74.3 % (47-70); Platelet Count 252 K/mm3 (150-450); RBC Distribution Width CV 16.2 % (11.6-14.6); RBC Distribution Width SD 60.2 fl (35.1-43.9); Red Blood Count 2.38 M/mm3 (4.2-5.4); White Blood Count 6.3 K/mm3 (4.4-11.0)
[2023-11-24 07:16] LABS: Anion Gap 6 (5-15); BUN 45 mg/dL (7-18); BUN/Creat Ratio 15.5 RATIO (10-20); Calcium,Total 8.3 mg/dL (8.5-10.1); Chloride 123 mmol/L (98-107); Creatinine, Serum 2.91 mg/dL (0.55-1.02); EST Glomerular Filtration Rate 16 mL/min (>60); Est Glom Filt Rate - Afr Amer 20 mL/min (>60); Estimated Creatinine Clearance 13.32 ml/min; Glucose 125 mg/dL (74-106); Potassium 4.1 mmol/L (3.5-5.1); Sodium Level 146 mmol/L (136-145)
[2023-11-24] MEDS: APIXABAN 2.5 MG TABLET (WCH) PO (08:50)
[2023-11-24] MEDS: predniSONE 20 MG Tablet 40 MG PO (08:50)
[2023-11-24] MEDS: Ferrous Sulfate 325 MG Tablet PO (08:50)
[2023-11-24] MEDS: Metoprolol Tartrate 25 MG Tablet PO ×2 (08:51→22:06)
[2023-11-24] MEDS: Ascorbic Acid 500 MG Tablet PO (08:51)
[2023-11-24] MEDS: Pantoprazole Sodium 40 MG Tablet PO (08:52)
[2023-11-24] MEDS: Meropenem 500 MG in 0.9% Normal Saline (50mL MB+) 50 ML 100 MG IV ×2 (08:58→22:07)
[2023-11-24 11:06] LABS: Complement C3 128 mg/dL (82-167)
--- NOTE | 2023-11-24 16:04 | PN.HOSP_ITS ---
Reason for Visit Reason for Visit: Diagnoses Acute kidney failure, unspecified (11/21/23) Chronic kidney disease, stage 3b (11/21/23) Infection and inflammatory reaction due to other internal joint prosthesis, initial encounter (11/21/23) Presence of unspecified artificial hip joint (11/21/23) Objective Data Objective Data Vital Signs: Vital Signs Temp Pulse Resp BP Pulse Ox O2 Del Method 98.4 F 83 19 H 120/41 L 96 Room Air 11/24/23 14:27 11/24/23 14:27 11/24/23 14:27 11/24/23 14:27 11/24/23 14:27 11/24/23 14:27 Oxygen Delivery Method Room Air Weight: 166 lb 7.184 oz Body Mass Index (BMI) 27.7 Intake & Output: Intake and Output for Last 24 Hours 11/22/23 11/23/23 11/25/23 23:59 23:59 00:59 Intake Total 2706.67 / 2906.67 4118.33 / 4418.33 2341.67 / 2341.67 Output Total 800 / 1400 1600 / 2200 1200 / 1200 Balance 1906.67 / 1506.67 2518.33 / 2218.33 1141.67 / 1141.67 Medical Nutrition Assessment Dietitian: Malnutrition Criteria Met Start: 11/22/23 14:18 Freq: Status: Active Protocol: Document 11/22/23 14:18 MOISES (Rec: 11/22/23 14:18 MOISES [id number]) Nutrition Malnutrition Evidence of Malnutrition Exists Yes Malnutrition (severe): Acute Illness/Injury Evidenced By Suboptimal Energy Intake ( Severe),Weight Loss (Severe) Clinical Problem Acute Disease or Injury Related Malnutrition Etiology related to physiological changes decreasing appetite Signs/Symptoms as evidenced by significant weight loss of 9.0% in less than 3 months and prolonged poor intake prior to hospital admission of less than 50% of estimated energy needs for at least 5 days. Status Active Problem Recommendation Dietitian Recommendations/Changes Will change diet to Regular - General No Added Salt for some liberalization. She was agreeable to trying a Magic Cup w/ lunch and dinner as well as Beneprotein w/ applesauce at breakfast to help increase oral intakes. Will continue to follow and modify nutrition interventions as needed. Lab / Micro Data 11/24/23 06:17 11/24/23 06:17 Labs: Laboratory Results - last 24 hr 11/22/23 04:55: Complement C3 128 11/24/23 06:17: WBC 6.3, RBC 2.38 L, Hgb 7.5 L, Hct 24.3 L, MCV 102.1 H, MCH 31.5, MCHC 30.9 L, RDW Std Deviation 60.2 H, RDW Coeff of Dionisio 16.2 H, Plt Count 252, MPV 9.8, Immature Gran % (Auto) 0.800, Neut % (Auto) 74.3 H, Lymph % (Auto) 12.5 L, Tyler % (Auto) 11.7 H, Eos % (Auto) 0.2, Baso % (Auto) 0.5, Absolute Neuts (auto) 4.7, Absolute Lymphs (auto) 0.78 L, Nucleated RBC % 0, Sodium 146 H , Potassium 4.1, Chloride 123 H, Carbon Dioxide 17.0 L, Anion Gap 6, BUN 45 H, Creatinine 2.91 H, Estim Creat Clear Calc 13.32, Est GFR (MDRD) Af Amer 20 L, Est GFR (MDRD) Non-Af 16 L, BUN/Creatinine Ratio 15.5, Glucose 125 H, Calcium 8.3 L Micro: Microbiology 11/21/23 20:41 Urine, Random Urine Culture - Final Vancomycin Resist. E. faecium Physical Exam Narrative Seen and examined Does not have acute complaint. No fever. Discussed with the office clinician. Creatinine started improving. No acute change in urine output. Physical exam General: Alert, Oriented x3, Cooperative HEENT: Atraumatic, PERRLA, EOMI, Normocephalic Oral: Oral mucosa moist. No Gingival or Mucosal Lesions/ Ulcerations Neck: Supple, No JVD, Negative Carotid Bruits Chest wall/Lungs: Air entry diminished in bilateral lung bases. No crepitation/rhonchi Cardiovascular: Regular rate, Regular Rhythm, Normal S1, Normal S2, No M/G/R Abdomen: Bowel Sounds Present, Soft, Non Tender, Non-Distended : No dysuria. No renal angle tenderness. No suprapubic tenderness. Extremities: No edema, Capillary Refill Less than 3 Seconds Skin: Right hip surgical incision is well-healed. [place] removed. Musculoskeletal: Restricted mobility on right hip but no acute tenderness. No Tenderness to Palpation of Joints or Extremities Neurological: Cranial nerves II-XII grossly intact, DTR 2+/4. No acute focal neurological deficit. Psych/Mental Status: Normal Affect, Appropriate. Assessment & Plan Assessment/Plan (1) LENORE (acute kidney injury): (2) Chronic renal failure (CRF), stage 3b: PLAN: Plan This is a 88-year-old female being admitted for acute kidney injury on CKD found on the lab. 1. LENORE on CKD stage IIIb, exact etiology unclear but possible related to milk o f magnesia/medications: Patient is being admitted on [facility] floor as inpatient status. IV fluid normal management per hour. Discontinue milk of magnesium, Lasix and potassium supplement and other nephrotoxic medications. Monitor intake and output. Kidney and bladder ultrasound ordered. Nephrology consult. Patient denies any fever or dysuria.Labs showed increased creatinine 3.12, 3.17 and 3.18 for last 3 days, increased from her baseline 1.24 to 1.71 in October 2023. UA, urine electrolytes and BMP ordered. 11/21: Discussed with the office clinician. Renal ultrasound does not show hydronephr osis. Heena 4.6%. UA shows LE 25, RBC 0-5, WBC 0-5. UA shows mild proteinuria and WC. Urine culture shows [id number] colonies of gram-positive cocci seems contamination/colonization. Urine protein creatinine ratio 3.4 g/g of creatinine. Serum eosinophil ordered by office clinician. Differential diagnosis includes possible postinfectious glomerulonephritis versus AIN secondary to antibiotic. 11/22: Creatinine profile does not show major change seems to stabilized. Patient has nephrotic range of proteinuria. Discussed with the patient. Monitor kidney function and urine output. Okay with the office clinician if wants to put on steroid or lisinopril 11/23: Creatinine 2.9 shows improvement. Patient asking for discharge but he stated that he needs to follow-up tomorrow for kidney function, serum complainant and urine eosinophil not back. Also needs ID follow-up. Hemoglobin dropped 7.5 from 8.3, macrocytic anemia, RDW elevated 16.2. Platelet count normal. Iron workup. Hold Eliquis. UA with urine protein creatinine ratio ordered 2. 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 IV cefepime dose adjusted to 1 g daily to go to creatinine clearance. ID is consulted for further opinion. 11/21: ID consult appreciated. Started on IV meropenem. At discharge p.o. Cipro can be an option. Last QTc interval 416 ms. 11/22: Urine culture shows Enterococcus, feceium preliminary, colony counts not in pathology grade. 3. Paroxysmal A-fib and hypertension: Twelve-lead EKG ordered. Patient on Eliquis 5 mg twice daily changed to 2.5 mg twice daily. 4. Rheumatoid arthritis: On prednisone 10 mg as needed. 5. Hypertension: Blood pressure is controlled. Living will/advanced directive/end of life care: Patient does have living will or advanced directive. Patient is stated that she has living will and power of exit booth agent is her daughter near the bedside in ED. After discussion of benefits/risks procedures involved with full code, DNR CC arrest and DNR CC, the patient states that she is DNR CC arrest as per living will. Her wishes ordered and will do DNR CC arrest Patient doesn't want artificial life support including intubation, tube feed, ventilator and/chest compression, central venous catheter, vasopressor and DC shock if needed Clinical Impression(s) from Imaging Studies Renal Ultrasound 11/21/23 18:47 IMPRESSION: No hydronephrosis. Distended bladder. Charges/Coding Visit Charges Inpatient E&M: 93079 Subs Hosp L2
[2023-11-24] MEDS: MELATONIN 3 MG TABLET PO (22:07)
[2023-11-25 00:06] LABS: Mucous, Urine 0 SEEN /hpf (<or=2+)
[2023-11-25 00:11] LABS: Color, Urine Yellow (Yellow); Glucose, Dipstick Normal (Normal); Ketone-Dipstick Negative (Negative); Leukocyte Esterase-Dipstick 25 /ul (Negative); Nitrite-Dipstick Negative (Negative); Occult Blood-Urine 50 /ul (Negative); Protein-Dipstick 100 mg/dl (Negative); Specific Gravity, Urine 1.015 (1.002-1.030); Urine Bilirubin Dipstick Negative (Negative); Urine Clarity Clear (Clear); Urine Urobilinogen Normal (Normal)
[2023-11-25 00:22] LABS: Protein, Urine (Random) 156.7 mg/dL (<11.9); Protein:Creat Ratio 2304 mg/g CRE (0-200); White Blood Cells 5-10 SEEN /hpf (0-5)
[2023-11-25 00:23] LABS: Bacteria 2+ /hpf (None Seen); Coarse Granular Cast 0 SEEN /lpf (0-5 /lpf); Fine Granular Cast- Urine 0-5 SEEN /lpf (0-5); Hyaline Cast 0 SEEN /lpf (0-5); Red Blood Cells-Urine 0-5 SEEN /hpf (0-5); Squamous Epithelial Cells - UA 0-5 SEEN /hpf (5-10); Waxy Cast-Urine 0 SEEN /lpf (None Seen)
[2023-11-25 04:14] VITALS: BP 144/119; PULSE 98; RESP 22; TEMP 36.6; O2SAT 94
[2023-11-25 04:27] VITALS: BMI 29.0
[2023-11-25 05:11] VITALS: PULSE 71; RESP 20; O2SAT 96
[2023-11-25] MEDS: Albuterol 2.5 MG/3 ML VIAL.NEB. INHALATION (05:11)
[2023-11-25] MEDS: 0.9% Normal Saline (1000mL) 1,000 ML 100 ML IV (06:07)
--- NOTE | 2023-11-25 06:35 | RAD_ITS ---
EXAM: XR CHEST, 1 VIEW CLINICAL INDICATION: Dyspnea TECHNIQUE: Frontal view of the chest. COMPARISON: No relevant prior studies available. FINDINGS: LUNGS AND PLEURAL SPACES: Atelectasis in the lung bases bilaterally. No pneumothorax. No effusion. HEART: Unremarkable. Cardiac silhouette not enlarged. MEDIASTINUM: Central airways and mediastinal contour are unremarkable. BONES/JOINTS: Degenerative changes in the right shoulder. No acute fracture. SOFT TISSUES: Unremarkable. TUBES, LINES AND DEVICES: PICC tip at the cavoatrial junction. RAD/Chest 1 View (Portable) IMPRESSION: 1. PICC tip at the cavoatrial junction. 2. Atelectasis in the lung bases bilaterally. Electronically Signed: Pranav Valdes MD at 7:16 EDT ,
[2023-11-25 07:48] LABS: Absolute Lymphocyte Count 1.78 X10^3/uL (0.83-4.51); Absolute Neutrophil Count 6.8 X10^3/uL (2.0-7.7); Basophil# 0.06 X10^3/uL; Basophil% 0.6 % (0-1); Hematocrit 24.9 % (37-47); Hemoglobin 7.5 g/dL (12.0-15.0); Lymphocyte # 1.78 X10^3/ul (0.83-4.51); Lymphocyte % 17.7 % (19-41); Mean Corp Hgb Conc 30.1 g/dL (32-36); Mean Corpuscular Hgb 31.1 pg (27.0-32.0); Mean Corpuscular Volume 103.3 fL (81-99); Monocyte# 1.28 X10^3/uL; Monocyte% 12.7 % (0-10); NRBC Flagged by Analyzer 0 % (0-5); Neutrophil # 6.78 X10^3/uL (2.7-7.7); Neutrophil % 67.4 % (47-70); Platelet Count 250 K/mm3 (150-450); RBC Distribution Width CV 16.3 % (11.6-14.6); RBC Distribution Width SD 61.9 fl (35.1-43.9); RET-HE 31.9 pg (30-35); Red Blood Count 2.41 M/mm3 (4.2-5.4); Reticulocyte Count 2.59 % (0.5-1.5); White Blood Count 10.1 K/mm3 (4.4-11.0)
[2023-11-25 08:16] LABS: Anion Gap 8 (5-15); BUN 43 mg/dL (7-18); BUN/Creat Ratio 15.4 RATIO (10-20); Calcium,Total 8.2 mg/dL (8.5-10.1); Chloride 123 mmol/L (98-107); Creatinine, Serum 2.79 mg/dL (0.55-1.02); EST Glomerular Filtration Rate 17 mL/min (>60); Est Glom Filt Rate - Afr Amer 21 mL/min (>60); Ferritin 299 ng/mL (8-252); Glucose 92 mg/dL (74-106); Iron 82 ug/dL (50-170); Iron Binding Capacity,Total 236 ug/dL (250-450); PERCENT IRON SATURATION 34.7 % (15.0-55.0); Potassium 3.9 mmol/L (3.5-5.1); Sodium Level 149 mmol/L (136-145)
[2023-11-25] MEDS: predniSONE 20 MG Tablet 40 MG PO (09:34)
[2023-11-25 09:35] VITALS: PULSE 83
[2023-11-25] MEDS: Pantoprazole Sodium 40 MG Tablet PO (09:35)
[2023-11-25] MEDS: Metoprolol Tartrate 25 MG Tablet PO (09:35)
[2023-11-25] MEDS: Ascorbic Acid 500 MG Tablet PO (09:35)
[2023-11-25] MEDS: Senna/Docusate Sodium 1 Tablet 2 TABLET PO (09:37)
[2023-11-25] MEDS: Ferrous Sulfate 325 MG Tablet PO (09:38)
[2023-11-25] MEDS: Mag Hydrox/Al Hydrox/Simeth 30 ML UDC PO (09:44)
[2023-11-25] MEDS: Meropenem 500 MG in 0.9% Normal Saline (50mL MB+) 50 ML 100 MG IV (09:45)
[2023-11-25 10:14] VITALS: BP 143/68; PULSE 83; RESP 18; TEMP 36.3; O2SAT 97
--- NOTE | 2023-11-25 11:02 | DCINST_ITS ---
Discharge Instructions Diet Discharge Diet: 2000 mg Sodium Diet Activity Discharge Activity: Return to Normal Activity Weight Bearing Status: Weight bearing as tolerated Dressing / Incision Call your doctor if you observe: Fever of 101 or Higher, Coldness, Increased Pain, Numbness or Tingling, Change in Color, Inability to urinate, Inability to have a bowel movement, Using more than 1 pad per hour, Shortness of breath, Dizziness, Fainting spells, Swelling in the ankles, Chest pain, Prolonged hiccupping, Increased palpitations (irregular heartbeat) and Calf discomfort Follow Up Care When: IN 2 WEEKS Test Results: Test results from this visit will be discussed in further detail at your follow- up appointment, if applicable. Discharge Plan Admission Admit Date/Time: 11/21/23 17:02 Attending Provider: Keny Pinzon Primary Care Provider: Sylvia Cuevas Consulting Providers: Nnamdi Bustamante; Bryan Wagoner Instructions Additional Instructions / Restrictions: Follow-up BMP in [address] Wagoner. Discontinue Lasix, potassium chloride and milk of magnesium. Discharge Orders/Prescriptions Prescriptions: New ciprofloxacin HCl [Cipro] 500 mg tablet 500 mg PO DAILY Qty: 30 0RF sennosides-docusate sodium [Stool Softener-Stimulant Laxat] 8.6-50 mg Tablet 2 tab PO BID Qty: 0 0RF polyethylene glycol 3350 17 gram Powder In Packet 17 g PO DAILY Qty: 0 0RF prednisone 20 mg Tablet 40 mg PO BREAKFAST 10 Days Qty: 20 0RF Continued ascorbate calcium (vitamin C) 500 mg tablet 500 mg PO DAILY metoprolol tartrate 25 mg tablet 25 mg PO BID Boost High Protein 0.06 gram- 1 kcal/mL liquid 120 ml PO BID melatonin 3 mg tablet 3 mg PO QHS pantoprazole 40 mg tablet,delayed release (DR/EC) 40 mg PO DAILY verapamil 40 mg tablet 40 mg PO BID Senna Plus 8.6-50 mg capsule 1 tab-cap PO QHS Changed polyethylene glycol 3350 [Miralax] 17 gram powder in packet 17 g PO DAILY PRN (Reason: STOOL SOFTENER) 30 Days Qty: 0 0RF tramadol 50 mg Tablet 50 mg PO Q6H PRN (Reason: pain) 3 Days Qty: 0 0RF acetaminophen 500 mg Tablet 1,000 mg PO TID PRN (Reason: [place]) Qty: 0 0RF Rx Instructions: Do not take more than 3000 mg Tylenol in a 24-hour period. Eliquis 5 mg tablet 2.5 mg PO BID Qty: 180 4RF Rx Instructions: Discontinue if platelet count drops less than 50,000 or hemoglobin less than 7 g% Held ferrous sulfate 325 mg (65 mg iron) tablet 325 mg PO DAILY Hold Instructions: High ferritin Discontinued prednisone 10 mg tablet 10 mg PO DAILY PRN (Reason: RA FLARE UP) furosemide [Lasix] 20 mg tablet 20 mg PO DAILY cefepime 2 gram Recon Soln 2 g IV Q12 42 Days Qty: 0 0RF Rx Instructions: Patient will require 6 weeks of IV antibiotics. Also require weekly CBC with differential, BMP, CRP, ESR potassium chloride 20 mEq tablet extended release 20 meq PO DAILY magnesium hydroxide [Milk of Magnesia] 400 mg/5 mL suspension 2,400 mg PO DAILY Other Ambulatory Orders: Basic Metabolic Profile (BMP) (Routine) Timeframe: 1 Week Location: Laboratory Ordered By: Dr. Keny Pinzon Referrals / Follow Up: Sylvia Cuevas MD [Primary Care Provider] - Within 2 Weeks Bryan Wagoner MD [Med Staff - Consulting] - Within 1 Week Disposition Disposition (needs filled in before D/C Order can be placed): Home, Self Care
--- NOTE | 2023-11-25 11:03 | DS.PCM_ITS ---
Providers Date of Admission: 11/21/23 Primary Care Physician: Dr. Sylvia Cuevas MD Consultations 11/21/23 18:47 Consult: Infectious Disease Routine Consulting Provider: Nnamdi Bustamante Reason for Consult: PJI, Pseudomonas on IV Cefpime EMERGENT Consult: No Notified: Yes Date Notified: 11/21/23 Time Notified: 17:51 Method of Notification: Verbal Consult: Nephrology Routine Consulting Provider: Bryan Wagoner Reason for Consult: LENORE ON CKD EMERGENT Consult: No Notified: Yes Date Notified: 11/21/23 Time Notified: 17:52 Method of Notification: Text Reason For Visit: LENORE ON CKD Diagnosis Discharge Diagnosis (1) LENORE (acute kidney injury): Status: Acute Code(s): N17.9 - Acute kidney failure, unspecified (2) Chronic renal failure (CRF), stage 3b: Status: Acute Code(s): N18.32 - Chronic kidney disease, stage 3b Plan This is a 88-year-old female being admitted for acute kidney injury on CKD found on the lab. 1. LENORE on CKD stage IIIb, exact etiology unclear but possible related to milk of magnesia/medications: [facility] IV fluid normal management per hour. Discontinue milk of magnesium, Lasix and potassium supplement and other nephrotoxic medications. Monitor intake and output. Kidney and bladder ultrasound ordered. Nephrology consult. Patient denies any fever or dysuria.Labs showed increased creatinine 3.12, 3.17 and 3.18 for last 3 days, increased from her baseline 1.24 to 1.71 in October 2023. UA, urine electrolytes and BMP ordered. 11/21: Discussed with the dog food dough mixer. Renal ultrasound does not show hydronephrosis. Heena 4.6%. UA shows LE 25, RBC 0-5, WBC 0-5. UA shows mild proteinuria and WC. Urine culture shows [id number] colonies of gram-positive cocci seems contamination/colonization. Urine protein creatinine ratio 3.4 g/g of creatinine. Serum eosinophil ordered by dog food dough mixer. Differential diagnosis includes possible postinfectious glomerulonephritis versus AIN secondary to antibiotic. 11/22: Creatinine profile does not show major change seems to stabilized. Patient has nephrotic range of proteinuria. Discussed with the patient. Monitor kidney function and urine output. Okay with the dog food dough mixer if wants to put on steroid or lisinopril 11/23: Creatinine 2.9 shows improvement. Patient asking for discharge but he stated that he needs to follow-up tomorrow for kidney function, serum complainant and urine eosinophil not back. Also needs ID follow-up. Hemoglobin dropped 7.5 from 8.3, macrocytic anemia, RDW elevated 16.2. Platelet count normal. Iron workup. Hold Eliquis. UA with urine protein creatinine ratio ordered 2. 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 IV cefepime dose adjusted to 1 g daily to go to creatinine clearance. ID is consulted for further opinion. 11/21: ID consult appreciated. Started on IV meropenem. At discharge p.o. Cipro can be an option. Last QTc interval 416 ms. 11/22: Urine culture shows Enterococcus, feceium preliminary, colony counts not in pathology grade. 3. Paroxysmal A-fib and hypertension: Twelve-lead EKG ordered. Patient on Eliquis 5 mg twice daily changed to 2.5 mg twice daily. 4. Rheumatoid arthritis: On prednisone 10 mg as needed. 5. Hypertension: Blood pressure is controlled. Living will/advanced directive/end of life care: Patient does have living will or advanced directive. Patient is stated that she has living will and power of trust and estates attorney is her daughter near the bedside in ED. After discussion of benefits/risks procedures involved with full code, DNR CC arrest and DNR CC, the patient states that she is DNR CC arrest as per living will. Her wishes ordered and will do DNR CC arrest Patient doesn't want artificial life support including intubation, tube feed, ventilator and/chest compression, central venous catheter, vasopressor and DC shock if needed Clinical Impression(s) from Imaging Studies Renal Ultrasound 11/21/23 18:47 IMPRESSION: No hydronephrosis. Distended bladder. Medications at Discharge Home Medications ascorbate calcium (vitamin C) 500 mg tablet 500 mg PO DAILY SUPPLEMENT 05/01/23 ferrous sulfate 325 mg (65 mg iron) tablet 325 mg PO DAILY SUPPLEMENT 05/01/23 polyethylene glycol 3350 17 gram oral powder packet (Miralax) 17 g PO DAILY STOOL SOFTENER 05/08/23 furosemide 20 mg tablet (Lasix) 20 mg PO DAILY WATER PILL 10/21/23 metoprolol tartrate 25 mg tablet 25 mg PO BID AFIB 10/21/23 prednisone 10 mg tablet 10 mg PO DAILY PRN RA FLARE UP 10/21/23 apixaban 5 mg tablet (Eliquis) 5 mg PO BID BLOOD THINNER #180 tabs 10/22/23 acetaminophen 500 mg tablet 1,000 mg (2 x 500 mg) PO TID #0 tabs 11/03/23 cefepime 2 gram solution for injection 2 g IV Q12 42 days #0 ea 11/03/23 food supplemt, lactose-reduced 0.06 gram-1 kcal/mL oral liquid (Boost High Protein) 120 ml PO BID FOOD SUPPLEMENT 11/21/23 magnesium hydroxide 400 mg/5 mL oral suspension (Milk of Magnesia) 2,400 mg PO DAILY CONSTIPATION 11/21/23 melatonin 3 mg tablet 3 mg PO QHS 11/21/23 pantoprazole 40 mg tablet,delayed release 40 mg PO DAILY 11/21/23 potassium chloride 20 mEq tablet,extended release 20 meq PO DAILY 11/21/23 sennosides 8.6 mg-docusate sodium 50 mg capsule (Senna Plus) 1 tab-cap PO QHS 11/21/23 tramadol 50 mg tablet 50 - 100 mg PO Q6H PRN pain 11/21/23 verapamil 40 mg tablet 40 mg PO BID 11/21/23 Medical Records Data Medical Nutrition Assessment Dietitian: Malnutrition Criteria Met Start: 11/22/23 14:18 Freq: Status: Active Protocol: Document 11/22/23 14:18 [facility] (Rec: 11/22/23 14:18 [facility] [id number]) Nutrition Malnutrition Evidence of Malnutrition Exists Yes Malnutrition (severe): Acute Illness/Injury Evidenced By Suboptimal Energy Intake ( Severe),Weight Loss (Severe) Clinical Problem Acute Disease or Injury Related Malnutrition Etiology related to physiological changes decreasing appetite Signs/Symptoms as evidenced by significant weight loss of 9.0% in less than 3 months and prolonged poor intake prior to hospital admission of less than 50% of estimated energy needs for at least 5 days. Status Active Problem Recommendation Dietitian Recommendations/Changes Will change diet to Regular - General No Added Salt for some liberalization. She was agreeable to trying a Magic Cup w/ lunch and dinner as well as Beneprotein w/ applesauce at breakfast to help increase oral intakes. Will continue to follow and modify nutrition interventions as needed. Weight / BMI Weight Weight: 174 lb 2.643 oz Body Mass Index (BMI) 29.0 ABG / Lab / Microbiology Data 11/25/23 07:13 11/25/23 07:13 Laboratory: Laboratory Results - last 24 hr 11/22/23 04:55: Complement C3 128 11/24/23 23:50: Urine Color Yellow, Urine Clarity Clear, Urine pH 6.0, Ur Specific [place] 1.015, Urine Protein 100 H, Urine Glucose (UA) Normal, Urine Ketones Negative, Urine Occult Blood 50 H, Urine Nitrite Negative, Urine Bilirubin Negative, Urine Urobilinogen Normal, Ur Leukocyte Esterase 25 H, Urine RBC 0-5 SEEN, Urine WBC 5-10 SEEN, Ur Squamous Epith Cells 0-5 SEEN, Urine Bacteria 2+, Hyaline Casts 0 SEEN, Fine Granular Casts 0-5 SEEN, Coarse Granular Casts 0 SEEN, Waxy Casts 0 SEEN, Urine Mucus 0 SEEN, U Random Total Protein 156.7 H, Urine Creatinine 68.00, Protein/Creatinin Ratio 2304 H 11/25/23 07:13: WBC 10.1, RBC 2.41 L, Hgb 7.5 L, Hct 24.9 L, MCV 103.3 H, MCH 31.1, MCHC 30.1 L, RDW Std Deviation 61.9 H, RDW Coeff of Dionisio 16.3 H, Plt Count 250, MPV 10.0, Immature Gran % (Auto) 0.600, Neut % (Auto) 67.4, Lymph % (Auto) 17.7 L, [place] % (Auto) 12.7 H, Eos % (Auto) 1.0, Baso % (Auto) 0.6, Absolute Neuts (auto) 6.8, Absolute Lymphs (auto) 1.78, Nucleated RBC % 0, Retic Count 2.59 H, Immature Retic Fraction 16.60 H, Retic Hgb Equivalent 31.9, Sodium 149 H , Potassium 3.9, Chloride 123 H, Carbon Dioxide 18.0 L, Anion Gap 8, BUN 43 H, Creatinine 2.79 H, Estim Creat Clear Calc 14.20, Est GFR (MDRD) Af Amer 21 L, Est GFR (MDRD) Non-Af 17 L, BUN/Creatinine Ratio 15.4, Glucose 92, Calcium 8.2 L , Iron 82, TIBC 236 L, Iron Saturation 34.7, Ferritin 299 H Microbiology: Microbiology 11/21/23 20:41 Urine, Random Urine Culture - Final Vancomycin Resist. E. faecium Radiography Diagnostic Testing: Radiology Impression Chest X-Ray 11/25/23 06:35 IMPRESSION: 1. PICC tip at the cavoatrial junction. 2. Atelectasis in the lung bases bilaterally. Electronically Signed: Pranav Valdes MD at 7:16 EDT , Discharge Plan Admission Admit Date/Time: 11/21/23 17:02 Attending Provider: Keny Pinzon Primary Care Provider: Sylvia Cuevas Consulting Providers: Nnamdi Bustamante; Bryan Wagoner Discharge Orders/Prescriptions Prescriptions: No Action ferrous sulfate 325 mg (65 mg iron) tablet 325 mg PO DAILY ascorbate calcium (vitamin C) 500 mg tablet 500 mg PO DAILY polyethylene glycol 3350 [Miralax] 17 gram powder in packet 17 g PO DAILY metoprolol tartrate 25 mg tablet 25 mg PO BID prednisone 10 mg tablet 10 mg PO DAILY PRN (Reason: RA FLARE UP) furosemide [Lasix] 20 mg tablet 20 mg PO DAILY acetaminophen 500 mg Tablet 1,000 mg PO TID Qty: 0 0RF Rx Instructions: Do not take more than 3000 mg Tylenol in a 24-hour period. cefepime 2 gram Recon Soln 2 g IV Q12 42 Days Qty: 0 0RF Rx Instructions: Patient will require 6 weeks of IV antibiotics. Also require weekly CBC with differential, BMP, CRP, ESR Boost High Protein 0.06 gram- 1 kcal/mL liquid 120 ml PO BID melatonin 3 mg tablet 3 mg PO QHS pantoprazole 40 mg tablet,delayed release (DR/EC) 40 mg PO DAILY potassium chloride 20 mEq tablet extended release 20 meq PO DAILY verapamil 40 mg tablet 40 mg PO BID magnesium hydroxide [Milk of Magnesia] 400 mg/5 mL suspension 2,400 mg PO DAILY Senna Plus 8.6-50 mg capsule 1 tab-cap PO QHS tramadol 50 mg Tablet 50 - 100 mg PO Q6H PRN (Reason: pain) Eliquis 5 mg tablet 5 mg PO BID Qty: 180 4RF Referrals / Follow Up: Sylvia Cuevas MD [Primary Care Provider] -
--- NOTE | 2023-11-25 11:03 | PCM.DC.SUM ---
Providers Date of Admission: 11/21/23 Primary Care Physician: Dr. Sylvia Cuevas MD Consultations 11/21/23 18:47 Consult: Infectious Disease Routine Consulting Provider: Nnamdi Bustamante Reason for Consult: PJI, Pseudomonas on IV Cefpime EMERGENT Consult: No Notified: Yes Date Notified: 11/21/23 Time Notified: 17:51 Method of Notification: Verbal Consult: Nephrology Routine Consulting Provider: Bryan Wagoner Reason for Consult: LENORE ON CKD EMERGENT Consult: No Notified: Yes Date Notified: 11/21/23 Time Notified: 17:52 Method of Notification: Text Reason For Visit: LENORE ON CKD Diagnosis Discharge Diagnosis (1) LENORE (acute kidney injury): Status: Acute Code(s): N17.9 - Acute kidney failure, unspecified (2) Chronic renal failure (CRF), stage 3b: Status: Acute Code(s): N18.32 - Chronic kidney disease, stage 3b Plan This is a 88-year-old female being admitted for acute kidney injury on CKD found on the lab. 1. LENORE on CKD stage IIIb, exact etiology unclear but possible related to milk of magnesia/medications: [facility] IV fluid normal management per hour. Discontinue milk of magnesium, Lasix and potassium supplement and other nephrotoxic medications. Monitor intake and output. Kidney and bladder ultrasound ordered. Nephrology consult. Patient denies any fever or dysuria.Labs showed increased creatinine 3.12, 3.17 and 3.18 for last 3 days, increased from her baseline 1.24 to 1.71 in October 2023. UA, urine electrolytes and BMP ordered. 11/21: Discussed with the bioinformatics analyst. Renal ultrasound does not show hydronephrosis. Heena 4.6%. UA shows LE 25, RBC 0-5, WBC 0-5. UA shows mild proteinuria and WC. Urine culture shows [id number] colonies of gram-positive cocci seems contamination/colonization. Urine protein creatinine ratio 3.4 g/g of creatinine. Serum eosinophil ordered by bioinformatics analyst. Differential diagnosis includes possible postinfectious glomerulonephritis versus AIN secondary to antibiotic. 11/22: Creatinine profile does not show major change seems to stabilized. Patient has nephrotic range of proteinuria. Discussed with the patient. Monitor kidney function and urine output. Okay with the bioinformatics analyst if wants to put on steroid or lisinopril 11/23: Creatinine 2.9 shows improvement. Patient asking for discharge but he stated that he needs to follow-up tomorrow for kidney function, serum complainant and urine eosinophil not back. Also needs ID follow-up. Hemoglobin dropped 7.5 from 8.3, macrocytic anemia, RDW elevated 16.2. Platelet count normal. Iron workup. Hold Eliquis. UA with urine protein creatinine ratio ordered 11/24: Hemoglobin stable at 7.5 g%. Iron study shows anemia of chronic disease/kidney disease. Ferritin is elevated. TIBC low, iron in normal level. Iron saturation is normal. Hold iron supplementation. Discussed with the bioinformatics analyst. Patient is discharged on prednisone 40 mg daily for 10 days. Advised follow-up with bioinformatics analyst in 1 week with repeat BMP which is ordered. Eliquis dose decreased to 2.5 mg twice daily, renally dosed. Take extra 40 mg dose at 5 PM for increased leg swelling or weight gain 5 pounds in 1 week., Milk of magnesia has already been discontinued. 2. 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 IV cefepime dose adjusted to 1 g daily to go to creatinine clearance. ID is consulted for further opinion. 11/21: ID consult appreciated. Started on IV meropenem. At discharge p.o. Cipro can be an option. Last QTc interval 416 ms. 11/22: Urine culture shows Enterococcus, feceium preliminary, colony counts not in pathology grade. 11/24: ID follow-up appreciated. Patient is discharged on Cipro as recommended by ID 3. Paroxysmal A-fib and hypertension: Twelve-lead EKG ordered. Patient on Eliquis 5 mg twice daily changed to 2.5 mg twice daily. 4. Rheumatoid arthritis: On prednisone 10 mg as needed. 5. Hypertension: Blood pressure is controlled. Living will/advanced directive/end of life care: Patient does have living will or advanced directive. Patient is stated that she has living will and power of senior attorney is her daughter near the bedside in ED. After discussion of benefits/risks procedures involved with full code, DNR CC arrest and DNR CC, the patient states that she is DNR CC arrest as per living will. Her wishes ordered and will do DNR CC arrest Patient doesn't want artificial life support including intubation, tube feed, ventilator and/chest compression, central venous catheter, vasopressor and DC shock if needed Discharge medication reconciliation done. Discharge follow-up instructions completed. Discharge process discussed with the patient and all questions were answered to patient's satisfaction. Follow with PCP in 1 to 2 weeks Total time spent, exact 35 minutes on discharge meds reconciliation, examination, coordination of care with nurses and ancillary staff, review of imaging and blood test and discussion with the patient on follow-up instructions. Clinical Impression(s) from Imaging Studies Renal Ultrasound 11/21/23 18:47 IMPRESSION: No hydronephrosis. Distended bladder. Medications at Discharge Home Medications ascorbate calcium (vitamin C) 500 mg tablet 500 mg PO DAILY SUPPLEMENT 05/01/23 ferrous sulfate 325 mg (65 mg iron) tablet 325 mg PO DAILY SUPPLEMENT 05/01/23 metoprolol tartrate 25 mg tablet 25 mg PO BID AFIB 10/21/23 food supplemt, lactose-reduced 0.06 gram-1 kcal/mL oral liquid (Boost High Protein) 120 ml PO BID FOOD SUPPLEMENT 11/21/23 melatonin 3 mg tablet 3 mg PO QHS 11/21/23 pantoprazole 40 mg tablet,delayed release 40 mg PO DAILY 11/21/23 sennosides 8.6 mg-docusate sodium 50 mg capsule (Senna Plus) 1 tab-cap PO QHS 11/21/23 verapamil 40 mg tablet 40 mg PO BID 11/21/23 acetaminophen 500 mg tablet 1,000 mg (2 x 500 mg) PO TID PRN [place] #0 tabs 11/25/23 apixaban 5 mg tablet (Eliquis) 2.5 mg (1/2 x 5 mg) PO BID BLOOD THINNER #180 tabs 11/25/23 ciprofloxacin HCl 500 mg tablet (Cipro) 500 mg PO DAILY #30 tabs 11/25/23 polyethylene glycol 3350 17 gram oral powder packet 17 g PO DAILY #0 ea 11/25/23 polyethylene glycol 3350 17 gram oral powder packet (Miralax) 17 g PO DAILY PRN STOOL SOFTENER 30 days #0 ea 11/25/23 prednisone 20 mg tablet 40 mg (2 x 20 mg) PO BREAKFAST 10 days #20 tabs 11/25/23 sennosides 8.6 mg-docusate sodium 50 mg tablet (Stool Softener-Stimulant Laxative) 2 tab PO BID #0 tabs 11/25/23 tramadol 50 mg tablet 50 mg PO Q6H PRN pain 3 days #0 tabs 11/25/23 Physical Exam Narrative Seen and examined It seems patient has pleuritic chest pain. Chest x-ray does not show acute abnormality. No fever. Discussed with the bioinformatics analyst. Creatinine started improving. No acute change in urine output. Patient wants to go home and discharge. Discontinue IV fluid. Physical exam General: Alert, Oriented x3, Cooperative HEENT: Atraumatic, PERRLA, EOMI, Normocephalic Oral: Oral mucosa moist. No Gingival or Mucosal Lesions/ Ulcerations Neck: Supple, No JVD, Negative Carotid Bruits Chest wall/Lungs: Air entry diminished in bilateral lung bases. No crepitation/rhonchi Cardiovascular: Regular rate, Regular Rhythm, Normal S1, Normal S2, No M/G/R Abdomen: Bowel Sounds Present, Soft, Non Tender, Non-Distended : No dysuria. No renal angle tenderness. No suprapubic tenderness. Extremities: No edema, Capillary Refill Less than 3 Seconds Skin: Right hip surgical incision is well-healed. Agnieszka removed. Musculoskeletal: Restricted mobility on right hip but no acute tenderness. No Tenderness to Palpation of Joints or Extremities Neurological: Cranial nerves II-XII grossly intact, DTR 2+/4. No acute focal neurological deficit. Psych/Mental Status: Normal Affect, Appropriate. Medical Records Data Medical Nutrition Assessment Dietitian: Malnutrition Criteria Met Start: 11/22/23 14:18 Freq: Status: Active Protocol: Document 11/22/23 14:18 [facility] (Rec: 11/22/23 14:18 [facility] [id number]) Nutrition Malnutrition Evidence of Malnutrition Exists Yes Malnutrition (severe): Acute Illness/Injury Evidenced By Suboptimal Energy Intake ( Severe),Weight Loss (Severe) Clinical Problem Acute Disease or Injury Related Malnutrition Etiology related to physiological changes decreasing appetite Signs/Symptoms as evidenced by significant weight loss of 9.0% in less than 3 months and prolonged poor intake prior to hospital admission of less than 50% of estimated energy needs for at least 5 days. Status Active Problem Recommendation Dietitian Recommendations/Changes Will change diet to Regular - General No Added Salt for some liberalization. She was agreeable to trying a Magic Cup w/ lunch and dinner as well as Beneprotein w/ applesauce at breakfast to help increase oral intakes. Will continue to follow and modify nutrition interventions as needed. Weight / BMI Weight Weight: 174 lb 2.643 oz Body Mass Index (BMI) 29.0 ABG / Lab / Microbiology Data 11/25/23 07:13 11/25/23 07:13 Laboratory: Laboratory Results - last 24 hr 11/22/23 04:55: Complement C3 128 11/24/23 23:50: Urine Color Yellow, Urine Clarity Clear, Urine pH 6.0, Ur Specific [place] 1.015, Urine Protein 100 H, Urine Glucose (UA) Normal, Urine Ketones Negative, Urine Occult Blood 50 H, Urine Nitrite Negative, Urine Bilirubin Negative, Urine Urobilinogen Normal, Ur Leukocyte Esterase 25 H, Urine RBC 0-5 SEEN, Urine WBC 5-10 SEEN, Ur Squamous Epith Cells 0-5 SEEN, Urine Bacteria 2+, Hyaline Casts 0 SEEN, Fine Granular Casts 0-5 SEEN, Coarse Granular Casts 0 SEEN, Waxy Casts 0 SEEN, Urine Mucus 0 SEEN, U Random Total Protein 156.7 H, Urine Creatinine 68.00, Protein/Creatinin Ratio 2304 H 11/25/23 07:13: WBC 10.1, RBC 2.41 L, Hgb 7.5 L, Hct 24.9 L, MCV 103.3 H, MCH 31.1, MCHC 30.1 L, RDW Std Deviation 61.9 H, RDW Coeff of Dionisio 16.3 H, Plt Count 250, MPV 10.0, Immature Gran % (Auto) 0.600, Neut % (Auto) 67.4, Lymph % (Auto) 17.7 L, [place] % (Auto) 12.7 H, Eos % (Auto) 1.0, Baso % (Auto) 0.6, Absolute Neuts (auto) 6.8, Absolute Lymphs (auto) 1.78, Nucleated RBC % 0, Retic Count 2.59 H, Immature Retic Fraction 16.60 H, Retic Hgb Equivalent 31.9, Sodium 149 H, Potassium 3.9, Chloride 123 H, Carbon Dioxide 18.0 L, Anion Gap 8, BUN 43 H, Creatinine 2.79 H, Estim Creat Clear Calc 14.20, Est GFR (MDRD) Af Amer 21 L, Est GFR (MDRD) Non-Af 17 L, BUN/Creatinine Ratio 15.4, Glucose 92, Calcium 8.2 L, Iron 82, TIBC 236 L, Iron Saturation 34.7, Ferritin 299 H Microbiology: Microbiology 11/21/23 20:41 Urine, Random Urine Culture - Final Vancomycin Resist. E. faecium Radiography Diagnostic Testing: Radiology Impression Chest X-Ray 11/25/23 06:35 IMPRESSION: 1. PICC tip at the cavoatrial junction. 2. Atelectasis in the lung bases bilaterally. Electronically Signed: Pranav Valdes MD at 7:16 EDT , Meaningful Use Info Meaningful Use Diagnoses (Choose all that apply): None applicable Discharge Plan Admission Admit Date/Time: 11/21/23 17:02 Attending Provider: Keny Pinzon Primary Care Provider: Sylvia Cuevas Consulting Providers: Nnamdi Bustamante; Bryan Wagoner Instructions Additional Instructions / Restrictions: Follow-up BMP in [address] Wagoner. Discontinue Lasix, potassium chloride and milk of magnesium. Discharge Orders/Prescriptions Prescriptions: New ciprofloxacin HCl [Cipro] 500 mg tablet 500 mg PO DAILY Qty: 30 0RF sennosides-docusate sodium [Stool Softener-Stimulant Laxat] 8.6-50 mg Tablet 2 tab PO BID Qty: 0 0RF polyethylene glycol 3350 17 gram Powder In Packet 17 g PO DAILY Qty: 0 0RF prednisone 20 mg Tablet 40 mg PO BREAKFAST 10 Days Qty: 20 0RF Continued ascorbate calcium (vitamin C) 500 mg tablet 500 mg PO DAILY metoprolol tartrate 25 mg tablet 25 mg PO BID Boost High Protein 0.06 gram- 1 kcal/mL liquid 120 ml PO BID melatonin 3 mg tablet 3 mg PO QHS pantoprazole 40 mg tablet,delayed release (DR/EC) 40 mg PO DAILY verapamil 40 mg tablet 40 mg PO BID Senna Plus 8.6-50 mg capsule 1 tab-cap PO QHS Changed polyethylene glycol 3350 [Miralax] 17 gram powder in packet 17 g PO DAILY PRN (Reason: STOOL SOFTENER) 30 Days Qty: 0 0RF tramadol 50 mg Tablet 50 mg PO Q6H PRN (Reason: pain) 3 Days Qty: 0 0RF acetaminophen 500 mg Tablet 1,000 mg PO TID PRN (Reason: [place]) Qty: 0 0RF Rx Instructions: Do not take more than 3000 mg Tylenol in a 24-hour period. Eliquis 5 mg tablet 2.5 mg PO BID Qty: 180 4RF Rx Instructions: Discontinue if platelet count drops less than 50,000 or hemoglobin less than 7 g% Held ferrous sulfate 325 mg (65 mg iron) tablet 325 mg PO DAILY Hold Instructions: High ferritin Discontinued prednisone 10 mg tablet 10 mg PO DAILY PRN (Reason: RA FLARE UP) furosemide [Lasix] 20 mg tablet 20 mg PO DAILY cefepime 2 gram Recon Soln 2 g IV Q12 42 Days Qty: 0 0RF Rx Instructions: Patient will require 6 weeks of IV antibiotics. Also require weekly CBC with differential, BMP, CRP, ESR potassium chloride 20 mEq tablet extended release 20 meq PO DAILY magnesium hydroxide [Milk of Magnesia] 400 mg/5 mL suspension 2,400 mg PO DAILY Other Ambulatory Orders: Basic Metabolic Profile (BMP) (Routine) Timeframe: 1 Week Location: Laboratory Ordered By: Dr. Keny Pinzon Referrals / Follow Up: Sylvia Cuevas MD [Primary Care Provider] - Within 2 Weeks Bryan Wagoner MD [Med Staff - Consulting] - Within 1 Week Disposition Disposition (needs filled in before D/C Order can be placed): Home, Self Care Charges/Coding Visit Charges Inpatient E&M: 76684 Disch Hosp >30min
--- NOTE | 2023-11-25 13:06 | PN.RENAL_ITS ---
Subjective Subjective Sitting in chair. Hoping to go home today. Patient reports her appetite is marginal. Objective Data Objective Data Vital Signs: Vital Signs Temp Pulse Resp BP Pulse Ox O2 Del Method 97.9 F 83 20 H 144/119 H 96 Room Air 11/25/23 04:14 11/25/23 09:35 11/25/23 05:11 11/25/23 04:14 11/25/23 05:11 11/25/23 05:11 Oxygen Delivery Method Room Air Weight: 79 kg Body Mass Index (BMI) 29.0 Intake & Output: Intake and Output for Last 24 Hours 11/23/23 11/24/23 11/25/23 22:59 23:59 23:59 Intake Total 2260 / 2260 Output Total Balance 2260 / 2260 Medical Nutrition Assessment Dietitian: Malnutrition Criteria Met Start: 11/22/23 14:18 Freq: Status: Active Protocol: Document 11/25/23 13:02 RMA (Rec: 11/25/23 13:02 RMA [id number]) Nutrition Malnutrition Evidence of Malnutrition Exists Yes Malnutrition (severe): Acute Illness/Injury Evidenced By Suboptimal Energy Intake ( Severe),Weight Loss (Severe) Clinical Problem Acute Disease or Injury Related Malnutrition Etiology Severe pro-yulissa malnutrition in the context of chronic disease related to physiological changes decreasing appetite and inadequate oral/energy intake Signs/Symptoms as evidenced by significant weight loss of 9.0% in less than 3 months and prolonged poor intake prior to hospital admission of less than 50% of estimated energy needs x 1 week Status Active Problem Recommendation Dietitian Recommendations/Changes Continue liberalized Regular/ No Added Salt and encourage improved inatke as tolerated. Will add 240mL ensure plus HP w/ breakfast. Will continue magic cup BID w/ lunch and dinner meals. Will d/c applesauce with beneprotein. Trend weights as available, suspect inaccurate weight indicating ~10 Kg increase x 3 days especially given overall poor PO at meals. Lab / Micro Data 11/25/23 07:13 11/25/23 07:13 Labs: Laboratory Results - last 24 hr 11/24/23 23:50: Urine Color Yellow, Urine Clarity Clear, Urine pH 6.0, Ur Specific [place] 1.015, Urine Protein 100 H, Urine Glucose (UA) Normal, Urine Ketones Negative, Urine Occult Blood 50 H, Urine Nitrite Negative, Urine Bilirubin Negative, Urine Urobilinogen Normal, Ur Leukocyte Esterase 25 H, Urine RBC 0-5 SEEN, Urine WBC 5-10 SEEN, Ur Squamous Epith Cells 0-5 SEEN, Urine Bacteria 2+, Hyaline Casts 0 SEEN, Fine Granular Casts 0-5 SEEN, Coarse Granular Casts 0 SEEN, Waxy Casts 0 SEEN, Urine Mucus 0 SEEN, U Random Total Protein 156.7 H, Urine Creatinine 68.00, Protein/Creatinin Ratio 2304 H 11/25/23 07:13: WBC 10.1, RBC 2.41 L, Hgb 7.5 L, Hct 24.9 L, MCV 103.3 H, MCH 31.1, MCHC 30.1 L, RDW Std Deviation 61.9 H, RDW Coeff of Dionisio 16.3 H, Plt Count 250, MPV 10.0, Immature Gran % (Auto) 0.600, Neut % (Auto) 67.4, Lymph % (Auto) 17.7 L, [place] % (Auto) 12.7 H, Eos % (Auto) 1.0, Baso % (Auto) 0.6, Absolute Neuts (auto) 6.8, Absolute Lymphs (auto) 1.78, Nucleated RBC % 0, Retic Count 2.59 H, Immature Retic Fraction 16.60 H, Retic Hgb Equivalent 31.9, Sodium 149 H , Potassium 3.9, Chloride 123 H, Carbon Dioxide 18.0 L, Anion Gap 8, BUN 43 H, Creatinine 2.79 H, Estim Creat Clear Calc 14.20, Est GFR (MDRD) Af Amer 21 L, Est GFR (MDRD) Non-Af 17 L, BUN/Creatinine Ratio 15.4, Glucose 92, Calcium 8.2 L , Iron 82, TIBC 236 L, Iron Saturation 34.7, Ferritin 299 H Micro: Microbiology 11/21/23 20:41 Urine, Random Urine Culture - Final Vancomycin Resist. E. faecium Radiography Diagnostic Testing: Radiology Impression Chest X-Ray 11/25/23 06:35 IMPRESSION: 1. PICC tip at the cavoatrial junction. 2. Atelectasis in the lung bases bilaterally. Electronically Signed: Pranav Valdes MD at 7:16 EDT , Physical Exam Narrative Alert awake oriented x 3 no obvious distress s1s2 no murmurs lungs clear abdomen soft no edema Assessment & Plan Assessment/Plan (1) LENORE (acute kidney injury): PLAN: At the time of last admission her creatinine was 0.9-1.2. Came back with a creatinine of 3.1 Renal ultrasound without any hydronephrosis. Fractional excretion of sodium 4.6%. Urine analysis showed some protein, WBC. Urine protein creatinine ratio is more than 3 g. Do not have a prior urine prot ein for comparison. Serum eosinophil count has increased compared to last admission. Differential diagnosis include postinfectious glomerulonephritis versus AIN related to cefepime versus ATN related to sepsis. Per lab we do not have urine eosinophils in house anymore, no report for send out done. Cefepime has been discontinued and she is on meropenem Normal serum C3 level Today serum creatinine improved 2.79 mg/dL. Encouraged patient to increase solute and fluid intake in hospital and also once at home. Avoid NSAIDs. Empirically started prednisone 40 mg daily 11/23/2023. Okay for discharge per nephrology and continue on prednisone 40 mg for 10 days. Will arrange for hospital follow-up, discussed with patient.
[2023-11-25 14:10] VITALS: O2SAT 96
--- NOTE | 2023-11-25 14:22 | CASEMGMT ---
Social Work SW spoke w/the infectious disease doctor, pt can go on oral antibiotics. SW spoke w/pt, she would like to go home, feels she is moving well enough to go home. SW spoke w/pt about home health care. She declined referral for nursing, she states her neighbor was a nurse and can help her if needed. SW also asked about home PT, pt states can do the exercises at home that were given to her, she does not want home PT either. SW explained to pt if she were to change her mind on the home health care to call her PCP and her PCP can make the referral. Pt states understanding. SW sent a message to [employer] via [employer] letting them know pt is going home. SW also let TCU know. No further needs, pt home today. BEN Waller
--- NOTE | 2023-11-25 14:55 | PHA.DC_ITS ---
Pharmacy [facility] has performed discharge medication reconciliation and counseling for this patient. The patient's discharge medication list was reviewed for discrepancies and discrepancies were resolved. The patient was counseled on the following discharge medications and changes in medications for homegoing were reviewed. The Reason for Use, instructions for use, and potential side effects were reviewed for all new medications. The patient's questions regarding all of their medications were answered. 1. Prednisone 40 mg PO daily X 10 days 2. Polyethylene Glycol 17 grams daily 3. Ciprofloxacin 500 mg PO daily 4. Senna/docusate 2 tablets PO BID The patient was able to verbally demonstrate an understanding of their discharge medications. Medications at Discharge Home Medications ascorbate calcium (vitamin C) 500 mg tablet 500 mg PO DAILY SUPPLEMENT 05/01/23 ferrous sulfate 325 mg (65 mg iron) tablet 325 mg PO DAILY SUPPLEMENT 05/01/23 metoprolol tartrate 25 mg tablet 25 mg PO BID AFIB 10/21/23 food supplemt, lactose-reduced 0.06 gram-1 kcal/mL oral liquid (Boost High Protein) 120 ml PO BID FOOD SUPPLEMENT 11/21/23 melatonin 3 mg tablet 3 mg PO QHS 11/21/23 pantoprazole 40 mg tablet,delayed release 40 mg PO DAILY 11/21/23 sennosides 8.6 mg-docusate sodium 50 mg capsule (Senna Plus) 1 tab-cap PO QHS 11/21/23 verapamil 40 mg tablet 40 mg PO BID 11/21/23 acetaminophen 500 mg tablet 1,000 mg (2 x 500 mg) PO TID PRN [place] #0 tabs 11/25/23 apixaban 5 mg tablet (Eliquis) 2.5 mg (1/2 x 5 mg) PO BID BLOOD THINNER #180 tabs 11/25/23 ciprofloxacin HCl 500 mg tablet (Cipro) 500 mg PO DAILY #30 tabs 11/25/23 polyethylene glycol 3350 17 gram oral powder packet 17 g PO DAILY #0 ea 11/25/23 polyethylene glycol 3350 17 gram oral powder packet (Miralax) 17 g PO DAILY PRN STOOL SOFTENER 30 days #0 ea 11/25/23 prednisone 20 mg tablet 40 mg (2 x 20 mg) PO BREAKFAST 10 days #20 tabs 11/25/23 sennosides 8.6 mg-docusate sodium 50 mg tablet (Stool Softener-Stimulant Laxative) 2 tab PO BID #0 tabs 11/25/23 tramadol 50 mg tablet 50 mg PO Q6H PRN pain 3 days #0 tabs 11/25/23
--- NOTE | 2023-11-25 15:20 | PCM.PN.ID ---
Physical Exam Narrative Feeling better, some nausea, no fever Const alert and no apparent distress General Appearance: cooperative Resp normal air movement and clear to auscultation bilaterally Cardio regular rate and regular rhythm GI soft to palpation, non-tender and non-distended Skin no rashes or lesions noted ID ID: Route of nutrition/ use of supplements: [] Nutritional Intake: [] IV Site: [] Whitney Catheter: [] Assessment & Plan Assessment/Plan (1) LENORE (acute kidney injury): (2) Infection of prosthetic hip joint: PLAN: R hip PsA PJI, now s/p revision 10/30/[address] Boo, sent to F on 6 weeks iv cefepime via picc with stop date 12/11/23. Now with LENORE on CKD. Cefepime has been held. On iv meropenem. At discharge, will order po cipro given good bone and joint penetration. Last QTC was 416. Will follow, ID follow in 1-2 weeks with me
[2023-11-25 16:14] VITALS: BP 136/70; PULSE 90; RESP 18; TEMP 36.6; O2SAT 98
[2023-11-25] MEDS: 0.9% Saline Lock 10 ML Syringe IV (16:15)
== END 2023-11-25 16:39 | disposition home or self-care (01) | DRG 682 ==
LOC: ED 17:32 → MS3 18:28
PROVIDERS: Internal Medicine Nephrology; Admitting Provider Internal Medicine; Emergency Provider Emergency Medicine; PCP Family Medicine; Referring Provider Internal Medicine; Visit Provider Internal Medicine
DX: N17.9 Acute kidney failure, unspecified (principal); E43 Unspecified severe protein-calorie malnutrition; T84.51XA Infection and inflammatory reaction due to internal right hip prosthesis, initial encounter; D63.1 Anemia in chronic kidney disease; N18.32 Chronic kidney disease, stage 3b; I48.0 Paroxysmal atrial fibrillation; M06.9 Rheumatoid arthritis, unspecified; I12.9 Hypertensive chronic kidney disease with stage 1 through stage 4 chronic kidney disease, or unspecified chronic kidney disease; B96.5 Pseudomonas (aeruginosa) (mallei) (pseudomallei) as the cause of diseases classified elsewhere; N14.19 Nephropathy induced by other drugs, medicaments and biological substances; T36.1X5A Adverse effect of cephalosporins and other beta-lactam antibiotics, initial encounter; Z66 Do not resuscitate; Z96.641 Presence of right artificial hip joint; Z68.29 Body mass index [BMI] 29.0-29.9, adult; Z79.01 Long term (current) use of anticoagulants; Z79.899 Other long term (current) drug therapy; Z87.891 Personal history of nicotine dependence
CPT/HCPCS: 36415; 36592; 71045; 76770; 80048; 81001; 82043; 82436; 82570; 82728; 83540; 83550; 83735; 83935; 84100; 84133; 84156; 84300; 85025; 85045; 86160; 87077; 87086; 87088; 87186; 93005; 94640; 94668; 97110; 97162; 97166; 97530; 97535; 97802; 97803; 99283; J2185; J7030; A4216; J2405

== ENCOUNTER → 2023-12-02 | Outpatient (CLI) | payer MEDICARE, SELFPAY ==
[2023-12-02 11:19] LABS: Anion Gap 7 (5-15); BUN 31 mg/dL (7-18); BUN/Creat Ratio 17.8 RATIO (10-20); Calcium,Total 8.1 mg/dL (8.5-10.1); Chloride 111 mmol/L (98-107); Creatinine, Serum 1.74 mg/dL (0.55-1.02); EST Glomerular Filtration Rate 29 mL/min (>60); Est Glom Filt Rate - Afr Amer 35 mL/min (>60); Glucose 99 mg/dL (74-106); Potassium 3.3 mmol/L (3.5-5.1); Sodium Level 144 mmol/L (136-145)
== END | disposition home or self-care (01) ==
PROVIDERS: PCP Family Medicine; Referring Provider Internal Medicine; Visit Provider Internal Medicine
DX: N17.9 Acute kidney failure, unspecified (principal)
CPT/HCPCS: 36415; 80048

== ENCOUNTER → 2023-12-12 | Outpatient (CLI) | payer MEDICARE, SELFPAY ==
[2023-12-12 11:57] LABS: Erythrocyte Sedimentation Rate 5 mm/hr (0-30)
[2023-12-12 12:02] LABS: Absolute Lymphocyte Count 1.84 X10^3/uL (0.83-4.51); Absolute Neutrophil Count 6.6 X10^3/uL (2.0-7.7); Basophil# 0.04 X10^3/uL; Basophil% 0.4 % (0-1); Eosinophil# 0.13 X10^3/uL; Eosinophils% 1.3 % (0-5); Hematocrit 33.6 % (37-47); Hemoglobin 10.3 g/dL (12.0-15.0); Lymphocyte # 1.84 X10^3/ul (0.83-4.51); Lymphocyte % 18.8 % (19-41); Mean Corp Hgb Conc 30.7 g/dL (32-36); Mean Corpuscular Hgb 30.4 pg (27.0-32.0); Mean Corpuscular Volume 99.1 fL (81-99); Mean Platelet Vol. 9.8 fl (6.2-12.0); Monocyte% 10.2 % (0-10); NRBC Flagged by Analyzer 0 % (0-5); Neutrophil # 6.59 X10^3/uL (2.7-7.7); Neutrophil % 67.6 % (47-70); Platelet Count 270 K/mm3 (150-450); RBC Distribution Width CV 14.9 % (11.6-14.6); RBC Distribution Width SD 54.1 fl (35.1-43.9); Red Blood Count 3.39 M/mm3 (4.2-5.4); White Blood Count 9.8 K/mm3 (4.4-11.0)
[2023-12-12 12:10] LABS: AST(SGOT) 20 U/L (15-37); Alanine Aminotransfer ALT/SGPT 16 U/L (13-56); Albumin, Serum 3.1 g/dL (3.2-5.0); Alkaline Phosphatase 84 U/L (45-117); Anion Gap 7 (5-15); BUN 35 mg/dL (7-18); BUN/Creat Ratio 25.7 RATIO (10-20); Bilirubin, Direct 0.24 mg/dL (0.00-0.30); Calcium,Total 8.4 mg/dL (8.5-10.1); Chloride 105 mmol/L (98-107); Creatinine, Serum 1.36 mg/dL (0.55-1.02); EST Glomerular Filtration Rate 39 mL/min (>60); Est Glom Filt Rate - Afr Amer 47 mL/min (>60); Globulin 3.4 g/dL (2.2-4.2); Glucose 99 mg/dL (74-106); Protein, Total 6.5 g/dL (6.4-8.2); Sodium Level 142 mmol/L (136-145)
== END | disposition home or self-care (01) ==
LOC: LAB 11:12
PROVIDERS: PCP Family Medicine; Referring Provider Family Medicine; Visit Provider Family Medicine
DX: R06.09 Other forms of dyspnea (principal)
CPT/HCPCS: 36415; 80048; 80076; 85025; 85652

== ENCOUNTER 2023-12-13 07:08 | Inpatient (IN) | payer MEDICARE, SELFPAY ==
[2023-12-13] VITALS (17 sets, daily range): BP systolic 86–161; BP diastolic 49–147; PULSE 67–99; RESP 12–27; TEMP 35.8–37.1; O2SAT 90–100; BMI 25.1; BMI 24.3
--- NOTE | 2023-12-13 07:18 | CT_ITS ---
STUDY: CT BRAIN WITHOUT CONTRAST REASON FOR EXAM: Female, 88 years old. Head injury due to syncope. Patient is on anticoagulation. RADIATION DOSAGE (If Supplied By Facility): CTDIvol = ( 44.99 ) mGy, DLP = ( 812.98 ) mGycm TECHNIQUE: Transaxial CT imaging of the brain was performed without administration of intravenous contrast material. Individualized dose optimization techniques were used for this CT. COMPARISON: Comparison is made with prior study dated September 29, 2023. FINDINGS: Normal soft tissue structures. Normal calvarium. There is mild cerebral atrophy with widening of the extra-axial spaces and ventricular dilatation. There are areas of decreased attenuation within the white matter tracts of the supratentorial brain, consistent with microvascular disease changes. Normal basal ganglia and thalami. Normal brainstem. There is mild cerebellar atrophy. There is evidence of a cavum septum pellucidum. This is a normal variant. There is no intracranial hemorrhage. There are no findings of an acute ischemic infarction. Atherosclerotic calcific plaques of the cavernous portions of the internal carotid arteries bilaterally. Normal visualized paranasal sinuses. CT/Brain/Head without Contrast IMPRESSION: Chronic involutional changes of the brain. Electronically Signed: Jeremy Carney MD at 7:57 EDT ,
--- NOTE | 2023-12-13 07:19 | EKG12_ITS ---
Test Reason : SYNCOPE Blood Pressure : / mmHG Vent. Rate : 090 BPM Atrial Rate : 000 BPM P-R Int : 000 ms QRS Dur : 090 ms QT Int : 386 ms P-R-T Axes : 000 008 049 degrees QTc Int : 472 ms Atrial fibrillation with a competing junctional pacemaker Nonspecific ST and T wave abnormality Abnormal ECG Confirmed by ANGIE CERON, SHANNON ([id number]), manuscript editor ROMINA DURAN ([id number]) on 12/16/2023 11:04:55 AM Referred By: Confirmed By:SHANNON ADAMS MD
--- NOTE | 2023-12-13 07:20 | EX.ED.DYSGE1 ---
HPI History of Present Illness Chief Complaint: Syncope Informant: patient, family (daughter) and EMS Narrative Narrative: 88-year-old female has been having orthostasis with near syncope or syncope for the last 2-3 days. Initially occurred when physical therapy was at home working with her. They called PCP, her verapamil was discontinued as a result, and therapy advised that she push fluids so family has been trying to help encourage her by filling up her Thermos and reminding her to drink. She had right-sided total hip arthroplasty 1.5 months ago, and has therapy and home health coming periodically as a result. She had an admission about 2 weeks ago here to this hospital, daughter states she had some antibiotics which resulted in kidney failure, when she was discharged she was discharged on prednisone daily for 10 days without a taper, she finished that 1 or 2 weeks ago. No other medication adjustments. Patient states she has been lightheaded every time she stands up, so this morning when she needed to get up and go to the bathroom, she tried slowly but was lightheaded so she waited 20 or 30 minutes before trying to go to the bathroom. Upon getting into the bathroom she felt very lightheaded and knew that she was going to go down, daughter states that she did have a syncopal episode, the patient remembers hitting her head. She does not have a headache. She denies any other injury. She denies having any prodromal symptoms before these episodes other than lightheadedness. This morning, when EMS picked her up, they stood her up to try to get to the cot and she had another syncopal episode and was transiently hypotensive, her blood pressure came back up without specific treatment. She did not have an injury when that occurred. She had no other prodromal symptoms when that occurred. Neither patient nor daughter know the patient's medications, so we are going by what she has in the EMR since she was just discharged from the hospital. These medications include apixaban and metoprolol. According to prior documentation patient has a living will stating that she is DNR [facility]. [facility] Medical History LENORE (acute kidney injury) Anemia of chronic renal failure, stage 3b Atrial fibrillation Atrial flutter Back pain Cancer Cardiology follow-up encounter Chronic pain Chronic renal failure (CRF), stage 3b Former smoker GERD (gastroesophageal reflux disease) Heartburn History of echocardiogram Hoarseness Hx of cancer of lung Infection of prosthetic hip joint Iron deficiency anemia due to chronic blood loss Kidney disease Kidney stones Leg cramps Low iron New onset atrial flutter Osteoporosis Post-menopausal Rheumatoid arthritis Shortness of breath on exertion Uses wheelchair Walker as ambulation aid Wears dentures Wears glasses Home Medications ascorbate calcium (vitamin C) 500 mg tablet 500 mg PO DAILY SUPPLEMENT 05/01/23 [History Last Taken 12/12/23] ferrous sulfate 325 mg (65 mg iron) tablet 325 mg PO DAILY SUPPLEMENT 05/01/23 [History Last Taken 12/12/23] metoprolol tartrate 25 mg tablet 25 mg PO BID AFIB 10/21/23 [History Last Taken 12/12/23] food supplemt, lactose-reduced 0.06 gram-1 kcal/mL oral liquid (Boost High Protein) 120 ml PO BID FOOD SUPPLEMENT 11/21/23 [History Last Taken Unknown] melatonin 3 mg tablet 3 mg PO QHS 11/21/23 [History Last Taken 12/12/23] pantoprazole 40 mg tablet,delayed release 40 mg PO DAILY 11/21/23 [History Last Taken 12/12/23] sennosides 8.6 mg-docusate sodium 50 mg capsule (Senna Plus) 1 tab-cap PO DAILY PRN constipation 11/21/23 [History Last Taken Unknown] acetaminophen 500 mg tablet 1,000 mg (2 x 500 mg) PO TID PRN [place] #0 tabs 11/25/23 [Rx Last Taken 12/12/23] apixaban 5 mg tablet (Eliquis) 2.5 mg (1/2 x 5 mg) PO BID BLOOD THINNER #180 tabs 11/25/23 [Rx Last Taken 12/12/23] ciprofloxacin HCl 500 mg tablet (Cipro) 500 mg PO DAILY #30 tabs 11/25/23 [Rx Last Taken 12/12/23] polyethylene glycol 3350 17 gram oral powder packet (Miralax) 17 g PO DAILY PRN STOOL SOFTENER 30 days #0 ea 11/25/23 [Rx Last Taken Unknown] Allergy/AdvReac Type Severity Reaction Status Date / Time oxycodone AdvReac Intermediate Itching Verified 12/13/23 07:09 Family History Mother Abdominal aneurysm Father Cancer Lung Surgical History H/O hernia repair History of cardioversion (12/15/21) History of cataract surgery History of esophagogastroduodenoscopy (EGD) History of kidney surgery History of left knee replacement History of right hip replacement Hx of hysterectomy S/P partial lobectomy of lung Social History Smoking Status: Former smoker quit date: 09/16/85 how long ago did patient quit smokin alcohol intake: current alcohol intake frequency: a few times a month substance use type: does not use caffeine: No ROS ROS ED Constitutional Constitutional ED: Denies chills or fever(s) Eyes Eyes: Denies change in vision or diplopia ENT ENT ED: Denies rhinorrhea or sore throat Cardiovascular Cardiovascular: Reports lightheadedness and syncope; Denies chest pain or palpitations Respiratory/Chest Respiratory/Chest: Denies cough, dyspnea or dyspnea on exertion Gastrointestinal Gastrointestinal: Denies abdominal pain, diarrhea, nausea or vomiting Genitourinary Genitourinary ED: Denies dysuria or hematuria Musculoskeletal Musculoskeletal: Reports other Details: Chronic arthritic bilateral shoulder pain unchanged ; Denies back pain or neck pain Integumentary Denies abscess or rash Neurologic Neurologic: Denies headache(s), paresthesias or weakness Psychiatric Psychiatric: Denies anxiety or suicidal thoughts EXAM Physical Exam Const Vital Signs: 12/13/23 07:09 12/13/23 07:08 12/13/23 07:08 Temperature 96.5 F L Temperature Source Temporal Pulse Rate 96 Respiratory Rate 23 H Respiratory Effort Normal Non-Labored Normal Non-Labored Respiratory Depth Normal Respiratory Pattern Normal Normal Blood Pressure 161/147 H Blood Pressure Mean 151 Pulse Ox 94 Oxygen Delivery Method Room Air Room Air 12/13/23 08:08 12/13/23 09:00 Temperature Temperature Source Pulse Rate 75 87 Respiratory Rate 26 H 22 H Respiratory Effort Respiratory Depth Respiratory Pattern Blood Pressure 126/57 H 139/61 H Blood Pressure Mean 80 87 Pulse Ox 90 96 Oxygen Delivery Method Room Air Room Air Positive well nourished and well developed General Appearance ED: well developed and NAD HEENT Reports moist mucous membranes HEENT Narrative: Tender hematoma right occiput, no palpable crepitance or depression and no other signs of head trauma. No Virk sign, no CSF otorhinorrhea or hemotympanum, no signs of facial trauma no periorbital ecchymosis. Eyes PERRL and EOMs intact bilaterally Neck full ROM and supple Chest Wall inspection of chest normal and palpation of chest normal Resp normal respiratory effort and clear to auscultation bilaterally Cardio Rhythm: abnormal rhythm irregularly irregular GI non-tender and non-distended Auscultation: normoactive bowel sounds Palpation: soft Back/Spine no CVA tenderness General Back: other FROM Extremity normal to inspection Extremity Narrative: Full range of motion throughout all 4 extremities without acute pain General Extremety ED: Negative for edema, pulses abnormal or tenderness General Extremity: Negative for edema or pulses abnormal Neuro oriented x3, CN's II-XII intact bilaterally and no sensory deficits noted Neuro Narrative: GCS 15 Sensorium / Orientation: awake and alert Motor Exam: strength 5/5 throughout Psych mental status grossly normal Skin no rashes or lesions noted and no wounds Skin Narrative: Right lateral hip surgical incision well-healed without signs of infection or dehiscence MDM MDM MDM Narrative Medical decision making narrative: Patient appears to be anticoagulated on Eliquis due to history of A-fib, she appears to be in A-fib right now. For these reasons a head CT is indicated given her evidence of trauma and a hematoma that is quite large but without clinical crepitance or depression of the skull. I reviewed the images and report and I agree with it. The CT is negative for anything acute. I reviewed her labs, she is not anemic enough to cause the symptoms, however her hemoglobin is down 1 g compared with yesterday. Her BUN is suspiciously high compared with her creatinine and prior measurements. I asked the patient if she has been having any rectal bleeding or melena. She said no. We did a Hemoccult to rule out GI bleeding but it is positive. This may be why she is having recurrent syncopal episodes. Given this and the fact that she is anticoagulated, plan is for admission. She is currently clinically and hemodynamically stable while resting. She is given IV fluids empirically prior to the Hemoccult results. Discussed with hospitalist for admission, I initially ordered drip but they were going to do Protonix twice daily instead. History & Record Review Additional record(s) reviewed:: Prior inpatient record (Was admitted apparently for LENORE due to antibiotics for prosthetic right hip joint infection. Finished IV antibiotics 2 days ago, then 2 go on oral Cipro.) Lab Data Attestation: I reviewed the patient's lab results. Labs: Laboratory Results - last 24 hr 12/13/23 12/13/23 07:15 08:10 WBC 15.0 H RBC 3.05 L Hgb 9.3 L Hct 30.2 L MCV 99.0 MCH 30.5 MCHC 30.8 L RDW Std Deviation 54.1 H RDW Coeff of Dionisio 14.8 H Plt Count 276 MPV 10.0 Immature Gran % (Auto) 1.300 H Neut % (Auto) 71.1 H Lymph % (Auto) 17.0 L [place] % (Auto) 9.2 Eos % (Auto) 1.0 Baso % (Auto) 0.4 Absolute Neuts (auto) 10.7 H Absolute Lymphs (auto) 2.55 Nucleated RBC % 0 Sodium 142 Potassium 3.2 L Chloride 106 Carbon Dioxide 26.0 Anion Gap 10 BUN 62 H Creatinine 1.46 H Estim Creat Clear Calc 24.82 Est GFR (MDRD) Af Amer 43 L Est GFR (MDRD) Non-Af 36 L BUN/Creatinine Ratio 42.5 H Glucose 137 H Calcium 8.8 Troponin I High Sens 50 Urine Color Yellow Urine Clarity Sl. Cloudy Urine pH 6.0 Ur Specific [place] 1.015 Urine Protein 30 H Urine Glucose (UA) Normal Urine Ketones Negative Urine Occult Blood Negative Urine Nitrite Negative Urine Bilirubin Negative Urine Urobilinogen Normal Ur Leukocyte Esterase Negative Urine RBC 0 SEEN Urine WBC 0 SEEN Ur Squamous Epith Cells 0-5 SEEN Urine Bacteria 0 SEEN Urine Mucus 0 SEEN Radiography Diagnostic Testing: Clinical Impression(s) from Imaging Studies Brain CT 12/13/23 07:18 IMPRESSION: Chronic involutional changes of the brain. Electronically Signed: Jeremy Carney MD at 7:57 EDT , Rhythm Strip Rhythm Strip: A-fib Rate: 85 Ectopy: None EKG Initial EKG: Attestation: I personally reviewed and interpreted this EKG as follows: Interpretation: No Acute Injury Pattern, Atrial Fibrillation and Non-Specific ST Changes (laterally) Prior EKG tracings: available for review Prior: Unchanged Management Discussion w/another healthcare provider: Hospitalist and Public Affairs Manager (ОЛЬГА [place], available to scope) Discharge Plan Dx/Rx/DC Orders Clinical Impression: Syncope due to orthostatic hypotension, Closed head injury, ABLA (acute blood loss anemia), Occult GI bleeding Disposition Disposition: Acute Care Hospital [facility]
[2023-12-13 07:35] LABS: Absolute Lymphocyte Count 2.55 X10^3/uL (0.83-4.51); Absolute Neutrophil Count 10.7 X10^3/uL (2.0-7.7); Basophil# 0.06 X10^3/uL; Basophil% 0.4 % (0-1); Eosinophil# 0.15 X10^3/uL; Hematocrit 30.2 % (37-47); Hemoglobin 9.3 g/dL (12.0-15.0); Lymphocyte # 2.55 X10^3/ul (0.83-4.51); Mean Corp Hgb Conc 30.8 g/dL (32-36); Mean Corpuscular Hgb 30.5 pg (27.0-32.0); Monocyte# 1.38 X10^3/uL; Monocyte% 9.2 % (0-10); NRBC Flagged by Analyzer 0 % (0-5); Neutrophil # 10.68 X10^3/uL (2.7-7.7); Neutrophil % 71.1 % (47-70); Platelet Count 276 K/mm3 (150-450); RBC Distribution Width CV 14.8 % (11.6-14.6); RBC Distribution Width SD 54.1 fl (35.1-43.9); Red Blood Count 3.05 M/mm3 (4.2-5.4)
[2023-12-13] MEDS: 0.9% Normal Saline (1000mL) 1,000 ML 1000 ML IV (07:42)
[2023-12-13 07:54] LABS: Anion Gap 10 (5-15); BUN 62 mg/dL (7-18); BUN/Creat Ratio 42.5 RATIO (10-20); Calcium,Total 8.8 mg/dL (8.5-10.1); Chloride 106 mmol/L (98-107); Creatinine, Serum 1.46 mg/dL (0.55-1.02); EST Glomerular Filtration Rate 36 mL/min (>60); Est Glom Filt Rate - Afr Amer 43 mL/min (>60); Estimated Creatinine Clearance 24.82 ml/min; Glucose 137 mg/dL (74-106); Potassium 3.2 mmol/L (3.5-5.1); Sodium Level 142 mmol/L (136-145); Troponin-I HS (w/2H Reflex) 50 pg/mL (3.0-54.0)
[2023-12-13 08:13] LABS: Bacteria 0 SEEN /hpf (None Seen); Mucous, Urine 0 SEEN /hpf (<or=2+); Red Blood Cells-Urine 0 SEEN /hpf (0-5); White Blood Cells 0 SEEN /hpf (0-5)
[2023-12-13 08:18] LABS: Color, Urine Yellow (Yellow); Glucose, Dipstick Normal (Normal); Ketone-Dipstick Negative (Negative); Leukocyte Esterase-Dipstick Negative /ul (Negative); Nitrite-Dipstick Negative (Negative); Occult Blood-Urine Negative /ul (Negative); Protein-Dipstick 30 mg/dl (Negative); Specific Gravity, Urine 1.015 (1.002-1.030); Urine Bilirubin Dipstick Negative (Negative); Urine Clarity Sl. Cloudy (Clear); Urine Urobilinogen Normal (Normal)
[2023-12-13 08:24] LABS: Squamous Epithelial Cells - UA 0-5 SEEN /hpf (5-10)
[2023-12-13 09:31] LABS: Reflex Troponin-HS? (from REC) Y
--- NOTE | 2023-12-13 09:44 | PN.HOSP_ITS ---
Reason for Visit Reason for Visit: Syncope Objective Data Objective Data Vital Signs: Vital Signs Temp Pulse Resp BP Pulse Ox O2 Del Method 96.5 F L 87 22 H 139/61 H 96 Room Air 12/13/23 07:09 12/13/23 09:00 12/13/23 09:00 12/13/23 09:00 12/13/23 09:00 12/13/23 09:00 Oxygen Delivery Method Room Air Weight: 68.4 kg Body Mass Index (BMI) 25.1 Lab / Micro Data 12/13/23 11:53 12/13/23 07:15 Labs: Laboratory Results - last 24 hr 12/13/23 07:15: WBC 15.0 H, RBC 3.05 L, Hgb 9.3 L, Hct 30.2 L, MCV 99.0, MCH 30.5, MCHC 30.8 L, RDW Std Deviation 54.1 H, RDW Coeff of Dionisio 14.8 H, Plt Count 276, MPV 10.0, Immature Gran % (Auto) 1.300 H, Neut % (Auto) 71.1 H, Lymph % (Auto) 17.0 L, [place] % (Auto) 9.2, Eos % (Auto) 1.0, Baso % (Auto) 0.4, Absolute Neuts (auto) 10.7 H, Absolute Lymphs (auto) 2.55, Nucleated RBC % 0, Sodium 142, Potassium 3.2 L, Chloride 106, Carbon Dioxide 26.0, Anion Gap 10, BUN 62 H, Creatinine 1.46 H, Estim Creat Clear Calc 24.82, Est GFR (MDRD) Af Amer 43 L, Est GFR (MDRD) Non-Af 36 L, BUN/Creatinine Ratio 42.5 H, Glucose 137 H, Calcium 8.8, Troponin I High Sens 50 12/13/23 08:10: Urine Color Yellow, Urine Clarity Sl. Cloudy, Urine pH 6.0, Ur Specific [place] 1.015, Urine Protein 30 H, Urine Glucose (UA) Normal, Urine Ketones Negative, Urine Occult Blood Negative, Urine Nitrite Negative, Urine Bilirubin Negative, Urine Urobilinogen Normal, Ur Leukocyte Esterase Negative, Urine RBC 0 SEEN, Urine WBC 0 SEEN, Ur Squamous Epith Cells 0-5 SEEN, Urine Bact eria 0 SEEN, Urine Mucus 0 SEEN Micro: Microbiology 12/13/23 08:29 Stool Stool Occult Blood (LUDY) - Final Occult Blood Positive Radiography Diagnostic Testing: Radiology Impression Brain CT 12/13/23 07:18 IMPRESSION: Chronic involutional changes of the brain. Electronically Signed: Jeremy Carney MD at 7:57 EDT , Rhythm Strip Rhythm Strip: A-fib Rate: 85 Ectopy: None Assessment & Plan Assessment/Plan (1) Occult GI bleeding: (2) ABLA (acute blood loss anemia): (3) Closed head injury: (4) Syncope due to orthostatic hypotension: (5) Hypokalemia: (6) Elevated troponin I level: PLAN: Plan S Charges/Coding Visit Charges Inpatient E&M: 96387 Subs Hosp L3
[2023-12-13] MEDS: Pantoprazole Sodium 40 MG in 0.9% Normal Saline (50mL Bag) 15 ML 420 MG IV BOLUS (10:07)
[2023-12-13 10:36] LABS: Troponin-I HS 61 pg/mL (3.0-54.0)
[2023-12-13] MEDS: Lactated Ringers 1,000 ML 70 ML IV ×2 (11:58→22:21)
[2023-12-13 12:10] LABS: Hemoglobin 8.1 g/dL (12.0-15.0)
[2023-12-13] MEDS: Ciprofloxacin 500 MG Tablet PO (12:39)
[2023-12-13] MEDS: Potassium Chloride Oral Soln 20 MEQ/15 ML UDC 40 MEQ PO (12:39)
--- NOTE | 2023-12-13 12:45 | EX.PCM.CON.G ---
HPI Consult Data Date of Consult: 12/13/23 HPI Narrative Reason for Consultation: GI bleed HPI Narrative: RUTH ANN ANSARI, is a 88-year-old female has been having orthostasis with near syncope or syncope for the last 2-3 days. Initially occurred when physical therapy was at home working with her. They called PCP, her verapamil was discontinued as a result, and therapy advised that she push fluids so family has been trying to help encourage her by filling up her Thermos and reminding her to drink. She had right-sided total hip arthroplasty 1.5 months ago, and has therapy and home health coming periodically as a result. She had an admission about 2 weeks ago here to this hospital, daughter states she had some antibiotics which resulted in kidney failure, when she was discharged she was discharged on prednisone daily for 10 days without a taper, she finished that 1 or 2 weeks ago. No other medication adjustments. Patient states she has been lightheaded every time she stands up, so this morning when she needed to get up and go to the bathroom, she tried slowly but was lightheaded so she waited 20 or 30 minutes before trying to go to the bathroom. Upon getting into the bathroom she felt very lightheaded and knew that she was going to go down, daughter states that she did have a syncopal episode, the patient remembers hitting her head. She does not have a headache. She denies any other injury. She denies having any prodromal symptoms before these episodes other than lightheadedness. This morning, when EMS picked her up, they stood her up to try to get to the cot and she had another syncopal episode and was transiently hypotensive, her blood pressure came back up without specific treatment. She did not have an injury when that occurred. She had no other prodromal symptoms when that occurred. Neither patient nor daughter know the patient's medications, so we are going by what she has in the EMR since she was just discharged from the hospital. These medications include apixaban and metoprolol. I was called to see her because she had a decreased hemoglobin and complaint of melanotic stool. 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 Kidney disease Kidney stones Leg cramps Low iron New onset atrial flutter Osteoporosis Post-menopausal Rheumatoid arthritis Shortness of breath on exertion Uses wheelchair Walker as ambulation aid Wears dentures Wears glasses Home Medications ascorbate calcium (vitamin C) 500 mg tablet 500 mg PO DAILY SUPPLEMENT 05/01/23 [History Last Taken 12/12/23] ferrous sulfate 325 mg (65 mg iron) tablet 325 mg PO DAILY SUPPLEMENT 05/01/23 [History Last Taken 12/12/23] metoprolol tartrate 25 mg tablet 25 mg PO BID AFIB 10/21/23 [History Last Taken 12/12/23] food supplemt, lactose-reduced 0.06 gram-1 kcal/mL oral liquid (Boost High Protein) 120 ml PO BID FOOD SUPPLEMENT 11/21/23 [History Last Taken Unknown] melatonin 3 mg tablet 3 mg PO QHS 11/21/23 [History Last Taken 12/12/23] pantoprazole 40 mg tablet,delayed release 40 mg PO DAILY reflux 11/21/23 [History Last Taken 12/12/23] sennosides 8.6 mg-docusate sodium 50 mg capsule (Senna Plus) 1 tab-cap PO DAILY PRN constipation 11/21/23 [History Last Taken Unknown] acetaminophen 500 mg tablet 1,000 mg (2 x 500 mg) PO TID PRN pain #0 tabs 11/25/23 [Rx Last Taken 12/12/23] apixaban 5 mg tablet (Eliquis) 2.5 mg (1/2 x 5 mg) PO BID BLOOD THINNER #180 tabs 11/25/23 [Rx Last Taken 12/12/23] ciprofloxacin HCl 500 mg tablet (Cipro) 500 mg PO DAILY #30 tabs 11/25/23 [Rx Last Taken 12/12/23] polyethylene glycol 3350 17 gram oral powder packet (Miralax) 17 g PO DAILY PRN STOOL SOFTENER 30 days #0 ea 11/25/23 [Rx Last Taken Unknown] Allergy/AdvReac Type Severity Reaction Status Date / Time oxycodone AdvReac Intermediate Itching Verified 12/13/23 07:09 Family History Mother Abdominal aneurysm Father Cancer Lung Surgical History H/O hernia repair History of cardioversion (12/15/21) History of cataract surgery History of esophagogastroduodenoscopy (EGD) History of kidney surgery History of left knee replacement History of right hip replacement Hx of hysterectomy S/P partial lobectomy of lung Social History Smoking Status: Former smoker quit date: 09/16/85 how long ago did patient quit smokin alcohol intake: current alcohol intake frequency: a few times a month substance use type: does not use caffeine: No ROS Constitutional Constitutional: Reports fatigue and weakness; Denies anorexia, change in weight, chills, fever(s), malaise, night sweats or other Eyes Eyes: Denies blurry vision, change in eye color, change in vision, discharge from eye(s), double vision, erythema, eye pain, loss of vision or other ENT HEENT: Denies abnormal hearing, dysphagia, ear pain, epistaxis, headache(s), hearing loss, nasal congestion, nasal discharge, post nasal drip, sinus pressure, sore throat or other Cardiovascular Cardiovascular: Denies chest pain, claudication, dyspnea on exertion, edema, lightheadedness, orthopnea, palpitations, paroxysmal nocturnal dyspnea, rapid heart rate, syncope or other Respiratory/Chest Respiratory/Chest: Denies cough, dyspnea, excessive phlegm production, hemoptysis, productive cough, shortness of breath at rest, shortness of breath with exertion, wheezing or other Gastrointestinal Gastrointestinal: Denies abdominal pain, coffee ground emesis, constipation, diarrhea, dyspepsia, hematemesis, hematochezia, loose stools, melena, nausea, vomiting or other Genitourinary Genitourinary: Denies burning urination, difficulty urinating, dysuria, hematuria, nocturia, urinary frequency, urinary hesitancy, urinary incontinence, urinary urgency or other Musculoskeletal Musculoskeletal: Reports joint pain and joint stiffness; Denies arthralgias, back pain, joint swelling, myalgias, neck pain or other Neurologic Neurologic: Reports syncope; Denies abnormal gait, abnormal speech, confusion, disequilibrium, dizziness, focal weakness, headache(s), numbness, paresthesias, seizure-like activity, seizures, tingling, tremor(s) or other Psychiatric Psychiatric: Denies anxiety, depression, homicidal ideation, suicidal ideation or other Endocrine Endocrinology: Denies change in body appearance, cold intolerance, excessive sweating, heat intolerance, polydipsia, polyuria or other Hematologic/Lymphatic Hematologic/Lymphatic: Reports anemia; Denies easy bleeding, easy bruising, lymphadenopathy or other Allergic/Immunologic Allergic/Immunologic: Denies rhinitis, hives, eczemia, asthma or other Physical Exam Const alert, oriented x3, no apparent distress, average body habitus, healthy appearing and well nourished Constitutional Narrative: Very pleasant General Appearance: cooperative HEENT normocephalic, head/scalp atraumatic, hearing grossly normal bilaterally and moist oral mucous membranes HEENT Narrative: Mallampati 2, no thrush, patient is edentulous Eyes PERRL and EOMs intact bilaterally Eyes Narrative: Conjunctiva are pale bilaterally, no scleral icterus Neck no lymphadenopathy and supple Neck Narrative: Trachea midline, no thyroid enlargement Resp normal respiratory effort, no retractions, no use of accessory muscles and clear to auscultation bilaterally Auscultation: Negative for rales, rhonchi or wheezes Cardio regular rate, regular rhythm, S1 normal heart sound, S2 normal heart sound, no murmurs, no rub, no gallops and no clicks GI normal to inspection, nondistended, normoactive bowel sounds, soft to palpation and non-tender Extremity no clubbing, cyanosis or edema Extremity Narrative: Pedal pulses are 2+, radial pulses are 2+ Skin no rashes or lesions noted, no wounds, skin turgor normal, no jaundice, no petechiae and no mottling Skin Narrative: Pale Neuro oriented x3, CN's II-XII intact bilaterally, moves all extremities and no focal motor deficits Speech: speech normal Psych affect normal Psych Narrative: Extremely pleasant, interacts appropriately Lab / Micro Data 12/13/23 16:50 12/13/23 07:15 Labs: Laboratory Results - last 24 hr 12/13/23 07:15: WBC 15.0 H, RBC 3.05 L, Hgb 9.3 L, Hct 30.2 L, MCV 99.0, MCH 30.5, MCHC 30.8 L, RDW Std Deviation 54.1 H, RDW Coeff of Dionisio 14.8 H, Plt Count 276, MPV 10.0, Immature Gran % (Auto) 1.300 H, Neut % (Auto) 71.1 H, Lymph % (Auto) 17.0 L, [place] % (Auto) 9.2, Eos % (Auto) 1.0, Baso % (Auto) 0.4, Absolute Neuts (auto) 10.7 H, Absolute Lymphs (auto) 2.55, Nucleated RBC % 0, Sodium 142, Potassium 3.2 L, Chloride 106, Carbon Dioxide 26.0, Anion Gap 10, BUN 62 H, Creatinine 1.46 H, Estim Creat Clear Calc 24.82, Est GFR (MDRD) Af Amer 43 L, Est GFR (MDRD) Non-Af 36 L, BUN/Creatinine Ratio 42.5 H, Glucose 137 H, Calcium 8.8, Troponin I High Sens 50 12/13/23 08:10: Urine Color Yellow, Urine Clarity Sl. Cloudy, Urine pH 6.0, Ur Specific Hecker 1.015, Urine Protein 30 H, Urine Glucose (UA) Normal, Urine Ketones Negative, Urine Occult Blood Negative, Urine Nitrite Negative, Urine Bilirubin Negative, Urine Urobilinogen Normal, Ur Leukocyte Esterase Negative, Urine RBC 0 SEEN, Urine WBC 0 SEEN, Ur Squamous Epith Cells 0-5 SEEN, Urine Bacteria 0 SEEN, Urine Mucus 0 SEEN 12/13/23 10:09: Troponin I High Sens 61 H 12/13/23 11:53: Hgb 8.1 L, Hct 26.0 L 12/13/23 14:55: Troponin I High Sens 59 H 12/13/23 16:50: Hgb 8.0 L, Hct 26.0 L Micro: Microbiology 12/13/23 08:29 Stool Stool Occult Blood (LUDY) - Final Occult Blood Positive Rhythm Strip Rhythm Strip: A-fib Rate: 85 Ectopy: None Imaging Radiology Impression Brain CT 12/13/23 07:18 IMPRESSION: Chronic involutional changes of the brain. Electronically Signed: Jeremy Carney MD at 7:57 EDT , Assessment & Plan Assessment/Plan (1) Elevated troponin I level: (2) Hypokalemia: (3) Occult GI bleeding: (4) ABLA (acute blood loss anemia): (5) Closed head injury: (6) Syncope due to orthostatic hypotension: PLAN: Plan 88-year-old with history of rheumatoid arthritis, atrial fibrillation, CKD on Eliquis therapy. I suspected that she has a upper GI bleed Recommendations are upper endoscopy to evaluate upper GI tract on emergent basis. She was explained alternatives, risk, benefits including not withstanding bleeding, infection, sepsis, perforation, need for emergent surgery and . Charges/Coding Visit Charges Inpatient E&M: 26329 Init Hosp L3
--- NOTE | 2023-12-13 14:20 | NURSING ---
To EGD via bed and surgical staff. Daughter Crista notified that patient is going to procedure.
[2023-12-13 15:23] LABS: Troponin-I HS 59 pg/mL (3.0-54.0)
[2023-12-13] MEDS: 0.9% Normal Saline (Pres. free 10 ML Vial (15:49)
[2023-12-13] MEDS: Epinephrine (1 mg/ml) 1 MG/ML VIAL (15:49)
--- NOTE | 2023-12-13 16:06 | OP.CCLET_ITS ---
12/13/2023 [address] [place] [address] Re : Upper GI endoscopy procedure for Ashley Mukherjee Dear Dr. Cuevas This procedure was performed on Wednesday, December 13, 2023. My impressions and recommendations are as follows: Impressions : - Normal esophagus. - Red blood in the stomach. - Blood in the duodenal bulb. - Oozing duodenal ulcers with a visible vessel. Injected. Treated with a heater probe. - No specimens collected. Recommendations : - [facility] care. - Clear liquid diet today. - Give Protonix (pantoprazole): initiate therapy with 80 mg IV bolus, then 8 mg/hr IV by continuous infusion today. - Fluconazole 200 mg once a day x 10 days - Continue present medications. - The patient is not currently taking anticoagulant or antiplatelet agents. My findings are described in the full procedure note, which is enclosed. If I can be of further assistance, please feel free to contact me at . Sincerely, Prosper Carlisle, 12/13/2023 4:05:54 PM This report has been signed electronically.
--- NOTE | 2023-12-13 16:06 | OP.EGD_ITS ---
Patient Name: Ashley Mukherjee Procedure Date: 12/13/2023 3:35 PM Date of : 1935 Age: 88 Procedure: Upper GI endoscopy Indications: Melena Providers: Prosper Carlisle DO Medicines: Monitored Anesthesia Care Patient Profile: This is an 88 year old female. Refer to note in patient chart for documentation of history and physical. Patient has symptoms of acute epigastric abdominal pain. Complications: No immediate complications. Procedure: Pre-Anesthesia Assessment: - Prior to the procedure, a History and Physical was performed, and patient medications and allergies were reviewed. The patient is competent. The risks and benefits of the procedure and the sedation options and risks were discussed with the patient. All questions were answered and informed consent was obtained. Patient identification and proposed procedure were verified in the pre-procedure area. Mental Status Examination: alert and oriented. Airway Examination: normal oropharyngeal airway and neck mobility. Respiratory Examination: clear to auscultation. CV Examination: normal. Prophylactic Antibiotics: The patient does not require prophylactic antibiotics. Prior Anticoagulants: The patient has taken Eliquis (apixaban). ASA Grade Assessment: IV - A patient with severe systemic disease that is a constant threat to life. After reviewing the risks and benefits, the patient was deemed in satisfactory condition to undergo the procedure. The anesthesia plan was to use monitored anesthesia care (MAC). Immediately prior to administration of medications, the patient was re-assessed for adequacy to receive sedatives. The heart rate, respiratory rate, oxygen saturations, blood pressure, adequacy of pulmonary ventilation, and response to care were monitored throughout the procedure. The physical status of the patient was re-assessed after the procedure. After obtaining informed consent, the endoscope was passed under direct vision. Throughout the procedure, the patient's blood pressure, pulse, and oxygen saturations were monitored continuously. The Endoscope was introduced through the mouth, and advanced to the second part of duodenum. The upper GI endoscopy was accomplished without difficulty. The patient tolerated the procedure well. Scope In: 3:41:38 PM Scope Out: 3:56:47 PM Total Procedure Duration Time 0 hours 15 minutes 9 seconds Findings: The lower third of the esophagus was normal. Red blood was found in the stomach. Lavage of the area was performed using greater than 500 mL of sterile water, resulting in clearance with excellent visualization. Red blood was found in the duodenal bulb and in the first portion of the duodenum. Lavage of the area was performed using 200 - 500 mL of sterile water, resulting in clearance with good visualization. Many oozing cratered duodenal ulcers with a visible vessel were found in the duodenal bulb, in the first portion of the duodenum and in the second portion of the duodenum. The largest lesion was 9 mm in largest dimension. Area was successfully injected with 8 mL of a 0.1 mg/mL solution of epinephrine for drug delivery. Coagulation for hemostasis using heater probe was successful. Diffuse, white plaques were found at the cricopharyngeus, in the upper third of the esophagus and in the middle third of the esophagus. Biopsies were taken with a cold forceps for histology. Verification of patient identification for the specimen was done. Impression: - Normal esophagus. - Red blood in the stomach. - Blood in the duodenal bulb. - Oozing duodenal ulcers with a visible vessel. Injected. Treated with a heater probe. - No specimens collected. Recommendation: - Return patient to [facility] for ongoing care. - Clear liquid diet today. - Give Protonix (pantoprazole): initiate therapy with 80 mg IV bolus, then 8 mg/hr IV by continuous infusion today. - Fluconazole 200 mg once a day x 10 days - Continue present medications. - The patient is not currently taking anticoagulant or antiplatelet agents. Procedure Code(s): --- Professional --- 88161, 59, Esophagogastroduodenoscopy, flexible, transoral; with control of bleeding, any method 67427, 51, Esophagogastroduodenoscopy, flexible, transoral; with biopsy, single or multiple 67790, 59, Esophagogastroduodenoscopy, flexible, transoral; with directed submucosal injection(s), any substance CPT copyright 2021 [employer]. All rights reserved. The codes documented in this report are preliminary and upon water purification chemist review may be revised to meet current compliance requirements. Prosper Carlisle DO 12/13/2023 4:05:54 PM This report has been signed electronically. Number of Addenda: 0 Note Initiated On: 12/13/2023 3:35 PM
--- NOTE | 2023-12-13 16:54 | HP.PCM.HOS_ITS ---
HPI - General General Date of Admission: 12/13/23 Date of Service: 12/13/23 Chief Complaint: Syncope HPI Narrative Mrs. Mukherjee is an 88-year-old white female who has been having some orthostasis with near syncope for the last 2 to 3 days prior to presentation. It initially occurred when physical therapy was working on with her in her home and they called her primary care physician and her verapamil was discontinued. They also encouraged her to push fluids which she had been trying to do at home. She had a right total hip arthroplasty done about a month and a half ago and this is why therapy has been visiting her home. She had admission about 2 weeks ago where the daughter stated she was placed on antibiotics that resulted in kidney failure and when she was discharged she was discharged on prednisone for 10 days without a taper. She has had no other medication changes. She does report however that she has been getting lightheaded every time she stands up and when she was getting up this morning she got lightheaded so she tried to wait 20 to 30 minutes before going to the bathroom and upon getting to the bathroom she fe lt very lightheaded and knew she was going to pass out. She did have a syncopal event at that time. The patient did remember hitting her head. She is on Eliquis at baseline. Given the above the squad was called by the daughter and she had another syncopal event when she was trying to get up with the bonding machine operator to get on the cot. She was transiently hypotensive at that time however her blood pressure came back up after lying down with no specific treatment. She had no reported injuries with either falls. Vital signs on presentation showed a temperature of 96.5, heart rate 96, respiratory was 23 and blood pressure was initially 161/147 however repeat blood pressure was 126/57. Pulse ox was 94% on room air. CBC showed a white count of 15 with a very mild left shift. I suspect this is reactive due to the above events. Her hemoglobin was 9.3 which was down from hemoglobin done today before which was 10.3. It does appear that when she was here a couple weeks ago her hemoglobin was running anywhere from 7.5-8.8. Prior to her surgery in October her hemoglobin was 12.6. Her chemistry panel showed mild hypokalemia with a potassium of 3.2 which was replaced and a BUN with at 62 with a creatinine of 1.46 with her BUN being markedly elevated from her baseline increasing her suspicion for upper GI bleed. Her initial troponin was 50 and her cardiac enzymes were cycled with a peak of 61 but trended back down to 59. She was admitted to the PCU due to syncope and need to monitor on telemetry with consultation to GI for endoscopy. [facility] Medical History LENORE (acute kidney injury) Anemia of chronic renal failure, stage 3b Atrial fibrillation Atrial flutter Back pain Cancer Cardiology follow-up encounter Chronic pain Chronic renal failure (CRF), stage 3b Former smoker GERD (gastroesophageal reflux disease) Heartburn History of echocardiogram Hoarseness Hx of cancer of lung Infection of prosthetic hip joint Iron deficiency anemia due to chronic blood loss Kidney disease Kidney stones Leg cramps Low iron New onset atrial flutter Osteoporosis Post-menopausal Rheumatoid arthritis Shortness of breath on exertion Uses wheelchair Walker as ambulation aid Wears dentures Wears glasses Home Medications ascorbate calcium (vitamin C) 500 mg tablet 500 mg PO DAILY SUPPLEMENT 05/01/23 [History Last Taken 12/12/23] ferrous sulfate 325 mg (65 mg iron) tablet 325 mg PO DAILY SUPPLEMENT 05/01/23 [History Last Taken 12/12/23] metoprolol tartrate 25 mg tablet 25 mg PO BID AFIB 10/21/23 [History Last Taken 12/12/23] food supplemt, lactose-reduced 0.06 gram-1 kcal/mL oral liquid (Boost High Protein) 120 ml PO BID FOOD SUPPLEMENT 11/21/23 [History Last Taken Unknown] melatonin 3 mg tablet 3 mg PO QHS 11/21/23 [History Last Taken 12/12/23] pantoprazole 40 mg tablet,delayed release 40 mg PO DAILY reflux 11/21/23 [History Last Taken 12/12/23] sennosides 8.6 mg-docusate sodium 50 mg capsule (Senna Plus) 1 tab-cap PO DAILY PRN constipation 11/21/23 [History Last Taken Unknown] acetaminophen 500 mg tablet 1,000 mg (2 x 500 mg) PO TID PRN pain #0 tabs 11/25/23 [Rx Last Taken 12/12/23] apixaban 5 mg tablet (Eliquis) 2.5 mg (1/2 x 5 mg) PO BID BLOOD THINNER #180 tabs 11/25/23 [Rx Last Taken 12/12/23] ciprofloxacin HCl 500 mg tablet (Cipro) 500 mg PO DAILY #30 tabs 11/25/23 [Rx Last Taken 12/12/23] polyethylene glycol 3350 17 gram oral powder packet (Miralax) 17 g PO DAILY PRN STOOL SOFTENER 30 days #0 ea 11/25/23 [Rx Last Taken Unknown] Allergy/AdvReac Type Severity Reaction Status Date / Time oxycodone AdvReac Intermediate Itching Verified 12/13/23 07:09 Family History Mother Abdominal aneurysm Father Cancer Lung Surgical History H/O hernia repair History of cardioversion (12/15/21) History of cataract surgery History of esophagogastroduodenoscopy (EGD) History of kidney surgery History of left knee replacement History of right hip replacement Hx of hysterectomy S/P partial lobectomy of lung Social History Smoking Status: Former smoker quit date: 09/16/85 how long ago did patient quit smokin alcohol intake: current alcohol intake frequency: a few times a month substance use type: does not use caffeine: No ROS Constitutional Constitutional: Reports fatigue and weakness; Denies anorexia, change in weight, chills, fever(s), malaise, night sweats or other Eyes Eyes: Denies blurry vision, change in eye color, change in vision, discharge from eye(s), double vision, erythema, eye pain, loss of vision or other ENT HEENT: Denies abnormal hearing, dysphagia, ear pain, epistaxis, headache(s), hearing loss, nasal congestion, nasal discharge, post nasal drip, sinus press ure, sore throat or other Cardiovascular Cardiovascular: Denies chest pain, claudication, dyspnea on exertion, edema, lightheadedness, orthopnea, palpitations, paroxysmal nocturnal dyspnea, rapid heart rate, syncope or other Respiratory/Chest Respiratory/Chest: Denies cough, dyspnea, excessive phlegm production, hemoptysis, productive cough, shortness of breath at rest, shortness of breath with exertion, wheezing or other Gastrointestinal Gastrointestinal: Denies abdominal pain, coffee ground emesis, constipation, diarrhea, dyspepsia, hematemesis, hematochezia, loose stools, melena, nausea, vomiting or other Genitourinary Genitourinary: Denies burning urination, difficulty urinating, dysuria, he maturia, nocturia, urinary frequency, urinary hesitancy, urinary incontinence, urinary urgency or other Musculoskeletal Musculoskeletal: Reports joint pain and joint stiffness; Denies arthralgias, back pain, joint swelling, myalgias, neck pain or other Neurologic Neurologic: Reports syncope; Denies abnormal gait, abnormal speech, confusion, disequilibrium, dizziness, focal weakness, headache(s), numbness, paresthesias, seizure-like activity, seizures, tingling, tremor(s) or other Psychiatric Psychiatric: Denies anxiety, depression, homicidal ideation, suicidal ideation or other Endocrine Endocrinology: Denies change in body appearance, cold intolerance, excessive sweating, heat intolerance, polydipsia, polyuria or other Hematologic/Lymphatic Hematologic/Lymphatic: Reports anemia; Denies easy bleeding, easy bruising, lymphadenopathy or other Allergic/Immunologic Allergic/Immunologic: Denies rhinitis, hives, eczemia, asthma or other Vital Signs Vital Signs Vital Signs: 12/13/23 07:09 12/13/23 07:08 12/13/23 07:08 Temperature 96.5 F L Temperature Source Temporal Pulse Rate 96 Pulse Strength Respiratory Rate 23 H Respiratory Effort Normal Non-Labored Normal Non-Labored Respiratory Depth Normal Respiratory Pattern Normal Normal Blood Pressure 161/147 H Blood Pressure Mean 151 Blood Pressure Source Blood Pressure Position Blood Pressure Location Baseline BP Pulse Ox 94 Oxygen Delivery Method Room Air Room Air 12/13/23 08:08 12/13/23 09:00 12/13/23 10:07 Temperature 98.8 F Temperature Source Pulse Rate 75 87 86 Pulse Strength Respiratory Rate 26 H 22 H 23 H Respiratory Effort Respiratory Depth Respiratory Pattern Blood Pressure 126/57 H 139/61 H 108/61 Blood Pressure Mean 80 87 76 Blood Pressure Source Blood Pressure Position Blood Pressure Location Baseline BP Pulse Ox 90 96 97 Oxygen Delivery Method Room Air Room Air 12/13/23 10:03 12/13/23 11:00 12/13/23 11:26 Temperature 98.3 F Temperature Source Oral Pulse Rate 91 95 84 Pulse Strength Respiratory Rate 27 H 22 H 12 Respiratory Effort Respiratory Depth Respiratory Pattern Blood Pressure 108/61 123/70 H 108/61 Blood Pressure Mean 76 87 76 Blood Pressure Source Monitor Blood Pressure Position Semi-Fowlers Blood Pressure Location Right Arm Baseline BP Pulse Ox 96 95 96 Oxygen Delivery Method Room Air Room Air Room Air 12/13/23 16:03 12/13/23 16:03 12/13/23 16:05 Temperature 98.7 F Temperature Source Temporal Pulse Rate 99 99 Pulse Strength Normal (2+) Respiratory Rate 16 16 Respiratory Effort Respiratory Depth Respiratory Pattern Normal Blood Pressure 106/50 L 100/49 L Blood Pressure Mean 68 66 Blood Pressure Source Monitor Monitor Blood Pressure Position Semi-Fowlers Semi-Fowlers Blood Pressure Location Right Arm Right Arm Baseline BP 108/61 108/61 Pulse Ox 93 100 Oxygen Delivery Method Room Air 12/13/23 16:10 12/13/23 16:15 12/13/23 16:52 Temperature 97.5 F L 98.2 F Temperature Source Temporal Oral Pulse Rate 97 96 87 Pulse Strength Respiratory Rate 16 16 17 Respiratory Effort Respiratory Depth Respiratory Pattern Blood Pressure 125/58 H 134/58 H 122/51 H Blood Pressure Mean 80 83 74 Blood Pressure Source Monitor Monitor Monitor Blood Pressure Position Semi-Fowlers Semi-Fowlers Supine Blood Pressure Location Right Arm Right Arm Right Arm Baseline BP 108/61 108/61 Pulse Ox 100 100 98 Oxygen Delivery Method Room Air Room Air Room Air Weight Weight: 66.2 kg Body Mass Index (BMI) 24.3 Physical Exam Const alert, oriented x3, no apparent distress, average body habitus, healthy appear ing and well nourished Constitutional Narrative: Very pleasant, elderly, white female, lying in bed, appears younger than stated age, family at bedside, appears comfortable and nontoxic General Appearance: cooperative HEENT normocephalic, head/scalp atraumatic, hearing grossly normal bilaterally and m oist oral mucous membranes HEENT Narrative: Mallampati 2, no thrush, patient is edentulous Eyes PERRL and EOMs intact bilaterally Eyes Narrative: Conjunctiva are pale bilaterally, no scleral icterus Neck no lymphadenopathy and supple Neck Narrative: Trachea midline, no thyroid enlargement Resp normal respiratory effort, no retractions, no use of accessory muscles and clear to auscultation bilaterally Auscultation: Negative for rales, rhonchi or wheezes Cardio regular rate, regular rhythm, S1 normal heart sound, S2 normal heart sound, no murmurs, no rub, no gallops and no clicks GI normal to inspection, nondistended, normoactive bowel sounds, soft to palpation and non-tender Extremity no clubbing, cyanosis or edema Extremity Narrative: Pedal pulses are 2+, radial pulses are 2+ Skin no rashes or lesions noted, no wounds, skin turgor normal, no jaundice, no petechiae and no mottling Skin Narrative: Pale Neuro oriented x3, CN's II-XII intact bilaterally, moves all extremities and no focal motor deficits Speech: speech normal Psych affect normal Psych Narrative: Extremely pleasant, interacts appropriately Results Lab / Micro Data 12/13/23 11:53 12/13/23 07:15 Labs: Laboratory Results - last 24 hr 12/13/23 07:15: WBC 15.0 H, RBC 3.05 L, Hgb 9.3 L, Hct 30.2 L, MCV 99.0, MCH 30.5, MCHC 30.8 L, RDW Std Deviation 54.1 H, RDW Coeff of Dionisio 14.8 H, Plt Count 276, MPV 10.0, Immature Gran % (Auto) 1.300 H, Neut % (Auto) 71.1 H, Lymph % (Auto) 17.0 L, [place] % (Auto) 9.2, Eos % (Auto) 1.0, Baso % (Auto) 0.4, Absolute Neuts (auto) 10.7 H, Absolute Lymphs (auto) 2.55, Nucleated RBC % 0, Sodium 142, Potassium 3.2 L, Chloride 106, Carbon Dioxide 26.0, Anion Gap 10, BUN 62 H, Creatinine 1.46 H, Estim Creat Clear Calc 24.82, Est GFR (MDRD) Af Amer 43 L, Est GFR (MDRD) Non-Af 36 L, BUN/Creatinine Ratio 42.5 H, Glucose 137 H, Calcium 8.8, Troponin I High Sens 50 12/13/23 08:10: Urine Color Yellow, Urine Clarity Sl. Cloudy, Urine pH 6.0, Ur Specific [place] 1.015, Urine Protein 30 H, Urine Glucose (UA) Normal, Urine Ketones Negative, Urine Occult Blood Negative, Urine Nitrite Negative, Urine Bilirubin Negative, Urine Urobilinogen Normal, Ur Leukocyte Esterase Negative, Urine RBC 0 SEEN, Urine WBC 0 SEEN, Ur Squamous Epith Cells 0-5 SEEN, Urine Bacteria 0 SEEN, Urine Mucus 0 SEEN 12/13/23 10:09: Troponin I High Sens 61 H 12/13/23 11:53: Hgb 8.1 L, Hct 26.0 L 12/13/23 14:55: Troponin I High Sens 59 H Micro: Microbiology 12/13/23 08:29 Stool Stool Occult Blood (LUDY) - Final Occult Blood Positive Rhythm Strip Rhythm Strip: A-fib Rate: 85 Ectopy: None Imaging Radiology Impression Brain CT 12/13/23 07:18 IMPRESSION: Chronic involutional changes of the brain. Electronically Signed: Jeremy Carney MD at 7:57 EDT , Assessment & Plan Assessment/Plan (1) Elevated troponin I level: (2) Hypokalemia: (3) Occult GI bleeding: (4) ABLA (acute blood loss anemia): (5) Closed head injury: (6) Syncope due to orthostatic hypotension: PLAN: Plan Suspected upper GI bleed -N.p.o. -Serial hemoglobins -Guaiac was positive -Protonix bolus 40 mg twice daily for now -GI consultation for endoscopy Acute blood loss anemia on chronic iron deficiency anemia -Serial hemoglobins due to acute change -Transfuse for hemoglobin less than 7 or precipitous drop -Follows as an outpatient with hematology -Continue home iron supplementation -Continue vitamin C supplementation with iron to enhance absorption -Repeat CBC in a.m. Troponin elevation -Very slight -Likely related to acute blood loss anemia -Is already trending down -No further workup required at this time Hypokalemia -Replace -Recheck in a.m. -Check a magnesium level Closed head injury -CT negative for any acute findings and only shows chronic involutional changes Severe malnutrition -Add Ensure clear -Dietitian consult Rheumatoid arthritis -Patient uses prednisone on an as-needed basis for flares -Hold prednisone currently--> this could contribute to her development of gastric ulcers -Patient is not on any DMARDs Paroxysmal atrial fibrillation -Continue home metoprolol but will need to monitor blood pressure closely -Hold Eliquis CKD stage IIIb -Creatinine stable -Repeat BMP in a.m. GERD -Hold home p.o. Protonix Hypertension -Continue metoprolol History of lung cancer -Currently in remission Recent right hip total arthroplasty -PT/OT consultation -Will plan on continue home health at discharge -Patient is on Cipro 500 mg daily for suppression per infectious disease and will be on this for sometimes -Will continue History of tobacco abuse -Remote -Encourage ongoing cessation DVT prophylaxis -SCDs -GI bleeding CODE STATUS -DNR CCA with no intubation Charges/Coding Visit Charges Inpatient E&M: 37473 Init Hosp L3
[2023-12-13] MEDS: Pantoprazole Sodium 80 MG in 0.9% Normal Saline (50mL Bag) 15 ML 420 MG IV BOLUS (17:43)
[2023-12-13] MEDS: Pantoprazole Sodium 80 MG in 0.9% Normal Saline (100mL Bag) 80 ML 10 MG CONT INF (17:44)
[2023-12-13] MEDS: Fluconazole 100 MG Tablet 200 MG PO (17:44)
[2023-12-13] MEDS: Sucralfate 1 GM Tablet PO (20:45)
[2023-12-13] MEDS: Metoprolol Tartrate 25 MG Tablet PO (20:45)
[2023-12-13] MEDS: MELATONIN 3 MG TABLET PO (20:45)
[2023-12-13] MEDS: Acetaminophen 500 MG Tablet 1000 MG PO (22:18)
[2023-12-13 23:05] LABS: Hematocrit 23.7 % (37-47); Hemoglobin 7.3 g/dL (12.0-15.0)
[2023-12-14] VITALS (15 sets, daily range): BP systolic 88–156; BP diastolic 37–88; PULSE 66–92; RESP 14–22; TEMP 36.4–36.9; O2SAT 94–99
[2023-12-14] MEDS: Pantoprazole Sodium 80 MG in 0.9% Normal Saline (100mL Bag) 80 ML 10 MG CONT INF ×3 (03:14→22:32)
[2023-12-14] MEDS: Sucralfate 1 GM Tablet PO ×4 (05:47→20:27)
[2023-12-14 07:18] LABS: Absolute Neutrophil Count 5.9 X10^3/uL (2.0-7.7); Basophil# 0.02 X10^3/uL; Basophil% 0.2 % (0-1); Eosinophil# 0.29 X10^3/uL; Eosinophils% 3.1 % (0-5); Hematocrit 24.3 % (37-47); Hemoglobin 7.5 g/dL (12.0-15.0); Lymphocyte % 24.5 % (19-41); Mean Corp Hgb Conc 30.9 g/dL (32-36); Mean Corpuscular Hgb 30.6 pg (27.0-32.0); Mean Corpuscular Volume 99.2 fL (81-99); Mean Platelet Vol. 9.6 fl (6.2-12.0); Monocyte# 0.77 X10^3/uL; Monocyte% 8.2 % (0-10); NRBC Flagged by Analyzer 0 % (0-5); Neutrophil # 5.93 X10^3/uL (2.7-7.7); Neutrophil % 63.1 % (47-70); Platelet Count 208 K/mm3 (150-450); RBC Distribution Width CV 15.2 % (11.6-14.6); RBC Distribution Width SD 55.1 fl (35.1-43.9); Red Blood Count 2.45 M/mm3 (4.2-5.4); White Blood Count 9.4 K/mm3 (4.4-11.0)
[2023-12-14 07:38] LABS: AST(SGOT) 19 U/L (15-37); Alanine Aminotransfer ALT/SGPT 12 U/L (13-56); Albumin, Serum 2.4 g/dL (3.2-5.0); Alkaline Phosphatase 62 U/L (45-117); Anion Gap 3 (5-15); BUN 35 mg/dL (7-18); BUN/Creat Ratio 34.3 RATIO (10-20); Calcium,Total 8.1 mg/dL (8.5-10.1); Chloride 115 mmol/L (98-107); Creatinine, Serum 1.02 mg/dL (0.55-1.02); EST Glomerular Filtration Rate 54 mL/min (>60); Est Glom Filt Rate - Afr Amer 66 mL/min (>60); Estimated Creatinine Clearance 33.65 ml/min; Globulin 2.5 g/dL (2.2-4.2); Glucose 92 mg/dL (74-106); Magnesium 1.8 mg/dL (1.6-2.6); Phosphorus 2.1 mg/dL (2.5-4.9); Potassium 3.6 mmol/L (3.5-5.1); Protein, Total 4.9 g/dL (6.4-8.2); Sodium Level 145 mmol/L (136-145)
[2023-12-14] MEDS: Metoprolol Tartrate 25 MG Tablet PO ×2 (09:15→20:27)
[2023-12-14] MEDS: Fluconazole 100 MG Tablet 200 MG PO (09:16)
[2023-12-14] MEDS: Ascorbic Acid 500 MG Tablet PO (09:16)
[2023-12-14] MEDS: Ciprofloxacin 500 MG Tablet PO (09:16)
[2023-12-14] MEDS: Potassium Phosphate 30 MM in 0.9% Normal Saline (250mL Bag) 250 ML 42 MM IV (11:07)
[2023-12-14] MEDS: 0.9% Saline Lock 10 ML Syringe IV (11:07)
--- NOTE | 2023-12-14 11:56 | PCM.PN.HOSP ---
Reason for Visit Reason for Visit: Syncope Subjective Subjective Patient states she is feeling much better today. Was able to eat clear liquids without any difficulty. No stomach pain. Has not yet been out of bed. We did discuss the plan for possible discharge tomorrow as long as she stays stable. Her hemoglobin is down quite a bit from her baseline so we will go ahead and transfuse 1 unit especially with her mild troponin elevation at the time presentation Objective Data Objective Data Vital Signs: Vital Signs Temp Pulse Resp BP Pulse Ox O2 Del Method 97.9 F 74 16 122/51 H 94 Room Air 12/14/23 09:15 12/14/23 09:15 12/14/23 09:15 12/14/23 09:15 12/14/23 09:15 12/14/23 09:15 Oxygen Delivery Method Room Air Weight: 66.2 kg Body Mass Index (BMI) 24.3 Intake & Output: Intake and Output for Last 24 Hours 12/12/23 12/13/23 12/14/23 23:59 23:59 23:59 Intake Total 2006.83 / 2005.83 1411.33 / 1411.33 Output Total 550 / 550 1025 / 1025 Balance 1456.83 / 1456.83 386.33 / 386.33 Lab / Micro Data 12/14/23 07:01 12/14/23 07:01 Labs: Laboratory Results - last 24 hr 12/13/23 11:53: Hgb 8.1 L, Hct 26.0 L 12/13/23 14:55: Troponin I High Sens 59 H 12/13/23 16:50: Hgb 8.0 L, Hct 26.0 L 12/13/23 22:58: Hgb 7.3 L, Hct 23.7 L 12/14/23 07:01: WBC 9.4, RBC 2.45 L, Hgb 7.5 L, Hct 24.3 L, MCV 99.2 H, MCH 30.6, MCHC 30.9 L, RDW Std Deviation 55.1 H, RDW Coeff of Dionisio 15.2 H, Plt Count 208, MPV 9.6, Immature Gran % (Auto) 0.900, Neut % (Auto) 63.1, Lymph % (Auto) 24.5, [place] % (Auto) 8.2, Eos % (Auto) 3.1, Baso % (Auto) 0.2, Absolute Neuts (auto) 5.9, Absolute Lymphs (auto) 2.30, Nucleated RBC % 0, Sodium 145, Potassium 3.6, Chloride 115 H, Carbon Dioxide 27.0, Anion Gap 3 L, BUN 35 H, Creatinine 1.02, Estim Creat Clear Calc 33.65, Est GFR (MDRD) Af Amer 66, Est GFR (MDRD) Non-Af 54 L, BUN/Creatinine Ratio 34.3 H, Glucose 92, Calcium 8.1 L, Phosphorus 2.1 L, Magnesium 1.8, Total Bilirubin 0.80, AST 19, ALT 12 L, Alkaline Phosphatase 62, Total Protein 4.9 L, Albumin 2.4 L, Globulin 2.5, Albumin/Globulin Ratio 1.0 Micro: Microbiology 12/13/23 08:29 Stool Stool Occult Blood (LUDY) - Final Occult Blood Positive Rhythm Strip Rhythm Strip: A-fib Rate: 85 Ectopy: None Physical Exam Const alert, oriented x3, no apparent distress, average body habitus, healthy appearing and well nourished Constitutional Narrative: Very pleasant, elderly, white female, lying in bed, appears younger than stated age, family at bedside, appears comfortable and nontoxic General Appearance: cooperative HEENT normocephalic, head/scalp atraumatic and moist oral mucous membranes HEENT Narrative: Mallampati 2, dentures in place, no thrush Resp normal respiratory effort, no retractions, no use of accessory muscles and clear to auscultation bilaterally Auscultation: Negative for rales, rhonchi or wheezes Cardio regular rate, regular rhythm, S1 normal heart sound, S2 normal heart sound, no murmurs, no rub, no gallops and no clicks GI normal to inspection, nondistended, normoactive bowel sounds, soft to palpation and non-tender Extremity no clubbing, cyanosis or edema Extremity Narrative: Pedal pulses are 2+, radial pulses are 2+ Neuro oriented x3, moves all extremities and no focal motor deficits Speech: speech normal Psych affect normal Psych Narrative: Extremely pleasant, interacts appropriately Assessment & Plan Assessment/Plan (1) Elevated troponin I level: (2) Hypokalemia: (3) Occult GI bleeding: (4) ABLA (acute blood loss anemia): (5) Closed head injury: (6) Syncope due to orthostatic hypotension: (7) Esophageal candidiasis: PLAN: Plan Upper GI bleed secondary to duodenal ulcers -EGD done on 12/13/2023 that showed a esophageal plaques consistent with candidiasis, blood in the stomach, blood in the duodenal bulb with oozing duodenal ulcers and a visible vessel that was injected and treated with heater probe -Hemoglobin appears to be stabilizing -Will give 1 unit packed red blood cells this morning -Continue Protonix drip with plans to transition to oral Protonix twice daily for 8 weeks -Carafate started last evening after EGD--> will continue for 6 weeks at discharge -Did well with clear liquids will advance to full liquids and then regular diet if does well -Will plan to hold Eliquis for 7 days at discharge -GI following-appreciate input Acute blood loss anemia on chronic iron deficiency anemia -Serial hemoglobins due to acute change -Transfuse for hemoglobin less than 7 or precipitous drop -Hemoglobin down to 7.5 so we will give 1 unit since she was symptomatic -Follows as an outpatient with hematology -Continue home iron supplementation -Continue vitamin C supplementation with iron to enhance absorption -Repeat CBC in a.m. Esophageal candidiasis -Fluconazole 200 mg daily for 10 days--> if able to be discharged tomorrow will need 7 more days -Likely related to prednisone use -Check a.m. EKG for QTc prolongation since she is on Cipro Troponin elevation -Very slight -Likely related to acute blood loss anemia -Is already trending down -No further workup required at this time Hypokalemia -Resolved Hypophosphatemia -K-Phos bolus given -Oral supplemental Phos given -Repeat in a.m. Closed head injury -CT negative for any acute findings and only shows chronic involutional changes Severe malnutrition -Continue Ensure clear -Dietitian is following Rheumatoid arthritis -Patient uses prednisone on an as-needed basis for flares -Hold prednisone currently--> this could contribute to her development of gastric ulcers -Patient is not on any DMARDs Paroxysmal atrial fibrillation -Continue home metoprolol but will need to monitor blood pressure closely -Hold Eliquis for another week at discharge CKD stage IIIb -Creatinine stable -Repeat BMP in a.m. GERD -Hold home p.o. Protonix Hypertension -Continue metoprolol History of lung cancer -Currently in remission Recent right hip total arthroplasty -PT/OT following -Will plan on continue home health at discharge -Patient is on Cipro 500 mg daily for suppression per infectious disease and will be on this for sometimes -Will continue History of tobacco abuse -Remote -Encourage ongoing cessation DVT prophylaxis -SCDs -GI bleeding CODE STATUS -DNR CCA with no intubation Charges/Coding Visit Charges Inpatient E&M: 62013 Subs Hosp L2
--- NOTE | 2023-12-14 18:00 | CASEMGMT ---
Social Work - SDOH assessment SDOH screen triggered for housing. Met with patient in room, introduced to SW role. Completed SDOH screen, to which patient denies any concerns with housing stability, or the situation itself. Patient talkative during SW visit, reflective about life and losing friends throughout the years. Supportive listening offered. -GABRIELA Flores
[2023-12-14 20:09] LABS: Hemoglobin 10.5 g/dL (12.0-15.0)
[2023-12-14] MEDS: Ensure Clear 120 ML Liquid PO (20:26)
[2023-12-14] MEDS: MELATONIN 3 MG TABLET PO (20:27)
--- NOTE | 2023-12-14 20:33 | CASEMGMT ---
RN CM readmission note: Index admission: Admitted from SNF 11/20 (was there for 6 wks IV atb's) w/LENORE on CKD. See Betsy OLMEDO, note 11/21. IV atb's d/c'd d/t felt cause of LENORE was d/t the atb's. Pt discharged home 11/24 w/prednisone taper x 10 days. On Eliquis @ baseline. Did not want HHC initially but when RN CM did f/u phone call 11/26, pt wanted HHC. [facility] set up for SN and therapy. See this RN CM note under hairspring assembler call intervention. Current admission: Admitted 12/12 w/syncope and GIB. RN CM to room. Pt resting in bed. Several family members @ bedside and pt agreeable to them remaining present during RN CM conversation. Per family and pt, since last admission, pt has been taking medications as prescribed and has f/u with physicians as directed. They have been in contact w/pt's PCP, Dr Cuevas, and cardiolgy and some med changes were made. [facility] weeks ago and saw Dr Bustamante. Pt has upcoming appts w/Dr Boo (01/05) and Dr Wagoner (01/06). Pt wishes to discharge home w/[facility] for SN and therapy. She declines wanting list of other HHC options. Pt and family deny having other discharge planning needs or concerns. [facility] order placed. Jose [email or web address]@ [facility] aware pt has been admitted to [facility] and that she may be medically ready for discharge tomorrow. Plan: Home w/[facility] and family support. Jana COATES RN CM
[2023-12-15] VITALS (8 sets, daily range): BP systolic 83–149; BP diastolic 50–79; PULSE 64–79; RESP 14–18; TEMP 36.4–37; O2SAT 93–99
--- NOTE | 2023-12-15 05:55 | EKG12_ITS ---
Test Reason : AM EKG Blood Pressure : / mmHG Vent. Rate : 070 BPM Atrial Rate : 070 BPM P-R Int : 176 ms QRS Dur : 092 ms QT Int : 414 ms P-R-T Axes : 015 -04 021 degrees QTc Int : 447 ms Normal sinus rhythm Minor Nonspecific ST abnormality Abnormal ECG When compared with ECG of 13-DEC-2023 07:18, MANUAL COMPARISON REQUIRED, DATA IS UNCONFIRMED Confirmed by Pranav Lee ([id number]), editor newspaper ROMINA DURAN ([id number]) on 12/16/2023 12:59:41 PM Referred By: Confirmed By:Praanv Lee
[2023-12-15] MEDS: Sucralfate 1 GM Tablet PO ×4 (06:13→21:08)
[2023-12-15 06:26] LABS: Hematocrit 32.7 % (37-47); Hemoglobin 10.6 g/dL (12.0-15.0); Mean Corp Hgb Conc 32.4 g/dL (32-36); Mean Corpuscular Hgb 30.5 pg (27.0-32.0); Mean Corpuscular Volume 94.2 fL (81-99); Mean Platelet Vol. 9.9 fl (6.2-12.0); Platelet Count 187 K/mm3 (150-450); RBC Distribution Width CV 16.8 % (11.6-14.6); Red Blood Count 3.47 M/mm3 (4.2-5.4); White Blood Count 8.7 K/mm3 (4.4-11.0)
[2023-12-15 07:00] LABS: Anion Gap 5 (5-15); BUN 19 mg/dL (7-18); BUN/Creat Ratio 18.3 RATIO (10-20); Calcium,Total 7.9 mg/dL (8.5-10.1); Chloride 115 mmol/L (98-107); Creatinine, Serum 1.04 mg/dL (0.55-1.02); EST Glomerular Filtration Rate 53 mL/min (>60); Est Glom Filt Rate - Afr Amer 64 mL/min (>60); Glucose 100 mg/dL (74-106); Magnesium 1.8 mg/dL (1.6-2.6); Phosphorus 2.7 mg/dL (2.5-4.9); Potassium 3.4 mmol/L (3.5-5.1); Sodium Level 145 mmol/L (136-145)
[2023-12-15 07:21] LABS: Scan Indicated on CBC? Y/N NO
[2023-12-15] MEDS: Fluconazole 100 MG Tablet 200 MG PO (09:40)
[2023-12-15] MEDS: Ciprofloxacin 500 MG Tablet PO (09:41)
[2023-12-15] MEDS: Ascorbic Acid 500 MG Tablet PO (09:41)
[2023-12-15] MEDS: Potassium Chloride Oral Tablet 20 MEQ 40 MEQ PO (09:43)
[2023-12-15] MEDS: Pantoprazole Sodium 40 MG Tablet PO ×2 (09:43→21:07)
[2023-12-15] MEDS: 0.9% Normal Saline (1000mL) 1,000 ML 999 ML IV (09:46)
[2023-12-15 10:50] LABS: Bacteria 0 SEEN /hpf (None Seen); Mucous, Urine 0 SEEN /hpf (<or=2+); Red Blood Cells-Urine 0 SEEN /hpf (0-5); Squamous Epithelial Cells - UA 0 SEEN /hpf (5-10); White Blood Cells 0 SEEN /hpf (0-5)
[2023-12-15 11:00] LABS: Color, Urine Yellow (Yellow); Glucose, Dipstick Normal (Normal); Ketone-Dipstick Negative (Negative); Leukocyte Esterase-Dipstick Negative /ul (Negative); Nitrite-Dipstick Negative (Negative); Occult Blood-Urine 10 /ul (Negative); Protein-Dipstick Negative (Negative); Specific Gravity, Urine 1.015 (1.002-1.030); Urine Bilirubin Dipstick Negative (Negative); Urine Clarity Clear (Clear); Urine Urobilinogen Normal (Normal)
--- NOTE | 2023-12-15 13:50 | PN.HOSP_ITS ---
Reason for Visit Reason for Visit: Syncope Subjective Subjective Patient states she is feeling much better overall however was complaining of lightheadedness and did have a syncopal episode yesterday. Still with lightheadedness and positive orthostatic vitals today. Also is complaining of a fullness sensation of her bladder that she experiences only when she urinates. She is never had this before. Her UA is unremarkable. Objective Data Objective Data Vital Signs: Vital Signs Temp Pulse Resp BP Pulse Ox O2 Del Method 98.6 F 64 16 149/59 H 93 Room Air 12/15/23 09:00 12/15/23 11:34 12/15/23 09:00 12/15/23 11:34 12/15/23 09:00 12/15/23 09:00 Oxygen Delivery Method Room Air Weight: 66.2 kg Body Mass Index (BMI) 24.3 Intake & Output: Intake and Output for Last 24 Hours 12/13/23 12/14/23 12/15/23 23:59 23:59 23:59 Intake Total 2006.83 / 2006.83 2464.33 / 2464.33 1220 / 1220 Output Total 550 / 550 2025 / 2025 650 / 650 Balance 1456.83 / 1456.83 439.33 / 439.33 570 / 570 Lab / Micro Data 12/15/23 05:39 12/15/23 05:39 Labs: Laboratory Results - last 24 hr 12/14/23 12:15: Blood Type O POSITIVE, Antibody Screen NEGATIVE, Crossmatch See Detail 12/14/23 19:58: Hgb 10.5 L 12/15/23 05:39: WBC 8.7, RBC 3.47 L, Hgb 10.6 L, Hct 32.7 L, MCV 94.2 D, MCH 30.5, MCHC 32.4, RDW Std Deviation 57.0 H, RDW Coeff of Dionisio 16.8 H, Plt Count 187, MPV 9.9, Sodium 145, Potassium 3.4 L, Chloride 115 H, Carbon Dioxide 25.0, Anion Gap 5, BUN 19 H, Creatinine 1.04 H, Estim Creat Clear Calc 33.00, Est GFR (MDRD) Af Amer 64, Est GFR (MDRD) Non-Af 53 L, BUN/Creatinine Ratio 18.3, Glucose 100, Calcium 7.9 L, Phosphorus 2.7, Magnesium 1.8 12/15/23 10:48: Urine Color Yellow, Urine Clarity Clear, Urine pH 8.0, Ur Specific [place] 1.015, Urine Protein Negative, Urine Glucose (UA) Normal, Urine Ketones Negative, Urine Occult Blood 10 H, Urine Nitrite Negative, Urine Bilirubin Negative, Urine Urobilinogen Normal, Ur Leukocyte Esterase Negative, Urine RBC 0 SEEN, Urine WBC 0 SEEN, Ur Squamous Epith Cells 0 SEEN, Urine Bacteria 0 SEEN, Urine Mucus 0 SEEN Micro: Microbiology 12/13/23 08:29 Stool Stool Occult Blood (LUDY) - Final Occult Blood Positive Rhythm Strip Rhythm Strip: A-fib Rate: 85 Ectopy: None Physical Exam Const alert, oriented x3, no apparent distress, average body habitus, healthy appearing and well nourished Constitutional Narrative: Very pleasant, elderly, white female, lying in bed, appears younger than stated age, nurse at bedside and has just completed orthostatic vitals, appears comfortable and nontoxic General Appearance: cooperative HEENT normocephalic, head/scalp atraumatic, hearing grossly normal bilaterally and moist oral mucous membranes HEENT Narrative: Dentures in place, Mallampati is 2, no thrush Resp normal respiratory effort, no retractions, no use of accessory muscles and clear to auscultation bilaterally Auscultation: Negative for rales, rhonchi or wheezes Cardio regular rate, regular rhythm, S1 normal heart sound, S2 normal heart sound, no murmurs, no rub, no gallops and no clicks GI normal to inspection, nondistended, normoactive bowel sounds, soft to palpation and non-tender Extremity no clubbing, cyanosis or edema Extremity Narrative: Pedal pulses are 2+, radial pulses are 2+ Skin Skin Narrative: Pale Neuro oriented x3, moves all extremities and no focal motor deficits Speech: speech normal Psych affect normal Psych Narrative: Extremely pleasant, interacts appropriately Assessment & Plan Assessment/Plan (1) Elevated troponin I level: (2) Hypokalemia: (3) Occult GI bleeding: (4) ABLA (acute blood loss anemia): (5) Closed head injury: (6) Syncope due to orthostatic hypotension: (7) Esophageal candidiasis: PLAN: Plan Upper GI bleed secondary to duodenal ulcers -EGD done on 12/13/2023 that showed a esophageal plaques consistent with candidiasis, blood in the stomach, blood in the duodenal bulb with oozing duodenal ulcers and a visible vessel that was injected and treated with heater probe -Hemoglobin at 10.5 this morning after 2 units transfused on 12/14/2023 -Patient received 2 units packed red blood cells on 12/14/2023 for symptomatic anemia -She did have a syncopal episode yesterday -Hemoglobin better today at 10.5 -Stop Protonix drip and start Protonix 40 mg p.o. twice daily -Carafate 4 times daily--> will continue for 6 weeks at discharge -Continue regular diet -Will plan to hold Eliquis for 7 days at discharge -GI following-appreciate input--> okay for discharge from GI standpoint when medically stable Orthostatic hypotension -Patient with symptomatic orthostasis today -1.5 L bolus given and symptoms are improving -Will hold off repeating orthostatic vitals and see if she is symptomatic at all Bladder fullness sensation -UA is unremarkable and no signs of infection -Suspect bladder spasms -Will start Pyridium -Postvoid residual was obtained and she is retaining a little bit more than she should -Would avoid adding any medication at this point however because it would in crease her risk of falls overall -Continue to monitor Acute blood loss anemia on chronic iron deficiency anemia -Serial hemoglobins due to acute change -Transfuse for hemoglobin less than 7 or precipitous drop -Hemoglobin down to 7.5 so we will give 1 unit since she was symptomatic -Follows as an outpatient with hematology -Continue home iron supplementation -Continue vitamin C supplementation with iron to enhance absorption -Repeat CBC in a.m. Esophageal candidiasis -Fluconazole 200 mg daily for 10 days--> day 3 of 10 -Likely related to prednisone use -EKG reviewed after 48 hours of combination use of fluconazole and Cipro and QTc remained stable and normal Troponin elevation -Very slight -Likely related to acute blood loss anemia -Is already trending down -No further workup required at this time Closed head injury -CT negative for any acute findings and only shows chronic involutional changes Severe malnutrition -Continue Ensure clear -Dietitian is following Rheumatoid arthritis -Patient uses prednisone on an as-needed basis for flares -Hold prednisone currently--> this could contribute to her development of gastric ulcers -Patient is not on any DMARDs Paroxysmal atrial fibrillation -Continue home metoprolol but will need to monitor blood pressure closely -Hold Eliquis for another week at discharge CKD stage IIIb -Creatinine stable -Repeat BMP in a.m. GERD -Hold home p.o. Protonix Hypertension -Continue metoprolol History of lung cancer -Currently in remission Recent right hip total arthroplasty -PT/OT following -Will plan on continue home health at discharge -Patient is on Cipro 500 mg daily for suppression per infectious disease and will be on this for sometimes -Will continue History of tobacco abuse -Remote -Encourage ongoing cessation DVT prophylaxis -SCDs -GI bleeding CODE STATUS -DNR CCA with no intubation Disposition: -IV fluids and Pyridium for bladder -Probable discharge on 12/16/2023 -Prescriptions faxed to the pharmacy on 12/15/2023 Charges/Coding Visit Charges Inpatient E&M: 98094 Subs Hosp L2
[2023-12-15] MEDS: Phenazopyridine 95 MG Tablet PO ×2 (15:05→21:08)
[2023-12-15] MEDS: 0.9% Normal Saline (500mL Bag) 500 ML 999 ML IV (15:05)
[2023-12-15] MEDS: Metoprolol Tartrate 25 MG Tablet PO (21:07)
[2023-12-15] MEDS: Ensure Clear 120 ML Liquid PO (21:07)
[2023-12-15] MEDS: MELATONIN 3 MG TABLET PO (21:08)
[2023-12-16 03:00] VITALS: BP 145/59; PULSE 62; RESP 16; TEMP 36.6; O2SAT 93
[2023-12-16] MEDS: Phenazopyridine 95 MG Tablet PO ×2 (05:50→14:31)
[2023-12-16] MEDS: Sucralfate 1 GM Tablet PO ×2 (05:50→13:05)
[2023-12-16 07:08] LABS: Hematocrit 33.4 % (37-47); Hemoglobin 10.7 g/dL (12.0-15.0); Mean Corpuscular Volume 96.8 fL (81-99); Mean Platelet Vol. 9.4 fl (6.2-12.0); Platelet Count 184 K/mm3 (150-450); RBC Distribution Width CV 16.7 % (11.6-14.6); Red Blood Count 3.45 M/mm3 (4.2-5.4); White Blood Count 7.9 K/mm3 (4.4-11.0)
[2023-12-16 07:36] LABS: Anion Gap 2 (5-15); BUN 12 mg/dL (7-18); BUN/Creat Ratio 10.3 RATIO (10-20); Calcium,Total 8.1 mg/dL (8.5-10.1); Chloride 114 mmol/L (98-107); Creatinine, Serum 1.16 mg/dL (0.55-1.02); EST Glomerular Filtration Rate 47 mL/min (>60); Est Glom Filt Rate - Afr Amer 57 mL/min (>60); Estimated Creatinine Clearance 29.59 ml/min; Glucose 129 mg/dL (74-106); Potassium 3.9 mmol/L (3.5-5.1); Sodium Level 143 mmol/L (136-145)
[2023-12-16] MEDS: Fluconazole 100 MG Tablet 200 MG PO (08:05)
[2023-12-16] MEDS: Pantoprazole Sodium 40 MG Tablet PO (08:05)
[2023-12-16 08:06] VITALS: PULSE 68
[2023-12-16] MEDS: Ascorbic Acid 500 MG Tablet PO (08:06)
[2023-12-16] MEDS: Metoprolol Tartrate 25 MG Tablet PO (08:06)
[2023-12-16] MEDS: Ciprofloxacin 500 MG Tablet PO (08:06)
[2023-12-16 09:00] VITALS: BP 144/91; PULSE 65; RESP 16; TEMP 36.6; O2SAT 95
[2023-12-16 10:23] VITALS: O2SAT 95
[2023-12-16 12:02] VITALS: BP 108/63; BP 111/66; BP 126/74; PULSE 64; PULSE 69; PULSE 72
--- NOTE | 2023-12-16 13:35 | DS.PCM_ITS ---
Providers Date of Admission: 12/13/23 Date of Discharge: 12/16/23 Primary Care Physician: Dr. Sylvia Cuevas MD Consultations 12/13/23 11:24 Consult: Gastroenterology Routine Consulting Provider: [facility] Reason for Consult: GI bleed EMERGENT Consult: No MD Notified: Yes Date Notified: 12/13/23 Time Notified: 09:46 Method of Notification: Verbal Reason For Visit: SYNCOPE/GI BLEED Diagnosis Discharge Diagnosis (1) Elevated troponin I level: Status: Acute Code(s): R79.89 - Other specified abnormal findings of blood chemistry (2) Hypokalemia: Status: Acute Code(s): E87.6 - Hypokalemia (3) Occult GI bleeding: Status: Acute Code(s): R19.5 - Other fecal abnormalities (4) ABLA (acute blood loss anemia): Status: Acute Code(s): D62 - Acute posthemorrhagic anemia (5) Closed head injury: Status: Acute Code(s): S09.90XA - Unspecified injury of head, initial encounter (6) Syncope due to orthostatic hypotension: Status: Acute Code(s): I95.1 - Orthostatic hypotension (7) Esophageal candidiasis: Status: Acute Code(s): B37.81 - Candidal esophagitis Medications at Discharge Home Medications ascorbate calcium (vitamin C) 500 mg tablet 500 mg PO DAILY SUPPLEMENT 05/01/23 ferrous sulfate 325 mg (65 mg iron) tablet 325 mg PO DAILY SUPPLEMENT 05/01/23 metoprolol tartrate 25 mg tablet 25 mg PO BID AFIB 10/21/23 food supplemt, lactose-reduced 0.06 gram-1 kcal/mL oral liquid (Boost High Protein) 120 ml PO BID FOOD SUPPLEMENT 11/21/23 melatonin 3 mg tablet 3 mg PO QHS sleep 11/21/23 sennosides 8.6 mg-docusate sodium 50 mg capsule (Senna Plus) 1 tab-cap PO DAILY PRN constipation 11/21/23 acetaminophen 500 mg tablet 1,000 mg (2 x 500 mg) PO TID PRN pain #0 tabs 11/25/23 apixaban 5 mg tablet (Eliquis) 2.5 mg (1/2 x 5 mg) PO BID BLOOD THINNER #180 tabs 11/25/23 ciprofloxacin HCl 500 mg tablet (Cipro) 500 mg PO DAILY infection #30 tabs 11/25/23 polyethylene glycol 3350 17 gram oral powder packet (Miralax) 17 g PO DAILY PRN STOOL SOFTENER 30 days #0 ea 11/25/23 fluconazole 100 mg tablet 200 mg (2 x 100 mg) PO DAILY #6 tabs 12/15/23 pantoprazole 40 mg tablet,delayed release 40 mg PO BID #60 tabs 12/15/23 phenazopyridine 95 mg tablet (Azo Urinary Pain Relief) 95 mg PO TID #21 tabs 12/15/23 sucralfate 1 gram tablet 1 g PO 1HR_ACHS #180 tabs 12/15/23 Hospital Course Operations None Procedures EKG and - (CT brain w/o contrast) Summary of Care Provided Minutes Spent on Discharge: 35 Hospital Course: Patient is an 88 year old female who presented to [facility] on 12/12/2023 with orthostasis and presyncopal symptoms. Hospital course as noted below. Patient discharged home with [facility] in stable condition on 12/16/2023. 1. Upper GI bleed secondary to duodenal ulcers, acute blood loss anemia in setting of chronic iron deficiency anemia EGD 12/12 showed esophageal plaques consistent w/ candidiasis, blood in the stomach, blood in the duodenal bulb w/ oozing duodenal ulcers and visible vessel that was injected and treated w/ heater probe. Hemoglobin crys of 7.3 on 12/12, s/p 2 units of pRBCs with improvement to 10.5. - GI followed. Treated w/ IV PPI twice daiy while inpatient, deescalated to PO PPI twice daily on discharge. Hemoglobin stable at 10.7 on day of discharge. Continue carafate 4 times daily for 6 weeks on discharge. Continue regular diet. Holding Eliquis for 7 days on discharge then okay to resume. 2. Orthostatic hypotension, improved - Noted on symptomatic orthostatic hypotension on 12/14. Given 1.5 L bolus of IV fluids. Repeat orthostatic vitals on day of discharge much improved. 3. Bladder fullness sensation - Suspect bladder spasms. UA unremarkable, no systemic signs of infection. Treated w/ Pyridium while inpatient w/ mild improvement. Had mildly elevated post void residual but no meds were added for this due to risk for hypotension and falls. Monitor in outpatient setting. 4. Esophageal candidiasis - Suspect related to prednisone use. Treating w/ PO fluconazole 200 mg daily for 10 days, stop date 12/21. 5. Troponin elevation - Very slight then trended down. Suspect secondary to acute blood loss anemia. 6. Closed head injury - CT head on admit negative for any acute findings. Stable. 7. Severe malnutrition - Nutrition followed. Ensure clear added w/ meals. Chronic medical conditions: - RA: Prednisone held during admission due to concern it could worsen GI blood. Held on discharge as well, follow up outpatient for further recs. - Paroxysmal Afib: Continue home metoprolol. Holding Eliquis for 1 week on dc as noted above. - CKD stage IIIb: Stable at baseline during admission. - GERD: Continue PO PPI twice daily on dc. - HTN: Continue home metoprolol. - History of lung cancer: In remission. - Recent R hip total arthoplasty: PT/OT followed. Home w/ HHC on discharge. - History of tobacco abuse: Remote, encouraged ongoing cessation. Total clinical time spent by myself addressing the patient's medical issues, reviewing all the data, and collaborating with patient's care team: 35 minutes. Physical Exam Const alert, oriented x3, no apparent distress, average body habitus, healthy appearing and well nourished Constitutional Narrative: Very pleasant, elderly, white female, lying in bed, appears younger than stated age, appears comfortable and nontoxic General Appearance: cooperative HEENT normocephalic, head/scalp atraumatic, hearing grossly normal bilaterally and moist oral mucous membranes HEENT Narrative: Dentures in place, no thrush Resp normal respiratory effort, no retractions, no use of accessory muscles and clear to auscultation bilaterally Auscultation: Negative for rales, rhonchi or wheezes Cardio regular rate, regular rhythm, S1 normal heart sound, S2 normal heart sound, no murmurs, no rub, no gallops and no clicks GI normal to inspection, nondistended, normoactive bowel sounds, soft to palpation and non-tender Extremity no clubbing, cyanosis or edema Extremity Narrative: Pedal pulses are 2+, radial pulses are 2+ Skin Skin Narrative: Pale Neuro oriented x3, moves all extremities and no focal motor deficits Speech: speech normal Psych affect normal Psych Narrative: Extremely pleasant, interacts appropriately Weight / BMI Weight Weight: 66.2 kg Body Mass Index (BMI) 24.3 ABG / Lab / Microbiology Data 12/16/23 06:30 12/16/23 06:30 Laboratory: Laboratory Results - last 24 hr 12/16/23 06:30: WBC 7.9, RBC 3.45 L, Hgb 10.7 L, Hct 33.4 L, MCV 96.8, MCH 31.0, MCHC 32.0, RDW Std Deviation 58.0 H, RDW Coeff of Dionisio 16.7 H, Plt Count 184, MPV 9.4, Sodium 143, Potassium 3.9, Chloride 114 H, Carbon Dioxide 27.0, Anion Gap 2 L, BUN 12, Creatinine 1.16 H, Estim Creat Clear Calc 29.59, Est GFR (MDRD) Af Amer 57 L, Est GFR (MDRD) Non-Af 47 L, BUN/Creatinine Ratio 10.3, Glucose 129 H, Calcium 8.1 L Microbiology: Microbiology 12/13/23 08:29 Stool Stool Occult Blood (LUDY) - Final Occult Blood Positive D/C Instructions Discharge Diet: No restrictions Weight Bearing Status: Full weight bearing Meaningful Use Info Meaningful Use Diagnoses (Choose all that apply): None applicable Discharge Plan Admission Admit Date/Time: 12/13/23 09:45 Primary Reason for Your Visit: Syncope/upper GI bleed Attending Provider: Isiah Grady Primary Care Provider: Sylvia Cuevas Consulting Providers: Mikayla Vega Discharge Orders/Prescriptions Prescriptions: New fluconazole 100 mg Tablet 200 mg PO DAILY Qty: 6 0RF pantoprazole 40 mg Tablet,Delayed Release (Dr/Ec) 40 mg PO BID Qty: 60 2RF sucralfate 1 gram Tablet 1 g PO 1HR_ACHS Qty: 180 0RF phenazopyridine [Azo Urinary Pain Relief] 95 mg Tablet 95 mg PO TID Qty: 21 0RF Continued ascorbate calcium (vitamin C) 500 mg tablet 500 mg PO DAILY metoprolol tartrate 25 mg tablet 25 mg PO BID Boost High Protein 0.06 gram- 1 kcal/mL liquid 120 ml PO BID melatonin 3 mg tablet 3 mg PO QHS Senna Plus 8.6-50 mg capsule 1 tab-cap PO DAILY PRN (Reason: constipation) ciprofloxacin HCl [Cipro] 500 mg tablet 500 mg PO DAILY Qty: 30 0RF polyethylene glycol 3350 [Miralax] 17 gram powder in packet 17 g PO DAILY PRN (Reason: STOOL SOFTENER) 30 Days Qty: 0 0RF acetaminophen 500 mg Tablet 1,000 mg PO TID PRN (Reason: pain) Qty: 0 0RF Rx Instructions: Do not take more than 3000 mg Tylenol in a 24-hour period. Held ferrous sulfate 325 mg (65 mg iron) tablet 325 mg PO DAILY Hold Instructions: Until otherwise instructed to restart Eliquis 5 mg tablet 2.5 mg PO BID Qty: 180 4RF Hold Instructions: Resume on 12/21/24. hold for 7 days Rx Instructions: Discontinue if platelet count drops less than 50,000 or hemoglobin less than 7 g% Discontinued pantoprazole 40 mg tablet,delayed release (DR/EC) 40 mg PO DAILY Referrals / Follow Up: Sylvia Cuevas MD [Primary Care Provider] - 12/27/23 2:30 pm Prosper Carlisle DO [Med Staff - Active Staff] - 07/14/24 10:00 am (Call for appt for Hospital f/u for gastrointestinal bleeding) Disposition Disposition (needs filled in before D/C Order can be placed): Home Health Service Charges/Coding Visit Charges Inpatient E&M: 83485 Disch Hosp >30min
--- NOTE | 2023-12-16 14:00 | CASEMGMT ---
Patient has order for discharge. JOAQUIN OLIVIER in to discuss needs at discharge. Patient states she will go home with resumption of [facility] and that family will be staying with patient today. JOAQUIN OLIVIER called and spoke with son in law, Julito, regarding discharge with patient's permission. Don confirmed that someone will be staying with patient and confirmed resumption of [facility]. JOAQUIN OLIVIER called [facility] and they will be seeing patient tomorrow. JOAQUIN OLIVIER updated patient regarding resumption of [facility]. Patient had no further questions or concerns.
--- NOTE | 2023-12-16 14:57 | PHA.DC.MC.R ---
Pharmacy [facility] has performed discharge medication reconciliation and counseling for this patient. 1. FLUCONAZOLE 200MG PO DAILY X 6 DAYS 2. SUCRALFATE 1GM PO 1HR_ACHS 3. PHENAZOPYRIDINE 95MG PO TID X 7 DAYS The patient's discharge medication list was reviewed for discrepancies and discrepancies were resolved. The patient was counseled on the following discharge medications and changes in medications for homegoing were reviewed. The Reason for Use, instructions for use, and potential side effects were reviewed for all new medications. The patient's questions regarding all of their medications were answered. The patient was able to verbally demonstrate an understanding of their discharge medications. Medications at Discharge Home Medications ascorbate calcium (vitamin C) 500 mg tablet 500 mg PO DAILY SUPPLEMENT 05/01/23 ferrous sulfate 325 mg (65 mg iron) tablet 325 mg PO DAILY SUPPLEMENT 05/01/23 metoprolol tartrate 25 mg tablet 25 mg PO BID AFIB 10/21/23 food supplemt, lactose-reduced 0.06 gram-1 kcal/mL oral liquid (Boost High Protein) 120 ml PO BID FOOD SUPPLEMENT 11/21/23 melatonin 3 mg tablet 3 mg PO QHS sleep 11/21/23 sennosides 8.6 mg-docusate sodium 50 mg capsule (Senna Plus) 1 tab-cap PO DAILY PRN constipation 11/21/23 acetaminophen 500 mg tablet 1,000 mg (2 x 500 mg) PO TID PRN pain #0 tabs 11/25/23 apixaban 5 mg tablet (Eliquis) 2.5 mg (1/2 x 5 mg) PO BID BLOOD THINNER #180 tabs 11/25/23 ciprofloxacin HCl 500 mg tablet (Cipro) 500 mg PO DAILY infection #30 tabs 11/25/23 polyethylene glycol 3350 17 gram oral powder packet (Miralax) 17 g PO DAILY PRN STOOL SOFTENER 30 days #0 ea 11/25/23 fluconazole 100 mg tablet 200 mg (2 x 100 mg) PO DAILY #6 tabs 12/15/23 pantoprazole 40 mg tablet,delayed release 40 mg PO BID #60 tabs 12/15/23 phenazopyridine 95 mg tablet (Azo Urinary Pain Relief) 95 mg PO TID #21 tabs 12/15/23 sucralfate 1 gram tablet 1 g PO 1HR_ACHS #180 tabs 12/15/23
== END 2023-12-16 16:33 | disposition home health service (06) | DRG 378 ==
LOC: ED 09:02 → PCU 10:47
PROVIDERS: Anesthesiology; Internal Medicine Gastroenterology; Admitting Provider Internal Medicine; Emergency Provider Emergency Medicine; PCP Family Medicine; Visit Provider Hospitalist
PROC: 0DJ08ZZ Inspection of Upper Intestinal Tract, Via Natural or Artificial Opening Endoscopic (ICD-10-PCS; CPT 43235; principal; 2023-12-13 15:25)
DX: K26.4 Chronic or unspecified duodenal ulcer with hemorrhage (principal); B37.81 Candidal esophagitis; D62 Acute posthemorrhagic anemia; N18.32 Chronic kidney disease, stage 3b; I48.0 Paroxysmal atrial fibrillation; M06.9 Rheumatoid arthritis, unspecified; D63.1 Anemia in chronic kidney disease; I12.9 Hypertensive chronic kidney disease with stage 1 through stage 4 chronic kidney disease, or unspecified chronic kidney disease; E83.39 Other disorders of phosphorus metabolism; E87.6 Hypokalemia; I95.1 Orthostatic hypotension; K21.9 Gastro-esophageal reflux disease without esophagitis; S00.03XA Contusion of scalp, initial encounter; W18.39XA Other fall on same level, initial encounter; N32.89 Other specified disorders of bladder; R77.8 Other specified abnormalities of plasma proteins; R29.6 Repeated falls; R06.09 Other forms of dyspnea; Z66 Do not resuscitate; Z90.2 Acquired absence of lung [part of]; Z68.24 Body mass index [BMI] 24.0-24.9, adult; Z96.641 Presence of right artificial hip joint; Z79.01 Long term (current) use of anticoagulants; Z79.899 Other long term (current) drug therapy; Z85.118 Personal history of other malignant neoplasm of bronchus and lung; Z87.891 Personal history of nicotine dependence
CPT/HCPCS: 36415; 70450; 80048; 80053; 80076; 81001; 82274; 83735; 84100; 84484; 85014; 85018; 85025; 85027; 85652; 86850; 86900; 86901; 86920; 86922; 93005; 94668; 97110; 97162; 97166; 97530; 97535; 97802; 99285; J7030; J7040; J7050; J7120; P9016; A4216; J3490

== ENCOUNTER 2023-12-26 11:59 | Outpatient (RCR) | payer MEDICARE, SELFPAY ==
[2023-12-26 12:54] LABS: Anion Gap 3 (5-15); BUN 25 mg/dL (7-18); Calcium,Total 9.4 mg/dL (8.5-10.1); Chloride 114 mmol/L (98-107); Creatinine, Serum 1.39 mg/dL (0.55-1.02); EST Glomerular Filtration Rate 38 mL/min (>60); Est Glom Filt Rate - Afr Amer 46 mL/min (>60); Glucose 119 mg/dL (74-106); Potassium 4.3 mmol/L (3.5-5.1); Sodium Level 142 mmol/L (136-145)
== END 2024-01-14 21:40 | disposition home or self-care (01) ==
LOC: HHLAB 11:59
PROVIDERS: PCP Family Medicine; Visit Provider Family Medicine
DX: T84.59XA Infection and inflammatory reaction due to other internal joint prosthesis, initial encounter (principal); I48.92 Unspecified atrial flutter; I48.0 Paroxysmal atrial fibrillation; B96.5 Pseudomonas (aeruginosa) (mallei) (pseudomallei) as the cause of diseases classified elsewhere
CPT/HCPCS: 80048

== ENCOUNTER → 2024-01-14 | Outpatient (CLI) | payer MEDICARE, SELFPAY ==
--- NOTE | 2024-01-14 16:51 | RAD_ITS ---
INDICATION: LUMBAR PAIN EXAMINATION/TECHNIQUE: X-RAY - XR Spine Lumbar Comp W/ Bending Min 6 Views COMPARISON: September 29 2023 pelvis radiograph FINDINGS: VERTEBRAE: Lumbar dextrocurvature with bulky bilateral vertebral bridging osteophytes. No fracture or acute compression deformity. Diffuse lumbar facet arthropathy most prominent L3-4 with degenerative grade 1 retrolisthesis L3 on L4 that does not change with flexion or extension.. No no aggressive osseous lesion.] Partially seen right hip arthroplasty. DISCS: Diffuse disc height loss most prominent L1-L2 and L2-L3. INCLUDED ABDOMEN: Aortic atherosclerosis. Included bowel gas pattern is non-obstructive. RAD/L/S Spine Comp/w Bending Views IMPRESSION: Severe lumbar spondylosis with dextrocurvature. Degenerative grade 1 retrolisthesis L3 on L4 that does not change significantly with flexion or extension. Aortic atherosclerosis. Electronically Signed: Jose Antonio Morton MD at 17:54 EDT ,
== END | disposition home or self-care (01) ==
LOC: MTRAD 16:49
PROVIDERS: PCP Family Medicine; Referring Provider Anesthesiology Pain Medicine; Visit Provider Anesthesiology Pain Medicine
DX: M51.37 Other intervertebral disc degeneration, lumbosacral region (principal)
CPT/HCPCS: 72114

== ENCOUNTER → 2024-01-23 | Outpatient (CLI) | payer MEDICARE, SELFPAY ==
--- NOTE | 2024-01-23 12:22 | EKG12_ITS ---
Test Reason : PROSTHETIC INF Blood Pressure : / mmHG Vent. Rate : 054 BPM Atrial Rate : 054 BPM P-R Int : 216 ms QRS Dur : 092 ms QT Int : 436 ms P-R-T Axes : 073 -11 010 degrees QTc Int : 413 ms Sinus bradycardia with 1st degree A-V block Otherwise normal ECG Confirmed by ANGIE CERON, SHANNON ([id number]), scientific editor JI ISLAS ([id number]) on 01/24/2024 6:39:50 AM Referred By: Nnamdi Bustamante Confirmed By:SHANNON DAAMS MD
[2024-01-23 13:25] LABS: Erythrocyte Sedimentation Rate 7 mm/hr (0-30)
[2024-01-23 13:28] LABS: Hematocrit 38.9 % (37-47); Hemoglobin 11.7 g/dL (12.0-15.0); Mean Corp Hgb Conc 30.1 g/dL (32-36); Mean Corpuscular Hgb 29.5 pg (27.0-32.0); Mean Platelet Vol. 9.6 fl (6.2-12.0); Platelet Count 278 K/mm3 (150-450); RBC Distribution Width CV 14.4 % (11.6-14.6); RBC Distribution Width SD 52.7 fl (35.1-43.9); Red Blood Count 3.97 M/mm3 (4.2-5.4); White Blood Count 8.1 K/mm3 (4.4-11.0)
[2024-01-23 13:59] LABS: AST(SGOT) 25 U/L (15-37); Alanine Aminotransfer ALT/SGPT 15 U/L (13-56); Albumin, Serum 3.5 g/dL (3.2-5.0); Alkaline Phosphatase 123 U/L (45-117); Anion Gap 5 (5-15); BUN 24 mg/dL (7-18); BUN/Creat Ratio 21.2 RATIO (10-20); Bilirubin, Direct 0.18 mg/dL (0.00-0.30); Calcium,Total 9.4 mg/dL (8.5-10.1); Chloride 109 mmol/L (98-107); Creatinine, Serum 1.13 mg/dL (0.55-1.02); EST Glomerular Filtration Rate 48 mL/min (>60); Est Glom Filt Rate - Afr Amer 58 mL/min (>60); Globulin 3.6 g/dL (2.2-4.2); Glucose 92 mg/dL (74-106); Potassium 4.8 mmol/L (3.5-5.1); Protein, Total 7.1 g/dL (6.4-8.2); Sodium Level 141 mmol/L (136-145)
== END | disposition home or self-care (01) ==
PROVIDERS: PCP Family Medicine; Referring Provider Internal Medicine Infectious Disease; Visit Provider Internal Medicine Infectious Disease
DX: T84.50XA Infection and inflammatory reaction due to unspecified internal joint prosthesis, initial encounter (principal)
CPT/HCPCS: 36415; 80048; 80076; 85027; 85652; 93005

== ENCOUNTER 2024-02-24 13:30 | Outpatient (RCR) | payer MEDICARE, SELFPAY ==
--- NOTE | 2024-01-13 13:00 | HP.PTEVAL ---
Patient's Visit Information Visit Information Visit Information: RUTH ANN ANSARI is a 88 year old F referred to Physical Therapy by Dr. Michael Boo MD with a diagnosis of R THR revision in Oct 2023. 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 She fell and broke her R prosthetic in Sep and did a revision. She had multiple complications including infection and internal bleeding that lead her to more surgery and blood transfusion. She got out of the hospital a few weeks ago. She has pain in her L hip. She took some tramadol this morning and that helps her get going quicker in the morning. The Dr is seeing signs of arthritis in her back on the L side and causing pain that radiated down her back. Everyone is noticing her hyperextension of her L knee and she has had drop foot for years. She has had RA for years. She uses a rollator and has been using Oct 30 since the surgery. She uses the rollator in the house as well. Her L hip hurts to walk. She just feels weak in general. Pt is seeing Dr Arturo molina and has not seen him in a few years. She has 2 steps to get into the house and uses a railing. Pain L hip pain: Pain Intensity (Out of 10): 3 Comment: with walking L hip is 10/10 in AM and then walking in today 6/10 Objective Objective: Gait: pt walks with decrease DF on the L and increased Hyperextension on the L with gait. She walks with a rollator LE MMT: R hip flex 6.5 and L hip flex 7.5 R knee ext 25 and L 19.7 R knee flex 14.4 and L 12.9 R DF 18.6 and L 11.4 Pt has increase pain with SLR and had to use her hands with both LE's to get them up onto the table Tinetti: 15 Pt had a lot of L hip pain and could not even leg the therapist move her leg into SKC position...after a lot of gentle movement we were able to get her leg into that position. She has good ER and even able to get a piriformis stretch but IR movement was limited. Pt had increase pain with bridges but was able to work through it a little to get a little more motion but still very mimited ROM Balance/Special Test Scores Tinetti Balance Score: 8 Tinetti Gait Score: 7 Tinetti Balance & Gait Score: 15 Lower Extremity Functional Score: 24 Goals Goal 1:: I HEP Goal Time Frame: 6-8 Weeks Goal 2:: Increase L hip AROM to be able to perform SKC with no pain Goal Time Frame: 6-8 Weeks Goal 3:: Be able to get to a 50% ROM bridges without pain Goal Time Frame: 6-8 Weeks Goal 4:: Increase LE strength (at the time of the eval: LE MMT: R hip flex 6.5 and L hip flex 7.5 R knee ext 25 and L 19.7 R knee flex 14.4 and L 12.9 R DF 18.6 and L 11.4). Goal Time Frame: 6-8 Weeks Goal 5:: Increase balance (tinetti at eval was 15) Goal Time Frame: 6-8 Weeks Goal 6:: Decrease L hip pain by 50% Goal Time Frame: 6-8 Weeks Rehabilitation Potential Rehabilitation Potential: Good Anticipated Interventions Patient/Client Instruction: Educate patient on: Condition and Plan of Care For the Purpose of:: To decrease pain, To increase ROM, To improve nutrient delivery to tissue, To improve muscle performance and motor function, To improve ability to perform ADL's, To increase tolerance to activity/condition/position, To improve performance and independence with ADL's, To decrease level of supervision to perform tasks, To improve ability of physical actions for home/community/work/leisure, To improve health of tissue, To decrease soft tissue restriction and To increase flexibility/ROM Therapeutic Exercise to Include: Strength training, Postural training, Flexibilty training, Gait and locomotor training, Neuromotor development, Passive ROM, Active ROM, Dynamic Lumbar Stabilization and Scapular Strength/Stabilization For the Purpose of:: To decrease pain, To increase ROM, To improve nutrient delivery to tissue, To improve muscle performance and motor function, To improve ability to perform ADL's, To increase tolerance to activity/condition/position, To improve performance and independence with ADL's, To decrease level of supervision to perform tasks, To improve ability of physical actions for home/community/work/leisure, To improve gait and locomotor functions, To improve health of tissue, To decrease soft tissue restriction, To increase flexibility/ROM, To improve balance and To improve safety with gait Functional Training to Include: Gait training For the Purpose of:: To improve gait and locomotor functions and To improve safety with gait Text: Thank you for the opportunity to evaluate your patient. For Medicare and Medicare HMO plans, please review the plan of care and approve it. It will need to be FAXED BACK to us at [phone] for Medicare purposes. For Medicare only, by signing this I certify the plan of care. Please let me know if there are questions or concerns regarding this plan of care. Physician Signature: Date:
--- NOTE | 2024-02-24 16:27 | HP.PTDCSUM ---
Discharge Summary D/C summary: It has been my pleasure to treat RUTH ANN ANSARI referred by Dr. Michael Boo MD, with the diagnosis of R THR revision in Oct 2023 for a total of 8 visit(s). Discharge Date: 02/24/24 Please see the following information for a summary of their discharge status. Subjective Subjective: Pt reports that she thinks that she is ready to be done with PT. She is trying to get off the rollator a little here and there but her kids are yelling at her. She has to decided if she wants to go to Independent living or stay in her home. Pain L hip pain: Pain Intensity (Out of 10): 2 Overall Improvement % Improvement: 80 Objective Objective/Function: Pt was able to walk 150 feet with the straight cane with LOB X 1 Tinetti 20 Goals Goal 1:: I HEP Goal Progress: Goal Met Goal 2:: Increase L hip AROM to be able to perform SKC with no pain Goal Progress: Progressing Goal 3:: Be able to get to a 50% ROM bridges without pain Goal Progress: Goal Met Goal 4:: Increase LE strength (at the time of the eval: LE MMT: R hip flex 6.5 and L hip flex 7.5 R knee ext 25 and L 19.7 R knee flex 14.4 and L 12.9 R DF 18.6 and L 11.4). Goal 5:: Increase balance (tinetti at eval was 15) Goal 6:: Decrease L hip pain by 50% Goal Progress: Progressing Plan Plan: DC PT to HEP D/C Information Discharge Comments: DC PT d/c sentence: If there are questions or concerns regarding this patient's physical therapy, please feel free to call me at [phone]. Thank you for the referral of this patient. Sincerely, Jo Olson, MPT Balance/Gait/Functional tests Balance/Special Test Scores Tinetti Balance Score: 11 Tinetti Gait Score: 9 Tinetti Balance & Gait Score: 20 Lower Extremity Functional Score: 27 Improvement % Improvement: 80
== END 2024-02-24 19:00 | disposition home or self-care (01) ==
LOC: PT 13:30
PROVIDERS: PCP Family Medicine; Referring Provider Specialist; Visit Provider Specialist
DX: T84.84XD Pain due to internal orthopedic prosthetic devices, implants and grafts, subsequent encounter (principal); Z96.641 Presence of right artificial hip joint; R29.6 Repeated falls
CPT/HCPCS: 97110; 97162; 97530

== ENCOUNTER → 2024-03-31 | Outpatient (CLI) | payer MEDICARE, SELFPAY ==
--- NOTE | 2024-03-31 14:33 | RAD_ITS ---
STUDY: X-RAY - PELVIS AND RIGHT HIP REASON FOR EXAM: Female, 88 years old. HIP PAIN TECHNIQUE: 3 views of the pelvis and hip. COMPARISON: 10/30/2023 FINDINGS: There is a non-specific bowel gas pattern. Normal visualized soft tissue structures. Normal bilateral iliac wings, sacroiliac joints and visualized sacrum. Normal bilateral superior and inferior pubic rami. Normal pubic symphysis. Normal bilateral ischial tuberosities. Status post total hip arthroplasty. The prosthesis appears located. No ostial lysis to suggest loosening.. RAD/HIP, UNI W/ Pelvis 2-3 Views IMPRESSION: Normal x-ray examination of the pelvis and hip after total hip arthroplasty. Electronically Signed: Jones Canada MD at 8:57 EDT ,
== END | disposition home or self-care (01) ==
LOC: MTRAD 14:31
PROVIDERS: PCP Family Medicine; Referring Provider Clinical Nurse Specialist Adult Health; Visit Provider Clinical Nurse Specialist Adult Health
DX: M25.551 Pain in right hip (principal)
CPT/HCPCS: 73502